=== PATIENT | male | born 1945 | race Caucasian/White ===

== ENCOUNTER → 2023-05-20 11:03 | Outpatient (REF) | payer MEDICARE, OTHER, SELFPAY ==
[2023-05-20 11:31] LABS: % Basophils 0.4 % (0-2); % Eosinophils 1.1 % (0-6); % Immature Granulocytes 0.4 % (0-0.5); % Monocytes 7.3 % (1.7-9.3); % Neutrophils 76.8 % (42.2-75.2); Absolute Eosinophils 0.1 10^3/uL (0-0.7); Absolute Lymphocytes 0.6 10^3/uL (1.2-3.4); Absolute Monocytes 0.3 10^3/uL (0.1-0.6); Absolute Neutrophils 3.5 10^3/uL (1.4-6.5); Hematocrit 39.3 % (39.0-52.0); Hemoglobin 14.5 g/dL (13.0-18.0); Mean Corp Hgb Conc. 36.9 g/dL (33.0-37.0); Mean Corpuscular Hgb 33.6 pg (27.0-31.0); Mean Platelet Volume 10.2 fL (7.4-10.4); Nucleated Red Blood Cells % 0 % (-); Platelet Count 117 10^3/uL (130-400); Red Blood Cell Count 4.32 10^6/uL (4.70-6.10); Red Cell Dist. Width 14.1 % (11.5-14.5); White Blood Cell Count 4.5 10^3/uL (4.8-10.8)
[2023-05-20 11:52] LABS: Iron 131 ug/dl (49-181)
[2023-05-20 12:03] LABS: Percent Saturation 38 % (20-50); Total Iron Binding Capacity 336 ug/dl (261-462)
[2023-05-20 12:30] LABS: Ferritin 40.4 ng/ml (17.9-464.0)
== END ==
LOC: REG 11:03
PROVIDERS: ATTENDING PHYSICIAN Internal Medicine Hematology & Oncology; FAMILY PHYSICIAN Family Medicine
DX: D72.819 Decreased white blood cell count, unspecified (principal); D64.9 Anemia, unspecified; D53.9 Nutritional anemia, unspecified; C83.07 Small cell B-cell lymphoma, spleen
CPT/HCPCS: 36415; 82728; 83540; 83550; 85025

== ENCOUNTER → 2023-06-20 08:03 | Outpatient (REF) | payer MEDICARE, OTHER, SELFPAY ==
[2023-06-20 10:32] LABS: Protein/creatinine Ratio 0.1; Urine Protein 7 mg/dl
[2023-06-20 10:35] LABS: ALT (SGPT) 22 U/L (0-50); AST (SGOT) 22 U/L (17-59); Albumin 4.7 g/dl (3.5-5.0); Alkaline Phosphatase 73 U/L (38-126); Blood Urea Nitrogen 27 mg/dl (9-20); Calcium 9.9 mg/dl (8.4-10.2); Carbon Dioxide 22 mmol/L (22-30); Chloride 100 mmol/L (98-107); Glucose 143 mg/dl (70-99); HDL Cholesterol 31 mg/dl; LDL Cholesterol, Calculated 78 mg/dl; Potassium 4.1 mmol/L (3.5-5.1); Sodium 133 mmol/L (135-145); Total Bilirubin 0.8 mg/dl (0.2-1.3); Total Cholesterol 139 mg/dl (50-199); Total Protein 6.8 g/dl (6.3-8.2); Triglyceride 152 mg/dl (10-149); Very Low Density Lipoprotein 30 mg/dl (0-30); eGFR > 60.00
[2023-06-20 11:39] LABS: Glycohemoglobin (HgbA1c) 5.6 % (4.0-5.6)
== END ==
LOC: REG 08:03
PROVIDERS: ATTENDING PHYSICIAN Family Medicine
DX: E11.8 Type 2 diabetes mellitus with unspecified complications (principal); E11.9 Type 2 diabetes mellitus without complications; I10 Essential (primary) hypertension; E78.2 Mixed hyperlipidemia
CPT/HCPCS: 80053; 80061; 82570; 83036; 84156

== ENCOUNTER → 2023-07-12 10:35 | Outpatient (REF) | payer MEDICARE, OTHER, SELFPAY ==
[2023-07-12 11:38] LABS: % Basophils 0.4 % (0-2); % Eosinophils 0.8 % (0-6); % Immature Granulocytes 0.6 % (0-0.5); % Lymphocytes 14.2 % (20.5-51.1); % Monocytes 7.6 % (1.7-9.3); % Neutrophils 76.4 % (42.2-75.2); Absolute Lymphocytes 0.7 10^3/uL (1.2-3.4); Absolute Monocytes 0.4 10^3/uL (0.1-0.6); Absolute Neutrophils 3.7 10^3/uL (1.4-6.5); Hemoglobin 14.1 g/dL (13.0-18.0); Mean Corp Hgb Conc. 36.2 g/dL (33.0-37.0); Mean Corpuscular Hgb 33.6 pg (27.0-31.0); Mean Corpuscular Volume 92.9 fL (80.0-94.0); Mean Platelet Volume 10.9 fL (7.4-10.4); Nucleated Red Blood Cells % 0 % (-); Platelet Count 119 10^3/uL (130-400); Red Cell Dist. Width 13.5 % (11.5-14.5); White Blood Cell Count 4.9 10^3/uL (4.8-10.8)
[2023-07-12 11:41] LABS: Urine Albumin Negative (Neg - Trace); Urine Bilirubin Negative (Negative); Urine Character Clear (Clear); Urine Color Yellow; Urine Glucose Negative (Negative); Urine Ketone Negative (Negative); Urine Leukocyte Negative (Negative); Urine Nitrite Negative (Negative); Urine Occult Blood Negative (Negative); Urine Specific Gravity 1.015 (<1.030); Urine Urobilinogen Negative (Neg - 1+)
[2023-07-12 12:59] LABS: Blood Urea Nitrogen 21 mg/dl (9-20); Calcium 10.2 mg/dl (8.4-10.2); Carbon Dioxide 25 mmol/L (22-30); Chloride 101 mmol/L (98-107); Glucose 113 mg/dl (70-99); Lipase 215 U/L (23-300); Potassium 4.3 mmol/L (3.5-5.1); Sodium 133 mmol/L (135-145); eGFR > 60.00
== END ==
LOC: REG 10:35
PROVIDERS: ATTENDING PHYSICIAN Nurse Practitioner Family
DX: R10.10 Upper abdominal pain, unspecified (principal)
CPT/HCPCS: 36415; 80048; 81003; 83690; 85025

== ENCOUNTER → 2023-07-16 10:17 | Outpatient (REF) | payer MEDICARE, OTHER, SELFPAY | LOC: HWRAD 10:17 | PROVIDERS: ATTENDING PHYSICIAN Nurse Practitioner Family | DX: R10.10 Upper abdominal pain, unspecified (principal) | CPT/HCPCS: 74177; Q9967 ==

== ENCOUNTER → 2023-07-26 15:01 | Outpatient (REF) | payer MEDICARE, OTHER, SELFPAY ==
[2023-07-26 17:27] LABS: % Basophils 0.4 % (0-2); % Eosinophils 1.1 % (0-6); % Immature Granulocytes 0.2 % (0-0.5); % Lymphocytes 13.9 % (20.5-51.1); % Monocytes 5.6 % (1.7-9.3); % Neutrophils 78.8 % (42.2-75.2); Absolute Eosinophils 0.1 10^3/uL (0-0.7); Absolute Lymphocytes 0.8 10^3/uL (1.2-3.4); Absolute Monocytes 0.3 10^3/uL (0.1-0.6); Absolute Neutrophils 4.3 10^3/uL (1.4-6.5); Hematocrit 38.3 % (39.0-52.0); Hemoglobin 13.7 g/dL (13.0-18.0); Mean Corp Hgb Conc. 35.8 g/dL (33.0-37.0); Mean Corpuscular Hgb 33.7 pg (27.0-31.0); Mean Corpuscular Volume 94.3 fL (80.0-94.0); Mean Platelet Volume 10.5 fL (7.4-10.4); Nucleated Red Blood Cells % 0 % (-); Platelet Count 121 10^3/uL (130-400); Red Blood Cell Count 4.06 10^6/uL (4.70-6.10); Red Cell Dist. Width 13.4 % (11.5-14.5); Reticulocyte Count 2.5 % (0.4-2.8); White Blood Cell Count 5.4 10^3/uL (4.8-10.8)
[2023-07-26 17:45] LABS: Iron 90 ug/dl (49-181)
[2023-07-26 17:58] LABS: Percent Saturation 28 % (20-50); Total Iron Binding Capacity 314 ug/dl (261-462)
[2023-07-26 18:33] LABS: Erythrocyte Sed Rate 8 mm/hour (0-20)
[2023-07-28 16:33] LABS: Platelet Antibody, Direct IgG Negative (Negative); Platelet Antibody, Direct IgM Negative (Negative)
[2023-07-29 00:46] LABS: IgG 476 mg/dl (700-1600); IgM 45 mg/dl (40-230)
== END ==
LOC: REG 15:01
PROVIDERS: ATTENDING PHYSICIAN Internal Medicine Hematology & Oncology; FAMILY PHYSICIAN Family Medicine
DX: D72.819 Decreased white blood cell count, unspecified (principal); D64.9 Anemia, unspecified; D53.9 Nutritional anemia, unspecified; C83.07 Small cell B-cell lymphoma, spleen
CPT/HCPCS: 36415; 82728; 82784; 83521; 83540; 83550; 84155; 84165; 85025; 85045; 85652; 86023; 86334

== ENCOUNTER → 2023-07-30 14:26 | Outpatient (REF) | payer MEDICARE, OTHER, SELFPAY | LOC: REG 14:26 | PROVIDERS: ATTENDING PHYSICIAN Internal Medicine Hematology & Oncology; FAMILY PHYSICIAN Family Medicine | DX: D72.819 Decreased white blood cell count, unspecified (principal); D64.9 Anemia, unspecified; D53.9 Nutritional anemia, unspecified; C83.07 Small cell B-cell lymphoma, spleen | CPT/HCPCS: 36415; 82272 ==

== ENCOUNTER → 2023-08-22 07:07 | Outpatient (REF) | payer MEDICARE, OTHER, SELFPAY ==
[2023-08-22 07:37] LABS: % Basophils 0.4 % (0-2); % Eosinophils 1.8 % (0-6); % Immature Granulocytes 0.4 % (0-0.5); % Lymphocytes 15.5 % (20.5-51.1); % Monocytes 7.2 % (1.7-9.3); % Neutrophils 74.7 % (42.2-75.2); Absolute Eosinophils 0.1 10^3/uL (0-0.7); Absolute Lymphocytes 0.8 10^3/uL (1.2-3.4); Absolute Monocytes 0.4 10^3/uL (0.1-0.6); Absolute Neutrophils 3.7 10^3/uL (1.4-6.5); Hematocrit 34.9 % (39.0-52.0); Hemoglobin 12.8 g/dL (13.0-18.0); Mean Corp Hgb Conc. 36.7 g/dL (33.0-37.0); Mean Corpuscular Hgb 33.9 pg (27.0-31.0); Mean Corpuscular Volume 92.3 fL (80.0-94.0); Nucleated Red Blood Cells % 0 % (-); Red Blood Cell Count 3.78 10^6/uL (4.70-6.10); Red Cell Dist. Width 14.4 % (11.5-14.5); White Blood Cell Count 4.9 10^3/uL (4.8-10.8)
[2023-08-22 07:42] VITALS: BP 127/71; BP_SYST 68
[2023-08-22 07:45] LABS: INR 0.97; PT 12.9 Sec (11.4-14.6)
[2023-08-22] MEDS: ATIVAN 0.5 MG IV (08:25)
[2023-08-22] MEDS: FLUSH (NSS) 1 FLUSH IV (08:26)
[2023-08-22] MEDS: NSS (PRESERVATIVE FREE) 0.25 ML IV (08:26)
[2023-08-22 08:41] LABS: Mean Platelet Volume 10.3 fL (7.4-10.4); Platelet Count 104 10^3/uL (130-400)
[2023-08-22 09:09] VITALS: BP 137/74
== END ==
LOC: RADI 07:07
PROVIDERS: ATTENDING PHYSICIAN Internal Medicine Hematology & Oncology; FAMILY PHYSICIAN Family Medicine
DX: D64.9 Anemia, unspecified (principal)
CPT/HCPCS: 88305; 88311; 88312; 36415; 38222; 77012; 85025; 85610; 88313; 88341; 88342

== ENCOUNTER → 2023-09-17 13:37 | Outpatient (REF) | payer MEDICARE, OTHER, SELFPAY | LOC: RAD 13:37 | PROVIDERS: ATTENDING PHYSICIAN Surgery Vascular Surgery; FAMILY PHYSICIAN Family Medicine | DX: I65.09 Occlusion and stenosis of unspecified vertebral artery (principal) | CPT/HCPCS: 70496; 70498; Q9967 ==

== ENCOUNTER → 2023-09-18 13:42 | Outpatient (REF) | payer MEDICARE, OTHER, SELFPAY ==
[2023-09-19 15:58] LABS: Lyme Antibody Screen, EIA Negative (Negative)
== END ==
LOC: REG 13:42
PROVIDERS: ATTENDING PHYSICIAN Family Medicine
DX: R16.1 Splenomegaly, not elsewhere classified (principal)
CPT/HCPCS: 36415; 86618

== ENCOUNTER → 2023-09-26 06:18 | Day surgery (SDC) | payer MEDICARE, OTHER, SELFPAY ==
[2023-09-26 08:02] LABS: Glucose - Point of Care 146 mg/dl (70-99)
== END ==
LOC: GI 06:18
PROVIDERS: ATTENDING PHYSICIAN Internal Medicine Gastroenterology
DX: Z12.11 Encounter for screening for malignant neoplasm of colon (principal); K57.30 Diverticulosis of large intestine without perforation or abscess without bleeding; K64.8 Other hemorrhoids; R10.12 Left upper quadrant pain; D12.2 Benign neoplasm of ascending colon; D12.3 Benign neoplasm of transverse colon; D12.7 Benign neoplasm of rectosigmoid junction; D12.1 Benign neoplasm of appendix; D12.4 Benign neoplasm of descending colon; K29.50 Unspecified chronic gastritis without bleeding; Z86.010 Personal history of colon polyps
CPT/HCPCS: 45385; 45381; 43239; 88305; 82962; 88342

== ENCOUNTER → 2023-10-21 12:52 | Outpatient (REF) | payer MEDICARE, OTHER, SELFPAY | LOC: HWRAD 12:52 | PROVIDERS: ATTENDING PHYSICIAN Nurse Practitioner Family; FAMILY PHYSICIAN Family Medicine | DX: R10.10 Upper abdominal pain, unspecified (principal) | CPT/HCPCS: 76700 ==

== ENCOUNTER 2023-11-20 06:49 | Day surgery (SDC) | payer MEDICARE, OTHER, SELFPAY ==
[2023-11-20 08:05] VITALS: BMI 28.9
[2023-11-20 08:07] VITALS: BMI 28.9
[2023-11-20 08:33] LABS: Glucose - Point of Care 159 mg/dl (70-99)
[2023-11-20 11:20] LABS: Glucose - Point of Care 141 mg/dl (70-99)
[2023-11-20 12:49] VITALS: BP 118/67
[2023-11-20 13:00] VITALS: BP 138/75
[2023-11-20 13:15] VITALS: BP 119/69
[2023-11-20 13:30] VITALS: BP 127/72
== END 2023-11-20 14:16 | disposition home or self-care (01) ==
LOC: SDS 06:49
PROVIDERS: ATTENDING PHYSICIAN Internal Medicine Gastroenterology
DX: D12.1 Benign neoplasm of appendix (principal); D12.3 Benign neoplasm of transverse colon; D12.4 Benign neoplasm of descending colon; D12.6 Benign neoplasm of colon, unspecified; K57.30 Diverticulosis of large intestine without perforation or abscess without bleeding; K64.0 First degree hemorrhoids; Z86.010 Personal history of colon polyps
CPT/HCPCS: 45390; 45385; 45380; 88305; 82962

== ENCOUNTER → 2023-11-25 10:26 | Outpatient (REF) | payer MEDICARE, OTHER, SELFPAY ==
[2023-11-25 11:39] LABS: % Basophils 0.2 % (0-2); % Eosinophils 1.3 % (0-6); % Immature Granulocytes 0.7 % (0-0.5); % Lymphocytes 16.1 % (20.5-51.1); % Monocytes 7.2 % (1.7-9.3); % Neutrophils 74.5 % (42.2-75.2); Absolute Eosinophils 0.1 10^3/uL (0-0.7); Absolute Lymphocytes 0.7 10^3/uL (1.2-3.4); Absolute Monocytes 0.3 10^3/uL (0.1-0.6); Absolute Neutrophils 3.4 10^3/uL (1.4-6.5); Hematocrit 36.1 % (39.0-52.0); Mean Corpuscular Hgb 32.5 pg (27.0-31.0); Mean Corpuscular Volume 90.3 fL (80.0-94.0); Mean Platelet Volume 10.9 fL (7.4-10.4); Nucleated Red Blood Cells % 0 % (-); Platelet Count 127 10^3/uL (130-400); Red Cell Dist. Width 14.5 % (11.5-14.5); White Blood Cell Count 4.6 10^3/uL (4.8-10.8)
[2023-11-25 12:02] LABS: Glycohemoglobin (HgbA1c) 5.3 % (4.0-5.6)
[2023-11-25 12:32] LABS: Ferritin 60.5 ng/ml (17.9-464.0)
[2023-11-25 13:32] LABS: ALT (SGPT) 20 U/L (0-50); AST (SGOT) 19 U/L (17-59); Albumin 4.6 g/dl (3.5-5.0); Alkaline Phosphatase 61 U/L (38-126); Blood Urea Nitrogen 21 mg/dl (9-20); Calcium 9.9 mg/dl (8.4-10.2); Carbon Dioxide 25 mmol/L (22-30); Chloride 100 mmol/L (98-107); Glucose 145 mg/dl (70-99); HDL Cholesterol 34 mg/dl; Iron 96 ug/dl (49-181); LDL Cholesterol, Calculated 29 mg/dl; Potassium 4.4 mmol/L (3.5-5.1); Sodium 140 mmol/L (135-145); Total Bilirubin 0.9 mg/dl (0.2-1.3); Total Cholesterol 83 mg/dl (50-199); Total Protein 6.4 g/dl (6.3-8.2); Triglyceride 104 mg/dl (10-149); Very Low Density Lipoprotein 20 mg/dl (0-30); eGFR > 60.00
[2023-11-25 13:41] LABS: Percent Saturation 30 % (20-50); Total Iron Binding Capacity 313 ug/dl (261-462)
== END ==
LOC: REG 10:26
PROVIDERS: ATTENDING PHYSICIAN Internal Medicine Hematology & Oncology; FAMILY PHYSICIAN Nurse Practitioner Family
DX: D72.819 Decreased white blood cell count, unspecified (principal); D64.9 Anemia, unspecified; D53.9 Nutritional anemia, unspecified; C83.07 Small cell B-cell lymphoma, spleen; E11.9 Type 2 diabetes mellitus without complications; E11.8 Type 2 diabetes mellitus with unspecified complications
CPT/HCPCS: 36415; 80053; 80061; 82728; 83036; 83540; 83550; 85025

== ENCOUNTER → 2023-12-13 12:56 | Outpatient (REF) | payer MEDICARE, OTHER, SELFPAY ==
[2023-12-13 13:59] LABS: Urine Albumin Negative (Neg - Trace); Urine Bilirubin Negative (Negative); Urine Character Clear (Clear); Urine Color Yellow; Urine Glucose Negative (Negative); Urine Ketone Negative (Negative); Urine Leukocyte Negative (Negative); Urine Nitrite Negative (Negative); Urine Occult Blood Negative (Negative); Urine Specific Gravity 1.015 (<1.030); Urine Urobilinogen Negative (Neg - 1+)
[2023-12-13 14:25] LABS: Microalbumin, Random Urine 1.4 mg/dl (0.6-1.7); Microalbumin/creatinine Ratio 17.5 mg/g
[2023-12-13 14:45] LABS: Vitamin D, 25-OH*** 48.3 ng/mL (30-80)
[2023-12-13 14:59] LABS: PSA, Total - Screen 4.23 ng/ml (0.0-4.0)
== END ==
LOC: REG 12:56
PROVIDERS: ATTENDING PHYSICIAN Family Medicine
DX: E11.8 Type 2 diabetes mellitus with unspecified complications (principal); Z12.5 Encounter for screening for malignant neoplasm of prostate; Z79.899 Other long term (current) drug therapy
CPT/HCPCS: 36415; 81003; 82043; 82306; 82570; G0103

== ENCOUNTER 2024-01-21 06:32 | Day surgery (SDC) | payer MEDICARE, OTHER, SELFPAY ==
[2024-01-21 08:04] LABS: Glucose - Point of Care 160 mg/dl (70-99)
[2024-01-21 08:09] VITALS: BMI 28.8
[2024-01-21 08:10] VITALS: BP 147/89
[2024-01-21 11:39] VITALS: BP 112/69
[2024-01-21 11:45] VITALS: BP 129/81
[2024-01-21 11:56] LABS: Glucose - Point of Care 160 mg/dl (70-99)
[2024-01-21 12:00] VITALS: BP 126/60
[2024-01-21 12:15] VITALS: BP 133/73
== END 2024-01-21 13:12 | disposition home or self-care (01) ==
LOC: SDS 06:32
PROVIDERS: ATTENDING PHYSICIAN Internal Medicine Gastroenterology
DX: D12.3 Benign neoplasm of transverse colon (principal); T18.4XXA Foreign body in colon, initial encounter; Y83.1 Surgical operation with implant of artificial internal device as the cause of abnormal reaction of the patient, or of later complication, without mention of misadventure at the time of the procedure; K57.30 Diverticulosis of large intestine without perforation or abscess without bleeding; K64.0 First degree hemorrhoids; Z98.890 Other specified postprocedural states
CPT/HCPCS: 45390; 45388; 45385; 88305; 82962

== ENCOUNTER → 2024-01-28 15:38 | Outpatient (REF) | payer MEDICARE, OTHER, SELFPAY | LOC: RAD 15:38 | PROVIDERS: ATTENDING PHYSICIAN Family Medicine | DX: R22.31 Localized swelling, mass and lump, right upper limb (principal) | CPT/HCPCS: 93971 ==

== ENCOUNTER → 2024-04-01 13:53 | Outpatient (REF) | payer MEDICARE, OTHER, SELFPAY ==
[2024-04-01 14:49] LABS: % Basophils 0.5 % (0-2); % Eosinophils 1.2 % (0-6); % Immature Granulocytes 0.5 % (0-0.5); % Lymphocytes 16.8 % (20.5-51.1); % Monocytes 6.3 % (1.7-9.3); % Neutrophils 74.7 % (42.2-75.2); Absolute Eosinophils 0.1 10^3/uL (0-0.7); Absolute Lymphocytes 0.7 10^3/uL (1.2-3.4); Absolute Monocytes 0.3 10^3/uL (0.1-0.6); Absolute Neutrophils 3.1 10^3/uL (1.4-6.5); Hematocrit 37.5 % (39.0-52.0); Hemoglobin 13.3 g/dL (13.0-18.0); Mean Corp Hgb Conc. 35.5 g/dL (33.0-37.0); Mean Corpuscular Hgb 33.1 pg (27.0-31.0); Mean Corpuscular Volume 93.3 fL (80.0-94.0); Mean Platelet Volume 10.9 fL (7.4-10.4); Nucleated Red Blood Cells % 0 % (-); Platelet Count 118 10^3/uL (130-400); Red Blood Cell Count 4.02 10^6/uL (4.70-6.10); Red Cell Dist. Width 13.4 % (11.5-14.5); White Blood Cell Count 4.1 10^3/uL (4.8-10.8)
[2024-04-01 15:32] LABS: Iron 106 ug/dl (49-181)
[2024-04-01 15:41] LABS: Percent Saturation 34 % (20-50); Total Iron Binding Capacity 308 ug/dl (261-462)
[2024-04-01 16:07] LABS: Ferritin 34.2 ng/ml (17.9-464.0)
== END ==
LOC: REG 13:53
PROVIDERS: ATTENDING PHYSICIAN Internal Medicine Hematology & Oncology; FAMILY PHYSICIAN Family Medicine
DX: D72.819 Decreased white blood cell count, unspecified (principal); D64.9 Anemia, unspecified; D53.9 Nutritional anemia, unspecified; C83.07 Small cell B-cell lymphoma, spleen
CPT/HCPCS: 36415; 82728; 83540; 83550; 85025

== ENCOUNTER 2024-05-22 13:48 | Emergency (ER) | payer MEDICARE, OTHER, SELFPAY ==
[2024-05-22 14:02] VITALS: BP 146/81
[2024-05-22 14:33] LABS: % Basophils 0.7 % (0-2); % Eosinophils 1.1 % (0-6); % Immature Granulocytes 0.4 % (0-0.5); % Monocytes 6.8 % (1.7-9.3); % Neutrophils 73.6 % (42.2-75.2); Absolute Eosinophils 0.1 10^3/uL (0-0.7); Absolute Lymphocytes 0.8 10^3/uL (1.2-3.4); Absolute Monocytes 0.3 10^3/uL (0.1-0.6); Absolute Neutrophils 3.3 10^3/uL (1.4-6.5); Hematocrit 38.5 % (39.0-52.0); Mean Corp Hgb Conc. 35.8 g/dL (33.0-37.0); Mean Corpuscular Hgb 32.4 pg (27.0-31.0); Mean Corpuscular Volume 90.4 fL (80.0-94.0); Mean Platelet Volume 10.8 fL (7.4-10.4); Nucleated Red Blood Cells % 0 % (-); Platelet Count 115 10^3/uL (130-400); Red Blood Cell Count 4.29 10^6/uL (4.70-6.10); White Blood Cell Count 4.5 10^3/uL (4.8-10.8)
[2024-05-22 14:44] LABS: ALT (SGPT) 18 U/L (0-50); AST (SGOT) 19 U/L (17-59); Albumin 4.4 g/dl (3.5-5.0); Alkaline Phosphatase 65 U/L (38-126); Blood Urea Nitrogen 23 mg/dl (9-20); Calcium 10.4 mg/dl (8.4-10.2); Carbon Dioxide 26 mmol/L (22-30); Chloride 101 mmol/L (98-107); Glucose 99 mg/dl (70-99); Lipase 53 U/L (23-300); Potassium 4.3 mmol/L (3.5-5.1); Sodium 136 mmol/L (135-145); Total Bilirubin 1.2 mg/dl (0.2-1.3); Total Protein 6.5 g/dl (6.3-8.2); eGFR > 60.00
[2024-05-22 14:56] LABS: Troponin I 0.016 ng/ml
[2024-05-22 17:10] LABS: Urine Albumin 1+ (Neg - Trace); Urine Bilirubin Negative (Negative); Urine Character Clear (Clear); Urine Color Yellow; Urine Glucose Negative (Negative); Urine Ketone Negative (Negative); Urine Leukocyte Negative (Negative); Urine Nitrite Negative (Negative); Urine Occult Blood Negative (Negative); Urine Specific Gravity 1.015 (<1.030); Urine Urobilinogen Negative (Neg - 1+)
[2024-05-22 17:13] VITALS: BP 128/69
--- NOTE | 2024-05-22 17:27 | ED.GENMED ---
History of Present Illness
General
Chief Complaint: Heart Rate Problem
Time Seen by Provider: 05/22/24 17:01
History of Present Illness
History of Present Illness:
79-year-old male presents to the emergency department for evaluation of an acute onset of dizziness that occurred earlier today lasting several hours. States that occurred while he was seated at his desk but seem to be worse when he stood up. [place]
very uneasy when trying to walk but did not fall. He also notes having right lower quadrant abdominal pain for the duration of the day. No fevers, chills, sweats, headache, vision changes, neck pain, or extremity paresthesias. Dizziness does seem
to angella at this time
Past History
Past History
ED Past Medical History: None
ED Past Surgical History: None
Social History
Tobacco: Non-smoker
Review of Systems
Review of Systems
Allergies reviewed?: Yes
All Other Systems: ROS reviewed and negative except as documented in HPI and ROS
Phy Exam
Physical Exam
Physical Exam:
GEN: Well appearing, NAD, WDWN
HEENT: Oral mucosa moist, no scleral icterus, no nasal congestion
Cardiac: Regular rate and rhythm, occasional ectopic beats
Lung: No respiratory distress, no tachypnea, lungs CTAB
Abdomen: Soft, Focal RLQ tenderness
MSK: No gross deformity or injuries
Skin: Good color, no pallor or jaundice, no rashes
Neuro: AO x3; CN II-XII grossly intact. BUE strength 5/5 in all mcfadden, sensation intact and symmetric. BLE strength 5/5 in all mcfadden, sensation intact and symmetric. Gait steady
Psych: Calm, cooperative
Course
Orders/Labs/Results
Orders:
Orders
05/22/24 13:59
Electrocardiogram (*1) Urgent
Reason for Study: Vertigo / Dizzy
05/22/24 14:00
EKG- Treatment ONCE
05/22/24 14:11
Complete Blood Count/With Diff Urgent
Comprehensive Metabolic Panel Urgent
Lipase Urgent
Troponin I Urgent
05/22/24 17:01
Urinalysis Reflex To Culture Urgent
Date Specimen was Collected: 05/22/24
Time Specimen was Collected: 16:59
Urine Microscopic Reflex Cult Urgent
05/22/24 17:30
CT Abd/Pel (IV only)-DH only Urgent
Comment:
Reason For Exam: RLQ pain
Abnormal Lab Results
05/22/24 05/22/24
14:11 17:01
WBC 4.5 L 10^3/uL
(4.8-10.8)
RBC 4.29 L 10^6/uL
(4.70-6.10)
Hct 38.5 L %
(39.0-52.0)
MCH 32.4 H pg
(27.0-31.0)
Plt Count 115 L 10^3/uL
(130-400)
MPV 10.8 H fL
(7.4-10.4)
Absolute Lymphs (auto) 0.8 L 10^3/uL
(1.2-3.4)
Lymphocytes % 17.0 L %
(20.5-51.1)
BUN 23 H mg/dl
(9-20)
Calcium 10.4 H mg/dl
(8.4-10.2)
Urine Bacteria (Reflex) Few A
(Negative)
Urine Albumin (Reflex) 1+ A
(Neg - Trace)
05/22/24 14:11
05/22/24 14:11
Vital Signs
Initial and Last Documented VS:
Initial Vital Signs
Temp Pulse Resp BP Pulse Ox
97.6 F 73 18 146/81 97
05/22/24 14:02 05/22/24 14:02 05/22/24 14:02 05/22/24 14:02 05/22/24 14:02
Last Documented Vital Signs
Temp Pulse Resp BP Pulse Ox
98.0 F 68 16 128/69 97
05/22/24 17:13 05/22/24 17:13 05/22/24 17:13 05/22/24 17:13 05/22/24 17:13
MDM/Problems Addressed
MDM/Problems Addressed:
Unclear etiology to the patient's symptoms. CT shows no discernible cause of lower abdominal pain. He has no signs of dizziness at this time. Dizziness was likely a brief vertigo episode that is since resolved.
*Critical Care Note
Total Time (30-74mins, 75-104mins- exclusive of procedures): Not Applicable
ED Attending Note
-
Portions of this chart may have been created with voice recognition software.� Occasional wrong word or��sound alike� substitutions may have occurred due to the inherent limitations of voice recognition software.
Discharge Plan
Departure
Patient Disposition: Home (Routine Discharge)
Date of Disposition: 05/22/24
Time of Disposition: 19:43
Patient with high blood pressure during this ER visit?: No
Discharge Problem:
Dizziness, Abdominal pain, lower
Instructions: Dizziness
Prescriptions:
No Action
polyethylene glycol 3350 17 GRAMS powder in packet
17 grams PO DAILY PRN (Reason: CONSTIPATION )
diltiazem HCl 180 MG capsule,extended release 24hr
180 mg PO DAILY
cyanocobalamin (vitamin B-12) 1,000 MCG tablet
5,000 mcg PO DAILY
ascorbic acid (vitamin C) [Vitamin C] 500 MG tablet
1,000 mg PO DAILY
Daren Mag Zinc Plus D3 1 EACH tablet
1 ea PO DAILY
psyllium husk (bulk) 1 GM powder
1 dose PO DAILY
metformin 500 MG tablet
1,000 mg PO BID 0RF
Rx Instructions:
1000mg in am 500mg in pm
acetaminophen [Tylenol Extra Strength] 500 MG tablet
1,000 mg PO Q6H 0RF
diazepam 5 MG tablet
5 mg PO HS Qty: 7 0RF
omeprazole 20 MG capsule,delayed release(DR/EC)
20 mg PO DAILY Qty: 0 0RF
Rx Instructions:
1-2 hours befor meds or food-or take at hs
cetirizine 10 mg Tablet
10 mg PO DAILY
iron 50 mg iron Tablet
65 tab PO DAILY
docusate sodium 100 mg Capsule
100 mg PO DAILY
aspirin 81 mg Tablet
81 mg PO DAILY
Rx Instructions:
every other day
olmesartan 5 mg Tablet
5 mg PO DAILY
alpha lipoic acid 100 mg Capsule
100 mg PO DAILY
omega 0-vvd-whr-fish oil [Fish Oil] 1,200 (144-216) mg Capsule
2,400 cap PO DAILY
magnesium citrate 125 mg Capsule
250 mg PO DAILY
Referrals:
Paulie Pickering DO [Family Provider] -
Interventions
Interventions:
*Risk Screen - Suicide Last Done: 05/22/24 19:55
*General Assessment Last Done: 05/22/24 19:55
*Neglect/Abuse Screening Last Done: 05/22/24 19:55
*ED- Fall Risk Assessment Last Done: 05/22/24 19:55
*ED COVID-19 Vaccine History Last Done: 05/22/24 19:55
*Nursing Disposition Last Done: 05/22/24 19:57
ED- Cardiac Assessment Last Done: 05/22/24 19:55
ED- Pulmonary Assessment Last Done: 05/22/24 19:55
Discharge Date and Time
Discharge Date/Time: 05/22/24 19:58
Print Language: ICELANDIC
[2024-05-22 17:31] LABS: Urine Bacteria Few (Negative); Urine Red Blood Cell 0-2 /HPF (0-2); Urine Squamous Cell 0-2 /LPF (Few); Urine White Cell 0-2 /HPF (0-5)
== END 2024-05-22 19:58 | disposition home or self-care (01) ==
LOC: EMR 13:48
PROVIDERS: Physician Assistant; EMERGENCY PHYSICIAN Emergency Medicine; FAMILY PHYSICIAN Internal Medicine
DX: R42 Dizziness and giddiness (principal); R10.30 Lower abdominal pain, unspecified
CPT/HCPCS: 99285; 74177; 80053; 81003; 81015; 83690; 84484; 85025; 93005; Q9967

== ENCOUNTER → 2024-06-12 09:37 | Outpatient (REF) | payer MEDICARE, OTHER, SELFPAY ==
[2024-06-12 10:43] LABS: Microalbumin, Random Urine 3.3 mg/dl (0.6-1.7); Microalbumin/creatinine Ratio 27.2 mg/g
[2024-06-12 10:53] LABS: Glycohemoglobin (HgbA1c) 5.4 % (4.0-5.6)
[2024-06-12 11:43] LABS: ALT (SGPT) 18 U/L (0-50); AST (SGOT) 18 U/L (17-59); Albumin 4.1 g/dl (3.5-5.0); Alkaline Phosphatase 63 U/L (38-126); Blood Urea Nitrogen 19 mg/dl (9-20); Calcium 9.5 mg/dl (8.4-10.2); Carbon Dioxide 25 mmol/L (22-30); Chloride 107 mmol/L (98-107); Glucose 121 mg/dl (70-99); HDL Cholesterol 31 mg/dl; LDL Cholesterol, Calculated 86 mg/dl; Potassium 4.1 mmol/L (3.5-5.1); Sodium 141 mmol/L (135-145); Total Cholesterol 142 mg/dl (50-199); Total Protein 6.1 g/dl (6.3-8.2); Triglyceride 129 mg/dl (10-149); Very Low Density Lipoprotein 25 mg/dl (0-30); eGFR > 60.00
== END ==
LOC: REG 09:37
PROVIDERS: ATTENDING PHYSICIAN Family Medicine
DX: E11.69 Type 2 diabetes mellitus with other specified complication (principal); E11.9 Type 2 diabetes mellitus without complications; I10 Essential (primary) hypertension
CPT/HCPCS: 36415; 80053; 80061; 82043; 82570; 83036

== ENCOUNTER → 2024-06-15 12:48 | Outpatient (REF) | payer MEDICARE, OTHER, SELFPAY | LOC: HWRCS 12:48 | PROVIDERS: ATTENDING PHYSICIAN Internal Medicine Cardiovascular Disease; FAMILY PHYSICIAN Family Medicine | DX: R07.9 Chest pain, unspecified (principal) | CPT/HCPCS: 93306 ==

== ENCOUNTER → 2024-06-24 08:31 | Outpatient (REF) | payer MEDICARE, OTHER, SELFPAY | LOC: HWRCS 08:31 | PROVIDERS: ATTENDING PHYSICIAN Internal Medicine Cardiovascular Disease; FAMILY PHYSICIAN Family Medicine | DX: R07.9 Chest pain, unspecified (principal) | CPT/HCPCS: 78452; 93017; A9500; J2785 ==

== ENCOUNTER 2024-07-09 06:07 | Day surgery (SDC) | payer MEDICARE, OTHER, SELFPAY ==
[2024-07-09 07:04] VITALS: BP 122/70
[2024-07-09 07:16] LABS: Glucose - Point of Care 139 mg/dl (70-99)
[2024-07-09 07:36] VITALS: BMI 28.6
[2024-07-09 09:31] VITALS: BP 117/64
[2024-07-09 09:45] VITALS: BP 131/71
[2024-07-09 10:00] VITALS: BP 108/56
== END 2024-07-09 10:30 | disposition home or self-care (01) ==
LOC: SDS 06:07
PROVIDERS: ATTENDING PHYSICIAN Internal Medicine Gastroenterology
DX: Z12.11 Encounter for screening for malignant neoplasm of colon (principal); D12.2 Benign neoplasm of ascending colon; D12.3 Benign neoplasm of transverse colon; K64.0 First degree hemorrhoids; Z86.0101 Personal history of adenomatous and serrated colon polyps; Z98.890 Other specified postprocedural states
CPT/HCPCS: 45390; 45385; 45380; 88305; 82962

== ENCOUNTER → 2024-10-05 10:56 | Outpatient (REF) | payer MEDICARE, OTHER, SELFPAY ==
[2024-10-05 11:44] LABS: Hematocrit 38.8 % (39.0-52.0); Hemoglobin 14.1 g/dL (13.0-18.0); Mean Corp Hgb Conc. 36.3 g/dL (33.0-37.0); Mean Corpuscular Volume 93.3 fL (80.0-94.0); Nucleated Red Blood Cells % 0 % (-); Platelet Count 103 10^3/uL (130-400); Red Cell Dist. Width 14.6 % (11.5-14.5)
[2024-10-05 12:22] LABS: Iron 92 ug/dl (49-181)
[2024-10-05 12:32] LABS: Total Iron Binding Capacity 324 ug/dl (261-462)
[2024-10-05 12:48] LABS: Ferritin 36.3 ng/ml (17.9-464.0)
== END ==
LOC: REG 10:56
PROVIDERS: ATTENDING PHYSICIAN Nurse Practitioner Primary Care
DX: D72.819 Decreased white blood cell count, unspecified (principal); D64.9 Anemia, unspecified; D53.9 Nutritional anemia, unspecified; C83.07 Small cell B-cell lymphoma, spleen
CPT/HCPCS: 36415; 82728; 83540; 83550; 85025

== ENCOUNTER 2024-10-24 23:19 | Inpatient (IN) | payer MEDICARE, OTHER, SELFPAY ==
[2024-10-24] VITALS (21 sets, daily range): BP systolic 53–119; BP diastolic 22–80
[2024-10-24 20:20] LABS: Hematocrit 39.9 % (39.0-52.0); Hemoglobin 14.6 g/dL (13.0-18.0); Mean Corp Hgb Conc. 36.6 g/dL (33.0-37.0); Mean Corpuscular Volume 92.1 fL (80.0-94.0); Nucleated Red Blood Cells % 0 % (-); Platelet Count 123 10^3/uL (130-400); Red Cell Dist. Width 14.1 % (11.5-14.5)
[2024-10-24 20:36] LABS: ALT (SGPT) 17 U/L (0-50); AST (SGOT) 17 U/L (17-59); Albumin 4.3 g/dl (3.5-5.0); Alkaline Phosphatase 62 U/L (38-126); Blood Urea Nitrogen 29 mg/dl (9-20); Calcium 9.6 mg/dl (8.4-10.2); Carbon Dioxide 25 mmol/L (22-30); Chloride 103 mmol/L (98-107); Glucose 139 mg/dl (70-99); Potassium 4.6 mmol/L (3.5-5.1); Sodium 133 mmol/L (135-145); Total Protein 6.1 g/dl (6.3-8.2); eGFR 56.58
[2024-10-24 20:43] LABS: Troponin I 0.239 ng/ml
--- NOTE | 2024-10-24 22:00 | HPS.HSE ---
Family Physician
-
Family Physician:
Chief Complaint
-
chest pressure
History of Present Illness
79 year old with PMH for GERD, HTN, type 2Dm presented to us with pressure underneath his ribcage as well chest pressure. he felt the same symptoms two weeks ago which passed on its own. today he felt it couple times which prompted him to come to
the ER. denied sob. denied [place], dizzy or syncope. denied abdominal pain,n,v,d. denied dysuria or hematuria.
patient had an stress echo two months ago which was negative
elevated trop. received asa. admitting for further management.
patient noted in SVT HR in 180's, no improvement with adenosine. cardioverted in the ER.
Medical History
Past Medical History
Past Medical History: Reports Other
Additional Past Medical History:
Type 2 diabetes
Seasonal allergies
Hemorrhoids
Thrombocytopenia
Colon polyps
Past Surgical History: Reports Other
Additional Past Surgical History:
Tonsillectomy
Knee replacement
Laminectomy
Social History
Tobacco: Former Smoker
Alcohol: Former
Drug: None
Personal: Single
Living: Alone
Family History
Family History: Not pertinent
Allergies / Home Medications
Allergies reflects when Allergies were last updated in [facility].
Home Medications with original date entered in [facility]
Allergy/Medication List:
Allergies
Allergy/AdvReac Type Severity Reaction Status Date / Time
lisinopril Allergy Itching Verified 07/09/24 07:13
Qshynrz-CJS-BeN Reductase Allergy Unknown Verified 07/09/24 07:13
Inhibitor
vancomycin Allergy RED MAN Verified 01/21/24 07:53
SYNDROME
beef,potatoes,onion,tomatoes Allergy diarrhea,difficulty Uncoded 01/21/24 07:53
breathing
seasaonal Allergy sinus Uncoded 01/21/24 07:53
infection
Home Medications
ascorbic acid (vitamin C) 500 mg tablet (Vitamin C) 1,000 mg PO DAILY 08/03/20
calcium 333 mg-vit D3 133 unit-magnesium 133 mg-zinc 5 mg tablet (Daren Mag Zinc Plus D3) 1 ea PO DAILY 08/03/20
cyanocobalamin (vitamin B-12) 1,000 mcg tablet 5,000 mcg PO DAILY 08/03/20
diltiazem HCl 180 mg capsule,extended release 24 hr 180 mg PO DAILY 08/03/20
polyethylene glycol 3350 17 gram oral powder packet 17 grams PO DAILY PRN CONSTIPATION 08/03/20
psyllium husk (bulk) 100 % powder 1 dose PO DAILY Constipation 08/03/20
acetaminophen 500 mg tablet (Tylenol Extra Strength) 1,000 mg (2 x 500 mg) PO Q6H 08/18/20
omeprazole 20 mg capsule,delayed release 20 mg PO DAILY ##0 08/18/20
alpha lipoic acid 100 mg capsule 1,200 mg PO DAILY 08/20/23
aspirin 81 mg tablet 81 mg PO DAILY 08/20/23
cetirizine 10 mg tablet 10 mg PO DAILY PRN allergies 08/20/23
docusate sodium 100 mg capsule 100 mg PO DAILY 08/20/23
iron 50 mg iron tablet 65 tab PO .QOD 08/20/23
magnesium citrate 125 mg capsule 250 mg PO ONCE 08/20/23
olmesartan 5 mg tablet 5 mg PO DAILY 08/20/23
omega 0-scy-pyd-fish oil 1,200 mg (144 mg-216 mg) capsule (Fish Oil) 2,400 cap PO DAILY 08/20/23
Cbd Gummies 2 tab PO HS 07/09/24
Hydroxymethyl Butarate 1,000 mg PO DAILY 07/09/24
Reservatrol, Berberine, 2 tab PO DAILY 07/09/24
cholecalciferol (vitamin D3) 50 mcg (2,000 unit) capsule (Vitamin D3) 50 mcg PO DAILY 07/09/24
diazepam 5 mg tablet 5 mg PO DAILY PRN anxiety 07/09/24
melatonin 5 mg tablet 5 mg PO DAILY 07/09/24
metformin 500 mg tablet 1,000 mg PO AMHS 07/09/24
metformin 500 mg tablet 500 mg PO HS 07/09/24
multivitamin 1 tab PO DAILY 07/09/24
vitamin B complex 1 tab PO DAILY 07/09/24
Review of Systems
-
Constitutional: Reports No Symptoms
EENT: Reports No Symptoms
Respiratory: Reports No Symptoms
Cardiac: Reports Chest Pain
Abdomen/GI: Reports No Symptoms
: Reports No Symptoms
Musculoskeletal: Reports No Symptoms
Skin: Reports No Symptoms
Neurological: Reports No Symptoms
Endocrine: Reports No Symptoms
Hematologic/Lymphatic: Reports No Symptoms
Psych: Reports No Symptoms
Physical Exam
Vital Signs
Vital Signs
Temp Pulse Resp BP Pulse Ox
98.5 F 93 20 103/51 95
10/24/24 20:05 10/24/24 20:05 10/24/24 20:05 10/24/24 20:05 10/24/24 20:05
Physical Exam
General: Well Developed, Well Nourished and No Apparent Distress
HEENT: NormoCephalic, Moist mucous membranes and Atraumatic
Respiratory: Clear
Cardiac: S1/S2 and Regular Rhythm; No Murmur or Rub
GI: Soft, Non Tender, Non Distended and Normal Bowel Sounds; No Organomegaly
Rectal: Deferred by Provider
Musculoskeletal: No Clubbing, No Cyanosis and No Edema
Skin: No Rash
Neuro: AO x 3 and Nonfocal/grossly intact
Psych: Calm
Laboratory Results
-
10/24/24 20:08
10/24/24 20:08
Laboratory Results
Total Bilirubin 0.9 mg/dl (0.2-1.3) 10/24/24 20:08
AST 17 U/L (17-59) 10/24/24 20:08
ALT 17 U/L (0-50) 10/24/24 20:08
Alkaline Phosphatase 62 U/L (38-126) 10/24/24 20:08
Troponin I 0.239 ng/ml H* 10/24/24 20:08
Data Reviewed
-
Lab Data: Labs Reviewed by me
Impression/Plan
-
#elevated trop likely demand ischemia from SVT/ NSTEMI
- Troponin 0.239
- Aspirin continued
-heparin continued
-trend trop
-HR in 180's, not improved with adenosine and cardioversion in the ER
-cardiology made aware.
- Cardiology consulted
# Chronic thrombocytopenia
- Platelets 123
- continue to monitor
#GERD
-PPI continued
#essential HTN
-Cardizem,olmesartan continued
#type 2 DM
-sliding scale
-CHO diet
-hold metformin
#DVT prophylaxis
-heparin
#CODE status
-heparin
#CODE status
-full code
[2024-10-24] MEDS: ASPIRIN 325 MG PO (22:21)
--- NOTE | 2024-10-24 22:21 | W.PN.UPDATE ---
Update Note
Progress Note Update
Patient seen in conjunction with DEMIAN. I concur with the history and physical. I agree with the assessment and plan.
Briefly, this is a 79-year-old with past medical history significant for hypertension, yja-ncdeibg-hjzmqqnsn diabetes, GERD, OA presenting to the emergency department with a 1 day history of intermittent chest pain. Symptoms reports pain ongoing
since 7 PM with radiation but no associated nausea vomiting diaphoresis or shortness of breath. Pain resolved after given a dose of aspirin in the ED.
Vital signs were stable in the ED with a blood pressure of 100/50 and a pulse of 93 satting 98% on room air. He was afebrile. ECG shows a sinus rhythm at 89 with Q waves in 2 3 and aVF unchanged from prior. Troponin was elevated at 0.2. CBC was
unremarkable, sodium 133 which has been similar to prior. Electrolytes otherwise normal. BUN/creatinine were normal. Glucose was 139.
Sustained supraventricular tachycardia
As was walking into the room to evaluate the patient he went into supraventricular tachycardia reading 180. ECG concerning for SVT with aberrancy. He also had a transient decline in blood pressure. Suspect his chest pains were episodes of
transient SVT with demand ischemia versus an acute coronary syndrome. Still cannot rule out acute coronary syndrome entirely.
- Attempted Valsalva without success
- Given adenosine 6 mg then 12 mg x 2 without success
- Attempted cardioversion without success
- Patient started on pressors due to hypotension in the setting of propofol for cardioversion
- Transfer to ICU and started on amiodarone
- Cardiology consulted and notified
For possible ACS
- ASA 324
- Started on heparin drip
- Echo ordered
-
-
[2024-10-24] MEDS: ADENOCARD 6 MG IV (22:30)
[2024-10-24] MEDS: ADENOCARD 12 MG IV ×2 (22:47→22:51)
[2024-10-24] MEDS: NSS 1000 IV ×2 (23:00→23:44)
--- NOTE | 2024-10-24 23:52 | ED.GENMED ---
History of Present Illness
<Ricky Hunt Jr., PA-C - Last Filed: 10/25/24 00:34>
General
Chief Complaint: Chest Pain
Source: patient and family
Exam Limitations: none
Time Seen by Provider: 10/24/24 21:15
Nursing documentation reviewed up to this point in time: agreed with
History of Present Illness
History of Present Illness:
79-year-old male patient history of hypertension presented to the emergency department today with concerns of episodes at 230 today as well as 5:30 PM for your brief episode of chest tightness. This lasted for a few minutes and then improved he
also had some lightheadedness associated with this. Then resumed an hour or 2 prior to arrival to the emergency department but did have some ongoing chest tightness. Claims that symptoms are pretty much resolved by the time of my assessment.
Denies any significant diaphoresis nausea vomiting or recent illness. Denies any history of specific cardiac disease.
Past History
<Ricky Hunt Jr., PA-C - Last Filed: 10/25/24 00:34>
Past History
ED Past Medical History: None
ED Past Surgical History: None
Social History
Tobacco: Non-smoker
Review of Systems
<Ricky Hunt Jr., PA-C - Last Filed: 10/25/24 00:34>
Review of Systems
Allergies reviewed?: Yes
All Other Systems: ROS reviewed and negative except as documented in HPI and ROS
Phy Exam
<Ricky Hunt Jr., PA-C - Last Filed: 10/25/24 00:34>
Physical Exam
Physical Exam:
GENERAL: Alert , in no apparent distress
EYE: pupils equal and reactive
NECK: Supple, no significant adenopathy.
ENT: o/p clr, mmm.
CARDIAC: Regular rate and rhythm .
LUNGS: Clear breath sounds bilaterally, no acute respiratory distress, no wheezes/rales/rhonchi
ABDOMEN: Soft, without focal tenderness, no r/g, no cvat
NEUROLOGICAL: Alert and oriented, no focal neuro deficits
SKIN: Warm and dry, skin intact.
MUSCULOSKELETAL: No edema, well perfused.
PSYCH: Normal and appropriate interaction.
Scores
<Ricky Hunt Jr., PA-C - Last Filed: 10/25/24 00:34>
Heart Score for Chest Pain Patients
STEMI patient?: No
History: Slightly or Non-Suspicious
ECG: Normal
Age: >/= 65 years
Risk Factors: 1 or 2 Risk Factors
Troponin: >1 - <3 x Normal Limit
Heart Score for Chest Pain Patients: 4
Heart Score Risk: 20.3% MACE over next 6 weeks
Course
<Ricky Hunt Jr., PA-C - Last Filed: 10/25/24 00:34>
Orders/Labs/Results
Orders:
Orders
10/24/24 19:41
ECG [Electrocardiogram (*1)] Urgent
Reason for Study: Chest Pain
EKG- Treatment ONCE
10/24/24 19:49
ECG [Electrocardiogram (*1)] Urgent
Reason for Study: Chest Pain
10/24/24 19:50
EKG- Treatment ONCE
10/24/24 20:08
Complete Blood Count/With Diff Urgent
Comprehensive Metabolic Panel Urgent
Troponin I Urgent
10/24/24 21:26
Aspirin 325 mg PO NOW STA
10/24/24 22:27
Admit/Transfer Patient As Directed
Co-Sign Provider:
Level of Care: Inpatient admission
Assign to:: IVU
Physician / Group: bonita
Diagnosis: chest pain
Reason for Hospitalization: chest pain
Expected length of stay greater than two midnights?: Yes
ELOS- Estimated Length of Stay in days: 3
I certify the patient meets the requirements for IP care: Yes
10/24/24 22:28
EKG [Electrocardiogram (*1)] Urgent
Reason for Study: Vertigo / Dizzy
EKG- Treatment ONCE
PRN Pain Medication Management As Directed
May give lesser potent ordered pain med per pt: Yes
preference::
Protocol:: Medication orders for pain may be administered in a
manner that supports deferring to patient preference
when the pt is:
- Requesting an ordered lesser potent pain medication.
Least to most potent pain medications are defined
as: acetaminophen < NSAID < tramadol < opioids
(morphine, oxycodone, hydromorphone).
- Requesting a lesser dose of the same medication IF
ORDERED.
- Requesting a less intrusive route of administration
if both routes are prescribed by the provider (PO <
IV).
10/24/24 22:29
Code Status As Directed
Resuscitation Status: Full Code
10/24/24 22:30
0.9% Sodium Chloride 1000 ml [Nss] 1,000 ml IV BOLUS
Adenosine [Adenocard] 6 mg IV NOW STA
Heparin 4,000 units IV NOW STA
Heparin 83747 Units/250 ml 25,000 units in 250 ml IV PER PROTOCOL
Weight to be used for heparin protocol in kilograms (kg):: 100.1
Protocol:: Cardiac Tx/Acute Coronary
PTT Goal Range to be used:: PTT 73 to 111 seconds
Order type:: Initial
INITIAL Infusion Dose (UNITS/KG/hr) & then follow protocol:: 12 units/kg/hr
Infusion Dose in UNITS/hr & then follow protocol (UNITS/hr):: 1,000
INFUSION RATE in mL/hr & then follow protocol (mL/hr):: 10
PTT less than or equal to 64 seconds:: Increase rate by 200 units/hr (+ 2 mL/hr)
PTT 64.1 to 72.9 seconds:: Increase rate by 100 units/hr (+ 1 mL/hr)
PTT 73 to 111 seconds:: Target Range. No change in rate.
PTT 111.1 to 130.9 seconds:: Decrease rate by 100 units/hr (- 1 mL/hr)
PTT 131 to 199.9 seconds:: HOLD for 1 hr. Then decrease rate by 200 units/hr (- 2 mL/hr)
PTT greater than or equal to 200 seconds:: HOLD for 2 hrs & Notify Provider. Then decrease by 200 units/hr (-
2 mL/hr)
Lab follow-up:: Each change, PTT q6h until 2 consecutive are therapeutic. Then PTT
daily.
Nursing to Place Non Medication Order As Directed
Physician Order: PTT 6 hours after initial start of Heparin infusion
10/24/24 22:38
Adenosine [Adenocard] 12 mg .ROUTE .STK-MED ONE
10/24/24 22:45
Adenosine [Adenocard] 6 mg .ROUTE .STK-MED ONE
10/24/24 22:49
Adenosine [Adenocard] 12 mg .ROUTE .STK-MED ONE
10/24/24 22:55
Propofol [Diprivan] 20 ml .ROUTE .STK-MED
10/24/24 23:09
Electrocardiogram (*1) Urgent
Reason for Study: Atrial Fibrillation
EKG- Treatment ONCE
10/24/24 23:40
PTT Urgent
Comment: Obtain baseline before beginning heparin infusion if not already collected
Abnormal Lab Results
10/24/24
20:08
RBC 4.33 L 10^6/uL
(4.70-6.10)
MCH 33.7 H pg
(27.0-31.0)
Plt Count 123 L 10^3/uL
(130-400)
MPV 10.6 H fL
(7.4-10.4)
Abs Immat Gran (auto) 0.1 H 10^3/uL
(0-0.05)
Absolute Lymphs (auto) 1.1 L 10^3/uL
(1.2-3.4)
Absolute Monos (auto) 0.7 H 10^3/uL
(0.1-0.6)
Immature Gran % 0.9 H %
(0-0.5)
Neutrophils % 76.3 H %
(42.2-75.2)
Lymphocytes % 13.3 L %
(20.5-51.1)
Sodium 133 L mmol/L
(135-145)
BUN 29 H mg/dl
(9-20)
Glucose 139 H mg/dl
(70-99)
Troponin I 0.239 H* ng/ml
Total Protein 6.1 L g/dl
(6.3-8.2)
10/24/24 20:08
10/24/24 20:08
Vital Signs
Initial and Last Documented VS:
Initial Vital Signs
Temp Pulse Resp BP Pulse Ox
98.5 F 93 20 103/51 95
10/24/24 20:05 10/24/24 20:05 10/24/24 20:05 10/24/24 20:05 10/24/24 20:05
Last Documented Vital Signs
Temp Pulse Resp BP Pulse Ox
98.5 F 192 19 93/71 99
10/24/24 20:05 10/25/24 00:11 10/25/24 00:11 10/25/24 00:11 10/25/24 00:11
Emilianolt;Manav Au, DO - Last Filed: 10/25/24 00:11>
Orders/Labs/Results
Orders:
Orders
10/24/24 19:41
ECG [Electrocardiogram (*1)] Urgent
Reason for Study: Chest Pain
EKG- Treatment ONCE
10/24/24 19:49
ECG [Electrocardiogram (*1)] Urgent
Reason for Study: Chest Pain
10/24/24 19:50
EKG- Treatment ONCE
10/24/24 20:08
Complete Blood Count/With Diff Urgent
Comprehensive Metabolic Panel Urgent
Troponin I Urgent
10/24/24 21:26
Aspirin 325 mg PO NOW STA
10/24/24 22:27
Admit/Transfer Patient As Directed
Co-Sign Provider:
Level of Care: Inpatient admission
Assign to:: IVU
Physician / Group: bonita
Diagnosis: chest pain
Reason for Hospitalization: chest pain
Expected length of stay greater than two midnights?: Yes
ELOS- Estimated Length of Stay in days: 3
I certify the patient meets the requirements for IP care: Yes
10/24/24 22:28
EKG [Electrocardiogram (*1)] Urgent
Reason for Study: Vertigo / Dizzy
EKG- Treatment ONCE
PRN Pain Medication Management As Directed
May give lesser potent ordered pain med per pt: Yes
preference::
Protocol:: Medication orders for pain may be administered in a
manner that supports deferring to patient preference
when the pt is:
- Requesting an ordered lesser potent pain medication.
Least to most potent pain medications are defined
as: acetaminophen < NSAID < tramadol < opioids
(morphine, oxycodone, hydromorphone).
- Requesting a lesser dose of the same medication IF
ORDERED.
- Requesting a less intrusive route of administration
if both routes are prescribed by the provider (PO <
IV).
10/24/24 22:29
Code Status As Directed
Resuscitation Status: Full Code
10/24/24 22:30
0.9% Sodium Chloride 1000 ml [Nss] 1,000 ml IV BOLUS
Adenosine [Adenocard] 6 mg IV NOW STA
Heparin 4,000 units IV NOW STA
Heparin 49438 Units/250 ml 25,000 units in 250 ml IV PER PROTOCOL
Weight to be used for heparin protocol in kilograms (kg):: 100.1
Protocol:: Cardiac Tx/Acute Coronary
PTT Goal Range to be used:: PTT 73 to 111 seconds
Order type:: Initial
INITIAL Infusion Dose (UNITS/KG/hr) & then follow protocol:: 12 units/kg/hr
Infusion Dose in UNITS/hr & then follow protocol (UNITS/hr):: 1,000
INFUSION RATE in mL/hr & then follow protocol (mL/hr):: 10
PTT less than or equal to 64 seconds:: Increase rate by 200 units/hr (+ 2 mL/hr)
PTT 64.1 to 72.9 seconds:: Increase rate by 100 units/hr (+ 1 mL/hr)
PTT 73 to 111 seconds:: Target Range. No change in rate.
PTT 111.1 to 130.9 seconds:: Decrease rate by 100 units/hr (- 1 mL/hr)
PTT 131 to 199.9 seconds:: HOLD for 1 hr. Then decrease rate by 200 units/hr (- 2 mL/hr)
PTT greater than or equal to 200 seconds:: HOLD for 2 hrs & Notify Provider. Then decrease by 200 units/hr (-
2 mL/hr)
Lab follow-up:: Each change, PTT q6h until 2 consecutive are therapeutic. Then PTT
daily.
Nursing to Place Non Medication Order As Directed
Physician Order: PTT 6 hours after initial start of Heparin infusion
10/24/24 22:38
Adenosine [Adenocard] 12 mg .ROUTE .STK-MED ONE
10/24/24 22:45
Adenosine [Adenocard] 6 mg .ROUTE .STK-MED ONE
10/24/24 22:49
Adenosine [Adenocard] 12 mg .ROUTE .STK-MED ONE
10/24/24 22:55
Propofol [Diprivan] 20 ml .ROUTE .STK-MED
10/24/24 23:09
Electrocardiogram (*1) Urgent
Reason for Study: Atrial Fibrillation
EKG- Treatment ONCE
10/24/24 23:40
PTT Urgent
Comment: Obtain baseline before beginning heparin infusion if not already collected
Abnormal Lab Results
10/24/24
20:08
RBC 4.33 L 10^6/uL
(4.70-6.10)
MCH 33.7 H pg
(27.0-31.0)
Plt Count 123 L 10^3/uL
(130-400)
MPV 10.6 H fL
(7.4-10.4)
Abs Immat Gran (auto) 0.1 H 10^3/uL
(0-0.05)
Absolute Lymphs (auto) 1.1 L 10^3/uL
(1.2-3.4)
Absolute Monos (auto) 0.7 H 10^3/uL
(0.1-0.6)
Immature Gran % 0.9 H %
(0-0.5)
Neutrophils % 76.3 H %
(42.2-75.2)
Lymphocytes % 13.3 L %
(20.5-51.1)
Sodium 133 L mmol/L
(135-145)
BUN 29 H mg/dl
(9-20)
Glucose 139 H mg/dl
(70-99)
Troponin I 0.239 H* ng/ml
Total Protein 6.1 L g/dl
(6.3-8.2)
10/24/24 20:08
10/24/24 20:08
Vital Signs
Initial and Last Documented VS:
Initial Vital Signs
Temp Pulse Resp BP Pulse Ox
98.5 F 93 20 103/51 95
10/24/24 20:05 10/24/24 20:05 10/24/24 20:05 10/24/24 20:05 10/24/24 20:05
Last Documented Vital Signs
Temp Pulse Resp BP Pulse Ox
98.5 F 192 19 93/71 99
10/24/24 20:05 10/25/24 00:11 10/25/24 00:11 10/25/24 00:11 10/25/24 00:11
Procedures
<Ricky Hunt Jr., PA-C - Last Filed: 10/25/24 00:34>
Moderate Sedation
Moderate Sedation Start Time(when first medication is given): 23:12
Cardioversion
Indication:: SVT
Performed by:: Myself and attending physician
Synchronized?: Yes
Energy Used: 200 joules
Number of attempts: 2
Successful?: No
Complications: Patient was somewhat sedated and required bagging for roughly 3 minutes
ASA Risk Score: Class II
Any reaction or bad outcome to prior sedation/anesthesia?: No history of a reaction
Sedation level to be attained: moderate
Chart and allergies reviewed: Yes
Patient reassessed prior to sedation: Yes
Time out completed at (validating right patient & procedure): 23:10
History of difficult intubation: No
Airway free of obstruction: Yes
Patient has a gag reflex: Yes
Patient is able to open mouth: Yes
Patient has no dentures: Yes
Patient has no loose teeth: Yes
Medication administered by Provider during Moderate Sedation: IV Propofol (mg) (80)
Total dose administered: 80
Time drug administered: 23:12
Start Time: 23:10
Stop Time: 23:45
<Ricky Hunt Jr., PA-C - Last Filed: 10/25/24 00:34>
MDM/Problems Addressed
MDM/Problems Addressed:
79-year-old male presenting to the emergency department today with a few episodes of chest tightness today. On arrival EKG without ischemic changes patient well-appearing during my initial assessment. Troponin was elevated to 0.2. Patient was
then admitted case was discussed with cardiology they recommended heparin. At time of admission patient went into tachycardic rhythm into the 170s. It appeared potentially consistent with SVT with a Mcclain C. Modified Valsalva was attempted
without success then 3 doses of adenosine attempted without success. We then tried synchronized cardioversion x 2 without any significant change in rhythm. Case was then further discussed with cardiology they were unsure of the specific underlying
regimen rhythm but thought this was possibly sinus tach with right bundle branch block. Pressure was somewhat low after cardioversion attempt with blood pressure in the 70s over 50s though the patient was mentating well. Levophed started patient
then admitted to the ICU.
<Ricky Hunt Jr., PA-C - Last Filed: 10/25/24 00:34>
*Pulse Oximetry
SaO2: 99
Oxygen Mode of Delivery: Room air
Patient hypoxic: no
*Critical Care Note
Total Time (30-74mins, 75-104mins- exclusive of procedures): Not Applicable
comment:
Critical care statement: A total of 60 minutes of critical care time was provided for this patient. This includes management of unstable vital signs, evaluation of the patient at bedside, reviewing the patient's pertinent medical records, discussion
with consultants, review of old EKGs and review of pertinent medical records. This time with separate from time utilized to perform the aforementioned documented procedures
ED Attending Note
<Ricky Hunt Jr., PA-C - Last Filed: 10/25/24 00:34>
-
Portions of this chart may have been created with voice recognition software.� Occasional wrong word or��sound alike� substitutions may have occurred due to the inherent limitations of voice recognition software.
<Manav Au DO - Last Filed: 10/25/24 00:11>
ED Attending Note
Patient seen and examined by attending physician: Yes
ED Attending Note:
79-year-old male presents with chest pain. Was admitted to the hospitalist service. Had a run of what appeared to be SVT. He was given adenosine in my presence. Then the complex turned wide which with the patient's permission we cardioverted.
The rate did not change, it is likely that this was a sinus tachycardia with a possible new right bundle present. Was in contact with Dr. Burgos throughout this, patient is now on Levophed and fluids are running. Patient is awake alert and
oriented at this time. He reports no acute distress.
Discharge Plan
Departure
Patient Disposition: Admit
Date of Disposition: 10/25/24
Time of Disposition: 00:34
Admit to: ICU
Admit to doctor: Bonita
Presentation/result/management discussed w/ accepting MD/DO: Hospitalist
Patient with high blood pressure during this ER visit?: No
Condition: Fair
Covid-19: Not Applicable
Discharge Problem:
Tachycardia
Interventions
Interventions:
*Risk Screen - Suicide Last Done: 10/24/24 20:05
*General Assessment Last Done: 10/24/24 20:05
*Neglect/Abuse Screening Last Done: 10/24/24 20:05
*ED- Fall Risk Assessment Last Done: 10/24/24 22:25
*ED COVID-19 Vaccine History Last Done: 10/24/24 22:25
[2024-10-25] VITALS (59 sets, daily range): BP systolic 72–150; BP diastolic 47–112; BMI 30.1
[2024-10-25] LABS: APTT 35.1 Sec (23.4-35.0)
[2024-10-25] MEDS: LEVOPHED 250 IV
[2024-10-25 00:40] LABS: Troponin I 0.556 ng/ml
[2024-10-25 01:13] LABS: Glucose - Point of Care 170 mg/dl (70-99)
[2024-10-25 01:17] LABS: Magnesium 1.8 mg/dl (1.6-2.3)
[2024-10-25] MEDS: HEPARIN 25000 UNITS/250 ML IV ×2 (01:20→22:53)
[2024-10-25] MEDS: HEPARIN 4000 UNITS IV (01:22)
[2024-10-25] MEDS: NEO-SYNEPHRINE 250 IV (01:25)
[2024-10-25] MEDS: NSS 1000 IV (01:31)
[2024-10-25] MEDS: MAGNESIUM SULFATE 100 IV (01:31)
[2024-10-25] MEDS: CORDARONE 103 MG IV (02:27)
--- NOTE | 2024-10-25 02:32 | PTCARENOTE ---
Received pt to ICU room 3361 from ED. Pt. AAOx3. C/O mild chest pressure and being diaphoretic. HR 170s-180s. EKG reveals wide QRS tachycardia. PRACTICAL NURSE CLINICAL COORDINATOR Bustamante at bedside. Amio bolus initially ordered but then pt. converted to NSR with PVCs, HR
70-80s at 0154 for about 30 minutes (amio was not given prior to this). Now, pt back in wide QRS tachycardia- HR 160-170s. Amio bolus now infusing per PRACTICAL NURSE CLINICAL COORDINATOR. Received on 5mcg levophed from ED. Switched to antony, levo weaned off. Antony off when in NSR but
now back on low dose while tachy. BP drops to 80s/60s when tachycardic. Heparin gtt initiated per orders. NSS @ 80ml/hr. On RA. Lungs CTA. + bowel sounds. Voided preston urine in urinal.
Daughters at bedside briefly - updated on plan.
[2024-10-25] MEDS: CORDARONE 518 MG IV ×2 (02:52→22:54)
--- NOTE | 2024-10-25 02:56 | PTCARENOTE ---
Flipping in and out of NSR/wide complex tachycardia. Amio bolus completed, amio gtt started per orders.
--- NOTE | 2024-10-25 03:06 | PTCARENOTE ---
Pt flipping in and out of NSR/wide complex tachycardia. Amio bolus completed. Amio gtt started as ordered.
[2024-10-25 04:42] LABS: Hematocrit 37.6 % (39.0-52.0); Hemoglobin 13.6 g/dL (13.0-18.0); Mean Corp Hgb Conc. 36.2 g/dL (33.0-37.0); Mean Corpuscular Volume 93.3 fL (80.0-94.0); Platelet Count 127 10^3/uL (130-400); Red Cell Dist. Width 14.2 % (11.5-14.5)
--- NOTE | 2024-10-25 04:42 | PTCARENOTE ---
More consistently in wide complex tachycardia. Repeat EKG completed to confirm. HR 170s. AM labs drawn. RN CARDIOLOGY aware.
[2024-10-25 05:16] LABS: Troponin I 0.714 ng/ml
[2024-10-25 05:20] LABS: Glucose - Point of Care 162 mg/dl (70-99)
[2024-10-25 05:22] LABS: Blood Urea Nitrogen 34 mg/dl (9-20); Calcium 9.0 mg/dl (8.4-10.2); Carbon Dioxide 19 mmol/L (22-30); Chloride 111 mmol/L (98-107); Estimated Creatinine Clearance 66 ml/min; Glucose 147 mg/dl (70-99); HDL Cholesterol 24 mg/dl; LDL Cholesterol, Calculated 50 mg/dl; Magnesium 2.1 mg/dl (1.6-2.3); Potassium 4.3 mmol/L (3.5-5.1); Sodium 135 mmol/L (135-145); Very Low Density Lipoprotein 43 mg/dl (0-30); eGFR > 60.00
--- NOTE | 2024-10-25 06:04 | PTCARENOTE ---
Been in NSR for about an hour. HR maintaining low 60s, dipping to 58 at times. SHEET PILE DRIVER OPERATOR aware. To continue amiodarone gtt for now and monitor closely. BP stable off pressors.
--- NOTE | 2024-10-25 06:58 | CON.INTV ---
Consultation
Consultation Request
Date/Time Consultation Requested: 10/24/2024
Date/Time Consultation Performed: 10/25/2024
Medical History
-
Chief Complaint: Cheat pain
History of Present Illness:
Patient is a 79-year gentleman with known history of diabetes and hypertension who presented to the emergency room with chest pain and pressure under his rib cage. Patient reports similar symptoms about couple of weeks ago which have since
improved. In the emergency room patient was noted to be in supraventricular tachycardia with heart rate in 180s. Patient received adenosine 3 dosages followed by cardioversion with resistant SVT. He was subsequently admitted to the ICU, received
amiodarone bolus followed by infusion with improvement in rhythm. Patient's also developed hypotension and was briefly on pressors with phenylephrine, since weaned off. Wind Project Manager consultation was requested for further input.
Past Medical History: Reports Other
Additional Past Medical History:
Type 2 diabetes
Seasonal allergies
Hemorrhoids
Thrombocytopenia
Colon polyps
Past Surgical History: Reports Other
Additional Past Surgical History:
Tonsillectomy
Knee replacement
Laminectomy
Social History
Tobacco: Former Smoker
Alcohol: Former
Drug: None
Personal: Single
Living: Alone
Family History
Family History: Not pertinent
Allergies / Home Medications
Allergies
Allergy/AdvReac Type Severity Reaction Status Date / Time
lisinopril Allergy Itching Verified 07/09/24 07:13
Hzadaek-RMU-[id number] Reductase Allergy Unknown Verified 07/09/24 07:13
Inhibitor
vancomycin Allergy RED MAN Verified 01/21/24 07:53
SYNDROME
beef,potatoes,onion,tomatoes Allergy diarrhea,difficulty Uncoded 01/21/24 07:53
breathing
seasaonal Allergy sinus Uncoded 01/21/24 07:53
infection
Home Medications
�Medication �Instructions �Recorded �Confirmed �Last Taken �Type
diltiazem HCl 180 mg 180 mg PO DAILY 08/03/20 10/24/24 07/08/24 History
capsule,extended release 24 hr
omeprazole 20 mg capsule,delayed 20 mg PO DAILY ##0 08/18/20 10/24/24 07/08/24 Rx
release
aspirin 81 mg tablet 81 mg PO DAILY 08/20/23 10/24/24 07/06/24 History
olmesartan 5 mg tablet 5 mg PO DAILY 08/20/23 10/24/24 07/07/24 History
diazepam 5 mg tablet 5 mg PO DAILY PRN anxiety 07/09/24 07/09/24 10/10/23 History
metformin 500 mg tablet 1,000 mg PO AMHS 07/09/24 10/24/24 07/07/24 History
multivitamin 1 tab PO DAILY 07/09/24 07/09/24 07/02/24 History
Review of Systems
-
Hematologic/Lymphatic: Other (All 14 systems reviewed and negative except as stated above in the history of present illness.)
Vitals / Labs / Diagnostic Testing
Vital Signs
Temp Pulse Resp BP Pulse Ox
97.9 F 65 14 113/68 96
10/25/24 03:02 10/25/24 06:30 10/25/24 06:30 10/25/24 06:30 10/25/24 06:15
Lab Data
10/25/24 04:22
10/25/24 04:21
Laboratory Results
10/24/24
23:40
APTT 35.1 H
Diagnostic Testing:
Physical Exam
-
HEENT: Normocephalic
Cardiovascular: S1/S2
Respiratory: Clear
GI: Soft and Non Distended
Neurology: Awake and Alert
Skin: Warm
General: Comfortable
Assessment
-
#1. Resistant SVT with hemodynamic instability
- S/p adenosine 6 mg, 12 mg, 12 mg and cardioversion in the emergency room without improvement
- Subsequently amiodarone bolus followed by infusion, patient now in normal sinus rhythm
- In view of hypotension, required phenylephrine, currently weaned off
- Potassium above 4, magnesium above 2.
- Continue telemetry monitoring, await further cardiology recommendations
#2. NSTEMI, ACS versus type II in the setting of tachycardia and cardioversion
- Continue heparin drip, aspirin
- Troponin gradually rising
- Continue telemetry monitoring, cardiology consult
Other medical diagnoses:
- GERD
- HTN
- DM - II
- Thrombocytopenia
DVT prophylaxis. Currently on heparin drip
Critical Care time 62 mins -- The patient is admitted for acute critical illness for the treatment of vital organ failure and/or prevention of further life-threatening conditions. Total care includes time spent in review of history, physical exam,
medications, hemodynamic/ventilator parameters, laboratory data, imaging and discussion with house staff, pharmacy, respiratory therapy, grading machine operator, and nursing.
Data:
Lexiscan 06/2024: Negative Lexiscan sestamibi for ischemia.
ECHO 06/2024: 1. Normal left ventricular size and function, ejection fraction 55-60%
2. Thickened mitral leaflets, mild mitral annular calcification, trace mitral
regurgitation and mildly dilated left atrium
3. Aortic sclerosis with trace aortic regurgitation
4. Normal right heart with pulmonary artery systolic pressure 25-30 mmHg
5. 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
--- NOTE | 2024-10-25 08:00 | PTCARENOTE ---
Received pt @ change of shift. Pt. AAOx3, denies pain/chest pressure. SR on monitor w PVC's. Also denies dizziness/lightheadedness. SpO2 98% on RA. +BS, abd soft/round/obese. Cont b/b. Amio and heparin gtts infusing per orders- see flow sheet.
Pressors remain off. Dr. Burgos to bedside this AM; plan to c/w amio gtt and further orders received for PICC placement, coordinated w VAT. Plan for cardiac cath tomorrow per cards as well. Pt. aware of plan of care. Call stewart placed w in
reach.
[2024-10-25] MEDS: LOW STRENGTH ASPIRIN 81 MG PO (08:01)
[2024-10-25] MEDS: PROTONIX 40 MG PO (08:01)
--- NOTE | 2024-10-25 08:06 | CON.CAR ---
Consultation
Consultation Request
Date/Time Consultation Requested: 10/24/2024 23: 00
Date/Time Consultation Performed: 10/25/2024 7: 15
Requesting Provider: Dio
Performing Provider: Loretta
Reason for Consultation: VT, cp
Medical History
-
Chief Complaint: Chest pressure and dizziness
History of Present Illness:
Ivan has a history of hypertension, diabetes, peripheral neuropathy, hypercholesterolemia, reflux, CAD by coronary calcification. He presents complaints of dizziness and chest pressure. This occurred on the day of admission. He had chest
pressure and upper abdominal pain. This is associated with dizziness. Symptoms persisted he came to the ER. Of note his dizziness improved in the ER but chest discomfort persisted. He was found to have a wide-complex tachycardia. He had 2
different attempts at cardioversion which were unsuccessful. Subsequently converted to sinus rhythm on IV amiodarone. He denies chest pain or dizziness at the present time.
Past Medical History
Past Medical History: Other (See HPI)
Past Surgical History: Tonsilectomy and Other (Right total knee replacement surgery October 2016, spinal surgery August 2020, back surgery 2021 at [facility], knee replacement 2015)
Social History
Tobacco: Former Smoker
Alcohol: None
Drug: None
Personal:
Living: Alone
Employment: Retired
Family History
Family History: CAD (Father of heart disease) and Other (Mother of dementia)
Allergies / Home Medications
Allergy/AdvReac Type Severity Reaction Status Date / Time
lisinopril Allergy Itching Verified 07/09/24 07:13
[id number] Reductase Allergy Unknown Verified 07/09/24 07:13
Inhibitor
vancomycin Allergy RED MAN Verified 01/21/24 07:53
SYNDROME
beef,potatoes,onion,tomatoes Allergy diarrhea,difficulty Uncoded 01/21/24 07:53
breathing
seasaonal Allergy sinus Uncoded 01/21/24 07:53
infection
�Medication �Instructions �Recorded �Confirmed �Type
diltiazem HCl 180 mg 180 mg PO DAILY 08/03/20 10/24/24 History
capsule,extended release 24 hr
omeprazole 20 mg capsule,delayed 20 mg PO DAILY ##0 08/18/20 10/24/24 Rx
release
aspirin 81 mg tablet 81 mg PO DAILY 08/20/23 10/24/24 History
olmesartan 5 mg tablet 5 mg PO DAILY 08/20/23 10/24/24 History
diazepam 5 mg tablet 5 mg PO DAILY PRN anxiety 07/09/24 07/09/24 History
metformin 500 mg tablet 1,000 mg PO AMHS 07/09/24 10/24/24 History
multivitamin 1 tab PO DAILY 07/09/24 07/09/24 History
Review of Systems
-
History Source: Patient
All other systems: Negative unless noted
Constitutional: No Symptoms
EENT: No Symptoms
Respiratory: No Symptoms
Cardiac: Chest Pain
Abdomen/GI: Abdominal Pain
: No Symptoms
Musculoskeletal: No Symptoms
Skin: No Symptoms
Neurological: No Symptoms
Endocrine: No Symptoms
Hematologic/Lymphatic: No Symptoms
Physical Exam
Vital Signs
Temp Pulse Resp BP Pulse Ox
98 F 65 14 113/68 96
10/25/24 07:39 10/25/24 06:30 10/25/24 06:30 10/25/24 06:30 10/25/24 06:15
Lab Results
10/25/24 04:22
10/25/24 04:21
Troponin I Cancelled 10/25/24 07:02
General: Well developed, well nourished in NAD.
Neck: Supple, no JVD, HJR, carotids +2 B/L, no bruits bilaterally.
Heart: Non displaced PMI, RRR, no murmurs, No S3, S4, no rubs.
Lungs: Clear to auscultation bilaterally, no wheeze, rhonchi, rubs bilaterally,
normal expiratory phase.
Abdomen: Normal bowel sounds, soft, non-tender, non-distended.
Extremities: No clubbing, cyanosis or edema bilaterally.
Neuro: Grossly nonfocal, awake, alert and oriented x3.
Impression / Plan
-
Impression:
Ventricular tachycardia
Non-STEMI with peak troponin of 0.714
Hypotension requiring pressors
history of CAD based on coronary calcifications on CAT scan
Diabetes
Hyperglycemia
Hypertension
GERD
Peripheral neuropathy
Dilated aortic root 4.3 cm in 2021 and 2024
Echocardiogram 06/15/24: Ejection fraction 55 to 60%, aortic sclerosis, dilated aortic root 4.3 cm
Lexiscan sestamibi stress test 06/24/2024: Fixed basal inferior, mid inferior, apical inferior, basal inferolateral, basal anterolateral, and apical defect consistent with soft tissue attenuation, ejection fraction 40%
Plan:
He presents with chest discomfort and dizziness with ventricular tachycardia with subsequent resolved after IV amiodarone. He is ruled in for an SD with a troponin of 0.7 so far.
He had unremarkable echocardiogram and stress test in the spring 2024
Will arrange cardiac catheterization in a.m.
Will continue IV amiodarone and arrange PICC line
Hold Cardizem with hypotension
Continue IV heparin
Discussed with nursing
Data Reviewed
-
EKG: Tracing Personally Visualized and interpreted
Radiology: Report Reviewed by me
Medical Tests (Nuc Med, Echo etc): Report Reviewed by me
Labs: Labs Reviewed by me
Old Records: Reviewed
[2024-10-25 08:20] LABS: Glucose - Point of Care 161 mg/dl (70-99)
[2024-10-25 08:20] LABS: APTT 65.9 Sec (23.4-35.0); INR 1.20; PT 15.5 Sec (11.4-14.6)
--- NOTE | 2024-10-25 09:46 | W.PN.HOSP.TC ---
Addendum entered and electronically signed by Ashley Wharton MD 10/25/24 16:26:
I saw and evaluated the patient independently. I reviewed the resident�s note and agree with findings and plan as documented by Dr. Villaseñor.
GENERAL: well developed, well nourished, male in no apparent distress
HEENT: NC/AT--No O2 requirements
HEART: regular rate and rhythm, +S1, +S2
LUNGS : clear to auscultation bilaterally
ABDOM: soft, nontender, nondistended, + bowel sounds
EXT: no cyanosis, clubbing, or edema
NEUROLOGIC: grossly intact
ACS--presented with chest pain which developed into V. Tach (thought wide complex SVT but did not respond to cardioversion only IV amio)--Non-STEMI with rising troponins--not yet peaked--cont serial troponin with EKGs--on IV amio, IV heparin
drip--for cardiac cath in AM (of note, pt does not want statins of any kind--LDL 50)--would check ECHO
Hypotension--likely due to RI-- required pressors briefly--now off
Dilated aortic root 4.3 cm in 2021 and 2024--noted
Essential Hypertension--Continue Diltiazem and Olmesartan as BP allows--diltiazem likely will change to beta adrianna for GDMT
HLD--intolerant to statins--LDL 50 --
Type 2 Diabetes Mellitus--would hold metformin given need for cardiac cath--cont ISS
Peripheral neuropathy
Splenomegaly
Colonic Polyps--s/p Colonoscopy with Biopsy X 4
GERD--Omeprazole
Chronic Constipation--Continue Senna
Full code
DVT proph--heparin drip
Original Note:
Today's Communication/Plan
-
For Cardiac Cath tomorrow for NSTEMI tomorrow
Continue monitoring
Assessment / Plan
Assessment / Plan
A 79year old man with a PMHx of hypertension, diabetes, peripheral neuropathy, hypercholesterolemia, reflux, CAD by coronary calcification and splenomegaly who presented with unprovoked, recurrent and worsening chest tightness and dizziness.
Slightly reduced activity tolerance. No SOB, CHP, PND, Orthopnea, leg pain or swelling.
While in the ED, he developed Spontaneous Ventricular Tachycardia in the 170s/80s
EKG-Showed monomorphic VT, Troponin was elevated; 0.239, 0.556, 0.714 (4:21am
That persisted despite Vagal maneuver, Adenosine X 3( 6, 12 ,12) Synchronized Cardioversion X 2 but resolved on IV Amiodarone bolus, then drip
Patient's also developed hypotension and was briefly on pressors with phenylephrine, since weaned off.
WBC 10.9 (8.6
Hb 4.03 ( 4,33
Pl 127 (
PT- 15.5 -Extrinsic
INR- 1.2
APTT 65.9 ( 35.1- Intrinsic VIII, IX, XI, or XII,, Heparin GOAL
Troponin was elevated; 0.239, 0.556, 0.714, 1.230
IMPRESSION-
#Spontaneous Ventricular tachycardia
-Wide complex ventricular tachy cardia that has been in sinus since am
-Cardiology already consulted, managing
-Currently on IV Amiodarone
-Plan is to continue telemetry
#Non-STEMI with peak troponin of 1.230-C
-Currently on IV Heparin drip
-For Cardiac cath tomorrow
-Monitor and trend Troponin, latest 1.230
-Repeat Echo
#Hypotension requiring pressors
-Bp has stabilized
-Remain off Phenylephrine
#History of CAD based on coronary calcifications on CAT scan
-Ct Aspirin
- Intolerant to statin
#Dilated aortic root 4.3 cm in 2021 and 2024
#Hypertension
-Continue Diltiazem and Olmesartan, Treshold SBP-
#Hyperlipidemia
-TGA 218
-LDL 50, VLDL- 43 (at target)
#Diabetes
#Peripheral neuropathy
#Splenomegaly
#Colonic Polyp
-Colonoscopy with Biopsy X 4
#GERD
-Ct Omeprazole
#Chronc Constipation
-Continue Senna
Full code
POA-Daughters
Anticipated Discharge: 24 - 48 hours
Subjective/Interval History
-
Date of Service: October 25, 2024
Patient seen
Met lying in bed, cardiac position
No complains
Objective Data
-
Labs:
Laboratory Results
10/24/24 10/25/24 10/25/24
23:40 04:21 04:22
WBC 10.9 H
Hgb 13.6
Hct 37.6 L
Plt Count 127 L
PT
INR
APTT 35.1 H
Sodium 135
Potassium 4.3
Chloride 111 H
Carbon Dioxide 19 L
BUN 34 H
Creatinine 1.0
Glucose 147 H
Calcium 9.0
10/25/24 10/25/24 10/25/24
07:59 07:59 07:59
WBC
Hgb
Hct
Plt Count
PT 15.5 H Cancelled
INR 1.20 Cancelled
APTT 65.9 H
Sodium
Potassium
Chloride
Carbon Dioxide
BUN
Creatinine
Glucose
Calcium
10/25/24
15:00
WBC
Hgb
Hct
Plt Count
PT
INR
APTT Pending
Sodium
Potassium
Chloride
Carbon Dioxide
BUN
Creatinine
Glucose
Calcium
Vital Signs:
Vital Signs
Temp Pulse Resp BP Pulse Ox
98 F 59 18 105/61 98
10/25/24 07:39 10/25/24 09:00 10/25/24 09:00 10/25/24 09:00 10/25/24 09:09
I&O
10/24/24 10/25/24 10/26/24
06:59 06:59 06:59
Intake Total 695.2 / 818.5 274.3 / 274.3
Output Total 600 / 600
Balance 95.2 / 218.5 274.3 / 274.3
Review of Systems
-
History Source: Patient
Constitutional: Reports No Symptoms
EENT: Reports No Symptoms Reported
Respiratory: Reports No Symptoms
Cardiac: Reports No Symptoms
Abdomen/GI: Reports No Symptoms
Genitourinary: Reports No Symptoms
Musculoskeletal: Reports No Symptoms
Skin: Reports No Symptoms
Neuro: Reports No Symptoms
Endocrine: Reports No Symptoms
Hematologic / Lymphatic: Reports No Symptoms
Physical Exam
-
General: Well Developed
HEENT: Normocephalic
Respiratory: Clear to Auscultation
Cardiac: S1/S2
GI: Soft
Musculoskeletal: Other (Legs are cold to touch, distal loss of pain and temperature sensation on the foot. Dorsalis pedis not palplated)
Psych: Calm
Data Reviewed
-
Labs: Labs Reviewed by me, Discussed with Physician and Discussed with Patient
[2024-10-25] MEDS: NOVOLOG FLEXPEN-LOW RESISTANCE 1 UNITS SC ×2 (10:30→13:46)
[2024-10-25 11:31] LABS: Troponin I 1.230 ng/ml
[2024-10-25 11:51] LABS: Glucose - Point of Care 186 mg/dl (70-99)
[2024-10-25 11:55] LABS: Glycohemoglobin (HgbA1c) 5.5 % (4.0-5.6)
--- NOTE | 2024-10-25 12:02 | CM ---
software qa manager reviewed patient's chart and patient is for possible Cardiac cath tomorrow, patient reports his spouse recently at [facility] in the ICU. Patient lives alone in a 2 story home with stair glide and elevator to 2nd
floor, patient is independent with adl's and ambulation, no dme, patient has 2 daughters in area that are very supportive, plan home when stable, no needs.
PCP: Alva Lowe
Pharmacy: [facility] in [place].
[2024-10-25] MEDS: NSS IV (14:07)
[2024-10-25 16:08] LABS: APTT 63.0 Sec (23.4-35.0)
[2024-10-25 16:30] LABS: Troponin I 1.810 ng/ml
[2024-10-25] MEDS: NOVOLOG FLEXPEN-LOW RESISTANCE SC (17:01)
[2024-10-25 17:08] LABS: Glucose - Point of Care 132 mg/dl (70-99)
--- NOTE | 2024-10-25 17:30 | PTCARENOTE ---
pt. OOB to chair for approx 6H; tolerated activity/position w/out adverse cardiac events. Pt. assisted back to bed @ 1500 and PICC team to bedside @ approx 1530. R DL PICC placed by VAT; x-ray obtained, awaiting results. Pt. remains on
amio/heparin gtts per orders- see flow sheet. Troponin continues to trend upwards, cards aware. Pt.'s daughters @ bedside, updated. Call stewart remains w in reach.
--- NOTE | 2024-10-25 19:29 | PTCARENOTE ---
Assumed care of pt. approx 1899.
Normocephalic, focally intact.
NSR s1/s2 w.o ectopy noted at this time. Normotensive, Normothermic.
Lungs vesicular bilaterally, RA sp02 99-100%
Euglycemic, urinating in urinal.
No mobility issues noted.
Plan of care explained to pt. all questions answered at this time.
--- NOTE | 2024-10-25 20:43 | VATNOTE ---
RIGHT DL PICC PLACED FOR AMIODARONE GREATER THAN 24H. IMAGE SHOWED PICC UP THE NECK , PER MD, REDIRECT, WITH IMAGE SHOWING MALPOSITIONED. ATTEMPTED 2ND REDIRECT, PICC MALPSITONED. PER PATIENT, HAD PICC IN RIGHT AND LEFT ARM WITHOUT COMPLICATION IN
PAST. SUGGEST REMOVAL AND RE EVALUATE FOR PLACEMENT OF LINE IN L ARM
--- NOTE | 2024-10-25 21:47 | VATNOTE ---
Rt. Picc placed this evening, second reposition still malpositioned. Tip retracted 5cm's per Radiologist per protocol to place tip SVC. bean sorter and SECURITY GUARD aware. Will re-film.
[2024-10-25 23:12] LABS: APTT 66.5 Sec (23.4-35.0)
[2024-10-25 23:27] LABS: Troponin I 1.580 ng/ml
[2024-10-26] VITALS (45 sets, daily range): BP systolic 106–144; BP diastolic 49–109; BMI 29.9
--- NOTE | 2024-10-26 00:28 | PTCARENOTE ---
PICC line in place confirmed by Radiology/ICU TAQUERIA.
Heparin remains subtherapeutic uptitrated per protocol.
Troponins peaked --> Provider notified.
Remains sinus marni, some PVCs noted.
--- NOTE | 2024-10-26 02:56 | PTCARENOTE ---
ICU TAQUERIA updated on pt. volume status appears to be excessively urinating. Orders for additional labs/lytes in AM.
No further change in assessment.
--- NOTE | 2024-10-26 05:16 | PTCARENOTE ---
No changes in assessment.
[2024-10-26 05:37] LABS: APTT 95.0 Sec (23.4-35.0)
[2024-10-26 05:40] LABS: Hematocrit 34.9 % (39.0-52.0); Hemoglobin 12.8 g/dL (13.0-18.0); Mean Corp Hgb Conc. 36.7 g/dL (33.0-37.0); Mean Corpuscular Volume 92.1 fL (80.0-94.0); Red Cell Dist. Width 13.8 % (11.5-14.5)
[2024-10-26 05:50] LABS: Troponin I 1.110 ng/ml
[2024-10-26 05:53] LABS: Platelet Count 83 10^3/uL (130-400)
[2024-10-26 06:34] LABS: Blood Urea Nitrogen 19 mg/dl (9-20); Calcium 8.4 mg/dl (8.4-10.2); Carbon Dioxide 18 mmol/L (22-30); Chloride 112 mmol/L (98-107); Estimated Creatinine Clearance 94 ml/min; Glucose 141 mg/dl (70-99); Magnesium 2.0 mg/dl (1.6-2.3); Potassium 4.1 mmol/L (3.5-5.1); Sodium 136 mmol/L (135-145); eGFR > 60.00
[2024-10-26] MEDS: NOVOLOG FLEXPEN-LOW RESISTANCE SC ×2 (07:32→17:54)
--- NOTE | 2024-10-26 07:47 | W.PN.INTV ---
Today's Communication / Plan
Recommendations
Heart rate improved, remains on amiodarone drip
Plan for cardiac catheterization later today
Continue management per cardiology
Heparin drip continues
Would recommend outpatient CT chest to follow left upper lobe nodule
Pulmonary will continue to follow
Assessment
-
#1. Resistant SVT with hemodynamic instability
- S/p adenosine 6 mg, 12 mg, 12 mg and cardioversion in the emergency room without improvement
- Subsequently amiodarone bolus followed by infusion, patient now in normal sinus rhythm
- In view of hypotension, required phenylephrine, currently weaned off
- Potassium above 4, magnesium above 2.
- Continue telemetry monitoring, cardiac catheterization pending
#2. NSTEMI, ACS versus type II in the setting of tachycardia and cardioversion
- Continue heparin drip, aspirin
- Troponin gradually rising
- Plan for cardiac catheterization
- resume hypertensive meds postcatheterization
#3. Questionable left apical nodule
- Suspect this may be clavicular. I reviewed head CT 09/17/2023. Could not appreciate anything in apex but he does have a small nodule left upper lobe image #107 per my review
- Consider follow-up CT chest as outpatient. Patient is a non-smoker
Other medical diagnoses:
- GERD
- HTN
- DM - II
- Thrombocytopenia
DVT prophylaxis. Currently on heparin drip
Will follow-up postcardiac catheterization
Data:
Lexiscan 06/2024: Negative Lexiscan sestamibi for ischemia.
ECHO 06/2024: 1. Normal left ventricular size and function, ejection fraction 55-60%
2. Thickened mitral leaflets, mild mitral annular calcification, trace mitral
regurgitation and mildly dilated left atrium
3. Aortic sclerosis with trace aortic regurgitation
4. Normal right heart with pulmonary artery systolic pressure 25-30 mmHg
5. 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
Subjective Dataa
Subjective Data
Date of Service:
Date of Service: October 26, 2024
Subjective:
Patient is without complaints. Denies shortness of breath, chest pain, lightheadedness, palpitations, nausea. Describes some mild lower rib discomfort left side. He states this is chronic
Objective Data
Data Reviewed
Vital Signs / I&O / Oxygen:
Vital Signs
Temp Pulse Resp BP Pulse Ox
97.4 F 59 17 116/63 98
10/26/24 07:12 10/26/24 05:00 10/26/24 05:00 10/26/24 05:00 10/26/24 05:17
Intake and Output
10/25/24 10/26/24 10/27/24
06:59 06:59 06:59
Intake Total 695.2 / 818.5 1133.0 / 1133.0
Output Total 600 / 600 4450 / 4450
Balance 95.2 / 218.5 -3317.0 / -3317.0
SaO2 98
Physical Exam
General: Comfortable
HEENT: Normocephalic and Anicteric
Cardiovascular: S1-S2, Regular Rhythm, Murmur (n) and Peripheral Edema (n)
Respiratory: Wheeze (n), Crackles (n), Rhonchi (n) and Non-Labored Respirations
GI: Soft, Non Distended and Non Tender
Neurology: Awake, Alert and No Motor Deficits
Skin: Cyanosis (n) and Jaundice (n)
Labs/Micro/Reports
Lab Data
10/26/24 05:11
10/26/24 05:11
Laboratory Results
10/25/24 10/25/24 10/25/24
07:59 07:59 07:59
PT 15.5 H Cancelled
INR 1.20 Cancelled
APTT 65.9 H
10/25/24 10/25/24 10/26/24
15:50 22:40 05:11
PT
INR
APTT 63.0 H 66.5 H 95.0 H
[2024-10-26] MEDS: BENICAR PO (07:59)
[2024-10-26] MEDS: PROTONIX 40 MG PO (07:59)
[2024-10-26] MEDS: LOW STRENGTH ASPIRIN 81 MG PO (07:59)
--- NOTE | 2024-10-26 08:35 | ITS.CL.CATH ---
[facility] - Catheterization
Cardiac Catheterization
Procedure Report:
LEFT HEART CATHETERIZATION
Date of Procedure: October 26, 2024
Referring: Dr. Neal Burgos
PROCEDURES:
1. Left heart catheterization, coronary angiogram.
2. Moderate sedation.
3. Selective femoral angiography
INDICATION: Concern for NSTEMI and sustained monomorphic ventricular tachycardia
ACCESS: 1. Right radial artery, 6Fr. sheath, under US guidance. Given significant right subclavian tortuosity, this access had to be aborted and right common femoral arterial access was obtained.
2. Right common femoral artery, 6 Armenian sheath, under ultrasound guidance using a micropuncture kit.
HEMODYNAMICS : (mmHg)
AO (s/d) : 105/58
LVEDP : 8
No significant gradient across the aortic valve to suggest aortic stenosis.
CORONARY FINDINGS
Dominance: Right
Left Main Trunk (LMT): Large caliber vessel that gives rise to the LAD and LCx branches and is free of angiographic disease.
Left Anterior Descending Artery (LAD): Large caliber vessel that gives off 2 major diagonal branches as it courses along the anterior inter-ventricular groove before wrapping around the cardiac apex. The mid LAD has a long area of diffuse moderate
to severe atherosclerotic plaque up to a focal lesion which is eccentric in nature of 90% at the levels of medium caliber diagonal 2. Left to right collaterals noted. D2 is a medium caliber vessel which has ostial 60 to 70% stenosis and diffuse 70%
stenosis in the midportion with the distal vessel being a good bypass target.
Left Circumflex Artery (LCx): Large caliber vessel that gives off 2 major obtuse marginal (OM) branches as it courses along the atrio-ventricular (AV) groove. Mid portion of LCx has eccentric 70% stenosis. OM1 is small to medium caliber with
eccentric 70% stenosis.
Right Coronary Artery (RCA): Large caliber dominant vessel with 100% proximal RCA chronic total occlusion with left to right collaterals.
SEDATION: 37 minutes of procedural sedation was utilized. IV Midazolam and IV Fentanyl were administered. An independent medical office assistant instructor was present to assist with and help manage the patient's level of consciousness and physiologic status.
FEMORAL ANGIOGRAPHY: There is 80% calcified stenosis at the transition between the right common femoral artery and the external iliac artery. Femoral arteriotomy is at the mid femoral head below the stenosis.
RADIATION SUMMARY: Fluoro Time (min): 8.8, Dose (mGy): 601.63, DAP (Gy.cm2) : 46.8
Closure Device: There were no immediate intra-procedural complications. The sheath was pulled in the engineering lab technician and a vascular-band applied to the right wrist for radial artery hemostasis using the patent hemostasis technique.
CONCLUSIONS
1. Multivessel CAD.
2. The mid LAD has a long area of diffuse moderate to severe atherosclerotic plaque up to a focal lesion which is eccentric in nature of 90% at the levels of medium caliber diagonal 2. Left to right collaterals noted. D2 is a medium caliber vessel
which has ostial 60 to 70% stenosis and diffuse 70% stenosis in the midportion with the distal vessel being a good bypass target.
3. Mid portion of LCx has eccentric 70% stenosis. OM1 is small to medium caliber with eccentric 70% stenosis.
4. Large caliber dominant vessel with 100% proximal RCA chronic total occlusion with left to right collaterals.
5. LVEDP 8mmHG
RECOMMENDATIONS
1. Wean radial band per protocol. Monitor right hand perfusion and for bleeding from the radial site following removal of the vascular-band following trans-radial access.
2. Bedrest per protocol post RFCA access.
3. Continue aggressive medical therapy and risk factor modification for secondary CAD prevention.
4. Hydrate with normal saline to mitigate the risk of contrast-induced acute kidney injury.
5. CT surgery consult for evaluation of CABG.
6. Eventual cardiac rehab consult.
Iram Pratt MD, [facility], [facility]
Copy to: Dr. Neal Burgos
--- NOTE | 2024-10-26 08:45 | PTCARENOTE ---
Received pt @ change of shift. Pt. AAOx3, denies pain/chest pressure. SB/SR on monitor w prolonged QT and PVC's. Also denies dizziness/lightheadedness. SpO2 98% on RA. +BS, abd soft/round/obese. Cont b/b. NPO ex meds maintained. Amio and
heparin gtts infusing per orders via R Dl PICC- see flow sheet. #20 L FA patent, dressing c/d/i. Plan for cardiac cath today; awaiting time. Pt. aware of plan of care. Call stewart placed w in reach.
--- NOTE | 2024-10-26 10:11 | W.PN.HOSP.TC ---
Today's Communication/Plan
-
NPO for cath
c/w IV heparin
ON IV Amiodarone
Assessment / Plan
Assessment / Plan
Physical Exam
General: Well Developed, Well Nourished and No Apparent Distress
HEENT: Normocephalic, Moist mucous membranes and Atraumatic
Respiratory: Clear
Cardiac: S1/S2
GI: Soft, Non Tender, Non Distended and Normal Bowel Sounds;
Musculoskeletal: No Clubbing, No Cyanosis and No Edema
Skin: No Rash
Neuro: AO x 3 and Nonfocal/grossly intact
Psych: Calm
A 79year old man presented with unprovoked, recurrent and worsening chest tightness and dizziness.
#Spontaneous Ventricular tachycardia
-Wide complex ventricular tachy cardia that has been in sinus
-Currently on IV Amiodarone
telemetry
#Non-STEMI with peak troponin of 1.8 then came down
-Currently on IV Heparin drip
-For Cardiac cath today
#Hypotension requiring pressors
Cardiogenic shock, resolved.
# Mild GIDEON, resolved
# Hyponatremia, resolved.
#History of CAD based on coronary calcifications on CAT scan
-Ct Aspirin
No chest pain
- Intolerant to statin
#Dilated aortic root 4.3 cm in 2021 and 2024
#Hypertension
Hold BP meds due to low BP
#Hyperlipidemia
#Diabetes
#Peripheral neuropathy
#Splenomegaly
#Colonic Polyp
-Colonoscopy with Biopsy X 4
#GERD
-Ct Omeprazole
#Chronc Constipation
-Continue Senna
Full code
POA-Daughters
Total time spent to see the patient, examine the patient, review data and lab result, discuss treatment plan with patient, nursing staff around 55 minutes
Anticipated Discharge: > 48 hours
Subjective/Interval History
-
Date of Service: October 26, 2024
He denies chest pain or palpitations
Objective Data
-
Labs:
Laboratory Results
10/25/24 10/26/24 10/26/24
22:40 05:11 11:00
WBC 6.9
Hgb 12.8 L
Hct 34.9 L
Plt Count 83 L D
APTT 66.5 H 95.0 H Pending
Sodium 136
Potassium 4.1
Chloride 112 H
Carbon Dioxide 18 L
BUN 19
Creatinine 0.7
Glucose 141 H
Calcium 8.4
Vital Signs:
Vital Signs
Temp Pulse Resp BP Pulse Ox
97.4 F 70 16 119/59 98
10/26/24 07:12 10/26/24 10:00 10/26/24 10:00 10/26/24 10:00 10/26/24 08:42
I&O
10/25/24 10/26/24 10/27/24
06:59 06:59 06:59
Intake Total 695.2 / 818.5 1133.0 / 1163.7 122.8 / 122.8
Output Total 600 / 600 4450 / 4450 300 / 300
Balance 95.2 / 218.5 -3317.0 / -3286.3 -177.2 / -177.2
[2024-10-26 11:08] LABS: APTT 102.6 Sec (23.4-35.0)
[2024-10-26] MEDS: NOVOLOG FLEXPEN-LOW RESISTANCE 1 UNITS SC (11:50)
[2024-10-26 11:58] LABS: Glucose - Point of Care 156 mg/dl (70-99)
--- NOTE | 2024-10-26 12:25 | PTCARENOTE ---
Report given to lab scientist RN; pt. transported to lab scientist w/ cath team; awaiting arrival back to unit.
[2024-10-26 13:22] LABS: ACT-LR - POC 266 Seconds (116-155)
[2024-10-26 14:34] LABS: ACT-LR - POC 190 Seconds (116-155)
--- NOTE | 2024-10-26 14:55 | CONSULT.CT ---
Consultation
-
Date/Time Consultation Requested: 10/26/24
Date/Time Consultation Performed: 10/26/24
Requesting Provider: Iram Pratt MD
Performing Provider: Arpita ARCINIEGA for Mandeep Rodgers MD
Reason for Consultation: CABG evaluation
Patient History
Physicians
Family Physician: Alva Lowe
History of Present Illness
79-year-old male with past medical history significant for hypertension, presented to [facility] ED on 10/24 wit dizziness and 'pressure' under his ribcage. Ruled in for NSTEMI with max troponin 1.8. While in the ED, patient noted to be in
supraventricular tachycardia with heart rate in 180s. He received adenosine x 3 followed by cardioversion for resistant SVT. He was subsequently admitted to the ICU, received amiodarone bolus followed by infusion with improvement in rhythm.
Patient's also developed hypotension and was briefly on pressors with phenylephrine, since weaned off. Underwent left heart catheterization on 10/26, which reported triple-vessel coronary disease. CT surgery was consulted for CABG evaluation.
Patient currently pain-free lying in bed with daughter (Alva PETERSON at ) at bedside
Past Medical History
Past Medical History: GERD, HTN, NIDDM (approx 10 years on oral therapy) and Other (left vertebral artery stenosis; R RTC tear; DJD; BPH (on CT scan); colon polyps; thrombocytopenia)
Past Surgical History
Past Surgical History: Other (L2-4 laminectomy)
Family History
Mother: N/A
Father: N/A
Social History
Alcohol: None
Drug: None
Tobacco: Former Smoker (quit 2007-former cigar 2 x daily)
Personal:
Living: Alone
Employment: Retired
Allergies
Allergy/AdvReac Type Severity Reaction Status Date / Time
lisinopril Allergy Itching Verified 07/09/24 07:13
Cwppfeg-IYG-PxV Reductase Allergy Unknown Verified 07/09/24 07:13
Inhibitor
vancomycin Allergy RED MAN Verified 01/21/24 07:53
SYNDROME
beef,potatoes,onion,tomatoes Allergy diarrhea,difficulty Uncoded 01/21/24 07:53
breathing
seasaonal Allergy sinus Uncoded 01/21/24 07:53
infection
Home Medications
�Medication �Instructions �Recorded �Confirmed �Type
diltiazem HCl 180 mg 180 mg PO DAILY Blood Pressure 08/03/20 10/24/24 History
capsule,extended release 24 hr
omeprazole 20 mg capsule,delayed 20 mg PO DAILY ##0 08/18/20 10/24/24 Rx
release
aspirin 81 mg tablet 81 mg PO DAILY Blood Clot 08/20/23 10/24/24 History
Prevention/Tx
olmesartan 5 mg tablet 5 mg PO DAILY Blood Pressure 08/20/23 10/24/24 History
diazepam 5 mg tablet 5 mg PO DAILY PRN anxiety 07/09/24 07/09/24 History
metformin 500 mg tablet 1,000 mg PO AMHS Diabetes 07/09/24 10/24/24 History
multivitamin 1 tab PO DAILY Supplement 07/09/24 07/09/24 History
Review of Systems
-
History Source: Patient
General: Reports No Symptoms
HEENT: Reports No Symptoms
Respiratory: Reports No Symptoms
Cardiac: Reports No Symptoms
Abdomen/GI: Reports No Symptoms
: Reports No Symptoms
Musculoskeletal: Reports No Symptoms
Skin: Reports No Symptoms
Neurological: Reports No Symptoms
Vascular: Reports No Symptoms
Physical Exam
Vital Signs
Temp 98.6 F 10/26/24 11:28
Temp route: Oral 10/26/24 11:28
Pulse 56 10/26/24 14:15
Rhythm: Normal sinus rhythm 10/26/24 08:00
With- PVC's Monomorphic, Sinus bradycardia, Prolonged QT interval 10/26/24 08:00
Resp Rate 12 10/26/24 14:15
Blood pressure 108/71 10/26/24 14:15
Blood pressure extremity used: Left upper arm 10/25/24 06:57
Position: Lying 10/25/24 06:57
MAP (cuff-Alessandra Monitor) 82 10/26/24 14:15
SaO2 98 10/26/24 14:15
Oxygen Mode of Delivery Room air 10/26/24 08:42
Oxygen Mode of Delivery: Room air 10/25/24 01:15
Can the patient verbally communicate their pain? Yes 10/26/24 08:00
Pain scale rating: Pt states unable to rate 10/25/24 02:00
Arterial Systolic Pressure 123 10/26/24 14:15
Arterial Diastolic Pressure 55 10/26/24 14:15
MAP (Y-Cpoi-Qsjmciu Monitor) 79 10/26/24 14:15
Actual Weight 97.3 kg 10/26/24 05:53
Body Mass Index (BMI) 29.9 10/26/24 05:53
etC02 value 22 10/25/24 00:30
Labs
10/26/24 05:11
10/26/24 05:11
PT 15.5 Sec (11.4-14.6) H 10/25/24 07:59
PT Cancelled 10/25/24 07:59
APTT 102.6 Sec (23.4-35.0) H 10/26/24 10:51
Hemoglobin A1c 5.5 % (4.0-5.6) 10/25/24 04:22
Troponin I 1.110 ng/ml H* D 10/26/24 05:11
Diagnostic Studies
LHC (R radial) 10/26:
1. mid LAD has a long area of diffuse moderate to severe atherosclerotic plaque up to a focal lesion which is eccentric in nature of 90% at the levels of medium caliber diagonal 2. Left to right collaterals noted. D2 is a medium caliber vessel which
has ostial 60 to 70% stenosis and diffuse 70% stenosis in the midportion with the distal vessel being a good bypass target.
3. Mid portion of LCx has eccentric 70% stenosis. OM1 is small to medium caliber with eccentric 70% stenosis.
4. Large caliber dominant vessel with 100% proximal RCA chronic total occlusion with left to right collaterals.
5. LVEDP 8mmHG
TTE 06/15/24:
1. 55-60%
2. Thickened mitral leaflets, mild mitral annular calcification, trace mitral regurgitation and mildly dilated left atrium
3. Aortic sclerosis with trace aortic regurgitation
4. Normal right heart with pulmonary artery systolic pressure 25-30 mmHg
5. 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
Exam
General: Well Developed, Well Nourished and No Apparent Distress
HEENT: Normocephalic, Anicteric and Moist Mucous Membranes
Neck: Trachea Midline
Respiratory: Clear
Cardiac: S1/S2 and Regular Rhythm
GI: Soft, Non Tender, Non Distended and Normal Bowel Sounds
Rectal: Deferred by Provider
Skin: Warm and Dry
Neuro: AO x 3 and No Motor Deficits
Extremities: Pulses (+2/4 DP pulses B/L)
Lymph: No Lymphadenopathy
Psych: Calm
Assessment / Plan
-
79-year-old male admitted with NSTEMI and found to have triple-vessel coronary disease. Normal EF from TTE (06/2024)
- surgeon to review imaging and discuss risk-benefit with patient
- Preop diagnostics ordered - allergy to statins, continue Zetia
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
Data Reviewed
-
EKG: Report Reviewed by me and Discussed with Physician
Manager Mechanical Maintenance: Report Reviewed by me and Discussed with Physician
Echo: Report Reviewed by me and Discussed with Physician
Radiology: Report Reviewed by me and Discussed with Physician
Labs: Labs Reviewed by me and Discussed with Physician
--- NOTE | 2024-10-26 15:00 | PTCARENOTE ---
Received pt back from lab director into rm [id number] @ 1350. Post cath checks completed per orders- see flow sheet. R radial band intact, no bleeding/hematoma noted. R fem sheath in place, sutured in; transuded/calibrated by lab director RN. slab worker RNs to
come to bedside to complete ACT and pull sheath when approp; no bleeding/hematoma noted from R fem site. Pt. remains flat w strict bedrest per orders. Daughter @ bedside, updated. Pt.'s call stewart placed w in reach.
[2024-10-26 16:04] LABS: ACT-LR - POC 179 Seconds (116-155)
--- NOTE | 2024-10-26 16:13 | PTCARENOTE ---
arrived to patients room checked ACT 179@ 1603
patients BP 124/69
pulled sheath at 1608
manual pressure for 15 minutes, patient tolerated well
dressing 4x4 and tega derm
LDP +2 and BP 114/73 at 1628
[2024-10-26 16:15] LABS: Urine Character Clear (Clear)
--- NOTE | 2024-10-26 17:40 | PTCARENOTE ---
phlebotomist lab assistant RNs back to bedside to complete ACT; s/p test completion, cath lab tech RNs pulled R fem sheath @ 1608, manual pressure held and clean dressing applied. Hemostasis reached @ 1630 and post cath flow sheet restarted- see MAY. Pt. to remain
flat/bedrest x 3 hours. Pt. aware of plan of care. CT surgery to bedside this afternoon as well; plan for wkup. Orders received to obtain BP on both arms; unable to obtain R arm BP d/t R DL PICC. Pt.'s call stewart remains w in reach.
[2024-10-26 18:02] LABS: Glucose - Point of Care 126 mg/dl (70-99)
--- NOTE | 2024-10-26 20:30 | PTCARENOTE ---
Pt received start of shift, HR SR w/ PVCs/PACs on telemetry. Pt remained flat until 1929. R groin cath site dressing CDI, surrounding site soft - no hematoma. R radial dressing CDI, surrounding site soft - no hematoma. Pulses palpable. Amiodarone
infusing as ordered. Pt OOB x1 assist w/ RN to bathroom. BMx1.
[2024-10-26 21:41] LABS: Glucose - Point of Care 184 mg/dl (70-99)
[2024-10-27] VITALS (22 sets, daily range): BP systolic 108–149; BP diastolic 57–84; BMI 29.2
--- NOTE | 2024-10-27 01:18 | PTCARENOTE ---
Heparin gtt resumed per MD order. Cath site dressings remain CDI, sites soft - no hematoma.
[2024-10-27] MEDS: CORDARONE 518 MG IV (02:41)
[2024-10-27] MEDS: HEPARIN 25000 UNITS/250 ML IV ×2 (02:42→20:09)
[2024-10-27 04:21] LABS: Hematocrit 32.4 % (39.0-52.0); Hemoglobin 11.8 g/dL (13.0-18.0); Mean Corp Hgb Conc. 36.4 g/dL (33.0-37.0); Mean Corpuscular Volume 92.0 fL (80.0-94.0); Platelet Count 79 10^3/uL (130-400); Red Cell Dist. Width 13.9 % (11.5-14.5)
[2024-10-27 04:28] LABS: APTT 94.3 Sec (23.4-35.0)
[2024-10-27 05:27] LABS: Blood Urea Nitrogen 20 mg/dl (9-20); Calcium 8.8 mg/dl (8.4-10.2); Carbon Dioxide 21 mmol/L (22-30); Chloride 111 mmol/L (98-107); Estimated Creatinine Clearance 82 ml/min; Glucose 120 mg/dl (70-99); Magnesium 1.8 mg/dl (1.6-2.3); Potassium 3.9 mmol/L (3.5-5.1); Sodium 136 mmol/L (135-145); eGFR > 60.00
--- NOTE | 2024-10-27 06:14 | PTCARENOTE ---
No changes in assessment.
--- NOTE | 2024-10-27 07:37 | W.PN.INTV ---
Addendum entered and electronically signed by Omar Rojas MD 10/27/24 16:18:
Reviewed CT chest 10/27/2024
Left apical nodule stable compared to head CT September 2023. No further follow-up needed at this time
There is a mild patchy ground glass abnormality right lower lobe, inflammatory versus infectious
Patient without any symptoms
No white count, no fevers
Follow clinically at this time
Original Note:
Today's Communication / Plan
Recommendations
Continue with cardiac management
Remains on amiodarone, heparin
CT surgery evaluation pending
Transfer to IVU noted
We will sign off at this time and revisit depending on surgical plans postoperatively
Assessment
-
#1. Resistant SVT with hemodynamic instability
- S/p adenosine 6 mg, 12 mg, 12 mg and cardioversion in the emergency room without improvement
- Subsequently amiodarone bolus followed by infusion, patient now in normal sinus rhythm
- In view of hypotension, required phenylephrine, currently weaned off
- Potassium above 4, magnesium above 2.
- Continue telemetry monitoring, cardiac catheterization pending
#2. NSTEMI, ACS versus type II in the setting of tachycardia and cardioversion
- Continue heparin drip, aspirin
- Cardiac catheterization 10/[address] with multiv[address] coronary disease. CT surgery evaluation pending
- remains on amiodarone
#3. Questionable left apical nodule
- Suspect this may be clavicular. I reviewed head CT 09/17/2023. Could not appreciate anything in apex but he does have a small nodule left upper lobe image #107 per my review
- Consider follow-up CT chest as outpatient. Patient is a non-smoker
Other medical diagnoses:
- GERD
- HTN
- DM - II
- Thrombocytopenia
DVT prophylaxis. Currently on heparin drip
Patient being transferred to IVU
Ongoing workup for possible bypass surgery
We will sign off for now, and revisit depending on surgical plans
Please call with questions
Data:
Lexiscan 06/2024: Negative Lexiscan sestamibi for ischemia.
ECHO 06/2024: 1. Normal left ventricular size and function, ejection fraction 55-60%
2. Thickened mitral leaflets, mild mitral annular calcification, trace mitral
regurgitation and mildly dilated left atrium
3. Aortic sclerosis with trace aortic regurgitation
4. Normal right heart with pulmonary artery systolic pressure 25-30 mmHg
5. 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
Subjective Dataa
Subjective Data
Date of Service:
Date of Service: October 27, 2024
Subjective:
Patient is feeling well. Denies any shortness of breath, nausea, significant abdominal pain, chest pain. Sitting in chair. Ambulating without issues. Appears to be in good spirits
Objective Data
Data Reviewed
Vital Signs / I&O / Oxygen:
Vital Signs
Temp Pulse Resp BP Pulse Ox
97.9 F 62 14 119/72 98
10/27/24 07:15 10/27/24 06:00 10/27/24 06:00 10/27/24 05:00 10/27/24 06:00
Intake and Output
10/26/24 10/27/24 10/28/24
06:59 06:59 06:59
Intake Total 1133.0 / 1163.7 806.1 / 806.1
Output Total 4450 / 4450 1125 / 1125
Balance -3317.0 / -3286.3 -318.9 / -318.9
SaO2 98
Physical Exam
General: Comfortable
HEENT: Normocephalic and Anicteric
Cardiovascular: S1-S2, Regular Rhythm, Murmur (n) and Peripheral Edema (n)
Respiratory: Wheeze (n), Crackles (n), Rhonchi (n) and Non-Labored Respirations
GI: Soft, Non Distended and Non Tender
Neurology: Awake, Alert and No Motor Deficits
Skin: Cyanosis (n) and Jaundice (n)
Labs/Micro/Reports
Lab Data
10/27/24 04:06
10/27/24 04:06
Laboratory Results
10/26/24 10/27/24
10:51 04:06
APTT 102.6 H 94.3 H
[2024-10-27] MEDS: LOW STRENGTH ASPIRIN 81 MG PO (07:52)
[2024-10-27] MEDS: BENICAR 5 MG PO (07:52)
[2024-10-27] MEDS: PROTONIX 40 MG PO (07:52)
[2024-10-27] MEDS: ZETIA 10 MG PO (07:52)
[2024-10-27] MEDS: NOVOLOG FLEXPEN-LOW RESISTANCE SC (08:05)
--- NOTE | 2024-10-27 08:07 | PTCARENOTE ---
Received pt awake and alert.Speech is appropriate.Gait is steady.Denies pain or pressure.Minimal assistance to bathroom and chair.SR noted.Right PICC intact with Heparin and Amiodarone gtts infusing.Lungs CTA.POX 98% on RA.Appetite good.+flatus.No
BM.Voiding yellow urine.Skin integrity as documented.Plan of care discussed with pt.
[2024-10-27 08:19] LABS: Glucose - Point of Care 147 mg/dl (70-99)
--- NOTE | 2024-10-27 09:57 | PTCARENOTE ---
Pt transported to CT .
--- NOTE | 2024-10-27 10:09 | W.PN.HOSP.TC ---
Today's Communication/Plan
-
can transfer to IVU
CT Chest
Carotid US
Add low dose Lantus, holding metformin pending surgery
Assessment / Plan
Assessment / Plan
Physical Exam
General: Well Developed, Well Nourished and No Apparent Distress
HEENT: Normocephalic, Moist mucous membranes and Atraumatic
Respiratory: Clear
Cardiac: S1/S2
GI: Soft, Non Tender, Non Distended and Normal Bowel Sounds;
Musculoskeletal: No Clubbing, No Cyanosis and No Edema
Skin: No Rash
Neuro: AO x 3 and Nonfocal/grossly intact
Psych: Calm
A 79year old man presented with unprovoked, recurrent and worsening chest tightness and dizziness.
#Spontaneous Ventricular tachycardia
-Wide complex ventricular tachy cardia that has been in sinus
-Currently on IV Amiodarone
telemetry
#Non-STEMI with peak troponin of 1.8 then came down
-Currently on IV Heparin drip
- Cardiac cath showed multiple vessel disease, CT surgery is consulted.
#Hypotension requiring pressors
Cardiogenic shock, resolved.
# Mild GIDEON, resolved
# Hyponatremia, resolved.
#History of CAD based on coronary calcifications on CAT scan
-Ct Aspirin
No chest pain
- Intolerant to statin
#Dilated aortic root 4.3 cm in 2021 and 2024
#Hypertension
Resume Benicar
#Hyperlipidemia
#Diabetes
Add low dose Lantus, holding metformin pending surgery
#Peripheral neuropathy
#Splenomegaly
#Colonic Polyp
-Colonoscopy with Biopsy X 4
#GERD
-Ct Omeprazole
#Chronc Constipation
-Continue Senna
Full code
POA-Daughters
Total time spent to see the patient, examine the patient, review data and lab result, discuss treatment plan with patient, nursing staff around 55 minutes
Anticipated Discharge: > 48 hours
Subjective/Interval History
-
Date of Service: October 27, 2024
No chest pain
No sob
Objective Data
-
Labs:
Laboratory Results
10/27/24 10/27/24
04:06 10:00
WBC 5.1
Hgb 11.8 L
Hct 32.4 L
Plt Count 79 L
APTT 94.3 H Pending
Sodium 136
Potassium 3.9
Chloride 111 H
Carbon Dioxide 21 L
BUN 20
Creatinine 0.8
Glucose 120 H
Calcium 8.8
Vital Signs:
Vital Signs
Temp Pulse Resp BP Pulse Ox
97.9 F 77 15 135/77 97
10/27/24 07:15 10/27/24 09:00 10/27/24 09:00 10/27/24 09:00 10/27/24 08:00
I&O
10/26/24 10/27/24 10/28/24
06:59 06:59 06:59
Intake Total 1133.0 / 1163.7 806.1 / 836.8 332.1 / 332.1
Output Total 4450 / 4450 1125 / 1125
Balance -3317.0 / -3286.3 -318.9 / -288.2 332.1 / 332.1
[2024-10-27 10:48] LABS: APTT 81.5 Sec (23.4-35.0)
[2024-10-27] MEDS: NOVOLOG FLEXPEN-LOW RESISTANCE 1 UNITS SC ×2 (11:43→18:05)
[2024-10-27 11:53] LABS: Glucose - Point of Care 179 mg/dl (70-99)
--- NOTE | 2024-10-27 12:00 | CHAP ---
Msgr. Neal Asher of [facility] in [place] heard Luis's confession, and gave him Holy Communion and the Sacrament of the Sick.
--- NOTE | 2024-10-27 12:29 | PTCARENOTE ---
Pt assessed.No change in assessment noted.
--- NOTE | 2024-10-27 15:12 | W.PN.CARDCBS ---
Today's Communication / Plan
-
CABG eval
Impression / Plan
-
Impression:
Unstable Wide-complex tachycardia, SVT with aberrancy but cannot exclude VT
Non-STEMI with peak troponin of 0.714
Multivessel coronary artery disease by cardiac catheterization 10/26/2014 for CABG evaluation
Possible left apical nodule on CT
Type 2 diabetes mellitus
Hyperglycemia
Hypertension
GERD
Peripheral neuropathy
History of thrombocytopenia
Dilated aortic root 4.3 cm in 2021 and 2024
Echocardiogram 06/15/24: Ejection fraction 55 to 60%, aortic sclerosis, dilated aortic root 4.3 cm
Lexiscan sestamibi stress test 06/24/2024: Fixed basal inferior, mid inferior, apical inferior, basal inferolateral, basal anterolateral, and apical defect consistent with soft tissue attenuation, ejection fraction 40%
Left heart catheterization October 26, 2024: LVEDP 8. Dominant right. Left main large and free of disease. LAD with long diffuse moderate to severe mid eccentric 90% stenosis. Utsv-xu-eavui collaterals. D2 with ostial 60 to 70% stenosis and
diffuse 70% stenosis in the midportion. Left circumflex with mid 70% eccentric stenosis. OM1 with eccentric 70% stenosis. RCA with TALENT RECRUITER 100% proximal with ldne-mu-sjrii collaterals.
Plan:
Unstable wide-complex tachycardia in the ED with heart rates in the 180s status post adenosine 6, 12, 12 without conversion. Synchronized cardioversion x 2 without change in rhythm. Following cardioversion patient was hypotensive requiring brief
Levophed. Subsequently started on amiodarone infusion.
-Hemodynamically stable off pressors
- Maintaining sinus rhythm with PVCs and couplets
- Continue amiodarone in preparation for surgery.
- Keep K greater than 4, mag greater than 2
Multivessel coronary artery disease in the setting of non-STEMI
- Appreciate CT surgery input
- Preoperative CT surgery evaluation
- Continue aspirin.
-Continue IV heparin
-Not currently on a statin with statin allergy. Will need to review nature of allergy. LDL 5817 2024
Type 2 diabetes mellitus with hemoglobin A1c 5.5% 10/25/2024 and 5.4% 06/12/2024.
Thrombocytopenia that appears chronic with slight worsening, currently 79,000.
-If platelets drops further may need to stop IV heparin and get hematology consult
Okay to transfer to IVU
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
Subjective
Date of Service: October 27, 2024
Patient seen and examined. No chest pain or pressure. Awaiting CT surgery plan for CABG
Objective
Labs:
10/27/24 04:06
10/27/24 04:06
Labs
Hgb 11.8 g/dL (13.0-18.0) L 10/27/24 04:06
Hct 32.4 % (39.0-52.0) L 10/27/24 04:06
Plt Count 79 10^3/uL (130-400) L 10/27/24 04:06
PT 15.5 Sec (11.4-14.6) H 10/25/24 07:59
PT Cancelled 10/25/24 07:59
INR 1.20 10/25/24 07:59
INR Cancelled 10/25/24 07:59
APTT 81.5 Sec (23.4-35.0) H 10/27/24 10:29
Sodium 136 mmol/L (135-145) 10/27/24 04:06
Potassium 3.9 mmol/L (3.5-5.1) 10/27/24 04:06
BUN 20 mg/dl (9-20) 10/27/24 04:06
Creatinine 0.8 mg/dL (0.7-1.3) 10/27/24 04:06
Glucose 120 mg/dl (70-99) H 10/27/24 04:06
Troponins
10/24/24 10/24/24 10/25/24
20:08 23:40 04:02
Troponin I 0.239 H* 0.556 H* D Cancelled
10/25/24 10/25/24 10/25/24
04:21 07:02 10:29
Troponin I 0.714 H* D Cancelled 1.230 H* D
10/25/24 10/25/24 10/25/24
10:30 15:50 16:00
Troponin I Cancelled 1.810 H* D Cancelled
10/25/24 10/26/24
22:40 05:11
Troponin I 1.580 H* 1.110 H* D
Vital Signs and I&O:
Vital Signs
Temp Pulse Resp BP Pulse Ox
98.0 F 66 21 131/76 97
10/27/24 12:03 10/27/24 14:00 10/27/24 14:00 10/27/24 14:00 10/27/24 08:00
Vital Signs
Temp Pulse Resp BP Pulse Ox
98.0 F 66 21 131/76 97
10/27/24 12:03 10/27/24 14:00 10/27/24 14:00 10/27/24 14:00 10/27/24 08:00
Intake & Output
10/25/24 10/26/24 10/27/24 10/28/24
06:59 06:59 06:59 06:59
Intake Total 695.2 / 818.5 1133.0 / 1163.7 806.1 / 836.8 485.6 / 485.6
Output Total 600 / 600 4450 / 4450 1125 / 1125
Balance 95.2 / 218.5 -3317.0 / -3286.3 -318.9 / -288.2 485.6 / 485.6
Physical Exam
Physical Exam
General: No acute distress, AAOX3
Heart: Regular, positive S1/S2, No murmur
Lungs: CTA b/l, negative wheezes/rales/rhonchi
Abd: Positive BS, NT/ND, neg rebound/rigidity/guarding
Ext:No edema. Multiple areas of ecchymosis
Neuro: nonfocal
[2024-10-27] MEDS: SENOKOT-S 2 TABLET PO (15:51)
--- NOTE | 2024-10-27 16:06 | CM ---
Amiodarone gtt, cardiac cath today with CAD. Discharge POC TBD. Anticipate home with no needs. Outpatient Cardiac Rehab.
--- NOTE | 2024-10-27 16:49 | PTCARENOTE ---
Pt assessed.No change in assessment noted.
[2024-10-27 17:23] LABS: Glucose - Point of Care 150 mg/dl (70-99)
--- NOTE | 2024-10-27 17:52 | PTCARENOTE ---
Pt received as transfer from ICU. AAOx3. NSR on tele, HR 60s. SpO2 99% on room air. BP 120/67. Remains on Amio gtt at 0.5mg/min through RUE DL PICC, 0.[address] for infusion. Heparin gtt infusing at 1400 units/hr through PICC. Daily
PTT. R radial site CDI & RUE neurovascular checks WDL. R fem access site CDI. RLE neurovascular checks WDL. Pt does endorse decreased sensation to b/l lower extremities and hx of neuropathy. Pt OOB to chair at this time, call stewart in reach.
--- NOTE | 2024-10-27 17:59 | PTCARENOTE ---
Report given to IVU RN.Pt transported to IVU via wheelchair.
--- NOTE | 2024-10-27 18:54 | W.PN.UPDATE ---
Addendum entered and electronically signed by Mandeep Rodgers MD 10/28/24 15:06:
I saw and examined the patient.
The PA's note was reviewed and I agree with the note.
Comment:
CARDIAC SURGERY ATTENDING:
Plan for CABG this coming 11/02/2024.
Original Note:
Update Note
Progress Note Update
Procedure Type:�Isolated CABG
Perioperative Outcome Estimate %
Operative Mortality 2.58%
Morbidity & Mortality 7.98%
Stroke 0.983%
Renal Failure 1.24%
Reoperation 2.39%
Prolonged Ventilation 4.26%
Deep Sternal Wound Infection 0.147%
Long Hospital Stay (>14 days) 5.64%
Short Hospital Stay (<6 days)* 37.7%
Clinical Summary
Planned Surgery: Isolated CABG, Urgent, First cardiovascular surgery
Demographics: 80 year old, male, 97.3kg, 180cm, BMI: 30 kg/m�
Lab Values: Creatinine: 0.7 mg/dL, Hematocrit: 34.9%, WBC Count: 6.9 10�/�L, Platelet Count: 27207 cells/�L
PreOp Medications: Oral diabetes control
Substance Abuse: Former smoker
Risk Factors / Comorbidities: Diabetes Mellitus , Hypertension
Cardiac Status: Ejection Fraction = 50%
Coronary Artery Disease: 3 vessels diseased, Non-ST Elevation NM, NM: 1 to 7 Days
Valve Disease: Trivial/Trace AR, Mild MR, Trivial/Trace TR
Arrhythmia: Recent V. Tach / V. Fib
[2024-10-27] MEDS: LANTUS 0.05 UNITS SC (22:18)
[2024-10-27 22:21] LABS: Glucose - Point of Care 160 mg/dl (70-99)
[2024-10-28] MEDS: CORDARONE 518 MG IV (00:58)
[2024-10-28 05:18] VITALS: BP 114/66
[2024-10-28 05:33] VITALS: BMI 29.1
[2024-10-28 05:52] LABS: Hematocrit 34.3 % (39.0-52.0); Hemoglobin 12.6 g/dL (13.0-18.0); Mean Corp Hgb Conc. 36.7 g/dL (33.0-37.0); Mean Corpuscular Volume 91.5 fL (80.0-94.0); Platelet Count 83 10^3/uL (130-400); Red Cell Dist. Width 13.8 % (11.5-14.5)
[2024-10-28 06:08] LABS: Blood Urea Nitrogen 20 mg/dl (9-20); Calcium 9.5 mg/dl (8.4-10.2); Carbon Dioxide 22 mmol/L (22-30); Chloride 107 mmol/L (98-107); Estimated Creatinine Clearance 73 ml/min; Glucose 148 mg/dl (70-99); Magnesium 2.0 mg/dl (1.6-2.3); Potassium 3.8 mmol/L (3.5-5.1); Sodium 135 mmol/L (135-145); eGFR > 60.00
--- NOTE | 2024-10-28 06:29 | PTCARENOTE ---
Pt NSR on monitor, VSS. Denies pain or any discomfort. Heparin gtt and Amio gtt per order. Pt ambulates with x 1 assist. Call stewart w/in reach
[2024-10-28 06:36] LABS: APTT 103.6 Sec (23.4-35.0)
[2024-10-28 07:20] VITALS: BP 123/68
[2024-10-28] MEDS: PROTONIX 40 MG PO (08:48)
[2024-10-28] MEDS: BENICAR 5 MG PO (08:48)
[2024-10-28] MEDS: ZETIA 10 MG PO (08:48)
[2024-10-28] MEDS: LOW STRENGTH ASPIRIN 81 MG PO (08:49)
[2024-10-28] MEDS: KCL 20 MEQ PO (08:53)
[2024-10-28 09:01] LABS: Glucose - Point of Care 141 mg/dl (70-99)
[2024-10-28] MEDS: NOVOLOG FLEXPEN-LOW RESISTANCE SC ×2 (09:01→17:24)
--- NOTE | 2024-10-28 09:14 | W.PN.HOSP.TC ---
Today's Communication/Plan
-
f/w CT and cardiology recommendations
Assessment / Plan
Assessment / Plan
Physical Exam
General: Well Developed, Well Nourished and No Apparent Distress
HEENT: Normocephalic, Moist mucous membranes and Atraumatic
Respiratory: Clear
Cardiac: S1/S2
GI: Soft, Non Tender, Non Distended and Normal Bowel Sounds;
Musculoskeletal: No Clubbing, No Cyanosis and No Edema
Skin: No Rash
Neuro: AO x 3 and Nonfocal/grossly intact
Psych: Calm
A 79year old man presented with unprovoked, recurrent and worsening chest tightness and dizziness.
#Spontaneous Ventricular tachycardia
-Wide complex ventricular tachy cardia that has been in sinus
-Currently on IV Amiodarone
telemetry
#Non-STEMI with peak troponin of 1.8 then came down
-Currently on IV Heparin drip
- Cardiac cath showed multiple vessel disease, CT surgery is consulted. Surgery early next week.
#Hypotension requiring pressors
Cardiogenic shock, resolved.
# Mild GIDEON, resolved
# Hyponatremia, resolved.
# toothache
Right lower molar, has filling, no swelling
c/w pain medicine, f/w dentis as OP.
#History of CAD based on coronary calcifications on CAT scan
-Ct Aspirin
No chest pain
- Intolerant to statin
#Dilated aortic root 4.3 cm in 2021 and 2024
#Hypertension
Resume Benicar
#Hyperlipidemia
#Diabetes
Added low dose Lantus, holding metformin pending surgery
#Peripheral neuropathy
#Splenomegaly
#Colonic Polyp
-Colonoscopy with Biopsy X 4
#GERD
-Ct Omeprazole
#Chronc Constipation
-Continue Senna
Full code
POA-Daughters
Total time spent to see the patient, examine the patient, review data and lab result, discuss treatment plan with patient, nursing staff around 55 minutes
Anticipated Discharge: > 48 hours
Subjective/Interval History
-
Date of Service: October 28, 2024
No chest pain
No sob
Objective Data
-
Labs:
Laboratory Results
10/28/24
05:25
WBC 5.0
Hgb 12.6 L
Hct 34.3 L
Plt Count 83 L
APTT 103.6 H
Sodium 135
Potassium 3.8
Chloride 107
Carbon Dioxide 22
BUN 20
Creatinine 0.9
Glucose 148 H
Calcium 9.5
Vital Signs:
Vital Signs
Temp Pulse Resp BP Pulse Ox
97.6 F 57 20 145/78 100
10/28/24 07:20 10/28/24 05:16 10/28/24 07:20 10/27/24 22:26 10/28/24 07:20
I&O
10/27/24 10/28/24 10/29/24
06:59 06:59 06:59
Intake Total 806.1 / 836.8 577.7 / 577.7
Output Total 1125 / 1125 900 / 900
Balance -318.9 / -288.2 -322.3 / -322.3
[2024-10-28 11:16] VITALS: BP 113/55
[2024-10-28 12:22] LABS: Glucose - Point of Care 193 mg/dl (70-99)
[2024-10-28] MEDS: NOVOLOG FLEXPEN-LOW RESISTANCE 1 UNITS SC (12:42)
--- NOTE | 2024-10-28 12:48 | W.PN.CARDCBS ---
Addendum entered and electronically signed by Marcos Henao MD 10/28/24 17:17:
I saw and examined the patient.
The Branch Service Associate's note was reviewed and I agree with the note.
Comment: Briefly, 79-year-old man presenting with chest discomfort found to have elevated troponin consistent with NSTEMI. Initial ECG showed normal sinus rhythm with no obvious ischemic changes.
Patient subsequently developed monomorphic ventricular tachycardia. He was treated with IV amiodarone and converted to sinus rhythm.
EF was low normal by echo here
Underwent left heart catheterization 10/24/2024 which revealed multivessel coronary artery disease and tentative plan at this point is for surgical revascularization
For now would continue aspirin, Zetia and heparin drip
Add low-dose beta-adrianna
Hold olmesartan and monitor blood pressure
Okay to transition IV amiodarone to oral
Rest per Patience Abel
Original Note:
Today's Communication / Plan
-
Awaiting CABG
Continue IV heparin, asa. Follow platelet count
Transition IV amio to p.o. amiodarone. Follow QTc by EKG
Impression / Plan
-
Impression:
Unstable Wide-complex tachycardia, SVT with aberrancy but cannot exclude VT
Non-STEMI with peak troponin of 0.714
Multivessel coronary artery disease by cardiac catheterization 10/26/2014 for CABG evaluation
Possible left apical nodule on CT
Type 2 diabetes mellitus
Hyperglycemia
Hypertension
GERD
Peripheral neuropathy
History of thrombocytopenia
Dilated aortic root 4.3 cm in 2021 and 2024
Echocardiogram 06/15/24: Ejection fraction 55 to 60%, aortic sclerosis, dilated aortic root 4.3 cm
Lexiscan sestamibi stress test 06/24/2024: Fixed basal inferior, mid inferior, apical inferior, basal inferolateral, basal anterolateral, and apical defect consistent with soft tissue attenuation, ejection fraction 40%
Left heart catheterization October 26, 2024: LVEDP 8. Dominant right. Left main large and free of disease. LAD with long diffuse moderate to severe mid eccentric 90% stenosis. Aojh-zq-xclrc collaterals. D2 with ostial 60 to 70% stenosis and
diffuse 70% stenosis in the midportion. Left circumflex with mid 70% eccentric stenosis. OM1 with eccentric 70% stenosis. RCA with CHANGE RELEASE MANAGER 100% proximal with [id number]-fgqpq collaterals.
Plan:
-Unstable wide-complex tachycardia in the ED with heart rates in the 180s status post adenosine 6, 12, 12 without conversion. Synchronized cardioversion x 2 without change in rhythm. Following cardioversion patient was hypotensive requiring brief
Levophed. Subsequently started on amiodarone infusion.
-ruled in for NSTEMI with peak trop 1.8.
-s/p cath with MV CAD, now undergoing CABG evaluation. tentatively scheduled for Saturday11/02/24
-currently on IV amio gtt, in SR on review of tele overnight with 1 6-beat run of NSVT. will transition to po amio 400mg TID. follow QTc by EKG
-continue asa, IV heparin
-follow thrombocytopenia. Downtrending but stable at 83K. Discussed with CT surgery 10/28, not felt to be secondary to HIT as platelet count improved slightly today. could consider hematology evaluation if needed from CT surg standpoint prior to
surgery
-LDL 50. not presently on statin with listed allergy. on zetia
-currently on benicar 5mg daily, will need to be held at least 48 hours pre op. was on diltiazem 180mg daily as OP, not presently being given
-Type 2 diabetes mellitus with hemoglobin A1c 5.5% 10/25/2024 and 5.4% 06/12/2024.
Progress Note - Gut Puller
Subjective
Date of Service: October 28, 2024
Patient without present symptoms. Awaiting CABG
Objective
Labs:
10/28/24 05:25
10/28/24 05:25
Labs
Hgb 12.6 g/dL (13.0-18.0) L 08/20/25 05:25
Hct 34.3 % (39.0-52.0) L 10/28/24 05:25
Plt Count 83 10^3/uL (130-400) L 10/28/24 05:25
PT 15.5 Sec (11.4-14.6) H 10/25/24 07:59
PT Cancelled 10/25/24 07:59
INR 1.20 10/25/24 07:59
INR Cancelled 10/25/24 07:59
APTT 103.6 Sec (23.4-35.0) H 10/28/24 05:25
Sodium 135 mmol/L (135-145) 10/28/24 05:25
Potassium 3.8 mmol/L (3.5-5.1) 10/28/24 05:25
BUN 20 mg/dl (9-20) 10/28/24 05:25
Creatinine 0.9 mg/dL (0.7-1.3) 10/28/24 05:25
Glucose 148 mg/dl (70-99) H 10/28/24 05:25
Troponins
10/25/24 10/25/24 10/25/24
10:30 15:50 16:00
Troponin I Cancelled 1.810 H* D Cancelled
10/25/24 10/26/24
22:40 05:11
Troponin I 1.580 H* 1.110 H* D
Vital Signs and I&O:
Vital Signs
Temp Pulse Resp BP Pulse Ox
97.6 F 68 20 123/68 95
10/28/24 11:18 10/28/24 10:00 10/28/24 11:18 10/28/24 07:20 10/28/24 11:18
Vital Signs
Temp Pulse Resp BP Pulse Ox
97.6 F 68 20 123/68 95
10/28/24 11:18 10/28/24 10:00 10/28/24 11:18 10/28/24 07:20 10/28/24 11:18
Intake & Output
10/26/24 10/27/24 10/28/24 10/29/24
07:59 07:59 07:59 07:59
Intake Total 1040.4 / 1071.1 806.1 / 1076.8 547.0 / 547.0
Output Total 4450 / 4750 1125 / 1125 900 / 900
Balance -3409.6 / -3678.9 -318.9 / -48.2 -353.0 / -353.0
Physical Exam
Physical Exam
GEN: No distress, awake, alert, oriented x3
HEENT: supple, anicteric, mmm, EOMI
LUNGS: CTA bilaterally, no wheezes
CV: Reg, S1/S2, no murmur
ABD: soft, BS+, NT/ND
EXT: No cyanosis, clubbing, edema
NEURO: Gross non-focal
SKIN: Warm, pink, dry. No rash
[2024-10-28] MEDS: HEPARIN 25000 UNITS/250 ML IV (15:26)
[2024-10-28] MEDS: PACERONE 400 MG PO ×2 (16:08→22:12)
[2024-10-28 16:10] VITALS: BP 154/68
[2024-10-28 17:09] LABS: Glucose - Point of Care 132 mg/dl (70-99)
[2024-10-28 19:51] VITALS: BP 127/73
[2024-10-28] MEDS: LOPRESSOR 12.5 MG PO (21:10)
[2024-10-28 22:10] VITALS: BP 110/63
[2024-10-28] MEDS: LANTUS 0.05 UNITS SC (22:16)
[2024-10-28 22:18] LABS: Glucose - Point of Care 173 mg/dl (70-99)
[2024-10-29 04:36] VITALS: BP 123/74
[2024-10-29 04:54] VITALS: BMI 29.1
--- NOTE | 2024-10-29 05:01 | PTCARENOTE ---
Pt NSR on monitor. VSS. Denies SOB. C/O left side tooth pain, GENERAL EDUCATION INSTRUCTOR made aware. Heprin gtt oer order. Pt ambulates with x 1 assist. call terry w/in reach
[2024-10-29 05:04] LABS: Hematocrit 34.5 % (39.0-52.0); Hemoglobin 12.4 g/dL (13.0-18.0); Mean Corp Hgb Conc. 35.9 g/dL (33.0-37.0); Mean Corpuscular Volume 91.3 fL (80.0-94.0); Platelet Count 89 10^3/uL (130-400); Red Cell Dist. Width 14.0 % (11.5-14.5)
[2024-10-29] MEDS: TYLENOL 650 MG PO (05:12)
[2024-10-29 05:21] LABS: APTT 112.1 Sec (23.4-35.0)
[2024-10-29 06:22] LABS: Blood Urea Nitrogen 21 mg/dl (9-20); Calcium 9.4 mg/dl (8.4-10.2); Carbon Dioxide 22 mmol/L (22-30); Chloride 108 mmol/L (98-107); Estimated Creatinine Clearance 73 ml/min; Glucose 131 mg/dl (70-99); Magnesium 1.9 mg/dl (1.6-2.3); Potassium 4.2 mmol/L (3.5-5.1); Sodium 135 mmol/L (135-145); eGFR > 60.00
[2024-10-29 08:21] VITALS: BP 125/62
[2024-10-29] MEDS: ZETIA 10 MG PO (08:23)
[2024-10-29] MEDS: LOPRESSOR 12.5 MG PO ×2 (08:24→19:20)
[2024-10-29] MEDS: LOW STRENGTH ASPIRIN 81 MG PO (08:24)
[2024-10-29] MEDS: PROTONIX 40 MG PO (08:25)
[2024-10-29] MEDS: PACERONE 400 MG PO ×3 (08:25→22:15)
[2024-10-29 08:36] LABS: Glucose - Point of Care 144 mg/dl (70-99)
[2024-10-29] MEDS: PEN VK 500 MG PO ×3 (08:42→22:15)
[2024-10-29] MEDS: NOVOLOG FLEXPEN-LOW RESISTANCE SC ×2 (08:42→13:16)
--- NOTE | 2024-10-29 10:07 | W.PN.HOSP.TC ---
Today's Communication/Plan
-
Will d/w cardiology if we can stop IV Heparin gtt
Empiric Penicillin V for toothache
Assessment / Plan
Assessment / Plan
Physical Exam
General: Well Developed, Well Nourished and No Apparent Distress
HEENT: Normocephalic, Moist mucous membranes and Atraumatic
Respiratory: Clear
Cardiac: S1/S2
GI: Soft, Non Tender, Non Distended and Normal Bowel Sounds;
Musculoskeletal: No Clubbing, No Cyanosis and No Edema
Skin: No Rash
Neuro: AO x 3 and Nonfocal/grossly intact
Psych: Calm
A 79year old man presented with unprovoked, recurrent and worsening chest tightness and dizziness.
#Spontaneous Ventricular tachycardia
-Wide complex ventricular tachy cardia that has been in sinus
-s/p IV Amiodarone, on oral BB & Amiodarone
telemetry
#Non-STEMI with peak troponin of 1.8 then came down
-Currently on IV Heparin drip, consider to stop
- Cardiac cath showed multiple vessel disease, CT surgery is consulted. Surgery early next week.
#Hypotension requiring pressors
Cardiogenic shock, resolved.
# Mild GIDEON, resolved
# Hyponatremia, resolved.
# toothache
Right lower molar, has filling, no swelling
c/w pain medicine, short course of penicillin V, f/w dentis as OP.
#History of CAD based on coronary calcifications on CAT scan
-Ct Aspirin
No chest pain
- Intolerant to statin
#Dilated aortic root 4.3 cm in 2021 and 2024
#Hypertension
Resume Benicar
#Hyperlipidemia
#Diabetes
Added low dose Lantus, holding metformin pending surgery
#Peripheral neuropathy
#Splenomegaly
#Colonic Polyp
-Colonoscopy with Biopsy X 4
#GERD
-Ct Omeprazole
#Chronc Constipation
-Continue Senna
Full code
POA-Daughters
Total time spent to see the patient, examine the patient, review data and lab result, discuss treatment plan with patient, nursing staff around 55 minutes
Anticipated Discharge: > 48 hours
Subjective/Interval History
-
Date of Service: October 29, 2024
No chest pain
Objective Data
-
Labs:
Laboratory Results
10/29/24 10/29/24
04:50 11:35
WBC 4.8
Hgb 12.4 L
Hct 34.5 L
Plt Count 89 L
APTT 112.1 H Pending
Sodium 135
Potassium 4.2
Chloride 108 H
Carbon Dioxide 22
BUN 21 H
Creatinine 0.9
Glucose 131 H
Calcium 9.4
Vital Signs:
Vital Signs
Temp Pulse Resp BP Pulse Ox
98.3 F 58 16 125/62 98
10/29/24 08:32 10/29/24 08:21 10/29/24 08:32 10/29/24 08:21 10/29/24 08:32
I&O
10/28/24 10/29/24 10/30/24
06:59 06:59 06:59
Intake Total 577.7 / 577.7
Output Total 900 / 900 850 / 850
Balance -322.3 / -322.3 -850 / -850
[2024-10-29] MEDS: HEPARIN 25000 UNITS/250 ML IV (10:59)
[2024-10-29 11:25] VITALS: BP 123/70
--- NOTE | 2024-10-29 13:10 | W.PN.CARDCBS ---
Addendum entered and electronically signed by Marcos Henao MD 10/29/24 14:18:
I saw and examined the patient.
The Home Economics Extension Worker's note was reviewed and I agree with the note.
Comment: 79-year-old man presenting with chest discomfort found to have elevated troponin consistent with NSTEMI. Initial ECG showed normal sinus rhythm with no obvious ischemic changes.
Patient subsequently developed monomorphic ventricular tachycardia. He was treated with IV amiodarone and converted to sinus rhythm.
EF was low normal by echo here
Underwent left heart catheterization 10/24/2024 which revealed multivessel coronary artery disease
For now would continue aspirin, Zetia and low-dose beta-adrianna for treatment of CAD
Okay to discontinue heparin from my standpoint as patient is currently asymptomatic and has her completed 48 hours
Tentative plan for surgical revascularization
Ventricular ectopy has been quiescent, would continue oral amiodarone and monitor on telemetry
Rest per Patience Abel
Original Note:
Today's Communication / Plan
-
Continue Lopressor, amiodarone. Follow QTc
IV heparin stopped for now given thrombocytopenia, follow
Tentatively planned for CABG 11/02/2024
Impression / Plan
-
Impression:
Unstable Wide-complex tachycardia, SVT with aberrancy but cannot exclude VT
Non-STEMI with peak troponin of 0.714
Multivessel coronary artery disease by cardiac catheterization 10/26/2014 for CABG evaluation
Possible left apical nodule on CT
Type 2 diabetes mellitus
Hyperglycemia
Hypertension
GERD
Peripheral neuropathy
History of thrombocytopenia
Dilated aortic root 4.3 cm in 2021 and 2024
Echocardiogram 06/15/24: Ejection fraction 55 to 60%, aortic sclerosis, dilated aortic root 4.3 cm
Lexiscan sestamibi stress test 06/24/2024: Fixed basal inferior, mid inferior, apical inferior, basal inferolateral, basal anterolateral, and apical defect consistent with soft tissue attenuation, ejection fraction 40%
Left heart catheterization October 26, 2024: LVEDP 8. Dominant right. Left main large and free of disease. LAD with long diffuse moderate to severe mid eccentric 90% stenosis. Fabu-yh-ricat collaterals. D2 with ostial 60 to 70% stenosis and
diffuse 70% stenosis in the midportion. Left circumflex with mid 70% eccentric stenosis. OM1 with eccentric 70% stenosis. RCA with EMBROIDERY ASSISTANT 100% proximal with [id number] collaterals.
Plan:
-Unstable wide-complex tachycardia in the ED with heart rates in the 180s status post adenosine 6, 12, 12 without conversion. Synchronized cardioversion x 2 without change in rhythm. Following cardioversion patient was hypotensive requiring brief
Levophed. Subsequently started on amiodarone infusion.
-ruled in for NSTEMI with peak trop 1.8.
-s/p cath with MV CAD, now undergoing CABG evaluation. tentatively scheduled for Saturday11/02/24
-remains in SR on review of tele overnight. continue lopressor 12.5mg BID and po amio 400mg TID. QTc stable by EKG 10/29
-continue asa. IV heparin stopped as >48 hours and as platelets remain low at 89K. patient reports his baseline is ~100K. could consider hematology evaluation if needed from CT surg standpoint prior to surgery
-LDL 50. not presently on statin with listed allergy. on zetia
-currently on benicar 5mg daily, will need to be held at least 48 hours pre op. was on diltiazem 180mg daily as OP, not presently being given
-Type 2 diabetes mellitus with hemoglobin A1c 5.5% 10/25/2024 and 5.4% 06/12/2024.
-d/w nursing. d/w hospitalist via TT
Progress Note - Mental Health Program Manager
Subjective
Date of Service: October 29, 2024
Reports did not sleep well, however no cardiac complaints
Objective
Labs:
10/29/24 04:50
10/29/24 04:50
Labs
Hgb 12.4 g/dL (13.0-18.0) L 10/29/24 04:50
Hct 34.5 % (39.0-52.0) L 10/29/24 04:50
Plt Count 89 10^3/uL (130-400) L 10/29/24 04:50
PT 15.5 Sec (11.4-14.6) H 10/25/24 07:59
PT Cancelled 10/25/24 07:59
INR 1.20 10/25/24 07:59
INR Cancelled 10/25/24 07:59
APTT 112.1 Sec (23.4-35.0) H 10/29/24 04:50
Sodium 135 mmol/L (135-145) 10/29/24 04:50
Potassium 4.2 mmol/L (3.5-5.1) 10/29/24 04:50
BUN 21 mg/dl (9-20) H 10/29/24 04:50
Creatinine 0.9 mg/dL (0.7-1.3) 10/29/24 04:50
Glucose 131 mg/dl (70-99) H 10/29/24 04:50
Vital Signs and I&O:
Vital Signs
Temp Pulse Resp BP Pulse Ox
98.2 F 58 20 125/62 98
10/29/24 11:24 10/29/24 08:21 10/29/24 11:24 10/29/24 08:21 10/29/24 11:24
Vital Signs
Temp Pulse Resp BP Pulse Ox
98.2 F 58 20 125/62 98
10/29/24 11:24 10/29/24 08:21 10/29/24 11:24 10/29/24 08:21 10/29/24 11:24
Intake & Output
10/27/24 10/28/24 10/29/24 10/30/24
07:59 07:59 07:59 07:59
Intake Total 806.1 / 1076.8 547.0 / 547.0
Output Total 1125 / 1125 900 / 900 850 / 850
Balance -318.9 / -48.2 -353.0 / -353.0 -850 / -850
Physical Exam
Physical Exam
GEN: No distress, awake, alert, oriented x3. sitting in chair
HEENT: supple, anicteric, mmm, EOMI
LUNGS: CTA bilaterally, no wheezes/rales
CV: Reg, S1/S2, no murmur
ABD: soft, BS+, NT/ND
EXT: No cyanosis, clubbing, Edema
NEURO: Gross non-focal
SKIN: No rash. warm, pink, dry.
[2024-10-29 13:13] LABS: Glucose - Point of Care 133 mg/dl (70-99)
--- NOTE | 2024-10-29 14:03 | PTCARENOTE ---
Addendum entered by Nona Zhu RN 10/29/24 14:08:
heparin drip d/c'd at 1215 not 1245
Original Note:
Pt platelets 89. Dr Crowder aware of Pt platelet count. Heparin drip d/c'd at 1245.
--- NOTE | 2024-10-29 14:42 | VATNOTE ---
VAT rounds: Assessed patient's need for picc. Patient for CABG 11/02. Keep PICC in place per DR DRIVER for possible Amiodarone gtt post surgery.
[2024-10-29 15:11] VITALS: BP 126/75
[2024-10-29] MEDS: COLACE 100 MG PO (16:41)
[2024-10-29] MEDS: METAMUCIL, KONSYL 1 PACKET PO (16:43)
[2024-10-29 16:50] LABS: Glucose - Point of Care 180 mg/dl (70-99)
[2024-10-29] MEDS: NOVOLOG FLEXPEN-LOW RESISTANCE 1 UNITS SC (17:06)
--- NOTE | 2024-10-29 17:57 | SUR.OPER ---
Pt reports being constipated, Dr Crowder aware, colace and metamucil ordered and given to Pt.
[2024-10-29 18:51] VITALS: BP 146/74
[2024-10-29 22:06] VITALS: BP 119/76
[2024-10-29 22:08] LABS: Glucose - Point of Care 154 mg/dl (70-99)
[2024-10-29] MEDS: MELATONIN 10 MG PO (22:15)
[2024-10-29] MEDS: LANTUS 0.05 UNITS SC (22:16)
--- NOTE | 2024-10-30 00:40 | PTCARENOTE ---
Assumed care of patient at change of shift. Tele monitor shows SB-NSR, HR in the 50-60's at rest. Right radial/ right groin sites THERESE. Patient ambulates self in room w/out difficulty. Denies any pain or SOB. Aware of POC, call stewart within reach.
[2024-10-30 04:39] VITALS: BP 114/62
[2024-10-30 04:41] VITALS: BMI 29.1
[2024-10-30 07:21] VITALS: BP 108/52
[2024-10-30] MEDS: LOPRESSOR 12.5 MG PO ×2 (07:45→19:42)
[2024-10-30] MEDS: PROTONIX 40 MG PO (07:46)
[2024-10-30] MEDS: PEN VK 500 MG PO ×3 (07:46→22:28)
[2024-10-30] MEDS: PACERONE 400 MG PO ×3 (07:46→22:27)
[2024-10-30] MEDS: LOW STRENGTH ASPIRIN 81 MG PO (07:46)
[2024-10-30] MEDS: ZETIA 10 MG PO (07:46)
[2024-10-30] MEDS: COLACE 100 MG PO ×2 (07:47→19:43)
[2024-10-30] MEDS: METAMUCIL, KONSYL 1 PACKET PO (07:47)
[2024-10-30 08:34] LABS: Glucose - Point of Care 139 mg/dl (70-99)
--- NOTE | 2024-10-30 08:48 | W.PN.CARDCBS ---
Addendum entered and electronically signed by Marcos Henao MD 10/30/24 12:29:
I saw and examined the patient.
The Doctor Of Veterinary Medicine's note was reviewed and I agree with the note.
Comment: 79-year-old man presenting with chest discomfort found to have elevated troponin consistent with NSTEMI. Initial ECG showed normal sinus rhythm with no obvious ischemic changes.
Patient subsequently developed monomorphic ventricular tachycardia. He was treated with IV amiodarone and converted to sinus rhythm.
EF was low normal by echo here
Underwent left heart catheterization 10/24/2024 which revealed multivessel coronary artery disease
For now would continue aspirin, Zetia and low-dose beta-adrianna for treatment of CAD
Completed 48hrs on heparin gtt
Tentative plan for surgical revascularization next week
Ventricular ectopy has been quiescent, would continue oral amiodarone and monitor on telemetry
Original Note:
Today's Communication / Plan
-
Continue current medications
Tentative plan for OR Saturday, 11/02
Impression / Plan
-
PCP: Dr. Lowe
Power Mule Operator: Dr. Burgos
Impression:
Unstable Wide-complex tachycardia, possible SVT with aberrancy but cannot exclude VT
NSTEMI, peak troponin of 1.81
MV CAD by cardiac catheterization 10/26/2014
Possible left apical nodule on CT
Type 2 diabetes mellitus
Hyperglycemia
Hypertension
GERD
Peripheral neuropathy
History of thrombocytopenia
Dilated aortic root 4.3 cm in 2021 and 2024
Lexiscan sestamibi stress test 06/24/2024: Fixed basal inferior, mid inferior, apical inferior, basal inferolateral, basal anterolateral, and apical defect consistent with soft tissue attenuation, ejection fraction 40%
[facility] 10/26/2024: LVEDP 8. Dominant right. Left main large and free of disease. LAD with long diffuse moderate to severe mid eccentric 90% stenosis. Iicz-lz-alwak collaterals. D2 with ostial 60 to 70% stenosis and diffuse 70% stenosis in the
midportion. Left circumflex with mid 70% eccentric stenosis. OM1 with eccentric 70% stenosis. RCA with CONCRETE PUDDLER 100% proximal with ynbf-ez-rokxq collaterals.
Echo 06/15/2024: EF 55 to 60%, aortic sclerosis, dilated aortic root 4.3 cm
Echo 10/27/2024: EF 50%, mild MR, trace AR, trace TR, mildly dilated aortic root
Plan:
-Presented with dizziness and chest pressure. Noted to have unstable wide complex tachycardia in ER with HRs into the 180s. Adenosine and synchronized CV attempted in ER without change in rhythm.
-Subsequently started on amiodarone gtt and converted to SR. Remains in SR with frequent ectopy noted. Now on PO amiodarone 400mg TID and lopressor 12.5mg BID
-Ruled in for NSTEMI with peak troponin of 1.81. Underwent LHC 10/[address] surgery evaluated patient and tentatively planned for OR Saturday, 11/02.
-Continue aspirin 81mg daily. Was on IV heparin, however this was stopped due to platelets as low as 89k. Patient reported baseline is approx 100k. Could consider hematology evaluation if CT surgery feels necessary prior tos surgery.
-LDL 50. Not on statin due to h/o allergy. Continue Zetia.
-Hgb Ac 5.5%.
Progress Note - Power Mule Operator
Subjective
Date of Service: October 30, 2024
No complaints. Feeling well.
Objective
Labs:
10/29/24 04:50
10/29/24 04:50
Labs
Hgb 12.4 g/dL (13.0-18.0) L 10/29/24 04:50
Hct 34.5 % (39.0-52.0) L 10/29/24 04:50
Plt Count 89 10^3/uL (130-400) L 10/29/24 04:50
PT 15.5 Sec (11.4-14.6) H 10/25/24 07:59
PT Cancelled 10/25/24 07:59
INR 1.20 10/25/24 07:59
INR Cancelled 10/25/24 07:59
APTT Cancelled 10/29/24 11:35
Sodium 135 mmol/L (135-145) 10/29/24 04:50
Potassium 4.2 mmol/L (3.5-5.1) 10/29/24 04:50
BUN 21 mg/dl (9-20) H 10/29/24 04:50
Creatinine 0.9 mg/dL (0.7-1.3) 10/29/24 04:50
Glucose 131 mg/dl (70-99) H 10/29/24 04:50
Vital Signs and I&O:
Vital Signs
Temp Pulse Resp BP Pulse Ox
98.1 F 54 20 108/52 97
10/30/24 07:21 10/30/24 07:46 10/30/24 07:21 10/30/24 07:46 10/30/24 07:21
Vital Signs
Temp Pulse Resp BP Pulse Ox
98.1 F 54 20 108/52 97
10/30/24 07:21 10/30/24 07:46 10/30/24 07:21 10/30/24 07:46 10/30/24 07:21
Intake & Output
10/28/24 10/29/24 10/30/24 10/31/24
06:59 06:59 06:59 06:59
Intake Total 577.7 / 577.7 240 / 240
Output Total 900 / 900 850 / 850
Balance -322.3 / -322.3 -850 / -850 240 / 240
Physical Exam
Physical Exam
GEN: No distress, awake, alert, oriented x3
HEENT: supple, anicteric, mmm, EOMI
LUNGS: CTA bilaterally, no wheezes/rales
CV: Reg, S1/S2, no murmur
EXT: No cyanosis, clubbing, or edema
NEURO: Gross non-focal
SKIN: No rash. warm, pink, dry.
[2024-10-30] MEDS: NOVOLOG FLEXPEN-LOW RESISTANCE SC ×3 (09:00→18:06)
--- NOTE | 2024-10-30 09:00 | PTCARENOTE ---
Rec'd pt this shift awake and alert. Pt denies pain, denies sob. Pt SB on monitor. RA. AM meds given. See worklist for VS/I and O and assessments.
--- NOTE | 2024-10-30 09:20 | W.PN.HOSP.TC ---
Today's Communication/Plan
-
.
Assessment / Plan
Assessment / Plan
Physical Exam
General: Well Developed, Well Nourished and No Apparent Distress
HEENT: Normocephalic, Moist mucous membranes and Atraumatic
Respiratory: Clear
Cardiac: S1/S2
GI: Soft, Non Tender, Non Distended and Normal Bowel Sounds;
Musculoskeletal: No Clubbing, No Cyanosis and No Edema
Skin: No Rash
Neuro: AO x 3 and Nonfocal/grossly intact
Psych: Calm
A 79year old man presented with unprovoked, recurrent and worsening chest tightness and dizziness.
#Spontaneous Ventricular tachycardia
-Wide complex ventricular tachy cardia that has been in sinus
-s/p IV Amiodarone, on oral BB & Amiodarone
telemetry
#Non-STEMI with peak troponin of 1.8 then came down
-Currently on IV Heparin drip, consider to stop
- Cardiac cath showed multiple vessel disease, CT surgery is consulted. Surgery early next week.
# chronic ITP
monitor
Stopped IV heparin
d/w hematology, no need to intervene as long as Plt > 70.
#Hypotension requiring pressors
Cardiogenic shock, resolved.
# Mild GIDEON, resolved
# Hyponatremia, resolved.
# toothache
Less now
Right lower molar, has filling, no swelling
c/w pain medicine, short course of penicillin V, f/w dentis as OP.
#History of CAD based on coronary calcifications on CAT scan
-Ct Aspirin
No chest pain
- Intolerant to statin
#Dilated aortic root 4.3 cm in 2021 and 2024
#Hypertension
Resumed Benicar
#Hyperlipidemia
#Diabetes
Added low dose Lantus, holding metformin pending surgery
#Peripheral neuropathy
#Splenomegaly
#Colonic Polyp
-Colonoscopy with Biopsy X 4
#GERD
-Ct Omeprazole
#Chronic Constipation
-Continue Colace, Psyllium , PRN MiraLAX
Full code
POA-Daughters
Total time spent to see the patient, examine the patient, review data and lab result, discuss treatment plan with patient, nursing staff around 57 minutes
Anticipated Discharge: > 48 hours
Subjective/Interval History
-
Date of Service: October 30, 2024
No complaints
Objective Data
-
Vital Signs:
Vital Signs
Temp Pulse Resp BP Pulse Ox
98.1 F 62 20 108/52 97
10/30/24 07:21 10/30/24 09:00 10/30/24 07:21 10/30/24 07:46 10/30/24 09:02
I&O
10/29/24 10/30/24 10/31/24
06:59 06:59 06:59
Intake Total 240 / 240 650 / 650
Output Total 850 / 850
Balance -850 / -850 240 / 240 650 / 650
[2024-10-30 12:06] VITALS: BP 126/71
[2024-10-30 12:42] LABS: Glucose - Point of Care 138 mg/dl (70-99)
--- NOTE | 2024-10-30 14:34 | CM ---
spoke to pt in room, we discussed preop CABG teaching including sternal and driving restrictions. he is prev indep, lives alone in a 2 story home with no step sto enter. he has a stair glide and an elevator in the home. his 6 wks
ago. he has the cardiac educ book. he is agreeable to a f/u visit from the ct transitional care nurse after dc. plan is for CABG saturday, cm to follow.
[2024-10-30 15:01] VITALS: BP 134/76
--- NOTE | 2024-10-30 17:06 | PTCARENOTE ---
pt ambulating in room and in hallway, tolerated well. pt NSR on monitor.
[2024-10-30 17:51] LABS: Glucose - Point of Care 149 mg/dl (70-99)
[2024-10-30 18:50] VITALS: BP 104/63
--- NOTE | 2024-10-30 21:40 | PTCARENOTE ---
Received patient at change of shift. SB on the monitor, HR in the 50s. R radial and R groin LIST OF [employer] and intact. No complaints from pt at this time, call stewart within reach.
[2024-10-30 21:47] LABS: Glucose - Point of Care 201 mg/dl (70-99)
[2024-10-30 22:27] VITALS: BP 145/59
[2024-10-30] MEDS: LANTUS 0.05 UNITS SC (22:27)
[2024-10-31] VITALS (9 sets, daily range): BP systolic 100–138; BP diastolic 45–85; BMI 28.9
[2024-10-31 07:37] LABS: Glucose - Point of Care 129 mg/dl (70-99)
[2024-10-31] MEDS: NOVOLOG FLEXPEN-LOW RESISTANCE SC (08:23)
[2024-10-31] MEDS: LOPRESSOR 12.5 MG PO ×2 (08:24→19:36)
[2024-10-31] MEDS: PEN VK 500 MG PO ×3 (08:24→22:19)
[2024-10-31] MEDS: METAMUCIL, KONSYL 1 PACKET PO (08:24)
[2024-10-31] MEDS: PACERONE 400 MG PO ×3 (08:24→22:19)
[2024-10-31] MEDS: ZETIA 10 MG PO (08:24)
[2024-10-31] MEDS: LOW STRENGTH ASPIRIN 81 MG PO (08:24)
[2024-10-31] MEDS: PROTONIX 40 MG PO (08:24)
[2024-10-31] MEDS: COLACE 100 MG PO ×2 (08:24→19:37)
[2024-10-31] MEDS: FLUSH (NSS) 1 FLUSH IV (08:25)
--- NOTE | 2024-10-31 08:58 | W.PN.CARDCBS ---
Addendum entered and electronically signed by Jeremy Sanchez MD 10/31/24 10:24:
I saw and examined the patient.
The Inspection Engineer's note was reviewed and I agree with the note.
Comment:
GEN: No distress, awake, Ox3
HEENT: supple, anicteric, mmm
LUNGS: CTA, no wheezes/rales
CV: Reg, S1/S2, 1/6 syst LSB, no gallop
ABD: soft, BS+, NT/ND
EXT: No edema
NEURO: Gross non-focal
SKIN: No rash
Plan:
Overall feels well. No new chest pains.
No new episodes of ventricular tachycardia. Plan is for CABG on Saturday.
Will have CT surgery evaluate oral issues with penicillin treatment
Continue amiodarone for 100 mg p.o. 3 times daily. Continue metoprolol.
Platelet count overall stable at 89,000. Hemoglobin 12.4. He has a history of thrombocytopenia.
Continue aspirin and Zetia.
Original Note:
Today's Communication / Plan
-
CT surgery team updated about tooth pain and penicillin V treatment
Impression / Plan
-
PCP: Dr. Lowe
Test Puller: Dr. Burgos
Impression:
Unstable Wide-complex tachycardia, possible SVT with aberrancy but cannot exclude VT
NSTEMI, peak troponin of 1.81
MV CAD by cardiac catheterization 10/26/2014
Possible left apical nodule on CT
Type 2 diabetes mellitus
Hyperglycemia
Hypertension
GERD
Peripheral neuropathy
History of thrombocytopenia
Dilated aortic root 4.3 cm in 2021 and 2024
Lexiscan sestamibi stress test 06/24/2024: Fixed basal inferior, mid inferior, apical inferior, basal inferolateral, basal anterolateral, and apical defect consistent with soft tissue attenuation, ejection fraction 40%
LHC 10/26/2024: LVEDP 8. Dominant right. Left main large and free of disease. LAD with long diffuse moderate to severe mid eccentric 90% stenosis. [id number] collaterals. D2 with ostial 60 to 70% stenosis and diffuse 70% stenosis in the
midportion. Left circumflex with mid 70% eccentric stenosis. OM1 with eccentric 70% stenosis. RCA with ORTHODONTIC BAND MAKER 100% proximal with [id number]-pw-[id number] collaterals.
Echo 06/15/2024: EF 55 to 60%, aortic sclerosis, dilated aortic root 4.3 cm
Echo 10/27/2024: EF 50%, mild MR, trace AR, trace TR, mildly dilated aortic root
Plan:
-Presented with dizziness and chest pressure. Noted to have unstable wide complex tachycardia in ER with HRs into the 180s. Adenosine and synchronized CV attempted in ER without change in rhythm. Subsequently started on amiodarone gtt and converted
to SR.
-Telemetry reviewed by me and patient has SR with frequent PVCs, but no sustained VT.
-Due to amiodarone 400 mg TID this admission and has received a 3.6 gram load as of 10/31/2024
-EF was 50% by echo 10/27/2024
-Troponin peaked at 1.81 and patient was managed as NSTEMI with cardiac cath that revealed MV CAD. Patient was seen in consultation by CT surgery and is scheduled for CABG on 11/02/2024
-Outpatient dose of aspirin 81 mg daily has been continued
-Heparin gtt started and then stopped this admission due to thrombocytopenia.
-Outpatient dose of Cardizem CD has been stopped
-New to Lopressor 12.5 mg BID this admission
-LDL 50 on 10/25/2024. Patient is not chronically on a statin due to a possible history of rhabdomyolysis described by the patient as 'connective tissue weakening '. Patient is new to Zetia 10 mg daily this admission. Will need to investigate
PCSK9 inhibitors as an outpatient.
-Hospitalist attending note reviewed by me and patient was started on a short course of penicillin V for right lower molar pain. CT surgery team updated by me on 10/31/2024
Progress Note - Test Puller
Subjective
Date of Service: October 31, 2024
Feels well, denies any chest pain
Objective
Labs:
10/29/24 04:50
10/29/24 04:50
Labs
Hgb 12.4 g/dL (13.0-18.0) L 10/29/24 04:50
Hct 34.5 % (39.0-52.0) L 10/29/24 04:50
Plt Count 89 10^3/uL (130-400) L 10/29/24 04:50
PT 15.5 Sec (11.4-14.6) H 10/25/24 07:59
PT Cancelled 10/25/24 07:59
INR 1.20 10/25/24 07:59
INR Cancelled 10/25/24 07:59
APTT Cancelled 10/29/24 11:35
Sodium 135 mmol/L (135-145) 10/29/24 04:50
Potassium 4.2 mmol/L (3.5-5.1) 10/29/24 04:50
BUN 21 mg/dl (9-20) H 10/29/24 04:50
Creatinine 0.9 mg/dL (0.7-1.3) 10/29/24 04:50
Glucose 131 mg/dl (70-99) H 10/29/24 04:50
Vital Signs and I&O:
Vital Signs
Temp Pulse Resp BP Pulse Ox
98.2 F 57 16 138/85 98
10/31/24 07:26 10/31/24 07:26 10/31/24 07:26 10/31/24 07:26 10/31/24 07:26
Vital Signs
Temp Pulse Resp BP Pulse Ox
98.2 F 57 16 138/85 98
10/31/24 07:26 10/31/24 07:26 10/31/24 07:26 10/31/24 07:10/31/24 07:26
Intake & Output
10/29/24 10/30/24 10/31/24 11/01/24
06:59 06:59 06:59 06:59
Intake Total 240 / 240 1150 / 1150
Output Total 850 / 850
Balance -850 / -850 240 / 240 1150 / 1150
Physical Exam
Physical Exam
GEN: EDGAR LUTZO x3
LUNGS: RA. No audible wheeze
CV: SR with ectopy on telemetry
--- NOTE | 2024-10-31 09:57 | W.PN.HOSP.TC ---
Today's Communication/Plan
-
.
Assessment / Plan
Assessment / Plan
Physical Exam
General: Well Developed, Well Nourished and No Apparent Distress
HEENT: Normocephalic, Moist mucous membranes and Atraumatic
Respiratory: Clear
Cardiac: S1/S2
GI: Soft, Non Tender, Non Distended and Normal Bowel Sounds;
Musculoskeletal: No Clubbing, No Cyanosis and No Edema
Skin: No Rash
Neuro: AO x 3 and Nonfocal/grossly intact
Psych: Calm
A 79year old man presented with unprovoked, recurrent and worsening chest tightness and dizziness.
#Spontaneous Ventricular tachycardia
-Wide complex ventricular tachy cardia that has been in sinus
-s/p IV Amiodarone, on oral BB & Amiodarone
telemetry
#Non-STEMI with peak troponin of 1.8 then came down
-Currently on IV Heparin drip, consider to stop
- Cardiac cath showed multiple vessel disease, CT surgery is consulted. Surgery early next week.
# chronic ITP
monitor
Stopped IV heparin
d/w hematology, no need to intervene as long as Plt > 70.
#Hypotension requiring pressors
Cardiogenic shock, resolved.
# Mild GIDEON, resolved
# Hyponatremia, resolved.
# toothache
Less now
Right lower molar, has filling, no swelling
c/w pain medicine, short course of penicillin V, f/w dentis as OP.
#History of CAD based on coronary calcifications on CAT scan
-Ct Aspirin
No chest pain
- Intolerant to statin
#Dilated aortic root 4.3 cm in 2021 and 2024
#Hypertension
Benicar is held since 10/28.
#Hyperlipidemia
#Diabetes
Added low dose Lantus, holding metformin pending surgery
#Peripheral neuropathy
#Splenomegaly
#Colonic Polyp
-Colonoscopy with Biopsy X 4
#GERD
-Ct Omeprazole
#Chronic Constipation
-Continue Colace, Psyllium , PRN MiraLAX
Full code
POA-Daughters
Total time spent to see the patient, examine the patient, review data and lab result, discuss treatment plan with patient, nursing staff around 45 minutes
Anticipated Discharge: > 48 hours
Subjective/Interval History
-
Date of Service: October 31, 2024
No chest pain
No sob
Objective Data
-
Vital Signs:
Vital Signs
Temp Pulse Resp BP Pulse Ox
98.2 F 57 16 138/85 98
10/31/24 07:26 10/31/24 07:26 10/31/24 07:26 10/31/24 07:26 10/31/24 07:26
I&O
10/30/24 10/31/24 11/01/24
06:59 06:59 06:59
Intake Total 240 / 240 1150 / 1150
Balance 240 / 240 1150 / 1150
[2024-10-31 11:54] LABS: Glucose - Point of Care 180 mg/dl (70-99)
[2024-10-31] MEDS: NOVOLOG FLEXPEN-LOW RESISTANCE 1 UNITS SC ×2 (12:30→17:29)
--- NOTE | 2024-10-31 15:21 | PTCARENOTE ---
The patient is aaox3. His vital signs have been stable. SB has been noted on the monitor with HRs in the 50s. He has had no complaints. He has been frequently doing non-stressful exercises in his room and has been ambulatory in the halls.
[2024-10-31 16:27] LABS: Glucose - Point of Care 156 mg/dl (70-99)
--- NOTE | 2024-10-31 20:17 | PTCARENOTE ---
Pt rec'd at change of shift oob in recliner chair, no complaints.THO dual lumen picc flushed. Good blood return but sluggish when flushing.
Sinus on telemetry. Pt cp free at this time.
[2024-10-31] MEDS: LANTUS 0.05 UNITS SC (22:18)
[2024-10-31 22:19] LABS: Glucose - Point of Care 141 mg/dl (70-99)
[2024-11-01] VITALS (7 sets, daily range): BP systolic 117–160; BP diastolic 49–74; BMI 28.7
[2024-11-01 04:37] LABS: Hematocrit 33.6 % (39.0-52.0); Hemoglobin 12.4 g/dL (13.0-18.0); Mean Corp Hgb Conc. 36.9 g/dL (33.0-37.0); Mean Corpuscular Volume 91.1 fL (80.0-94.0); Platelet Count 93 10^3/uL (130-400); Red Cell Dist. Width 14.2 % (11.5-14.5)
[2024-11-01 04:57] LABS: Blood Urea Nitrogen 26 mg/dl (9-20); Calcium 9.8 mg/dl (8.4-10.2); Carbon Dioxide 24 mmol/L (22-30); Chloride 105 mmol/L (98-107); Estimated Creatinine Clearance 66 ml/min; Glucose 134 mg/dl (70-99); Potassium 4.2 mmol/L (3.5-5.1); Sodium 136 mmol/L (135-145); eGFR > 60.00
[2024-11-01 07:19] LABS: Glucose - Point of Care 139 mg/dl (70-99)
[2024-11-01] MEDS: NOVOLOG FLEXPEN-LOW RESISTANCE SC ×3 (07:20→18:02)
[2024-11-01] MEDS: FLUSH (NSS) 3 FLUSH IV (08:00)
[2024-11-01] MEDS: ZETIA 10 MG PO (08:02)
[2024-11-01] MEDS: LOW STRENGTH ASPIRIN 81 MG PO (08:02)
[2024-11-01] MEDS: METAMUCIL, KONSYL 1 PACKET PO (08:02)
[2024-11-01] MEDS: PACERONE 400 MG PO ×3 (08:02→21:46)
[2024-11-01] MEDS: COLACE 100 MG PO ×2 (08:02→21:46)
[2024-11-01] MEDS: PEN VK 500 MG PO ×3 (08:02→21:46)
[2024-11-01] MEDS: PROTONIX 40 MG PO (08:02)
[2024-11-01] MEDS: LOPRESSOR 12.5 MG PO ×2 (08:02→21:45)
--- NOTE | 2024-11-01 08:22 | W.PN.CARDCBS ---
Today's Communication / Plan
-
No further ventricular tachycardia. Decrease amiodarone to 200 mg p.o. twice daily
For CABG in AM.
Continue metoprolol, aspirin, Zetia. He has failed statins in the past.
Hemoglobin at 12.4 and thrombocytopenia improved and platelet count up to 93,000
Creatinine at 1.0.
He is finishing a course of penicillin for his teeth. CT surgery aware
Impression / Plan
-
PCP: Dr. Lowe
French Pastry Cook: Dr. Burgos
Impression:
Unstable Wide-complex tachycardia, possible SVT with aberrancy but cannot exclude VT
NSTEMI, peak troponin of 1.81
MV CAD by cardiac catheterization 10/26/2014
Possible left apical nodule on CT
Type 2 diabetes mellitus
Hyperglycemia
Hypertension
GERD
Peripheral neuropathy
History of thrombocytopenia
Dilated aortic root 4.3 cm in 2021 and 2024
Lexiscan sestamibi stress test 06/24/2024: Fixed basal inferior, mid inferior, apical inferior, basal inferolateral, basal anterolateral, and apical defect consistent with soft tissue attenuation, ejection fraction 40%
C 10/26/2024: LVEDP 8. Dominant right. Left main large and free of disease. LAD with long diffuse moderate to severe mid eccentric 90% stenosis. [id number] collaterals. D2 with ostial 60 to 70% stenosis and diffuse 70% stenosis in the
midportion. Left circumflex with mid 70% eccentric stenosis. OM1 with eccentric 70% stenosis. RCA with RANGE AID 100% proximal with [id number] collaterals.
Echo 06/15/2024: EF 55 to 60%, aortic sclerosis, dilated aortic root 4.3 cm
Echo 10/27/2024: EF 50%, mild MR, trace AR, trace TR, mildly dilated aortic root
Plan:
-Presented with dizziness and chest pressure. Noted to have unstable wide complex tachycardia in ER with HRs into the 180s. Adenosine and synchronized CV attempted in ER without change in rhythm. Subsequently started on amiodarone gtt and converted
to SR.
-Telemetry with SR with frequent PVCs, but no sustained VT.
-Loaded with amiodarone. Will decrease dose to 200 mg p.o. twice daily.
-EF was 50% by echo 10/27/2024
-Troponin peaked at 1.81 and patient was managed as NSTEMI with cardiac cath that revealed MV CAD. Patient was seen in consultation by CT surgery and is scheduled for CABG on 11/02/2024
-Outpatient dose of aspirin 81 mg daily has been continued
-Heparin gtt started and then stopped this admission due to thrombocytopenia. Platelet count improved to 93,000.
-Outpatient dose of Cardizem CD has been stopped
-New to Lopressor 12.5 mg BID this admission
-LDL 50 on 10/25/2024. Patient is not chronically on a statin due to a possible history of rhabdomyolysis described by the patient as 'connective tissue weakening '. Patient is new to Zetia 10 mg daily this admission. Will need to investigate
PCSK9 inhibitors as an outpatient.
-Hospitalist attending note reviewed by me and patient was started on a short course of penicillin V for right lower molar pain. CT surgery team on 10/31/2024
Progress Note - French Pastry Cook
Subjective
Date of Service: November 01, 2024
Denies chest pains or shortness of breath. No palpitations.
Objective
Labs:
11/01/24 04:18
11/01/24 04:18
Labs
Hgb 12.4 g/dL (13.0-18.0) L 11/01/24 04:18
Hct 33.6 % (39.0-52.0) L 11/01/24 04:18
Plt Count 93 10^3/uL (130-400) L 11/01/24 04:18
PT 15.5 Sec (11.4-14.6) H 10/25/24 07:59
PT Cancelled 10/25/24 07:59
INR 1.20 10/25/24 07:59
INR Cancelled 10/25/24 07:59
APTT Cancelled 10/29/24 11:35
Sodium 136 mmol/L (135-145) 11/01/24 04:18
Potassium 4.2 mmol/L (3.5-5.1) 11/01/24 04:18
BUN 26 mg/dl (9-20) H 11/01/24 04:18
Creatinine 1.0 mg/dL (0.7-1.3) 11/01/24 04:18
Glucose 134 mg/dl (70-99) H 11/01/24 04:18
Vital Signs and I&O:
Vital Signs
Temp Pulse Resp BP Pulse Ox
97.5 F 53 16 124/49 98
11/01/24 07:52 11/01/24 07:11 11/01/24 07:52 11/01/24 07:11 11/01/24 07:52
Vital Signs
Temp Pulse Resp BP Pulse Ox
97.5 F 53 16 124/49 98
11/01/24 07:52 11/01/24 07:11 11/01/24 07:52 11/01/24 07:11 11/01/24 07:52
Intake & Output
10/30/24 10/31/24 11/01/24 11/02/24
06:59 06:59 06:59 06:59
Intake Total 240 / 240 1150 / 1150
Balance 240 / 240 1150 / 1150
Physical Exam
Physical Exam
GEN: No distress, awake, Ox3
HEENT: supple, anicteric, mmm
LUNGS: CTA, no wheezes/rales
CV: Reg, S1/S2, 1/6 syst LSB, no gallop
ABD: soft, BS+, NT/ND
EXT: No edema
NEURO: Gross non-focal
SKIN: No rash
--- NOTE | 2024-11-01 09:38 | W.PN.HOSP.TC ---
Today's Communication/Plan
-
.
Assessment / Plan
Assessment / Plan
Physical Exam
General: Well Developed, Well Nourished and No Apparent Distress
HEENT: Normocephalic, Moist mucous membranes and Atraumatic
Respiratory: Clear
Cardiac: S1/S2
GI: Soft, Non Tender, Non Distended and Normal Bowel Sounds;
Musculoskeletal: No Clubbing, No Cyanosis and No Edema
Skin: No Rash
Neuro: AO x 3 and Nonfocal/grossly intact
Psych: Calm
A 79year old man presented with unprovoked, recurrent and worsening chest tightness and dizziness.
#Spontaneous Ventricular tachycardia
-Wide complex ventricular tachy cardia that has been in sinus
-s/p IV Amiodarone, on oral BB & Amiodarone
telemetry
#Non-STEMI with peak troponin of 1.8 then came down
-Currently on IV Heparin drip, consider to stop
- Cardiac cath showed multiple vessel disease, CT surgery is consulted. Surgery early next week.
# chronic ITP
monitor
Stopped IV heparin
d/w hematology, no need to intervene as long as Plt > 70.
#Hypotension requiring pressors
Cardiogenic shock, resolved.
# Mild GIDEON, resolved
# Hyponatremia, resolved.
# toothache
Resolved.
Right lower molar, has filling, no swelling
c/w pain medicine, s/p short course of penicillin V, f/w dentis as OP.
#History of CAD based on coronary calcifications on CAT scan
-Ct Aspirin
No chest pain
- Intolerant to statin
#Dilated aortic root 4.3 cm in 2021 and 2024
#Hypertension
Benicar is held since 10/28.
#Hyperlipidemia
#Diabetes
Added low dose Lantus, holding metformin pending surgery
#Peripheral neuropathy
#Splenomegaly
#Colonic Polyp
-Colonoscopy with Biopsy X 4
#GERD
-Ct Omeprazole
#Chronic Constipation
-Continue Colace, Psyllium , PRN MiraLAX
Full code
POA-Daughters
Total time spent to see the patient, examine the patient, review data and lab result, discuss treatment plan with patient, nursing staff around 45 minutes
Anticipated Discharge: > 48 hours
Subjective/Interval History
-
Date of Service: November 01, 2024
No chest pain
No sob
No headache or toothache
Objective Data
-
Labs:
Laboratory Results
11/01/24
04:18
WBC 6.1
Hgb 12.4 L
Hct 33.6 L
Plt Count 93 L
Sodium 136
Potassium 4.2
Chloride 105
Carbon Dioxide 24
BUN 26 H
Creatinine 1.0
Glucose 134 H
Calcium 9.8
Vital Signs:
Vital Signs
Temp Pulse Resp BP Pulse Ox
97.5 F 53 16 124/49 98
11/01/24 07:52 11/01/24 07:11 11/01/24 07:52 11/01/24 07:11 11/01/24 07:52
I&O
10/31/24 11/01/24 11/02/24
06:59 06:59 06:59
Intake Total 1150 / 1150
Balance 1150 / 1150
--- NOTE | 2024-11-01 11:27 | PTCARENOTE ---
BLUE BPs ordered. Unable do get a Bp on his right arm as he has a right DLPICC. I notified Vance the PA and he said we can go without it.
[2024-11-01 12:25] LABS: Glucose - Point of Care 144 mg/dl (70-99)
--- NOTE | 2024-11-01 15:48 | PTCARENOTE ---
The patient complained of hemorrhoidal pain after having a large BM. I confirmed that he had hemorrhoids. He requested Preparation H for his discomfort. I reached out to Dr. Crowder. Anusol was ordered for HS. The patient was satisfied with the order.
[2024-11-01 17:59] LABS: Glucose - Point of Care 131 mg/dl (70-99)
[2024-11-01] MEDS: ANUSOL HC 25 MG RECTAL (21:46)
[2024-11-01] MEDS: LANTUS 0.05 UNITS SC (21:51)
[2024-11-01 21:52] LABS: Glucose - Point of Care 163 mg/dl (70-99)
--- NOTE | 2024-11-01 23:31 | PTCARENOTE ---
Pt ambulating in [place] at change of shift. No c/o cp or sob. Clipped and showered with chlorhexidine soap. Filipe shower well. Picc line remains sluggish when flushing but with good blood return. pt aware of npo status after mn.
[2024-11-02] VITALS (11 sets, daily range): BP systolic 81–158; BP diastolic 48–83; BMI 28.6
--- NOTE | 2024-11-02 05:08 | PTCARENOTE ---
Pt with bleeding hemorrhoid, Anusol suppository given at HS 11/01/24.
[2024-11-02] MEDS: PROTONIX 40 MG PO (05:42)
[2024-11-02 05:43] LABS: Glucose - Point of Care 144 mg/dl (70-99)
[2024-11-02] MEDS: MAGNESIUM OXIDE 400 MG PO (05:43)
[2024-11-02] MEDS: BACTROBAN 2% OINTMENT 1 APPLIC NASAL ×2 (05:43→20:26)
[2024-11-02] MEDS: LOPRESSOR 25 MG PO (05:43)
--- NOTE | 2024-11-02 06:39 | W.PN.UPDATE ---
Update Note
Progress Note Update
CARDIAC SURGERY ATTENDING:
Mr. Corley was scheduled for his procedure this morning, unfortunately, another preoperative inpatient CABG was suffering chest pains prompting alteration in the operative schedule. Mr. Corley was informed of this change. I will take that alternate
patient to the OR this morning, and, based on the timing of that case, we will either perform Mr. Corley's surgery as a second case today or perform his operation tomorrow. I greatly appreciate Mr. Corley's and his family's understanding.
Thank you.
Mandeep Rodgers MD
[phone]
--- NOTE | 2024-11-02 10:22 | W.PN.HOSP.TC ---
Today's Communication/Plan
-
await CT surgery
Assessment / Plan
Assessment / Plan
Pt is a 79 year old male
Spontaneous Ventricular tachycardia--Wide complex ventricular tachy cardia that has been in sinus--s/p IV Amiodarone, on oral BB & Amiodarone
Non-STEMI with peak troponin of 1.8 then came down--Currently on IV Heparin drip, consider to stop--Cardiac cath showed multiple vessel disease, apprec CT surgery--await surgery
chronic ITP--monitor--Stopped IV heparin--keep Plt > 70.
Hypotension requiring pressors--Cardiogenic shock, resolved.
Mild GIDEON, resolved
Hyponatremia, resolved.
toothache, Resolved--Right lower molar, has filling, no swelling--c/w pain medicine, s/p short course of penicillin V, f/w dentist as OP.
History of CAD based on coronary calcifications on CAT scan-- cont Aspirin--No chest pain- Intolerant to statin
Dilated aortic root 4.3 cm in 2021 and 2024
Essential Hypertension--Benicar is held since 10/28.
Hyperlipidemia
Type 2 Diabetes-- low dose Lantus added, holding metformin pending surgery
Peripheral neuropathy
Splenomegaly
Colonic Polyp-Colonoscopy with Biopsy X 4
GERD-- cont Omeprazole
Chronic Constipation-Continue Colace, Psyllium , PRN MiraLAX
DVT proph
Code status--Full code
POA--Daughters
Anticipated Discharge: > 48 hours
Subjective/Interval History
-
Date of Service: November 02, [address] surgery
Objective Data
-
Vital Signs:
max temp for 24 hours
11/01/24
21:54
Temp 98.2 F
Vital Signs
Temp Pulse Resp BP Pulse Ox
97.8 F 54 20 158/83 97
08/25/25 07:26 11/02/24 04:57 11/02/24 07:26 11/02/24 04:57 11/02/24 07:26
Review of Systems
-
All other systems: Reviewed and negative
Physical Exam
-
General: Well Developed, Well Nourished and No Apparent Distress
HEENT: Normocephalic and Atraumatic
Respiratory: Clear to Auscultation; Negative Wheezes or Rhonchi
Cardiac: Regular Rhythm and S1/S2; Negative Murmur
GI: Soft, Nontender, Nondistended and Normal Bowel Sounds
Musculoskeletal: No Clubbing, No Cyanosis and No Edema
Neuro: Awake
Psych: Calm
[2024-11-02 12:22] LABS: Glucose - Point of Care 141 mg/dl (70-99)
--- NOTE | 2024-11-02 12:57 | PTCARENOTE ---
pt sr on the monitor, hr in the 40s-50s, vss. pt offers no complaints at this time. pt educated on plan of care. pt kept npo for procedure. pt off unit for surgery.
[2024-11-02] MEDS: NOVOLOG FLEXPEN-LOW RESISTANCE SC ×3 (13:01→20:27)
[2024-11-02] MEDS: COLACE PO (13:01)
[2024-11-02] MEDS: LOPRESSOR PO (13:01)
[2024-11-02] MEDS: PROTONIX PO (13:02)
[2024-11-02] MEDS: LOW STRENGTH ASPIRIN PO (13:02)
[2024-11-02] MEDS: PACERONE PO ×4 (13:02→22:14)
[2024-11-02] MEDS: METAMUCIL, KONSYL PO (13:02)
[2024-11-02] MEDS: ZETIA PO (13:03)
--- NOTE | 2024-11-02 13:25 | W.CVOR.SURPR ---
CVOR Surgeon Immed Pre Op
-
I have examined this patient prior to performance of the scheduled procedure.
The patient's condition is unchanged from the time of the dictated/written History and
Physical and the patient is able to undergo the scheduled procedure.
[2024-11-02 13:30] LABS: Urine Character Clear (Clear)
[2024-11-02 13:33] LABS: ACT+ - POC 112 Seconds (82-134)
[2024-11-02 14:31] LABS: Urine Squamous Cell 0-2 /LPF (Few)
[2024-11-02 14:32] LABS: Urine Red Blood Cell 0-2 /HPF (0-2); Urine White Cell 0-2 /HPF (0-5)
--- NOTE | 2024-11-02 14:47 | CM ---
pt in OR today, cm to follow.
[2024-11-02 15:12] LABS: B.E. - POC -1.1 mmol/L; Glucose - POC 151 mg/dl (70-99); HCO3 - POC 24 mmol/L (21-28); Hematocrit - POC 32 % PCV (42-52); Hemodilution- POC No; Hemoglobin Calculated - POC 10.9; Ionized Calcium - POC 1.19 mmol/L (1.15-1.33); Lactate - POC 0.66 mmol/L (0.36-0.75); O2 Saturation %Calculated-POC 99.7 % (94-98); PCO2 - POC 39 mmHg (35-48); PO2 - POC 195 mmHg (83-108); POC Comment PRE; Potassium - POC 4.1 mmol/L (3.5-5.1); Sodium - POC 138 mmol/L (136-145); Specimen Type - POC Arterial; pH - POC 7.39 (7.35-7.45)
[2024-11-02 15:29] LABS: ACT+ - POC 937 Seconds (82-134)
[2024-11-02 16:48] LABS: ACT+ - POC 941 Seconds (82-134)
[2024-11-02 17:13] LABS: ACT+ - POC 713 Seconds (82-134)
[2024-11-02 17:33] LABS: B.E. - POC 1.4 mmol/L; Glucose - POC 147 mg/dl (70-99); HCO3 - POC 27 mmol/L (21-28); Hematocrit - POC 27 % PCV (42-52); Hemodilution- POC Yes; Hemoglobin Calculated - POC 9.3; Ionized Calcium - POC 1.13 mmol/L (1.15-1.33); Lactate - POC 1.22 mmol/L (0.36-0.75); O2 Saturation %Calculated-POC 99.8 % (94-98); PCO2 - POC 45 mmHg (35-48); PO2 - POC 226 mmHg (83-108); Potassium - POC 4.4 mmol/L (3.5-5.1); Sodium - POC 141 mmol/L (136-145); Specimen Type - POC Arterial; pH - POC 7.38 (7.35-7.45)
[2024-11-02 17:44] LABS: ACT+ - POC 585 Seconds (82-134)
[2024-11-02 17:59] LABS: B.E. - POC -0.4 mmol/L; Glucose - POC 129 mg/dl (70-99); HCO3 - POC 26 mmol/L (21-28); Hematocrit - POC 28 % PCV (42-52); Hemodilution- POC Yes; Hemoglobin Calculated - POC 9.6; Ionized Calcium - POC 1.17 mmol/L (1.15-1.33); Lactate - POC 1.99 mmol/L (0.36-0.75); O2 Saturation %Calculated-POC 99.9 % (94-98); PCO2 - POC 53 mmHg (35-48); PO2 - POC 303 mmHg (83-108); Potassium - POC 4.8 mmol/L (3.5-5.1); Sodium - POC 142 mmol/L (136-145); Specimen Type - POC Arterial; pH - POC 7.31 (7.35-7.45)
[2024-11-02 18:04] LABS: ACT+ - POC 134 Seconds (82-134)
--- NOTE | 2024-11-02 18:24 | W.IMMPOSTOP ---
Addendum entered and electronically signed by Mandeep Rodgers MD 11/02/24 19:09:
[id number]
Original Note:
Surgical Immed Post Op Note
-
CARDIAC SURGERY OPERATIVE NOTE:
Preoperative Dx:
MVCAD
NSTEMI
P/W SVT in 180s
Chronic thrombocytopenia
DM II
HTN
Seasonal allergies
Hemorrhoids/colonic polyps
Prior smoker
Postoperative Dx:
Same
Procedures:
1) Median sternotomy
2) Takedown of DONOVAN (narrow pedicle)
3) Exploration of RLE GSV - not harvested
4) Endoscopic harvest/prep of LLE GSV
5) CABG x 4 (DONOVAN to LAD, GSV to D2, GSV OM2, GSV to distal RCA @ crux)
6) ELAA (#45mm AtriClip)
Surgeon:
Mandeep Rodgers M.D.
Assistants:
Genoveva Stewart P.A.-C. and Fabiola Emmanuel, R.N.F.A. - harvest/prep of LLE GSV
Cristina Echevarria P.A.-C. - doctor assistant throughout
Nando Rivas-Alex - sternotomy closure
Anesthesia:
Jake Jordan M.D. and Ivan Pimentel, C.R.N.A.
Perfusion:
Connie Lima C.C.P.; XC: 83min, CPB: 131min
Findings:
DONOVAN was a healthy conduit w/ very brisk blood flow - ELD 2.5mm - DONOVAN harvest bed was highly vascular
RLE GSV was explored, but was not deemed usable
LLE GSV was harvest - it was a reasonable conduit w/ ELD 2.5-3.5mm w/ slightly thin finley requiring several suture repairs
LAD was visible on the epicardial surface, moderate scattered calcifications, minor posterior wall calcifications at midpoint anastomosis site; ELD 3.0mm
D2 was visible on the epicardial surface, moderate scattered calcifications, normal finley at midpoint anastomosis; ELD 3.0
OM2 was visible on the epicardial surface, scant scattered calcifications, ELD 3.25mm
Distal RCA was visible at the crux; it then took a intramyocardial course traveling under the posterior vein. Anastomosis performed at, and extended just distal to, crux; ELD 3.5mm
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
Post-XIOMARA: LVEF 65%, normal RV, no RWMA, ? small flow in atrial appendage w/ good flush occlusion; trace MR; trace TR
Implants:
CT x 4 (B/L pleural, inferior mediastinal, superior mediastinal)
Sternal wires x 8
Sternal 'X' plate at the manubrium w/ 8 - 18mm screws
Transfusions:
1pk PLTs
Condition:
52 sinus; -0.1/-0.3; 107/55; CVP 13; 100%
GTTS: levophed 4, insulin 1, dobutamine 2, precedex 0.5
Stable/guarded to CVICU
[2024-11-02 18:25] LABS: B.E. - POC -0.3 mmol/L; Glucose - POC 124 mg/dl (70-99); HCO3 - POC 26 mmol/L (21-28); Hematocrit - POC 26 % PCV (42-52); Hemodilution- POC Yes; Hemoglobin Calculated - POC 9.0; Ionized Calcium - POC 1.35 mmol/L (1.15-1.33); Lactate - POC 1.61 mmol/L (0.36-0.75); O2 Saturation %Calculated-POC 99.5 % (94-98); PCO2 - POC 46 mmHg (35-48); PO2 - POC 178 mmHg (83-108); Potassium - POC 4.4 mmol/L (3.5-5.1); Sodium - POC 140 mmol/L (136-145); Specimen Type - POC Arterial; pH - POC 7.35 (7.35-7.45)
--- NOTE | 2024-11-02 19:30 | PTCARENOTE ---
pt received from CVOR into room 2262. pt intubated via #8 ETT, 23cm @ R lip. vent set to SIMV 14/500/5/5/60%. POX 98%. RR 16. bilateral breath sounds present. CT x4 intact to -20cm wall suction, drainage WNL, no air leak present. Precedex gtt
infusing @ 0.4 mcg. SB on monitor, HR 50s. bilateral radial and DP pulses palpable. heart tones clear. no edema noted. Levo gtt infusing @ 4mcg. Dobut htt infusing @ 3mcg. L radial art line intact. SBP 100s. RIJ cordis and slic intact w KVOs
infusing. R DL PICC intact and patent. shaw catheter intact, draining CYU. hypoactive bowel sounds present. Insulin gtt infusing per glycemic protocol. all surgical sites stable.
[2024-11-02 19:34] LABS: Glucose - Point of Care 178 mg/dl (70-99)
[2024-11-02 19:55] LABS: Hematocrit 25.6 % (39.0-52.0); Hemoglobin 9.4 g/dL (13.0-18.0); Platelet Count 102 10^3/uL (130-400)
[2024-11-02] MEDS: VERSED 0.5 MG IV (19:58)
[2024-11-02] MEDS: LR 250 ML IV ×2 (20:00→22:00)
[2024-11-02 20:09] LABS: Blood Urea Nitrogen 24 mg/dl (9-20); Estimated Creatinine Clearance 66 ml/min; Glucose 154 mg/dl (70-99); Magnesium 2.6 mg/dl (1.6-2.3)
[2024-11-02 20:12] LABS: Glucose - Point of Care 185 mg/dl (70-99)
[2024-11-02 20:17] LABS: B.E. -2.5 mmol/L; HCO3 22.5 mmol/L (21-28); O2 Saturation % 99.8 % (94-98); PCO2 39 mmHg (35-48); PO2 121 mmHg (83-108); Potassium 4.4 mMOL/L (3.5-5.1); Sodium 134 mMOL/L (136-145)
[2024-11-02 20:21] LABS: INR 1.43; PT 17.7 Sec (11.4-14.6)
[2024-11-02 20:22] LABS: APTT 40.0 Sec (23.4-35.0)
[2024-11-02] MEDS: ANCEF 10 IV ×2 (20:25)
[2024-11-02] MEDS: NOVOLOG FLEXPEN SC (20:26)
[2024-11-02] MEDS: TYLENOL PO (20:26)
[2024-11-02] MEDS: NSS 500 IV (20:39)
[2024-11-02] MEDS: SENOKOT-S PO (20:39)
[2024-11-02 21:02] LABS: Glucose - Point of Care 168 mg/dl (70-99)
[2024-11-02] MEDS: NEURONTIN PO ×2 (21:08→22:14)
[2024-11-02 21:56] LABS: Glucose - Point of Care 153 mg/dl (70-99)
[2024-11-02 22:08] LABS: B.E. -2.1 mmol/L; HCO3 22.3 mmol/L (21-28); O2 Saturation % 99.6 % (94-98); PCO2 36 mmHg (35-48); PO2 162 mmHg (83-108); Potassium 4.4 mMOL/L (3.5-5.1)
[2024-11-02 22:16] LABS: Fibrinogen 250 MG/DL (199-459)
[2024-11-02 22:55] LABS: Glucose - Point of Care 151 mg/dl (70-99)
--- NOTE | 2024-11-02 23:00 | PTCARENOTE ---
no acute changes. pt remains intubated. awakens for brief periods, but remains apneic when sleeping. vent set to SIMV 14/500/5/5/40%. POX 100%. Precedex gtt off. Levo infusing @ 6mcg. SBP 90s-100s. Dobut gtt remains @ 3mcg. HR 50s-60s, occasional
PVCs. CT output and UO WNL. all surgical sites stable. Insulin gtt maintained per protocol. turning/repositioning pt Q2H and as needed.
--- NOTE | 2024-11-02 23:20 | PTCARENOTE ---
pt placed on SBT by respiratory therapist. tolerating well, POX 100%, RR 14.
[2024-11-02 23:50] LABS: Glucose - Point of Care 165 mg/dl (70-99)
[2024-11-02 23:57] LABS: B.E. -1.9 mmol/L; HCO3 21.9 mmol/L (21-28); O2 Saturation % 100.0 % (94-98); PCO2 33 mmHg (35-48); PO2 141 mmHg (83-108); Potassium 4.5 mMOL/L (3.5-5.1)
[2024-11-03] VITALS (36 sets, daily range): BP systolic 79–142; BP diastolic 47–65; PULSE 65; O2SAT 94–97; BMI 29.3
[2024-11-03 00:03] LABS: Hematocrit 25.5 % (39.0-52.0); Hemoglobin 9.5 g/dL (13.0-18.0); Platelet Count 151 10^3/uL (130-400)
--- NOTE | 2024-11-03 00:05 | PTCARENOTE ---
pt extubated to 6LNC by respiratory therapist. no wheezing or stridor present. POX 100%.
--- NOTE | 2024-11-03 00:18 | RESPNOTE ---
pt extubated to 6LPM NC without incident. RN and SCOW CAPTAIN at bedside. Pt presents with - stridor and + vocalization. Will monitor.
[2024-11-03] MEDS: LOW STRENGTH ASPIRIN 81 MG PO ×2 (00:40→08:49)
[2024-11-03] MEDS: OFIRMEV 100 IV (00:57)
[2024-11-03] MEDS: DILAUDID 0.5 MG IV ×3 (01:10→23:35)
[2024-11-03 01:48] LABS: Glucose - Point of Care 156 mg/dl (70-99)
[2024-11-03] MEDS: ANCEF 5 IV ×3 (01:51→18:03)
--- NOTE | 2024-11-03 03:00 | PTCARENOTE ---
no acute changes. pt AAOx4. SR-SB 50s-60s. Dobut gtt remains @ 3mcg per CT PA. Levo gtt currently infusing @ 5mcg. SBP 110s. POX 99%. on 4LNC. IS 750. CT output and UO WNL. urine now appears punch colored - CT PA aware. all surgical sites stable.
Insulin gtt maintained per protocol. turning/repositioning pt Q2H and as needed.
[2024-11-03 04:08] LABS: Glucose - Point of Care 147 mg/dl (70-99)
[2024-11-03 04:20] LABS: Hematocrit 24.1 % (39.0-52.0); Hemoglobin 8.8 g/dL (13.0-18.0); Mean Corp Hgb Conc. 36.5 g/dL (33.0-37.0); Mean Corpuscular Volume 93.1 fL (80.0-94.0); Platelet Count 90 10^3/uL (130-400); Red Cell Dist. Width 14.5 % (11.5-14.5)
[2024-11-03 04:54] LABS: Blood Urea Nitrogen 24 mg/dl (9-20); Calcium 8.2 mg/dl (8.4-10.2); Carbon Dioxide 26 mmol/L (22-30); Chloride 107 mmol/L (98-107); Estimated Creatinine Clearance 60 ml/min; Glucose 130 mg/dl (70-99); Magnesium 2.1 mg/dl (1.6-2.3); Potassium 4.4 mmol/L (3.5-5.1); Sodium 136 mmol/L (135-145); eGFR > 60.00
[2024-11-03 05:14] LABS: Glucose - Point of Care 139 mg/dl (70-99)
[2024-11-03 05:48] LABS: Glucose - Point of Care 144 mg/dl (70-99)
[2024-11-03] MEDS: LR 250 ML IV ×2 (06:00)
[2024-11-03] MEDS: TYLENOL PO (06:02)
--- NOTE | 2024-11-03 06:29 | W.PN.CT ---
Today's Communication / Plan
-
-pod #1
-no significant issues overnight. Hemodynamically and neurologically intact
-initially postop, in sinus marni 50s, improved to low 60s. Had an episode of 5beat AIVR run
-mVO2 64.9. drips: Dobut 3 for bradycardia, Levo 3, Insulin
-CT outputs: 2 meds 270/270, 2 pleur 210/210 in 12/24 hrs
-got 1000 LR
-punch color urine-follow
-held BB for bradycardia. Held po Amio d/t long Qt
-monitor platelets on ASA and Plavix
-platelets - 90K today (102-150 postop and 93K preop)
-continue insulin
-maintain Marion while on Dobut
-current meds (ASA, Plavix, Zetia, Amio, Protonix). Holding BB and Amio. Intolerance of statins
-encourage IS, OOB
Assessment / Plan
-
- MVCAD- s/p CABG x 4 (DONOVAN to LAD, GSV to D2, GSV OM2, GSV to distal RCA @ crux); ELAA (#45mm AtriClip) on 11/02/24, pod #1
- Post-XIOMARA: LVEF 65%, normal RV, no RWMA, ? small flow in atrial appendage w/ good flush occlusion; trace MR; trace TR
- NSTEMI
- P/W SVT in 180s
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
- DM II
- HTN
- Seasonal allergies
- Hemorrhoids/colonic polyps
- Prior smoker
- Intolerance of statins
- b/l TKR
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
- BPH
- L vertebral artery stenosis
- R rotator cuff tear
- ALESSANDRO nodule
- Acute postop blood loss anemia
- Preop thrombocytopenia - s/p 1 unit platelet in OR
- Acute postop atelectasis
- Acute postop hypovolemia with subsequent hypervolemia
- Suspected postop pericarditis/+ rub
- Long Qt postop - follow
Discussed patient care with: Nursing and Care Team
Subjective
-
Date of Service: November 03, 2024
Objective Data
-
Lab Results
11/02/24 23:49
PT 17.7 Sec (11.4-14.6) H 11/02/24 19:35
INR 1.43 11/02/24 19:35
APTT 40.0 Sec (23.4-35.0) H 11/02/24 19:35
Vital Signs
Vital Signs
Temp Pulse Resp BP Pulse Ox
98.9 F 62 15 81/55 98
11/03/24 01:00 11/03/24 00:45 11/03/24 00:45 11/02/24 22:21 11/03/24 00:45
CT Intake/Output/Weight
11/02/24 11/02/24 11/03/24
06:59 18:59 06:59
Intake Total 814.5 / 814.5
Output Total 750 / 750
Balance 64.5 / 64.5
SaO2: 98
Physical Exam
-
General: Awake and AOx3
Cardiovascular: Regular rate & rhythm, No Murmurs and Rub
Respiratory: Decreased Breath Sounds
Sternum: Stable
Incision: Clean, Dry and Intact
Extremities: No Edema (1+DPs b/l)
Abdomen: soft, nontender, nondistended, + decreased bowel sounds
Data Reviewed
-
Lab Results: Results Reviewed
Medications: Active Meds Reviewed
Chest X-Ray: Report Reviewed and Image Reviewed
ECG: Report Reviewed and Image Reviewed
--- NOTE | 2024-11-03 06:57 | W.PN.INTV ---
Today's Communication / Plan
Recommendations
- Continue to wean pressors as tolerated
- Incentive spirometry
Assessment
-
Patient is a 79-year gentleman with known history of diabetes and hypertension who presented to the emergency room with chest pain and pressure under his rib cage. Patient reports similar symptoms about couple of weeks ago which have since
improved. In the emergency room patient was noted to be in supraventricular tachycardia with heart rate in 180s. Patient received adenosine 3 dosages followed by cardioversion with resistant SVT. He was subsequently admitted to the ICU, received
amiodarone bolus followed by infusion with improvement in rhythm. Patient's also developed hypotension and was briefly on pressors with phenylephrine, since weaned off. Agriculture Laboratory Technician consultation was requested for further input.
Patient subsequently improved and cardiac catheterization performed which showed multivessel coronary artery disease. Patient was subsequently evaluated by CT surgery and was recommended to have coronary artery bypass graft. Postprocedure, patient
was admitted to CVICU and commercial relief driver consultation was again requested for input.
79-year-old gentleman with supraventricular tachycardia as well as non-ST elevation MA, noted to have multivessel coronary artery disease, s/p coronary artery bypass graft and left atrial appendage exclusion, POD # 1
Titrate off pressors per protocol, currently on Levophed infusing at 3 and dobutamine infusing at 3 as well. MAP of 73.
ECHO reviewed with low/normal function
Management of chest tubes per primary service
Patient currently extubated, saturating 96% on 2 L. Work of breathing normal. No cough or respiratory distress noted.
CXR with no obvious opacities/infiltrates, chest tubes in place
Maintain supplement oxygen as needed
No prior history of pulmonary disease
Can add nebulizers if needed
Aspiration precautions
Encouraged incentive spirometry, OOB/ambulation/early mobility
Advance diet as tolerated following extubation
GI prophylaxis: Protonix
Monitor critical I/O's
Marion/chest tube output
Trend CBC for now
Can transfuse if indicated for Hb <7, plt <50 in surgical patients
DVT prophylaxis including SCDs
Insulin protocol initiated and ongoing
Transition to SQ/off as indicated per team
Additional medical diagnoses:
#1. Resistant SVT with hemodynamic instability on admission
- S/p adenosine 6 mg, 12 mg, 12 mg and cardioversion in the emergency room without improvement
- Amiodarone bolus followed by infusion, subsequently transition to oral amiodarone as well as oral metoprolol
#2. NSTEMI
- Patient was treated with aspirin, heparin drip.
- Cardiac catheterization 10/26 with multivessel coronary disease, cardiology and CT surgery on case
- S/p CABG 11/02. Currently on aspirin, Plavix, metoprolol and Zetia.
#3. Questionable left apical nodule
- Consider follow-up CT chest as outpatient. Patient is a non-smoker
- Outpatient pulmonary follow-up information added to the discharge section
Others:
- GERD
- HTN
- DM - II
- Thrombocytopenia, Chronic ITP
- Mild GIDEON, resolved
Critical Care time 55 mins -- The patient is admitted for acute critical illness for the treatment of vital organ failure and/or prevention of further life-threatening conditions. Total care includes time spent in review of history, physical exam,
medications, hemodynamic/ventilator parameters, laboratory data, imaging and discussion with house staff, pharmacy, respiratory therapy, railroad car painter, and nursing.
Data:
[facility] 10/2024: 1. Multivessel CAD.
2. The mid LAD has a long area of diffuse moderate to severe atherosclerotic plaque up to a focal lesion which is eccentric in nature of 90% at the levels of medium caliber diagonal 2. Left to right collaterals noted. D2 is a medium caliber vessel
which has ostial 60 to 70% stenosis and diffuse 70% stenosis in the midportion with the distal vessel being a good bypass target.
3. Mid portion of LCx has eccentric 70% stenosis. OM1 is small to medium caliber with eccentric 70% stenosis.
4. Large caliber dominant vessel with 100% proximal RCA chronic total occlusion with left to right collaterals.
5. LVEDP 8mmHG
Lexiscan 06/2024: Negative Lexiscan sestamibi for ischemia.
ECHO 06/2024: 1. Normal left ventricular size and function, ejection fraction 55-60%
2. Thickened mitral leaflets, mild mitral annular calcification, trace mitral
regurgitation and mildly dilated left atrium
3. Aortic sclerosis with trace aortic regurgitation
4. Normal right heart with pulmonary artery systolic pressure 25-30 mmHg
5. 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
Subjective Dataa
Subjective Data
Date of Service:
Date of Service: November 03, 2024
Subjective:
Patient comfortably lying in bed in no acute distress.
Review of Systems
Genitourinary: Other (Other than postoperative pain, all 14 systems reviewed and negative except as stated above in the history of present illness.)
Objective Data
Data Reviewed
Vital Signs / I&O / Oxygen:
Vital Signs
Temp Pulse Resp BP Pulse Ox
97.8 F 45 20 129/71 97
11/02/24 07:26 11/02/24 13:01 11/02/24 07:26 11/02/24 07:25 11/02/24 07:51
SaO2 97
Physical Exam
General: Comfortable
HEENT: Normocephalic and Anicteric
Cardiovascular: S1-S2, Regular Rhythm, Murmur (n) and Peripheral Edema (n)
Respiratory: Wheeze (n), Crackles (n), Rhonchi (n) and Non-Labored Respirations
GI: Soft, Non Distended and Non Tender
Neurology: Awake, Alert and No Motor Deficits
Skin: Cyanosis (n) and Jaundice (n)
Labs/Micro/Reports
Lab Data
11/01/24 04:18
11/01/24 04:18
[2024-11-03 07:15] LABS: Glucose - Point of Care 122 mg/dl (70-99)
[2024-11-03 07:52] LABS: ACT+ - POC > 1003 Seconds (82-134)
[2024-11-03 07:53] LABS: B.E. - POC 1.4 mmol/L; Glucose - POC 129 mg/dl (70-99); HCO3 - POC 27 mmol/L (21-28); Hematocrit - POC 29 % PCV (42-52); Hemodilution- POC Yes; Hemoglobin Calculated - POC 9.8; Ionized Calcium - POC 1.10 mmol/L (1.15-1.33); Lactate - POC < 0.30 mmol/L (0.36-0.75); O2 Saturation %Calculated-POC 100.0 % (94-98); PCO2 - POC 44 mmHg (35-48); PO2 - POC 379 mmHg (83-108); Potassium - POC 5.1 mmol/L (3.5-5.1); Sodium - POC 138 mmol/L (136-145); Specimen Type - POC Arterial; pH - POC 7.39 (7.35-7.45)
[2024-11-03 07:53] LABS: B.E. - POC 2.8 mmol/L; Glucose - POC 168 mg/dl (70-99); HCO3 - POC 28 mmol/L (21-28); Hematocrit - POC 27 % PCV (42-52); Hemodilution- POC Yes; Hemoglobin Calculated - POC 9.1; Ionized Calcium - POC 1.13 mmol/L (1.15-1.33); Lactate - POC < 0.30 mmol/L (0.36-0.75); O2 Saturation %Calculated-POC 99.9 % (94-98); PCO2 - POC 44 mmHg (35-48); PO2 - POC 308 mmHg (83-108); Potassium - POC 5.1 mmol/L (3.5-5.1); Sodium - POC 137 mmol/L (136-145); Specimen Type - POC Arterial; pH - POC 7.41 (7.35-7.45)
--- NOTE | 2024-11-03 08:00 | PTCARENOTE ---
Assumed care of patient. Walking rounds completed with previous RN. Pt assessed while he was lying in bed. Pt alert and oriented x4. C/o sternal discomfort with coughing. Denies shortness of breath and intermittent nausea. JOSEPH with equal strength
throughout. Sternal precautions enforced. SR with prolonged QT with rates in the 60s. BP supported with levo. Bilateral radial and DP pulses palpable. No edema noted. CVP flat 10, sitting 2-6. +Rub. POX 96% on 2L NC, 94% on RA. Lungs diminished
throughout. Occasional dry nonproductive cough noted. IS encouraged-1000mL achieved. Mediastinal chest tubes x2 y-sited to 1 atrium to -20cm suction draining serosanguineous fluid. Pleural chest tubes x2 y-sited to 1 atrium to -20cm suction draining
serosanguineous fluid. No air leaks, tidaling, crepitus noted. Abdomen soft, round, nontender. Hypoactive BS. Tolerating clear liquid breakfast. Marion draining adequate amounts of punch colored urine. Sternal incision covered with Aquacel, old
outline drainage noted, no additional. CT dressing changed. Right groin puncture site approximated, NATURAL RESOURCES TECHNICIAN. Left groin puncture site approximated, NATURAL RESOURCES TECHNICIAN. Right knee incision approximated with skin glue, NATURAL RESOURCES TECHNICIAN. Left knee incision approximated, with skin
glue, ALEKS intact. Right IJ cordis with slick intact. Right upper arm dual lumen PICC intact. Left radial castro intact, flushed, leveled, zeroed. Left AC 18g PIV intact. Dobutamine infusing at 2mcg/kg/min. Levo infusing at 2mcg/min. See MAR for
medication administration. See worklist for complete nursing assessment. Plan of care reviewed and patient in agreement.
[2024-11-03 08:15] LABS: Glucose - Point of Care 126 mg/dl (70-99)
[2024-11-03] MEDS: NOVOLOG FLEXPEN 4 UNITS SC ×3 (08:48→17:16)
[2024-11-03] MEDS: LIDOCAINE 4% PATCH 1 PATCH TOPICAL (08:48)
[2024-11-03] MEDS: SENOKOT-S 1 TABLET PO ×2 (08:49→20:15)
[2024-11-03] MEDS: ZETIA 10 MG PO (08:49)
[2024-11-03] MEDS: BACTROBAN 2% OINTMENT 1 APPLIC NASAL ×2 (08:49→20:17)
[2024-11-03] MEDS: PLAVIX 75 MG PO (08:49)
[2024-11-03] MEDS: FLEXERIL 5 MG PO (08:49)
[2024-11-03] MEDS: NEURONTIN 100 MG PO ×3 (08:49→21:04)
[2024-11-03] MEDS: MAGNESIUM OXIDE 400 MG PO ×2 (08:49→20:15)
[2024-11-03] MEDS: PROTONIX 40 MG PO (08:49)
[2024-11-03] MEDS: NSS IV (09:43)
[2024-11-03 10:07] LABS: Glucose - Point of Care 130 mg/dl (70-99)
[2024-11-03] MEDS: NOVOLIN R INSULIN INFUSION 100 IV (10:19)
[2024-11-03] MEDS: ROXICODONE 5 MG PO ×3 (10:19→23:57)
--- NOTE | 2024-11-03 10:23 | W.PN.ANS.POP ---
Anesthesia Post Operative
- Anesthesia Post Op Note
Vital Signs Stable-See Nursing Note: Yes
Airway Patent: Yes
Adequate Pain Control: Yes
Change in Mental Status: No
Current Postoperative Nausea & Vomiting: No
Anesthesia Complications: No
General Anesthetic Recall: No
Unplanned Admission: No
Post Op Hydration Adequate: Yes
--- NOTE | 2024-11-03 11:00 | PTCARENOTE ---
Dobutamine decreased to [address] PA.
[2024-11-03 12:05] LABS: Glucose - Point of Care 126 mg/dl (70-99)
--- NOTE | 2024-11-03 12:30 | PTCARENOTE ---
Pt reassessed. Remains A&Ox4. Rates sternal pain /. Denies nausea and shortness of breath. SR with prolonged QT with rates in the 60s. BP 117/60. POX 93% on RA. CT output WNL. Marion draining adequate amounts of preston urine. Tracey d/c per orders,
hemostasis achieved. MVO2 obtained from cordis, 53.1. Additional MVO2 obtained from PICC 62.1. Kept dobutamine at 1mcg/kg/min as per CT PA. Right IJ slicc d/c per orders. New Cordis dressing applied. Pt assisted to get OOB with 2 RN. Tolerated,
slightly dizzy upon sitting up and standing. No other acute changes.
--- NOTE | 2024-11-03 13:03 | W.PN.CARDCBS ---
Addendum entered and electronically signed by Jeremy Sanchez MD 11/03/24 14:41:
I saw and examined the patient.
The Technical Training Specialist's note was reviewed and I agree with the note.
Comment:
GEN: No distress, awake, Ox3
HEENT: supple, anicteric, mmm
LUNGS: CTA, no wheezes/rales
CV: Reg, S1/S2, no gallop
ABD: soft, BS+, NT/ND
EXT: No edema
NEURO: Gross non-focal
SKIN: No rash
PLan:
Overall doing well postop day 1. Status post CABG
Wean dobutamine. With history of VT hopefully initiate amiodarone soon.
Hemoglobin at 8.8.
He has known thrombocytopenia. Platelet count stable at 90,000
Original Note:
Today's Communication / Plan
-
continue post op care
follow hgb/plts
follow QTc
Impression / Plan
-
PCP: Dr. Lowe
Abrasives Sales Representative: Dr. Burgos
Impression:
Unstable Wide-complex tachycardia, possible SVT with aberrancy but cannot exclude VT
NSTEMI, peak troponin of 1.81
MV CAD by cardiac catheterization 10/26/2014
s/p CABG x4 DONOVAN to LAD, GSV to D2, GSV OM2, GSV to distal RCA @ crux, ELAA 11/02/24
Possible left apical nodule on CT
Type 2 diabetes mellitus
Hyperglycemia
Hypertension
GERD
Peripheral neuropathy
History of thrombocytopenia
Dilated aortic root 4.3 cm in 2021 and 2024
Lexiscan sestamibi stress test 06/24/2024: Fixed basal inferior, mid inferior, apical inferior, basal inferolateral, basal anterolateral, and apical defect consistent with soft tissue attenuation, ejection fraction 40%
LHC 10/26/2024: LVEDP 8. Dominant right. Left main large and free of disease. LAD with long diffuse moderate to severe mid eccentric 90% stenosis. Voun-pn-robeg collaterals. D2 with ostial 60 to 70% stenosis and diffuse 70% stenosis in the
midportion. Left circumflex with mid 70% eccentric stenosis. OM1 with eccentric 70% stenosis. RCA with HONEYCOMB DECAPPER 100% proximal with oqho-ao-wewsz collaterals.
Echo 06/15/2024: EF 55 to 60%, aortic sclerosis, dilated aortic root 4.3 cm
Echo 10/27/2024: EF 50%, mild MR, trace AR, trace TR, mildly dilated aortic root
Plan:
-Presented with dizziness and chest pressure. Noted to have unstable wide complex tachycardia in ER with HRs into the 180s. Adenosine and synchronized CV attempted in ER without change in rhythm. Subsequently started on amiodarone gtt and converted
to SR.
-Troponin peaked at 1.81 and patient was managed as NSTEMI with cardiac cath that revealed MV CAD. Patient was seen in consultation by CT surgery
-s/p CABGx4 DONOVAN to LAD, GSV to D2, GSV OM2, GSV to distal RCA @ crux, ELAA 11/02/24
-on dobut @1, wean as able.
-holding BB while on dobut and holding amiodarone due to prolonged QTC by EKG. follow
-in SR with several brief (4-5 beat) runs of WCT.
-continue asa, plavix. hgb 8.8, plts 90K
-preop echo with EF 50% by echo 10/27/2024
-LDL 50 on 10/25/2024. Patient is not chronically on a statin due to a possible history of rhabdomyolysis described by the patient as 'connective tissue weakening '. Patient is new to Zetia 10 mg daily this admission. Will need to investigate
PCSK9 inhibitors as an outpatient.
-cardiac rehab as OP
-d/w nursing
Progress Note - Abrasives Sales Representative
Subjective
Date of Service: November 03, 2024
reports post op pain
Objective
Labs:
11/03/24 04:02
11/03/24 04:02
Labs
Hgb 8.8 g/dL (13.0-18.0) L 11/03/24 04:02
Hct 24.1 % (39.0-52.0) L 11/03/24 04:02
Plt Count 90 10^3/uL (130-400) L D 11/03/24 04:02
PT 17.7 Sec (11.4-14.6) H 11/02/24 19:35
INR 1.43 11/02/24 19:35
APTT 40.0 Sec (23.4-35.0) H 11/02/24 19:35
Sodium 136 mmol/L (135-145) 11/03/24 04:02
Potassium 4.4 mmol/L (3.5-5.1) 11/03/24 04:02
BUN 24 mg/dl (9-20) H 11/03/24 04:02
Creatinine 1.1 mg/dL (0.7-1.3) 11/03/24 04:02
Glucose 130 mg/dl (70-99) H 11/03/24 04:02
Vital Signs and I&O:
Vital Signs
Temp Pulse Resp BP Pulse Ox
99.0 F 62 12 125/59 95
11/03/24 12:00 11/03/24 12:00 11/03/24 12:00 11/03/24 12:00 11/03/24 12:00
Vital Signs
Temp Pulse Resp BP Pulse Ox
99.0 F 62 12 125/59 95
11/03/24 12:00 11/03/24 12:00 11/03/24 12:00 11/03/24 12:00 11/03/24 12:00
Intake & Output
11/01/24 11/02/24 11/03/24 11/04/24
07:59 07:59 07:59 07:59
Intake Total 1693.7 / 1733.0 163.4 / 163.4
Output Total 1120 / 1170 255 / 255
Balance 573.7 / 563.0 -91.6 / -91.6
Physical Exam
Physical Exam
GEN: No distress, awake, alert, oriented x3
HEENT: supple, anicteric, mmm, eomi
LUNGS: decreased BS B/L, no wheezes
CV: Reg, S1/S2, no murmur
ABD: soft, BS+, NT/ND
EXT: No cyanosis, clubbing, edema
NEURO: Gross non-focal
SKIN: Warm, pink, dry. No rash. Sternotomy incision c/d/i. CTs in place
: shaw in place with tea colored urine
[2024-11-03 13:12] LABS: Glucose - Point of Care 109 mg/dl (70-99)
[2024-11-03] MEDS: TYLENOL 1000 MG PO ×2 (13:31→21:04)
[2024-11-03 14:42] LABS: Glucose - Point of Care 209 mg/dl (70-99)
[2024-11-03 15:57] LABS: Glucose - Point of Care 172 mg/dl (70-99)
--- NOTE | 2024-11-03 17:00 | PTCARENOTE ---
Pt reassessed. Pt resting in the chair. SR with rates in the 60s-70s. BP 110/56. POX 95% on RA. Surgical sites stable. CT output WNL. UO low, CT PA notified and dobutamine increased to 2mcg/kg/min. No other acute changes.
[2024-11-03 17:15] LABS: Glucose - Point of Care 106 mg/dl (70-99)
[2024-11-03 19:08] LABS: Glucose - Point of Care 176 mg/dl (70-99)
--- NOTE | 2024-11-03 20:00 | PTCARENOTE ---
Assumed care of patient at 1900. Patient found resting in bed at time of assessment. Patient is AOx4, follow commands appropriately, moves all extremities. Lung sounds are diminished in the bases, respirations are shallow, saO2 96% on RA. Patient
has CTx4: R/L pleural draining to one atrium and 2xmeds draining to another atrium. Heart sounds are audible, there is a rub present on auscultation, patient has normal palpable pulses and no observable edema. Patient has active BS in all four
quadrants and there is a shaw present draining dark tea colored urine. Patient has sternal incision with aquacell dressing that is CDI, R groin puncture approx with surg adhesive THERESE, L groin puncture approx with surg adhesive INSPECTOR AND CLIPPER, RLE incision
approx with surg adhesive THERESE, and LLE incision approx with surg adhesive INSPECTOR AND CLIPPER. Patient has R IJ cordis receiving KVO and dobut@2, R arm dual lumen PICC, and L AC 18G PIV receiving insulin gtt col 4. Call stewart within reach.
[2024-11-03] MEDS: REMOVE LIDOCAINE PATCH 1 PATCH REMOVE (20:16)
[2024-11-03] MEDS: MUCINEX 600 MG PO (21:04)
[2024-11-03 21:09] LABS: Glucose - Point of Care 125 mg/dl (70-99)
--- NOTE | 2024-11-03 23:00 | PTCARENOTE ---
report received from previous RN, walking rounds done. patient in bed, AAOx4. VSS. Dobut gtt infusing @ 2mcg. Insulin gtt infusing per glycemic protocol. SR w prolonged QT on monitor, HR 70s. B/L radial and DP pulses palpable. heart tones clear.
bilateral breath sounds present. POX 88-90on room air - placed on 2LNC, POX now 96%. CT x4 intact to -20cm wall suction, drainage WNL, no air leak present. +rub. abdomen soft, nontender, +BS. shaw catheter intact, draining dark tea colored urine.
UO adequate. all surgical sites stable. RIJ cordis intact w KVO infusing. R DL PICC and L arm PIV intact and patent. see worklist for full assessment, VS, and interventions.
[2024-11-03 23:03] LABS: Glucose - Point of Care 107 mg/dl (70-99)
[2024-11-03] MEDS: DOBUTREX 500 MG 250 IV (23:05)
[2024-11-04] VITALS (29 sets, daily range): BP systolic 70–120; BP diastolic 36–96; PULSE 76; O2SAT 92–93; BMI 30.2
[2024-11-04 01:08] LABS: Glucose - Point of Care 96 mg/dl (70-99)
--- NOTE | 2024-11-04 03:00 | PTCARENOTE ---
no changes in assessment, VSS. SR 70s. Dobut gtt remains @ 2mcg. POX 95% on 2LNC. CT output and UO WNL. Insulin gtt maintained per protocol. AM labs drawn and sent, EKG done. pt sleeping between care.
[2024-11-04 03:06] LABS: Glucose - Point of Care 108 mg/dl (70-99)
[2024-11-04 03:24] LABS: Hematocrit 19.5 % (39.0-52.0); Hemoglobin 7.0 g/dL (13.0-18.0); Mean Corp Hgb Conc. 35.9 g/dL (33.0-37.0); Mean Corpuscular Volume 94.2 fL (80.0-94.0); Platelet Count 81 10^3/uL (130-400); Red Cell Dist. Width 15.4 % (11.5-14.5)
[2024-11-04 04:13] LABS: Blood Urea Nitrogen 33 mg/dl (9-20); Calcium 8.5 mg/dl (8.4-10.2); Carbon Dioxide 27 mmol/L (22-30); Chloride 103 mmol/L (98-107); Estimated Creatinine Clearance 51 ml/min; Glucose 88 mg/dl (70-99); Magnesium 2.1 mg/dl (1.6-2.3); Potassium 4.4 mmol/L (3.5-5.1); Sodium 131 mmol/L (135-145); eGFR 56.58
[2024-11-04] MEDS: FLEXERIL 5 MG PO (04:27)
[2024-11-04 04:36] LABS: Glucose - Point of Care 116 mg/dl (70-99)
[2024-11-04 05:03] LABS: Hematocrit 19.1 % (39.0-52.0); Hemoglobin 6.8 g/dL (13.0-18.0)
--- NOTE | 2024-11-04 05:24 | W.PN.CT ---
Addendum entered and electronically signed by Mandeep Rodgers MD 11/04/24 07:32:
I saw and examined the patient.
The PA's note was reviewed and I agree with the note.
Comment:
Doing well overall. CXR clear. AVSS. 2L. GTTS: dobutamine 2 for HR, insulin. UO: 460/800. Tolerating PO. Neuro: intact
Hgb 6.8 this AM, PLT 81
- Wean dobutamine to OFF for HR > 60
- Hold amiodarone today
- Transfuse 1U PRBC for acute postoperative blood loss and dilutional anemia - diuresis today
- Maintain shaw 1 more for diuresis, close monitoring of UO
- Continue ASA/plavix - follow chronic thrombocytopenia
- D/C CTs
- OOB/IS/ambulate
Original Note:
Today's Communication / Plan
-
-pod #2
-no significant issues overnight. Hemodynamically and neurologically intact
-bradycardia improved - nsr high 60s-70s overnight. Wean off Dobut and resume BB (hx of VT per Cardiology)
-follow ECG. Qt improved 428/458 ms. Will restart po Amio
-mVO2 64.4. drips: Dobut 2 for bradycardia, Insulin
-CT outputs: 2 meds 80/225, 2 pleur 60/165 in 12/24 hrs
-Hg 7.0 and recheck is 6.8. Platelets 80K today. ? 1pRBC followed by iv Lasix
-Cr trended up - 1.3 today (1.1 on 11/03 and 1.0 preop)- follow
-monitor platelets on ASA and Plavix
-current meds (ASA, Plavix, Zetia, Amio, Mucinex, Protonix). Holding BB. Intolerance of statins
-encourage IS, OOB
Assessment / Plan
-
- MVCAD- s/p CABG x 4 (DONOVAN to LAD, GSV to D2, GSV OM2, GSV to distal RCA @ crux); ELAA (#45mm AtriClip) on 11/02/24, pod #2
- Post-XIOMARA: LVEF 65%, normal RV, no RWMA, ? small flow in atrial appendage w/ good flush occlusion; trace MR; trace TR
- NSTEMI
- P/W SVT in 180s
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
- DM II
- HTN
- Seasonal allergies
- Hemorrhoids/colonic polyps
- Prior smoker
- Intolerance of statins
- b/l TKR
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
- BPH
- L vertebral artery stenosis
- R rotator cuff tear
- ALESSANDRO nodule
- Acute postop blood loss anemia
- Preop thrombocytopenia - s/p 1 unit platelet in OR
- Acute postop atelectasis
- Acute postop hypovolemia with subsequent hypervolemia
- Suspected postop pericarditis/+ rub
- Long Qt postop - follow
- Acute postop hyponatremia
- GIDEON
Discussed patient care with: Nursing and Care Team
Subjective
-
Date of Service: November 03, 2024
Objective Data
-
Lab Results
11/03/24 04:02
11/03/24 04:02
PT 17.7 Sec (11.4-14.6) H 11/02/24 19:35
INR 1.43 11/02/24 19:35
APTT 40.0 Sec (23.4-35.0) H 11/02/24 19:35
Vital Signs
Vital Signs
Temp Pulse Resp BP Pulse Ox
99.4 F 73 18 128/58 93
11/03/24 20:00 11/03/24 21:45 11/03/24 22:00 11/03/24 21:00 11/03/24 22:00
CT Intake/Output/Weight
11/03/24 11/03/24 11/04/24
06:59 18:59 06:59
Intake Total 1647.4 / 1693.7 568.2 / 679.7 111.5 / 679.7
Output Total 1065 / 1120 590 / 880 290 / 880
Balance 582.4 / 573.7 -21.8 / -200.3 -178.5 / -200.3
SaO2: 93
[2024-11-04] MEDS: TYLENOL 1000 MG PO ×3 (06:03→20:34)
[2024-11-04 06:08] LABS: Glucose - Point of Care 94 mg/dl (70-99)
--- NOTE | 2024-11-04 06:30 | PTCARENOTE ---
attempted pt OOB, became hypotensive SBP 70, pt felt dizzy and unable to stand. now back in bed resting comfortably. CT PA aware.
[2024-11-04] MEDS: ZETIA 10 MG PO (07:52)
[2024-11-04] MEDS: PROTONIX 40 MG PO (07:52)
[2024-11-04] MEDS: LIDOCAINE 4% PATCH 1 PATCH TOPICAL (07:52)
[2024-11-04] MEDS: MUCINEX 600 MG PO ×2 (07:52→20:33)
[2024-11-04] MEDS: NEURONTIN 100 MG PO (07:52)
[2024-11-04] MEDS: SENOKOT-S 1 TABLET PO ×2 (07:52→20:33)
[2024-11-04] MEDS: MAGNESIUM OXIDE 400 MG PO ×2 (07:52→20:33)
--- NOTE | 2024-11-04 08:00 | PTCARENOTE ---
Resumed care of patient. Walking rounds completed with previous RN. Pt assessed while he was lying in bed. Pt drowsy, but oriented x4. Denies pain, shortness of breath, and nausea, just states he feels 'tired'. JOSEPH with equal strength throughout.
NSR on tele with rates in the 60s-70s. BP 106/51. +Rub. Bilateral radial and DP pulses palpable. Generalized +1 edema. POX 96% on 2L NC. Lungs diminished in the bases. IS encouraged 1000mL achieved. Mediastinal chest tubes x2 y-sited to 1 atrium to
-20cm suction draining serosanguineous fluid. Right & Left pleural chest tubes y-sited to 1 atrium to -20cm suction draining serosanguineous fluid. No air leaks, tidaling, crepitus noted. Abdomen soft, round, nontender. Hypoactive BS. Pt reports
passing gas. Marion intact draining blood tinged/tea colored urine, adequate amounts. Sternal incision covered with Aquacel, old drainage outlined. CT dressing CDI. Right groin puncture site THERESE. Left groin puncture site approximated, TOWER EQUIPMENT REPAIRER. Right knee
incision approximated, THERESE. Left knee incision approximated, TOWER EQUIPMENT REPAIRER. Dobutamine infusing at 1mcg/kg/min. Insulin infusing per Glycemic protocol. Right IJ cordis intact. Right upper arm PICC intact. Left AC 18g PIV intact. See MAR for medication
administration. See worklist for complete nursing assessment. Plan of care reviewed and patient in agreement.
[2024-11-04] MEDS: PLAVIX 75 MG PO (08:10)
[2024-11-04] MEDS: LOW STRENGTH ASPIRIN 81 MG PO (08:10)
--- NOTE | 2024-11-04 08:10 | W.PN.INTV ---
Today's Communication / Plan
Recommendations
- Transfuse PRBC, scheduled
- Wean dobutamine as tolerated
- Incentive spirometry, increase activity as tolerated
-Food Service Kitchen Supervisor service will sign off once patient is transferred out of CVICU
Assessment
-
Patient is a 79-year gentleman with known history of diabetes and hypertension who presented to the emergency room with chest pain and pressure under his rib cage. Patient reports similar symptoms about couple of weeks ago which have since
improved. In the emergency room patient was noted to be in supraventricular tachycardia with heart rate in 180s. Patient received adenosine 3 dosages followed by cardioversion with resistant SVT. He was subsequently admitted to the ICU, received
amiodarone bolus followed by infusion with improvement in rhythm. Patient's also developed hypotension and was briefly on pressors with phenylephrine, since weaned off. Food Service Kitchen Supervisor consultation was requested for further input.
Patient subsequently improved and cardiac catheterization performed which showed multivessel coronary artery disease. Patient was subsequently evaluated by CT surgery and was recommended to have coronary artery bypass graft. Postprocedure, patient
was admitted to CVICU and site lead consultation was again requested for input.
79-year-old gentleman with supraventricular tachycardia as well as non-ST elevation OH, noted to have multivessel coronary artery disease, s/p coronary artery bypass graft and left atrial appendage exclusion, POD # 2
Titrate off pressors per protocol, currently dobutamine infusing at 1 as well. MAP of 65.
ECHO reviewed
Management of chest tubes per primary service
Patient currently extubated, saturating 95% on 2 L. Work of breathing normal. No cough or respiratory distress noted.
CXR with no obvious opacities/infiltrates, low lung volumes
Maintain supplement oxygen as needed
No prior history of pulmonary disease
Can add nebulizers if needed
Aspiration precautions
Encouraged incentive spirometry, OOB/ambulation/early mobility
Advance diet as tolerated following extubation
GI prophylaxis: Protonix
Monitor critical I/O's
Marion/chest tube output
Hb dropped below 7. Scheduled for PRBC transfusion today.
DVT prophylaxis including SCDs
Insulin protocol initiated and ongoing, anticipate transition to s.c later today.
Transition to SQ/off as indicated per team
Additional medical diagnoses:
#1. Resistant SVT with hemodynamic instability on admission
- S/p adenosine 6 mg, 12 mg, 12 mg and cardioversion in the emergency room without improvement
- Amiodarone bolus followed by infusion, subsequently transition to oral amiodarone as well as oral metoprolol
#2. NSTEMI
- Patient was treated with aspirin, heparin drip.
- Cardiac catheterization 10/26 with multivessel coronary disease, cardiology and CT surgery on case
- S/p CABG 11/02. Currently on aspirin, Plavix, metoprolol (on hold) and Zetia.
#3. Questionable left apical nodule
- Consider follow-up CT chest as outpatient. Patient is a non-smoker
- Outpatient pulmonary follow-up information added to the discharge section
Others:
- GERD
- HTN
- DM - II
- Thrombocytopenia, Chronic ITP
- Mild GIDEON, Cr 1.3 today. Receing additional volume with PRBC, labs in AM.
Critical Care time 42 mins -- The patient is admitted for acute critical illness for the treatment of vital organ failure and/or prevention of further life-threatening conditions. Total care includes time spent in review of history, physical exam,
medications, hemodynamic/ventilator parameters, laboratory data, imaging and discussion with house staff, pharmacy, respiratory therapy, clinical research monitor, and nursing.
Data:
[facility] 10/2024: 1. Multivessel CAD.
2. The mid LAD has a long area of diffuse moderate to severe atherosclerotic plaque up to a focal lesion which is eccentric in nature of 90% at the levels of medium caliber diagonal 2. Left to right collaterals noted. D2 is a medium caliber vessel
which has ostial 60 to 70% stenosis and diffuse 70% stenosis in the midportion with the distal vessel being a good bypass target.
3. Mid portion of LCx has eccentric 70% stenosis. OM1 is small to medium caliber with eccentric 70% stenosis.
4. Large caliber dominant vessel with 100% proximal RCA chronic total occlusion with left to right collaterals.
5. LVEDP 8mmHG
Lexiscan 06/2024: Negative Lexiscan sestamibi for ischemia.
ECHO 06/2024: 1. Normal left ventricular size and function, ejection fraction 55-60%
2. Thickened mitral leaflets, mild mitral annular calcification, trace mitral
regurgitation and mildly dilated left atrium
3. Aortic sclerosis with trace aortic regurgitation
4. Normal right heart with pulmonary artery systolic pressure 25-30 mmHg
5. 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
Subjective Dataa
Subjective Data
Date of Service:
Date of Service: November 04, 2024
Subjective:
Patient comfortably lying in bed in no acute distress.
Review of Systems
Genitourinary: Other (All 14 systems reviewed and negative except as stated above in the history of present illness. Patient felt dizzy on attempting to sit and stand.)
Objective Data
Data Reviewed
Vital Signs / I&O / Oxygen:
Vital Signs
Temp Pulse Resp BP Pulse Ox
98.2 F 75 16 100/48 95
11/04/24 03:00 11/04/24 07:30 11/04/24 03:00 11/04/24 07:00 11/04/24 07:30
Intake and Output
11/03/24 11/04/24 11/05/24
06:59 06:59 06:59
Intake Total 1647.4 / 1693.7 812.0 / 828.3 16.3 / 16.3
Output Total 1065 / 1120 1235 / 1265 30
Balance 582.4 / 573.7 -423.0 / -436.7 -13.7 / -13.7
SaO2 [CPAP] 100
SaO2 [SIMV] 96
SaO2 95
Nasal Cannula flow liters per 2
minute
Physical Exam
General: Comfortable
HEENT: Normocephalic, Anicteric and Other (Pale conjunctiva)
Cardiovascular: S1-S2, Regular Rhythm, Murmur (n) and Peripheral Edema (n)
Respiratory: Wheeze (n), Crackles (n), Rhonchi (n) and Non-Labored Respirations
GI: Soft, Non Distended and Non Tender
Neurology: Awake, Alert and No Motor Deficits
Skin: Cyanosis (n) and Jaundice (n)
Labs/Micro/Reports
Lab Data
11/04/24 04:35
11/04/24 03:00
[2024-11-04] MEDS: BACTROBAN 2% OINTMENT 1 APPLIC NASAL ×2 (08:11→20:33)
[2024-11-04 08:17] LABS: Glucose - Point of Care 118 mg/dl (70-99)
[2024-11-04] MEDS: NOVOLIN R INSULIN INFUSION 100 IV (08:22)
[2024-11-04 09:51] LABS: Glucose - Point of Care 113 mg/dl (70-99)
[2024-11-04] MEDS: NOVOLOG FLEXPEN 4 UNITS SC (09:51)
--- NOTE | 2024-11-04 10:50 | W.PN.CARDCBS ---
Addendum entered and electronically signed by Jeremy Sanchez MD 11/04/24 15:19:
I saw and examined the patient.
[employer] Travel Counselor's note was reviewed and I agree with the note.
Comment:
GEN: No distress, awake, Ox3
HEENT: supple, anicteric, mmm
LUNGS: CTA, no wheezes/rales
CV: Reg, S1/S2, no rub
ABD: soft, BS+, NT/ND
EXT: No edema
NEURO: Gross non-focal
SKIN: No rash
Plan:
Hemoglobin down to 6.8. Agree with transfusion. Platelet count overall stable to 81,000.
Wean dobutamine. DC tubes when stable.
Continue amiodarone and metoprolol. Remains in sinus. Continue aspirin and Plavix.
Continue Zetia. Has not tolerated statins in the past.
Original Note:
Today's Communication / Plan
-
continue post op care
CTs to be removed
wean off dobut
s/p 1 U PRBCs this AM. for diuresis
in SR
Impression / Plan
-
PCP: Dr. Lowe
Needle Maker: Dr. Burgos
Impression:
Unstable Wide-complex tachycardia, possible SVT with aberrancy but cannot exclude VT
NSTEMI, peak troponin of 1.81
MV CAD by cardiac catheterization 10/26/2014
s/p CABG x4 DONOVAN to LAD, GSV to D2, GSV OM2, GSV to distal RCA @ crux, ELAA 11/02/24
Possible left apical nodule on CT
Type 2 diabetes mellitus
Hyperglycemia
Hypertension
GERD
Peripheral neuropathy
History of thrombocytopenia
Dilated aortic root 4.3 cm in 2021 and 2024
Lexiscan sestamibi stress test 06/24/2024: Fixed basal inferior, mid inferior, apical inferior, basal inferolateral, basal anterolateral, and apical defect consistent with soft tissue attenuation, ejection fraction 40%
[facility] 10/26/2024: LVEDP 8. Dominant right. Left main large and free of disease. LAD with long diffuse moderate to severe mid eccentric 90% stenosis. [id number] collaterals. D2 with ostial 60 to 70% stenosis and diffuse 70% stenosis in the
midportion. Left circumflex with mid 70% eccentric stenosis. OM1 with eccentric 70% stenosis. RCA with POUNDMASTER 100% proximal with [id number] collaterals.
Echo 06/15/2024: EF 55 to 60%, aortic sclerosis, dilated aortic root 4.3 cm
Echo 10/27/2024: EF 50%, mild MR, trace AR, trace TR, mildly dilated aortic root
Plan:
-Presented with dizziness and chest pressure. Noted to have unstable wide complex tachycardia in ER with HRs into the 180s. Adenosine and synchronized CV attempted in ER without change in rhythm. Subsequently started on amiodarone gtt and converted
to SR.
-Troponin peaked at 1.81 and patient was managed as NSTEMI with cardiac cath that revealed MV CAD. Patient was seen in consultation by CT surgery
-s/p CABGx4 DONOVAN to LAD, GSV to D2, GSV OM2, GSV to distal RCA @ crux, ELAA 11/02/24
-on dobut @1, wean as able.
-Reported some dizziness with standing this a.m. hemoglobin down to 6.8 this morning and platelets 81K. Received 1 unit packed red blood cells. Also for diuresis continue aspirin, Plavix
-Chest tubes to be removed this morning
-in SR on review of tele overnight. amiodarone and BB remain on hold at present. QTc improved by EKG 11/04.
-preop echo with EF 50% by echo 10/27/2024
-LDL 50 on 10/25/2024. Patient is not chronically on a statin due to a possible history of rhabdomyolysis described by the patient as 'connective tissue weakening '. Patient is new to Zetia 10 mg daily this admission. Will need to investigate
PCSK9 inhibitors as an outpatient.
-cardiac rehab
-d/w nursing. d/w CT FIRESETTER
Progress Note - Needle Maker
Subjective
Date of Service: November 04, 2024
Reports some dizziness with standing this morning.
Objective
Labs:
11/04/24 04:35
11/04/24 03:00
Labs
Hgb 6.8 g/dL (13.0-18.0) L* 11/04/24 04:35
Hct 19.1 % (39.0-52.0) L* 11/04/24 04:35
Plt Count 81 10^3/uL (130-400) L 11/04/24 03:00
PT 17.7 Sec (11.4-14.6) H 11/02/24 19:35
INR 1.43 11/02/24 19:35
APTT 40.0 Sec (23.4-35.0) H 11/02/24 19:35
Sodium 131 mmol/L (135-145) L 11/04/24 03:00
Potassium 4.4 mmol/L (3.5-5.1) 11/04/24 03:00
BUN 33 mg/dl (9-20) H 11/04/24 03:00
Creatinine 1.3 mg/dL (0.7-1.3) 11/04/24 03:00
Glucose 88 mg/dl (70-99) 11/04/24 03:00
Vital Signs and I&O:
Vital Signs
Temp Pulse Resp BP Pulse Ox
98.7 F 69 16 120/54 94
11/04/24 08:00 11/04/24 09:00 11/04/24 09:00 11/04/24 09:00 11/04/24 10:00
Vital Signs
Temp Pulse Resp BP Pulse Ox
98.7 F 69 16 120/54 94
11/04/24 08:00 11/04/24 09:00 11/04/24 09:00 11/04/24 09:00 11/04/24 10:00
Intake & Output
11/02/24 11/03/24 11/04/24 11/05/24
07:59 07:59 07:59 07:59
Intake Total 1693.7 / 1733.0 782.0 / 799.8 53.4 / 53.4
Output Total 1120 / 1170 1210 / 1305 200 / 200
Balance 573.7 / 563.0 -428.0 / -505.2 -146.6 / -146.6
Physical Exam
Physical Exam
GEN: No distress, awake, alert, oriented x3
HEENT: supple, anicteric, mmm, eomi
LUNGS: decreased BS B/L, no wheezes
CV: Reg, S1/S2, no murmur
ABD: soft, BS+, NT/ND
EXT: No cyanosis, clubbing. 1+ edema of B/L LE
NEURO: Gross non-focal
SKIN: Warm, pink, dry. No rash. Sternotomy dressing with several small areas of blood noted. CTs in place
--- NOTE | 2024-11-04 11:30 | PTCARENOTE ---
Pt reassessed. NSR with rates in the 60s-70s. BP 93/49. POX 92% on RA. CT x4 d/c per orders, pt tolerated, states he 'feels much better'. Worked with Cardiac rehab to ambulate in the room. Dobutamine gtt d/c per CT UTILITY ARBORIST. UO adequate, remains tea/blood
tinged color.
[2024-11-04 12:02] LABS: Glucose - Point of Care 161 mg/dl (70-99)
[2024-11-04] MEDS: GLUCOPHAGE 1000 MG PO ×2 (12:02→20:33)
[2024-11-04] MEDS: LASIX 40 MG IV (12:03)
[2024-11-04] MEDS: NOVOLOG FLEXPEN-MODERATE RESISTANCE 1 UNITS SC (12:26)
[2024-11-04] MEDS: NEURONTIN PO ×2 (16:16→16:25)
[2024-11-04] MEDS: NSS 500 IV (16:16)
[2024-11-04] MEDS: PACERONE 200 MG PO ×2 (16:16→20:34)
--- NOTE | 2024-11-04 16:29 | PTCARENOTE ---
Pt reassessed. NSR with rates in the 70s. BP 104/53. POX 93% on RA. Surgical sites stable. Marion draining large amounts of tea/ blood tinged urine. Pt states he feels dizzy when standing. CT COMPUTATIONAL MATHEMATICIAN notified.
[2024-11-04 17:14] LABS: Glucose - Point of Care 237 mg/dl (70-99)
[2024-11-04] MEDS: NOVOLOG FLEXPEN-MODERATE RESISTANCE 3 UNITS SC (17:14)
--- NOTE | 2024-11-04 20:00 | PTCARENOTE ---
assumed care of pt from previous RN. pt A&Ox4, resting in chair at time of assessment. SR on tele-monitor, occasional PVCs. POX 92-94% on RA. abd s/n, +BS. shaw catheter draining blood-tinged, punch colored urine. CT PA aware. R IJ Cordis w/ KVO. R
UE PICC intact. PIV intact. all surgical sites stable, CDI. pt assisted back to bed by this RN and CT PA, pt used RW w/o issue. see worklist for complete nursing assessment, interventions, VS, and I&Os.
[2024-11-04 20:31] LABS: Glucose - Point of Care 192 mg/dl (70-99)
[2024-11-04] MEDS: REMOVE LIDOCAINE PATCH 1 PATCH REMOVE (20:33)
[2024-11-04] MEDS: LOPRESSOR 12.5 MG PO (20:34)
[2024-11-05] VITALS (21 sets, daily range): BP systolic 88–116; BP diastolic 39–67
--- NOTE | 2024-11-05 | PTCARENOTE ---
assessment remains unchanged. VSS.
[2024-11-05] MEDS: CORDARONE 103 MG IV (02:43)
[2024-11-05] MEDS: CORDARONE 518 MG IV (02:47)
[2024-11-05 02:56] LABS: Hematocrit 21.0 % (39.0-52.0); Hemoglobin 7.4 g/dL (13.0-18.0); Mean Corp Hgb Conc. 35.2 g/dL (33.0-37.0); Mean Corpuscular Volume 95.0 fL (80.0-94.0); Platelet Count 76 10^3/uL (130-400); Red Cell Dist. Width 15.6 % (11.5-14.5)
--- NOTE | 2024-11-05 03:00 | PTCARENOTE ---
pt went into a fib at 0220. amio bolus and gtt ordered. AM labs collected and sent.
[2024-11-05 03:18] LABS: Blood Urea Nitrogen 29 mg/dl (9-20); Calcium 8.6 mg/dl (8.4-10.2); Carbon Dioxide 26 mmol/L (22-30); Chloride 101 mmol/L (98-107); Estimated Creatinine Clearance 74 ml/min; Glucose 155 mg/dl (70-99); Magnesium 2.0 mg/dl (1.6-2.3); Potassium 4.1 mmol/L (3.5-5.1); Sodium 129 mmol/L (135-145); eGFR > 60.00
--- NOTE | 2024-11-05 04:00 | W.PN.CT ---
Addendum entered and electronically signed by Mandeep Rodgers MD 11/05/24 06:28:
I saw and examined the patient.
The PA's note was reviewed and I agree with the note.
Comment:
POD#3
AD overnight x 2.5 hours - converted w/ amio protocol at 4:50AM. Continue amio gtt
Transfused 1U PRBC today for Hgb 7.4, continue diuresis TID today (UO 2155 last 24 hours)
Free water restriction; Na 129
Creat back down to 1.0 today - maintain shaw one more day - check UA for mild hematuria
Stop plavix - continue aspirin given slightly worsened thrombocytopenia
Original Note:
Today's Communication / Plan
-
-pod #3
-a-fib 110s-120s at 2:20am 11/05- tx with Amio bolus and drip- converted on nsr at 4:50 am (no conversion pause)
-weaned off Dobut. No drips
-bradycardia resolved - nsr mid-high 70s overnight. BB and Amio were restarted
-s/p 1 pRBC on 11/04 for Hg 6.8. Today Hg is 7.4
-got 40 iv Lasix on 11/04 -UO 435/2155 in 12/24 hrs
-follow Cr - 1.0 today (1.3 on 11/04, 1.1 on 11/03 and 1.0 preop)
-Na 129- will restrict fluids
-wt is up 12 lbs - consider diuresis.
-follow platelets- 76K (81K on 11/04, 90K on 12/04, 93K preop)
-follow Qt
-Shaw is in. Urine is blood-tinged
-current meds (ASA, Plavix, Zetia, Lopressor, Amio, Protonix). Intolerance of statins
-encourage IS, OOB
Assessment / Plan
-
- MVCAD- s/p CABG x 4 (DONOVAN to LAD, GSV to D2, GSV OM2, GSV to distal RCA @ crux); ELAA (#45mm AtriClip) on 11/02/24, pod #3
- Post-XIOMARA: LVEF 65%, normal RV, no RWMA, ? small flow in atrial appendage w/ good flush occlusion; trace MR; trace TR
- NSTEMI
- P/W SVT in 180s
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
- DM II
- HTN
- Seasonal allergies
- Hemorrhoids/colonic polyps
- Prior smoker
- Intolerance of statins
- b/l TKR
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
- BPH
- L vertebral artery stenosis
- R rotator cuff tear
- ALESSANDRO nodule
- Acute postop blood loss anemia
- Preop thrombocytopenia - s/p 1 unit platelet in OR
- Acute postop atelectasis
- Acute postop hypovolemia with subsequent hypervolemia
- Suspected postop pericarditis/+ rub
- Long Qt postop - improved
- GIDEON- resolved
- Acute postop a-fib 110s-120s on 11/05- tx with Amio bolus and drip
- Acute postop hyponatremia
Discussed patient care with: Nursing and Care Team
Subjective
-
Date of Service: November 03, 2024
Objective Data
-
Lab Results
11/03/24 04:02
11/03/24 04:02
PT 17.7 Sec (11.4-14.6) H 11/02/24 19:35
INR 1.43 11/02/24 19:35
APTT 40.0 Sec (23.4-35.0) H 11/02/24 19:35
Vital Signs
Vital Signs
Temp Pulse Resp BP Pulse Ox
99.4 F 73 18 128/58 93
11/03/24 20:00 11/03/24 21:45 11/03/24 22:00 11/03/24 21:00 11/03/24 23:23
CT Intake/Output/Weight
11/03/24 11/03/24 11/04/24
06:59 18:59 06:59
Intake Total 1647.4 / 1693.7 568.2 / 679.7 111.5 / 679.7
Output Total 1065 / 1120 590 / 880 290 / 880
Balance 582.4 / 573.7 -21.8 / -200.3 -178.5 / -200.3
SaO2: 93
Physical Exam
-
General: Awake and AOx3
Cardiovascular: Regular rate & rhythm, No Murmurs and Rub
Respiratory: Decreased Breath Sounds
Sternum: Stable
Incision: Clean, Dry and Intact
Abdomen: soft, nontender, nondistended, + decreased bowel sounds
Extremities: No Edema (1+DPs b/l)
Data Reviewed
-
Lab Results: Results Reviewed
Medications: Active Meds Reviewed
Chest X-Ray: Report Reviewed and Image Reviewed
ECG: Report Reviewed and Image Reviewed
[2024-11-05] MEDS: TYLENOL 1000 MG PO ×3 (05:23→22:19)
[2024-11-05 07:34] LABS: Glucose - Point of Care 189 mg/dl (70-99)
--- NOTE | 2024-11-05 08:20 | PTCARENOTE ---
Received pt from high school math tutor RN; pt AAOx3 and resting comfortably in chair; NSR on monitor and VSS; RIJ Cordis, Right Double Lumen PICC and PIV x1 all patent; Amiodarone infusing see flow sheet for details; Lungs diminished; IS to 1250; hypoactive
bowel sounds; Marion catheter draining tea/sediment urine; palpable pulses throughout; +1 generalized edema noted; all surgical sites C/D/I; see nursing documentation for further details.
[2024-11-05] MEDS: MAGNESIUM OXIDE 400 MG PO ×2 (08:32→20:35)
[2024-11-05] MEDS: PROTONIX 40 MG PO (08:32)
[2024-11-05] MEDS: NOVOLOG FLEXPEN-MODERATE RESISTANCE 1 UNITS SC ×2 (08:32→17:17)
[2024-11-05] MEDS: ZETIA 10 MG PO (08:32)
[2024-11-05] MEDS: SENOKOT-S 1 TABLET PO ×2 (08:32→20:35)
[2024-11-05] MEDS: FARXIGA 10 MG PO (08:32)
[2024-11-05] MEDS: BACTROBAN 2% OINTMENT 1 APPLIC NASAL ×2 (08:33→20:34)
[2024-11-05] MEDS: GLUCOPHAGE 1000 MG PO ×2 (08:33→22:24)
[2024-11-05] MEDS: LOW STRENGTH ASPIRIN 81 MG PO (08:33)
[2024-11-05] MEDS: MUCINEX 600 MG PO ×2 (08:33→20:35)
[2024-11-05] MEDS: LASIX 40 MG IV ×3 (08:33→22:18)
[2024-11-05] MEDS: LIDOCAINE 4% PATCH TOPICAL (08:34)
[2024-11-05] MEDS: PACERONE PO (08:40)
--- NOTE | 2024-11-05 09:00 | PTCARENOTE ---
1 unit of PRBC infusing per CTNP order.
[2024-11-05] MEDS: LOPRESSOR PO (09:47)
[2024-11-05 10:31] LABS: Urine Character Slightly Cloudy (Clear)
--- NOTE | 2024-11-05 10:59 | W.PN.CARDCBS ---
Addendum entered and electronically signed by Jeremy Sanchez MD 11/05/24 17:39:
I saw and examined the patient.
The Special Education Preschool Teacher's note was reviewed and I agree with the note.
Comment:
GEN: No distress, awake, Ox3
HEENT: supple, anicteric, mmm
LUNGS: CTA, no wheezes/rales
CV: Reg, S1/S2, no gallop
ABD: soft, BS+, NT/ND
EXT: No edema
NEURO: Gross non-focal
SKIN: sternotomy
Plan:
Having some occasional dizziness. Hemoglobin back up to 9.3 after another transfusion. Platelet count improved at 106,000.
Continue amiodarone. Remains in sinus. Did have some brief A-fib overnight.
Continue aspirin and Plavix. If has further A-fib we will need to consider full anticoagulation.
BP slowly improving.
Original Note:
Today's Communication / Plan
-
continue post op care
follow hgb/plts
amio per protocol, follow on tele
diuresis as able
Impression / Plan
-
PCP: Dr. Lowe
Industrial Electrical Technician: Dr. Burgos
Impression:
Unstable Wide-complex tachycardia, possible SVT with aberrancy but cannot exclude VT
NSTEMI, peak troponin of 1.81
MV CAD by cardiac catheterization 10/26/2014
s/p CABG x4 DONOVAN to LAD, GSV to D2, GSV OM2, GSV to distal RCA @ crux, ELAA 11/02/24
Possible left apical nodule on CT
Type 2 diabetes mellitus
Hyperglycemia
Hypertension
GERD
Peripheral neuropathy
History of thrombocytopenia
Dilated aortic root 4.3 cm in 2021 and 2024
Lexiscan sestamibi stress test 06/24/2024: Fixed basal inferior, mid inferior, apical inferior, basal inferolateral, basal anterolateral, and apical defect consistent with soft tissue attenuation, ejection fraction 40%
[facility] 10/26/2024: LVEDP 8. Dominant right. Left main large and free of disease. LAD with long diffuse moderate to severe mid eccentric 90% stenosis. Momv-ic-meekb collaterals. D2 with ostial 60 to 70% stenosis and diffuse 70% stenosis in the
midportion. Left circumflex with mid 70% eccentric stenosis. OM1 with eccentric 70% stenosis. RCA with [employer] 100% proximal with mydg-ur-ejgss collaterals.
Echo 06/15/2024: EF 55 to 60%, aortic sclerosis, dilated aortic root 4.3 cm
Echo 10/27/2024: EF 50%, mild MR, trace AR, trace TR, mildly dilated aortic root
Plan:
-Presented with dizziness and chest pressure. Noted to have unstable wide complex tachycardia in ER with HRs into the 180s. Adenosine and synchronized CV attempted in ER without change in rhythm. Subsequently started on amiodarone gtt and converted
to SR.
-Troponin peaked at 1.81 and patient was managed as NSTEMI with cardiac cath that revealed MV CAD. Patient was seen in consultation by CT surgery
-s/p CABGx4 DONOVAN to LAD, GSV to D2, GSV OM2, GSV to distal RCA @ crux, ELAA 11/02/24
- Continues with postoperative anemia and continues with evidence of hematuria. Hemoglobin 7.4 this morning. Received additional 1 unit packed red blood cells 11/05.
- Plavix stopped as platelets down slightly to 76K.
- Also with relative hypotension, off pressors. Opioids have been stopped. He has not been receiving beta-adrianna. He is currently planned for 3 times daily IV diuresis, however may need to temporarily back off on this in setting of low blood
pressures. He does report associated dizziness and fatigue
- He did have brief A-fib overnight and was given IV amiodarone bolus followed by drip and converted to sinus rhythm. Maintaining sinus at this time. Do not suspect hypotension secondary to amiodarone
-preop echo with EF 50% by echo 10/27/2024
-LDL 50 on 10/25/2024. Patient is not chronically on a statin due to a possible history of rhabdomyolysis described by the patient as 'connective tissue weakening '. Patient is new to Zetia 10 mg daily this admission. Will need to investigate
PCSK9 inhibitors as an outpatient.
-cardiac rehab as able
-d/w nursing. d/w CT LAST REPAIRER HELPER
Progress Note - Industrial Electrical Technician
Subjective
Date of Service: November 05, 2024
reports feeling tired and dizzy
Objective
Labs:
11/05/24 02:41
Labs
Hgb 7.4 g/dL (13.0-18.0) L 11/05/24 02:41
Hct 21.0 % (39.0-52.0) L 11/05/24 02:41
Plt Count 76 10^3/uL (130-400) L 11/05/24 02:41
PT 17.7 Sec (11.4-14.6) H 11/02/24 19:35
INR 1.43 11/02/24 19:35
APTT 40.0 Sec (23.4-35.0) H 11/02/24 19:35
Sodium 129 mmol/L (135-145) L 11/05/24 02:41
Potassium 4.1 mmol/L (3.5-5.1) 11/05/24 02:41
BUN 29 mg/dl (9-20) H 11/05/24 02:41
Creatinine 1.0 mg/dL (0.7-1.3) 11/05/24 02:41
Glucose 155 mg/dl (70-99) H 11/05/24 02:41
Vital Signs and I&O:
Vital Signs
Temp Pulse Resp BP Pulse Ox
98.3 F 67 20 97/59 97
11/05/24 07:57 11/05/24 07:00 11/05/24 07:57 11/05/24 06:30 11/05/24 09:30
Vital Signs
Temp Pulse Resp BP Pulse Ox
98.3 F 67 20 97/59 97
11/05/24 07:57 11/05/24 07:00 11/05/24 07:57 11/05/24 06:30 11/05/24 09:30
Intake & Output
11/03/24 11/04/24 11/05/24 11/06/24
07:59 07:59 07:59 07:59
Intake Total 1693.7 / 1733.0 782.0 / 799.8 1257.9 / 1257.9 406.65 / 406.65
Output Total 1120 / 1170 1210 / 1305 2490 / 2535 995 / 995
Balance 573.7 / 563.0 -428.0 / -505.2 -1232.1 / -1277.1 -588.35 / -588.35
Physical Exam
Physical Exam
GEN: No distress, awake, alert, oriented x3. sitting in chair
HEENT: supple, anicteric, mmm, eomi
LUNGS: CTA B/L, no wheezes/rales
CV: Reg, S1/S2, no murmur
ABD: soft, BS+, NT/ND
EXT: No cyanosis, clubbing. 1+ edema B/L
NEURO: Gross non-focal
SKIN: Warm, pink, dry. No rash.
: shaw in place with tea colored output
[2024-11-05 11:31] LABS: Urine Red Blood Cell >100 /HPF (0-2)
[2024-11-05 11:32] LABS: Urine Squamous Cell 0-2 /LPF (Few)
--- NOTE | 2024-11-05 12:42 | PTCARENOTE ---
Assessment unchanged; NSR on monitor and VSS; pt ambulated hallway with RN; pt resting comfortably in chair with family at bedside.
[2024-11-05 12:59] LABS: Glucose - Point of Care 145 mg/dl (70-99)
[2024-11-05] MEDS: NOVOLOG FLEXPEN-MODERATE RESISTANCE SC (13:00)
[2024-11-05 13:59] LABS: Hematocrit 25.6 % (39.0-52.0); Hemoglobin 9.3 g/dL (13.0-18.0); Mean Corp Hgb Conc. 36.3 g/dL (33.0-37.0); Mean Corpuscular Volume 93.1 fL (80.0-94.0); Platelet Count 106 10^3/uL (130-400); Red Cell Dist. Width 16.2 % (11.5-14.5)
[2024-11-05 14:13] LABS: Blood Urea Nitrogen 29 mg/dl (9-20); Calcium 8.7 mg/dl (8.4-10.2); Carbon Dioxide 23 mmol/L (22-30); Chloride 99 mmol/L (98-107); Estimated Creatinine Clearance 66 ml/min; Glucose 158 mg/dl (70-99); Potassium 4.2 mmol/L (3.5-5.1); Sodium 130 mmol/L (135-145); eGFR > 60.00
--- NOTE | 2024-11-05 14:19 | PN.CDI ---
CDI
- -
CDI:
Physician Documentation Request
Admit Date: 10/24/24 23:[address] Surgery,
Clinical Indicators:
Patient admitted with N STEMI; s/p CABG x 4, ELAA 11/02.
11/03 (20:00) RN note, 'saO2 96% on RA'
11/03 (23:00) RN note, 'POX 88-90on room air - placed on 2LNC, POX now 96%. '
Sa/ requirements:
11/03/24
19:30 11/03/24
23:00 11/04/24
06:30
SaO2 90 90 91
11/03/24
12:00 11/04/24
00:00
Oxygen Mode of Delivery Room air
Nasal Cannula flow liters per minute 2
11/04/24
09:00 11/04/24
21:00 11/05/24
03:00
Oxygen Mode of Delivery Room air
Nasal Cannula flow liters per minute 2 2
Please clarify which of the following accurately represents the patient's respiratory status following surgery:
Acute post operative pulmonary insufficiency
Hypoxia only
Other, please specify
Additional information for Pulmonary Insufficiency:
Consider when patients require intermediate teacher oxygen therapy postoperatively
Weaned off oxygen initially then requiring supplemental oxygen
No other definitive diagnosis to support the need for oxygen (COPD exac, CHF etc.)
Unable to wean from vent
When criteria for respiratory failure not present
May extend stay or require additional resources; may need home O2
Use of terms such as suspected, likely, concern for, or probable (associated with a specific diagnosis that is being evaluated, monitored, or treated as if it exists) are acceptable and can be coded in the inpatient setting, when documented at the
time of discharge.
Thank you,
ARNAV Lacy RN
CDI Specialist
available via tiger text
Please use your independent medical judgment in providing your response.
[2024-11-05] MEDS: PACERONE 200 MG PO ×2 (15:15→22:19)
--- NOTE | 2024-11-05 15:19 | PTCARENOTE ---
NSR on monitor and VSS: pt resting comfortably in chair; assessment unchanged.
[2024-11-05 17:16] LABS: Glucose - Point of Care 166 mg/dl (70-99)
--- NOTE | 2024-11-05 20:05 | PTCARENOTE ---
Report from NICHOLAS Ross. Walking rounds done. Pt sitting in chair. Awake, alert, Oriented x 4. Speech clear. Pt on room air. Sats 96%. BBS present. Decreased to B bases. CDB encouraged. IS peak 1250 mls. Pt with occasional moist, nonproductive cough.
Pt in SR with Occasional PVCs. Amiodarone gtt infusing at 0.5 mg/min/16.7 mls/hr through R double lumen PICC. BP 100's systolic. For pulse and wound assessments, see flowsheets. Belly soft, nontender. Hypoactive bs x 4. Passing flatus. No BM yet.
Plan to hemetest stools per order. Indwelling urinary catheter intact. Pt with hematuria, pink-tinged. Afebrile. Daughter at bedside. No c/o pain. Ongoing plan of care.
[2024-11-05] MEDS: NSS IV (20:34)
[2024-11-05] MEDS: REMOVE LIDOCAINE PATCH 1 PATCH REMOVE (20:35)
[2024-11-05] MEDS: ANUSOL HC 25 MG RECTAL (22:18)
[2024-11-05 22:24] LABS: Glucose - Point of Care 153 mg/dl (70-99)
--- NOTE | 2024-11-05 22:30 | PTCARENOTE ---
Pt assisted to BR. Had moderate, formed, yet soft, brown BM. Heme tested negative. Pt assisted back to bed. Given CHG bath. face washed. Pt brushed teeth/used mouthwash. Former CT site dressing changed per protocol. Left THERESE. Sutures intact.
Cleansed with CHG swabs. Anusol given as scheduled. Lasix 40 mg IV given as scheduled. Urine remains pink-tinged. Pt continues to deny pain. Remains in SR with occasional PVCs. Amio gtt at 0.5 mg/min.
[2024-11-06] VITALS (19 sets, daily range): BP systolic 95–144; BP diastolic 54–86; PULSE 70–71; O2SAT 98; BMI 29.3
--- NOTE | 2024-11-06 00:33 | W.PN.CT ---
Today's Communication / Plan
-
-remains in NSR, on amio gtt
-BP soft with diuresis, started on midodrine 5 mg
-s/p 1 pRBC on 11/04 for Hg 6.8. Today Hg is 7.4, transfused 1 more unit PRBC, Hgb this AM 8.5
-Diuresed lasix 40 mg IV TID, UOP 1760/3955 in 12/24 hrs
-continue FW restriction, Na 131, K replaced
-Mar[place] remains in place. Urine is blood-tinged, plavix held
-current meds (ASA, Zetia, Lopressor, Amio, Protonix). Intolerance of statins
-Farxiga added yesterday for high blood sugars
-encourage IS, OOB
Assessment / Plan
-
- MVCAD- s/p CABG x 4 (DONOVAN to LAD, GSV to D2, GSV OM2, GSV to distal RCA @ crux); ELAA (#45mm AtriClip) on 11/02/24, pod #4
- Post-XIOMARA: LVEF 65%, normal RV, no RWMA, ? small flow in atrial appendage w/ good flush occlusion; trace MR; trace TR
- NSTEMI
- P/W SVT in 180s
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
- DM II
- HTN
- Seasonal allergies
- Hemorrhoids/colonic polyps
- Prior smoker
- Intolerance of statins
- b/l TKR
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
- BPH
- L vertebral artery stenosis
- R rotator cuff tear
- ALESSANDRO nodule
- Acute postop blood loss anemia
- acute post op respiratory insufficiency
- Preop thrombocytopenia - s/p 1 unit platelet in OR
- Acute postop atelectasis
- Acute postop hypovolemia with subsequent hypervolemia
- Suspected postop pericarditis/+ rub
- Long Qt postop - improved
- GIDEON- resolved
- Acute postop a-fib 110s-120s on 11/05- tx with Amio bolus and drip
- Acute postop hyponatremia
Subjective
-
Date of Service: November 06, 2024
Objective Data
-
PT 17.7 Sec (11.4-14.6) H 11/02/24 19:35
INR 1.43 11/02/24 19:35
APTT 40.0 Sec (23.4-35.0) H 11/02/24 19:35
Vital Signs
Vital Signs
Temp Pulse Resp BP Pulse Ox
98 F 64 15 106/64 96
11/05/24 20:00 11/05/24 22:19 11/05/24 20:00 11/05/24 22:19 11/05/24 20:00
CT Intake/Output/Weight
11/05/24 11/05/24 11/06/24
06:59 18:59 06:59
Intake Total 356.2 / 1274.2 663.55 / 716.95 53.4 / 716.95
Output Total 690 / 2520 2195 / 2395 200 / 2395
Balance -333.8 / -1245.8 -1531.45 / -1678.05 -146.6 / -1678.05
SaO2: 96
Physical Exam
-
General: Awake and Oriented
Cardiovascular: Regular rate & rhythm and No Murmurs
Respiratory: Clear, Equal and Decreased Breath Sounds
Sternum: Stable
Incision: Clean, Dry and Intact
Extremities: No Edema and No Erythema
Data Reviewed
-
Lab Results: Results Reviewed
Medications: Active Meds Reviewed
CT Scan: Report Reviewed
ECG: Report Reviewed
[2024-11-06] MEDS: CORDARONE 518 MG IV (02:09)
--- NOTE | 2024-11-06 02:30 | PTCARENOTE ---
VS done. Labs drawn and sent. Pt in SR with PVcs at times. Pt sleeping. Noted pulse oximetry decreased to 88-89% while sleeping briefly. 2L/NC/O2 applied. Sats increased to 97%. Discussed Amio gtt with TOOL CHASER. Continued Amio gtt at 0.5 mcg/min or 16.7
mls/hr. Hematuria remains.
[2024-11-06 02:57] LABS: Hematocrit 23.8 % (39.0-52.0); Hemoglobin 8.5 g/dL (13.0-18.0); Mean Corp Hgb Conc. 35.7 g/dL (33.0-37.0); Mean Corpuscular Volume 91.5 fL (80.0-94.0); Platelet Count 88 10^3/uL (130-400); Red Cell Dist. Width 16.3 % (11.5-14.5)
[2024-11-06 03:23] LABS: Blood Urea Nitrogen 28 mg/dl (9-20); Calcium 8.5 mg/dl (8.4-10.2); Carbon Dioxide 27 mmol/L (22-30); Chloride 99 mmol/L (98-107); Estimated Creatinine Clearance 60 ml/min; Glucose 130 mg/dl (70-99); Magnesium 2.0 mg/dl (1.6-2.3); Potassium 3.6 mmol/L (3.5-5.1); Sodium 131 mmol/L (135-145); eGFR > 60.00
[2024-11-06] MEDS: TYLENOL 1000 MG PO ×3 (05:44→22:36)
--- NOTE | 2024-11-06 06:30 | PTCARENOTE ---
Onofre d/c'ed per protocol at 0555. Midodrine given early. Discussed with DENTAL SERVICES DIRECTOR. Pt helped to standing Mild dizziness. Normotensive. Weighed and help[ed to chair.
[2024-11-06 08:30] LABS: Glucose - Point of Care 171 mg/dl (70-99)
[2024-11-06] MEDS: NOVOLOG FLEXPEN-MODERATE RESISTANCE 1 UNITS SC (08:31)
[2024-11-06] MEDS: LIDOCAINE 4% PATCH TOPICAL (08:32)
[2024-11-06] MEDS: FARXIGA 10 MG PO (08:37)
[2024-11-06] MEDS: MUCINEX 600 MG PO ×2 (08:37→20:27)
[2024-11-06] MEDS: LASIX 80 MG IV ×2 (08:37→15:38)
[2024-11-06] MEDS: GLUCOPHAGE 1000 MG PO ×2 (08:37→22:35)
[2024-11-06] MEDS: SENOKOT-S 1 TABLET PO ×2 (08:37→20:27)
[2024-11-06] MEDS: ZETIA 10 MG PO (08:38)
[2024-11-06] MEDS: MAGNESIUM OXIDE 400 MG PO ×2 (08:38→20:27)
[2024-11-06] MEDS: KCL 20 MEQ PO ×2 (08:38→15:39)
[2024-11-06] MEDS: PACERONE 200 MG PO ×2 (08:38→15:39)
[2024-11-06] MEDS: PROTONIX 40 MG PO (08:38)
[2024-11-06] MEDS: LOW STRENGTH ASPIRIN 81 MG PO (08:38)
[2024-11-06] MEDS: BACTROBAN 2% OINTMENT 1 APPLIC NASAL (08:40)
--- NOTE | 2024-11-06 09:22 | PTCARENOTE ---
sent for 2 view via strtetcher. did well transferring from chair to hallway. VSS.
--- NOTE | 2024-11-06 12:20 | CM ---
PT/OT recomm acute rehab, referral faxed to [facility], await bed avail.
--- NOTE | 2024-11-06 12:21 | PTCARENOTE ---
reported CP radiating into jaw. EKG done VSS. at rest patients symptoms started to dissipate. PA bedside. will continue to monitor.
--- NOTE | 2024-11-06 12:34 | W.PN.CARDCBS ---
Addendum entered and electronically signed by Ludwin Gutiérrez MD 11/06/24 13:34:
Attending addendum: Patient seen and examined. PA note reviewed and findings confirmed by me. He is now off IV amiodarone. Some dizziness today while walking and in rest room.
Gen: sitting in chair NAD
HEENT: NC/AT, sclera anicteric
Lungs: Clear anterior and laterally
CV: RRR no rub
Ext: No edema
RECOMMENDATIONS
-Off IV amiodarone. Continue oral load
-Continue aspirin and clopidogrel
-refuses statin for (?) rhabdo
-LVEF is normal and no recurring arrhythmia now revascularized.
Original Note:
Today's Communication / Plan
-
follow hgb
follow rhythm
continue post op care
Impression / Plan
-
PCP: Dr. Lowe
Wool Dyer: Dr. Burgos
Impression:
Unstable Wide-complex tachycardia, possible SVT with aberrancy but cannot exclude VT
NSTEMI, peak troponin of 1.81
MV CAD by cardiac catheterization 10/26/2014
s/p CABG x4 DONOVAN to LAD, GSV to D2, GSV OM2, GSV to distal RCA @ crux, ELAA 11/02/24
Possible left apical nodule on CT
Type 2 diabetes mellitus
Hyperglycemia
Hypertension
GERD
Peripheral neuropathy
History of thrombocytopenia
Dilated aortic root 4.3 cm in 2021 and 2024
Lexiscan sestamibi stress test 06/24/2024: Fixed basal inferior, mid inferior, apical inferior, basal inferolateral, basal anterolateral, and apical defect consistent with soft tissue attenuation, ejection fraction 40%
LHC 10/26/2024: LVEDP 8. Dominant right. Left main large and free of disease. LAD with long diffuse moderate to severe mid eccentric 90% stenosis. [id number] collaterals. D2 with ostial 60 to 70% stenosis and diffuse 70% stenosis in the
midportion. Left circumflex with mid 70% eccentric stenosis. OM1 with eccentric 70% stenosis. RCA with [employer] 100% proximal with [id number] collaterals.
Echo 06/15/2024: EF 55 to 60%, aortic sclerosis, dilated aortic root 4.3 cm
Echo 10/27/2024: EF 50%, mild MR, trace AR, trace TR, mildly dilated aortic root
Plan:
-Presented with dizziness and chest pressure. Noted to have unstable wide complex tachycardia in ER with HRs into the 180s. Adenosine and synchronized CV attempted in ER without change in rhythm. Subsequently started on amiodarone gtt and converted
to SR.
-Troponin peaked at 1.81 and patient was managed as NSTEMI with cardiac cath that revealed MV CAD. Patient was seen in consultation by CT surgery
-s/p CABGx4 DONOVAN to LAD, GSV to D2, GSV OM2, GSV to distal RCA @ crux, ELAA 11/02/24
-he appears much brighter today
-hgb improved to 8.5 s/p 2 U PRBCs. plts improving, 88K. continue asa
-he was diuresed yesterday with significant output in last 24 hours. Cr stable at 1.1. he has not received diuresis yet today.
-continues with relative hypotension. continue midodrine as needed, wean as tolerated. BB has been on hold
-he had some brief runs of afib this morning. IV amio gtt stopped overnight per protocol. continue po amiodarone. currently in SR. would consider OAC upon DC
-preop echo with EF 50% by echo 10/27/2024
-LDL 50 on 10/25/2024. Patient is not chronically on a statin due to a possible history of rhabdomyolysis described by the patient as 'connective tissue weakening '. Patient is new to Zetia 10 mg daily this admission. Will need to investigate
PCSK9 inhibitors as an outpatient.
-cardiac rehab as able
-d/w patient and friend at bedside.
Progress Note - Wool Dyer
Subjective
Date of Service: November 06, 2024
reports feeling much better since shaw was discontinued
Objective
Labs:
11/06/24 02:37
Labs
Hgb 8.5 g/dL (13.0-18.0) L 11/06/24 02:37
Hct 23.8 % (39.0-52.0) L 11/06/24 02:37
Plt Count 88 10^3/uL (130-400) L 11/06/24 02:37
PT 17.7 Sec (11.4-14.6) H 11/02/24 19:35
INR 1.43 11/02/24 19:35
APTT 40.0 Sec (23.4-35.0) H 11/02/24 19:35
Sodium 131 mmol/L (135-145) L 11/06/24 02:37
Potassium 3.6 mmol/L (3.5-5.1) 11/06/24 02:37
BUN 28 mg/dl (9-20) H 11/06/24 02:37
Creatinine 1.1 mg/dL (0.7-1.3) 11/06/24 02:37
Glucose 130 mg/dl (70-99) H 11/06/24 02:37
Vital Signs and I&O:
Vital Signs
Temp Pulse Resp BP Pulse Ox
98 F 110 18 118/71 99
11/06/24 08:00 11/06/24 09:08 11/06/24 08:00 11/06/24 09:08 11/06/24 09:08
Vital Signs
Temp Pulse Resp BP Pulse Ox
98 F 110 18 118/71 99
11/06/24 08:00 11/06/24 09:08 11/06/24 08:00 11/06/24 09:08 11/06/24 09:08
Intake & Output
11/04/24 11/05/24 11/06/24 11/07/24
07:59 07:59 07:59 07:59
Intake Total 782.0 / 799.8 1257.9 / 1257.9 973.85 / 1093.85 120 / 120
Output Total 1210 / 1305 2490 / 2535 4095 / 4135 1820 / 1820
Balance -428.0 / -505.2 -1232.1 / -1277.1 -3121.15 / -3041.15 -1700 / -1700
Physical Exam
Physical Exam
GEN: No distress, awake, alert, oriented x3. sitting in chair
HEENT: supple, anicteric, mmm, eomi
LUNGS: CTA B/L, no wheezes/rales
CV: Reg, S1/S2, no murmur
ABD: soft, BS+, NT/ND
EXT: No cyanosis, clubbing. 1+ edema B/L
NEURO: Gross non-focal
SKIN: Warm, pink, dry. No rash. Sternotomy dressing with some dried blood in bottom third of dressing
[2024-11-06] MEDS: ZYRTEC 10 MG PO (13:10)
[2024-11-06 14:06] LABS: Blood Urea Nitrogen 30 mg/dl (9-20); Calcium 8.8 mg/dl (8.4-10.2); Carbon Dioxide 27 mmol/L (22-30); Chloride 98 mmol/L (98-107); Estimated Creatinine Clearance 60 ml/min; Glucose 117 mg/dl (70-99); Potassium 4.1 mmol/L (3.5-5.1); Sodium 130 mmol/L (135-145); eGFR > 60.00
[2024-11-06] MEDS: NOVOLOG FLEXPEN-MODERATE RESISTANCE SC ×2 (14:43→19:19)
--- NOTE | 2024-11-06 14:56 | CM ---
[facility] no beds until late next week, [facility] has accepted pt and has beds for saturday/saturday. talked to pt, he is agreeable to [facility] in [place].
[2024-11-06] MEDS: NSS IV (16:17)
--- NOTE | 2024-11-06 17:22 | PTCARENOTE ---
no additional change in assessment. SR. HR 70s. 98% RA. lungs clear. complaining of R ear being clogged. obtained order for xyrtec and will bring in own flonase. Pulses palpable.Multiple loose bms today. good appetite. minimal pain. will continue to
monitor.
--- NOTE | 2024-11-06 19:05 | CONS.URO ---
Consultation
-
Date/Time Consultation Performed: 11/06
Performing Provider: Peffer
Reason for Consultation: Hematuria
Medical History
History of Present Illness
79M POD 4 s/p CABG
Hematuria was noted following shaw placement/OR and was visible for past few days
Shaw was removed today
Some small clots voided then hematuria has near resolved with mostly yellow urine and tinge of pink per patient
No dysuria
He has seen Earnest Smith in the past for BPH
No other history of hematuria
Some baseline voiding symptoms not treated actively
Past Medical History
Past Medical History: Other
Past Surgical History: Other
Family History
Family History: Reviewed & Not Pertinent
Allergies/Home Medications
Allergies
Allergy/AdvReac Type Severity Reaction Status Date / Time
Beef Containing Products Allergy diarrhea,difficulty Verified 10/28/24 17:24
breathing
lisinopril Allergy Itching-MOD Verified 10/28/24 17:24
ERATE
onion Allergy diarrhea,difficulty Verified 10/28/24 17:24
breathing
pollen extracts Allergy SEASONAL-SINUS Verified 10/28/24 17:24
INFECTION
potato Allergy diarrhea,difficulty Verified 10/28/24 17:24
breathing
Rolrmex-VNE-DdJ Reductase Allergy 'connective Verified 10/28/24 17:24
Inhibitor tissue
weakening'
tomato Allergy diarrhea,difficulty Verified 10/28/24 17:24
breathing
vancomycin Allergy RED MAN Verified 01/21/24 07:53
SYNDROME
Home Medications
�Medication �Instructions �Recorded �Confirmed �Type
diltiazem HCl 180 mg 180 mg PO DAILY Blood Pressure 08/03/20 10/24/24 History
capsule,extended release 24 hr
omeprazole 20 mg capsule,delayed 20 mg PO DAILY ##0 08/18/20 10/24/24 Rx
release
aspirin 81 mg tablet 81 mg PO DAILY Blood Clot 08/20/23 10/24/24 History
Prevention/Tx
olmesartan 5 mg tablet 5 mg PO DAILY Blood Pressure 08/20/23 10/24/24 History
diazepam 5 mg tablet 5 mg PO DAILY PRN anxiety 07/09/24 07/09/24 History
metformin 500 mg tablet 1,000 mg PO AMHS Diabetes 07/09/24 10/24/24 History
multivitamin 1 tab PO DAILY Supplement 07/09/24 07/09/24 History
Physical Exam
Vital Signs
Vital Signs
Temp Pulse Resp BP Pulse Ox
97.9 F 73 18 96/78 96
11/06/24 12:00 11/06/24 15:39 11/06/24 12:00 11/06/24 13:09 11/06/24 12:00
Lab / Testing Results
Laboratory Results
11/06/24 02:37
11/06/24 13:15
Physical Exam
General: Well Developed, Well Nourished and No Apparent Distress
Respiratory: Clear and Non Labored Respirations
Neuro: AO x 3
Psych: Calm and Intact Judgement
Assessment / Plan
-
79M with post op hematuria likely due to traumatic catheter placement and anticoagulation
Hematuria near resolved
No intervention needed
Advised outpatient follow up with Dr. Tinoco if hematuria recurs after discharge
[2024-11-06] MEDS: REMOVE LIDOCAINE PATCH REMOVE (20:21)
--- NOTE | 2024-11-06 20:30 | PTCARENOTE ---
Patient received OOB in chair listening to music. Patient A+A+Ox3. No neurological deficits noted. No c/o headache, dizziness or lightheadedness. Patient ambulates in room and to bathroom with minimal assistance and use to rolling walker.
Patient states his right leg is shorter than left - Wears corrective boots. Sternal precautions. No c/o SOB. Room air. SpO2 97%. Lungs clear. Four chest tube sutures - Intact - Open to air. Sinus Rhythm. Heart rate 70's. Blood pressure
116/60 (78). Patient with no c/o chest pain, pressure or discomfort. Normoactive bowel sounds. No BM. Patient voided in toilet - No hematuria. Sternal dressing intact. Right groin ecchymotic. Left groin with puncture site and ecchymotic.
Right lower extremity incision - Intact - Open to air. Left lower extremity incision - Intact - Open to air. Positive, palpable pulses. Trace edema. Right D.L. PICC. Assessment as documented.
[2024-11-06 22:26] LABS: Glucose - Point of Care 157 mg/dl (70-99)
[2024-11-06] MEDS: PACERONE 400 MG PO (22:35)
[2024-11-06] MEDS: ANUSOL HC 25 MG RECTAL (22:35)
[2024-11-07] VITALS (8 sets, daily range): BP systolic 87–114; BP diastolic 41–67; BMI 28.3
--- NOTE | 2024-11-07 | PTCARENOTE ---
Patient resting in bed. No further changes from previous assessment.
--- NOTE | 2024-11-07 04:00 | W.PN.CT ---
Addendum entered and electronically signed by Mandeep Rodgers MD 11/07/24 08:29:
I saw and examined the patient.
The PA's note was reviewed and I agree with the note.
Comment:
POD#5 s/p CABG x 4; ELAA
No major overnight events. AVSS. Limited, brief AF. Currently sinus. RA. No gtts. No drains. Tolerating PO. Neuro: intact.
- Outpatient urology follow for some minor hematuria on plavix - resolved off plavix
- Given current sinus and ELAA coupled w/ hematuria - would recommend ASA only anticoagulation at present
- Resume BB, midodrine prn
- OOB/IS/ambulate
- D/C planning for rehab tomorrow
Original Note:
Today's Communication / Plan
-
Plan:
-No major issues overnight. Hemodynamically and neurologically intact
-Off all drips
-Postop hypotension, improving, placed Midodrine on PRN, BB on hold
-Postop PAF, PO amiodarone increased to 400 TID, currently NSR @ 65 bpm
-Postop Hyponatremia improving, 133 up from 130 yesterday, currently on BID IV Lasix, FW restriction
-Pre and postop thrombocytopenia improving, 114K up from 88K yesterday, will consider resumption of Plavix currently on hold, on ASA
-Pre and postop Anemia, transfused 2u PRBCs on 11/04 and 11/05, H/H 8.9/25.1 up from 8.5/23.8
-Postop hematuria, resolving, shaw d/c'd yesterday 11/06, seen by Urology yesterday 11/06, recommend no current intervention, f/u with his Urologist Dr. Tinoco as an outpt.
-24hr u/o 4, 085. Check weight today
-Farxiga added for high blood sugars
-Cont. current meds (ASA, Zetia, Amio, Protonix). Intolerance of statins
-Encourage use of IS
-OOB into chair/Ambulate/ PT-OT f/u, recommend acute rehab
-For [facility] at [place] tomorrow 11/08
Assessment / Plan
-
Assessment:
- MVCAD- s/p CABG x 4 (DONOVAN to LAD, GSV to D2, GSV OM2, GSV to distal RCA @ crux); ELAA (#45mm AtriClip) on 11/02/24, pod #5
- Post-XIOMARA: LVEF 65%, normal RV, no RWMA, ? small flow in atrial appendage w/ good flush occlusion; trace MR; trace TR
- NSTEMI
- P/W SVT in 180s
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
- DM II
- HTN
- Seasonal allergies
- Hemorrhoids/colonic polyps
- Prior smoker
- Intolerance of statins
- b/l TKR
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
- BPH
- L vertebral artery stenosis
- R rotator cuff tear
- ALESSANDRO nodule
- Acute postop blood loss anemia (transfused 2u prbc's on 11/04 and 11/05)
- acute post op respiratory insufficiency
- Preop thrombocytopenia - s/p 1 unit platelet in OR
- Acute postop atelectasis
- Acute postop hypovolemia with subsequent hypervolemia
- Suspected postop pericarditis/+ rub
- Long Qt postop - improved
- GIDEON- resolved
- Acute postop a-fib 110s-120s on 11/05- tx with Amio bolus and drip
- Acute postop hyponatremia
- Acute postop hematuria
Discussed patient care with: Cardiology, Nursing, Respiratory Therapy, Pharmacy and Care Team
Subjective
-
Date of Service: November 07, 2024
Pt c/o mild incisional pain, feeling of congested right ear from allergies, otherwise feels well
Objective Data
-
PT 17.7 Sec (11.4-14.6) H 11/02/24 19:35
INR 1.43 11/02/24 19:35
APTT 40.0 Sec (23.4-35.0) H 11/02/24 19:35
Vital Signs
Vital Signs
Temp Pulse Resp BP Pulse Ox
98.1 F 63 16 120/67 97
11/06/24 22:25 11/07/24 02:00 11/06/24 22:25 11/06/24 22:35 11/06/24 22:25
CT Intake/Output/Weight
11/06/24 11/06/24 11/07/24
06:59 18:59 06:59
Intake Total 320.3 / 1017.15 393.3 / 633.3 240 / 633.3
Output Total 1865 / 4125 2435 / 3685 1250 / 3685
Balance -1544.7 / -3107.85 -2041.7 / -3051.7 -1010 / -3051.7
SaO2: 97 (RA)
Physical Exam
-
General: Awake, Oriented and AOx3
Cardiovascular: Regular rate & rhythm, No Murmurs, No Rub and No Gallop
Respiratory: Decreased Breath Sounds (at bases, otherwise clear )
Sternum: Stable
Incision: Clean, Dry, Intact and Dressing Intact
Extremities: Other (+trace edema)
Data Reviewed
-
Lab Results: Results Reviewed
Medications: Active Meds Reviewed
Chest X-Ray: Report Reviewed and Image Reviewed
ECG: Report Reviewed and Image Reviewed
--- NOTE | 2024-11-07 06:00 | PTCARENOTE ---
Patient A+A+Ox3. No neurological deficits noted. AM lab work collected and sent. Patient given CHG bath and linens changed. OOB to bathroom using rolling walker. Voided 400 ml preston urine. Standing scale weight 91.9 kg. OOB to chair.
Assessment/Interventions as documented.
[2024-11-07 06:07] LABS: Hematocrit 25.1 % (39.0-52.0); Hemoglobin 8.9 g/dL (13.0-18.0); Mean Corp Hgb Conc. 35.5 g/dL (33.0-37.0); Mean Corpuscular Volume 94.0 fL (80.0-94.0); Platelet Count 114 10^3/uL (130-400); Red Cell Dist. Width 16.0 % (11.5-14.5)
[2024-11-07 06:20] LABS: Blood Urea Nitrogen 31 mg/dl (9-20); Calcium 8.7 mg/dl (8.4-10.2); Carbon Dioxide 28 mmol/L (22-30); Chloride 100 mmol/L (98-107); Estimated Creatinine Clearance 55 ml/min; Glucose 134 mg/dl (70-99); Magnesium 2.1 mg/dl (1.6-2.3); Potassium 3.8 mmol/L (3.5-5.1); Sodium 133 mmol/L (135-145); eGFR > 60.00
[2024-11-07] MEDS: KCL 40 MEQ PO (06:53)
[2024-11-07] MEDS: TYLENOL 1000 MG PO ×2 (06:53→22:58)
[2024-11-07] MEDS: CALCIUM GLUCONATE 130 MG IV (06:54)
[2024-11-07] MEDS: PACERONE 400 MG PO ×3 (07:54→22:59)
[2024-11-07] MEDS: ZYRTEC 10 MG PO (07:55)
[2024-11-07] MEDS: LOW STRENGTH ASPIRIN 81 MG PO (07:55)
[2024-11-07] MEDS: MUCINEX 600 MG PO ×2 (07:55→20:28)
[2024-11-07] MEDS: MAGNESIUM OXIDE 400 MG PO ×2 (07:55→20:28)
[2024-11-07] MEDS: PROTONIX 40 MG PO (07:55)
[2024-11-07] MEDS: FARXIGA 10 MG PO (07:55)
[2024-11-07] MEDS: ZETIA 10 MG PO (07:55)
[2024-11-07] MEDS: SENOKOT-S 1 TABLET PO (07:55)
[2024-11-07] MEDS: GLUCOPHAGE 1000 MG PO ×2 (07:55→22:58)
[2024-11-07] MEDS: LOPRESSOR 12.5 MG PO (07:55)
[2024-11-07] MEDS: LIDOCAINE 4% PATCH TOPICAL (08:01)
[2024-11-07] MEDS: NOVOLOG FLEXPEN-MODERATE RESISTANCE SC ×3 (08:01→17:42)
--- NOTE | 2024-11-07 10:08 | PTCARENOTE ---
assumed care of pt from previous shift RN, sinus rhythm on tele, VSS, + peripheral pulses, trace edema to bilateral lower extremities. Lungs diminished, pox 97% on RA, coughing and deep breathing encouraged. +bs, tolerating PO intake, voids
spontaneously. Post op sites stable. PICC flushes easily. plan of care reviewed w the pt and questions encouraged.
[2024-11-07 12:42] LABS: Glucose - Point of Care 126 mg/dl (70-99)
--- NOTE | 2024-11-07 13:15 | PTCARENOTE ---
VSS, pt without complaint.
[2024-11-07] MEDS: NSS IV (14:37)
[2024-11-07] MEDS: TYLENOL PO (15:42)
[2024-11-07] MEDS: KCL 20 MEQ PO (17:02)
[2024-11-07 17:40] LABS: Glucose - Point of Care 145 mg/dl (70-99)
[2024-11-07] MEDS: REMOVE LIDOCAINE PATCH REMOVE (20:02)
[2024-11-07] MEDS: TOPROL XL 12.5 MG PO (20:22)
[2024-11-07] MEDS: SENOKOT-S PO ×2 (20:28→20:32)
--- NOTE | 2024-11-07 20:30 | PTCARENOTE ---
Patient received OOB in chair watching television. Patient A+A+Ox3. No neurological deficits noted. Patient ambulating in room and to bathroom by self and use of rolling walker. Sternal precautions. No c/o headache, dizziness or
lightheadedness. Voiding without difficulty. +BM. Room air. SpO2 97%. I.S. 2500 ml. Lungs clear. No adventitious breath sounds noted. No c/o SOB. Sinus Rhythm. Heart rate 60-70's. Blood pressure 114/67 (81). Patient with no c/o chest
pain, pressure or discomfort. Normoactive bowel sounds. Positive, palpable pulses. Sternal dressing intact. 4 chest tube sutures - Intact - Open to air. Right and left groin sites intact - Ecchymotic. Right and left lower extremity incisions
intact - Open to air. Right D.L. PICC. Assessment as documented.
[2024-11-07] MEDS: ANUSOL HC 25 MG RECTAL (22:58)
[2024-11-07 22:59] LABS: Glucose - Point of Care 128 mg/dl (70-99)
--- NOTE | 2024-11-08 00:30 | PTCARENOTE ---
Patient sleeping without difficulty. No further changes from previous assessment.
[2024-11-08 04:18] VITALS: BP 113/64
[2024-11-08 04:20] VITALS: BP 113/64
--- NOTE | 2024-11-08 04:20 | W.PN.CT ---
Today's Communication / Plan
-
Plan:
-No major issues overnight. Hemodynamically and neurologically intact
-Off all drips
-Postop hypotension has resolved, resumed BB, switched to Toprol XL, Midodrine on PRN
-Postop PAF, on PO Amiodarone and BB, currently NSR @ 65 bpm. No PAF x 2 days. Plan is for ASA only, no Plavix or Eliquis given postop hematuria/ELAA
-Postop hematuria has resolved, shaw d/c'd 11/06, seen by Urology 11/06, recommend no current intervention, f/u with his Urologist Dr. Tinoco as an outpt.
-Voiding spontaneously, appears euvolemic, wt 91.9 kg, was 92.9 kg preop
-Postop Hyponatremia improving, 134 up from 133 yesterday, currently on FW restriction
-Pre and postop thrombocytopenia improving, 88->114->106 today, on ASA only
-Pre and postop Anemia, transfused 2u PRBCs on 11/04 and 11/05, H/H 8.4/23.9, was 8.5/23.8 yesterday
-Farxiga added for high blood sugars
-Cont. current meds (ASA, Zetia, Amio, Protonix). Intolerance of statins
-Encourage use of IS
-OOB into chair/Ambulate/ PT-OT f/u, recommend acute rehab
-For [facility] at [place] today
Assessment / Plan
-
Assessment:
- MVCAD- s/p CABG x 4 (DONOVAN to LAD, GSV to D2, GSV OM2, GSV to distal RCA @ crux); ELAA (#45mm AtriClip) on 11/02/24, pod #6
- Post-XIOMARA: LVEF 65%, normal RV, no RWMA, ? small flow in atrial appendage w/ good flush occlusion; trace MR; trace TR
- NSTEMI
- P/W SVT in 180s
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
- DM II
- HTN
- Seasonal allergies
- Hemorrhoids/colonic polyps
- Prior smoker
- Intolerance of statins
- b/l TKR
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
- BPH
- L vertebral artery stenosis
- R rotator cuff tear
- ALESSANDRO nodule
- Acute postop blood loss anemia (transfused 2u prbc's on 11/04 and 11/05)
- acute post op respiratory insufficiency
- Preop thrombocytopenia - s/p 1 unit platelet in OR
- Acute postop atelectasis
- Acute postop hypovolemia with subsequent hypervolemia
- Suspected postop pericarditis/+ rub
- Long Qt postop - improved
- GIDEON- resolved
- Acute postop a-fib 110s-120s on 11/05- tx with Amio bolus and drip
- Acute postop hyponatremia
- Acute postop hematuria
Discussed patient care with: Cardiology, Nursing, Respiratory Therapy, Pharmacy and Care Team
Subjective
-
Date of Service: November 08, 2024
Pt offers no complaints, feels well
Objective Data
-
PT 17.7 Sec (11.4-14.6) H 11/02/24 19:35
INR 1.43 11/02/24 19:35
APTT 40.0 Sec (23.4-35.0) H 11/02/24 19:35
Vital Signs
Vital Signs
Temp Pulse Resp BP Pulse Ox
97.8 F 57 16 111/65 99
11/07/24 22:50 11/08/24 04:00 11/07/24 22:50 11/07/24 22:59 11/07/24 22:50
CT Intake/Output/Weight
0811/07/24 11/08/24
06:59 18:59 06:59
Intake Total 240 / 633.3 200 / 440 240 / 440
Output Total 1650 / 4085
Balance -1410 / -3451.7 200 / 440 240 / 440
SaO2: 99 (RA)
Physical Exam
-
General: Awake, Oriented and AOx3
Cardiovascular: Regular rate & rhythm, No Murmurs, No Rub and No Gallop
Respiratory: Decreased Breath Sounds (at bases, otherwise clear)
Sternum: Stable
Incision: Clean, Dry, Intact and Dressing Intact
Extremities: Other (+trace edema)
Data Reviewed
-
Lab Results: Results Reviewed
Medications: Active Meds Reviewed
Chest X-Ray: Report Reviewed and Image Reviewed
ECG: Report Reviewed and Image Reviewed
[2024-11-08 04:39] LABS: Hematocrit 23.9 % (39.0-52.0); Hemoglobin 8.4 g/dL (13.0-18.0); Mean Corp Hgb Conc. 35.1 g/dL (33.0-37.0); Mean Corpuscular Volume 95.2 fL (80.0-94.0); Platelet Count 106 10^3/uL (130-400); Red Cell Dist. Width 15.7 % (11.5-14.5)
--- NOTE | 2024-11-08 05:00 | PTCARENOTE ---
Patient sleeping. AM lab work collected and sent. Patient A+A+Ox3. No c/o pain or discomfort. Voided 300 ml yellow urine. Standing scale weight 91.9 kg. Patient back to bed. Watching television. Assessment/Interventions as documented.
[2024-11-08 05:01] LABS: Blood Urea Nitrogen 26 mg/dl (9-20); Calcium 8.8 mg/dl (8.4-10.2); Carbon Dioxide 27 mmol/L (22-30); Chloride 102 mmol/L (98-107); Estimated Creatinine Clearance 55 ml/min; Glucose 122 mg/dl (70-99); Magnesium 2.1 mg/dl (1.6-2.3); Potassium 4.0 mmol/L (3.5-5.1); Sodium 134 mmol/L (135-145); eGFR > 60.00
[2024-11-08] MEDS: TYLENOL PO (05:02)
[2024-11-08 06:00] VITALS: BMI 28.3
[2024-11-08] MEDS: NOVOLOG FLEXPEN-MODERATE RESISTANCE SC ×2 (08:37→12:41)
[2024-11-08] MEDS: MAGNESIUM OXIDE 400 MG PO (08:38)
[2024-11-08] MEDS: PROTONIX 40 MG PO (08:38)
[2024-11-08] MEDS: MUCINEX 600 MG PO (08:38)
[2024-11-08] MEDS: PACERONE 200 MG PO (08:38)
[2024-11-08] MEDS: ZETIA 10 MG PO (08:38)
[2024-11-08] MEDS: LOW STRENGTH ASPIRIN 81 MG PO (08:38)
[2024-11-08] MEDS: GLUCOPHAGE 1000 MG PO (08:38)
[2024-11-08] MEDS: ZYRTEC 10 MG PO (08:38)
[2024-11-08] MEDS: TOPROL XL 25 MG PO (08:38)
[2024-11-08] MEDS: FARXIGA 10 MG PO (08:38)
[2024-11-08] MEDS: SENOKOT-S PO (08:39)
[2024-11-08] MEDS: LIDOCAINE 4% PATCH TOPICAL (08:39)
[2024-11-08 08:43] VITALS: BP 106/64
--- NOTE | 2024-11-08 10:06 | W.DCSUMMARY ---
Discharge Summary
Discharge Data
Date of Admission: 10/24/24
Date of Discharge: 11/08/24
-
Pending Results: No
Hospital Course
Primary care physician: Dr. Alva Lowe
Outpatient pcas: Dr. Iram Pratt
Inpatient consultants: [facility], Urology, [facility]
Procedures:
1. CABG x 4 (PANCHAL-LAD, SVG-Dx, SVG-OM, SVG-dRCA) with eLAA #45 clip on 11/06/[address] Mandeep Rodgers
Primary Diagnosis:
1. Multivessel Coronary Artery Disease with NSTEMI
Secondary Diagnoses:
1. Hypertension
2. Type 2 Diabetes Mellitus
3. GERD
4. Peripheral neuropathy
5. 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
6. Dilated aortic root 4.3 cm (stable, 2021, 2024)
7. Statin Intolerance
8. BPH
9. Hemorrhoids/colonic polyps
10. Former tobacco misuse
11. B/L TKR
12. 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
13. L vertebral artery stenosis
14. R rotator cuff tear
15. ALESSANDRO nodule
HPI:
Mr. Luis Corley is a 79-year-old male with a PMHx significant for HTN, T2DM, GERD, ITP, BPH and statin intolerance who presented to [facility] ED with complains of chest pain. Upon arrival, he went into an unstable, wide-complex tachycardia, suspected
SVT with aberrancy, with HR in 180's and was cardioverted to SR an initiated on amiodarone. Patient recently had negative stress echo-months ago. He ruled-in with NSTEMI (peak troponin 1.81) and was found to have multivessel coronary artery disease
following [facility]. He was referred for CABG.
Hospital course:
Mr. Luis Corley is a 79-year-old male with a PMHx significant for HTN, T2DM, GERD, ITP, BPH and statin intolerance who presented to [facility] ED with complains of chest pain. Upon arrival, he went into an unstable, wide-complex tachycardia, suspected
SVT with aberrancy, with HR in 180's and was cardioverted to SR an initiated on amiodarone. Mr. Corley recently underwent a stress echo 2 months ago which was negative. He was admitted with NSTEMI and peak troponin of 1.81. He underwent a left
heart cath on 10/26/2024 which showed multivessel CAD. He was initiated on a nitroglycerin and heparin drip. Cardiothoracic surgery was consulted for coronary artery revascularization in which he was recommended CABG. He was noted to be
thrombocytopenic with platelets in 70s while on heparin prior to the OR, in which improved after heparin DC'd.
On 11/02/24, Mr. Corley underwent a CABG x 4 (PANCHAL-LAD, SVG-Dx, SVG-OM, SVG-dRCA) with eLAA #[address] Mandeep Rodgers. Please see surgeons record for complete dictation of surgery. There were no significant perioperative events noted.
Mr. Corley received 1 pack of platelets IntraOp. Dobutamine infusion was started postoperatively for bradycardia and weaned accordingly. Postoperative XIOMARA showed EF of 60 to 65%. In progressive fashion, inotropic support, vasopressor support,
central lines, and chest tubes were discontinued. An insulin drip was initiated following surgery and was transitioned to prior regiment of metformin with sliding scale NovoLog with meals and addition of Farxiga. Postoperative course was
complicated by hematuria, atrial fibrillation, hypotension, thrombocytopenia, and expected, acute postoperative blood loss anemia. Urology was consulted for hematuria status post indwelling urinary catheter placement and removal which spontaneously
resolved. He was referred to follow-up with primary urologist as outpatient if reoccurrence of hematuria begins. On postoperative day 3, patient endured 2 hours of A-fib with conversion to sinus rhythm with initiation of amiodarone infusion. He
was not started on DOAC due to self-limiting A-fib, hematuria, and thrombocytopenia. He was initiated on Toprol-XL 25 mg daily and amiodarone 200 mg twice daily until 11/23/2024 in which he will resume 200 mg daily until follow-up with his
pcas. He received a total of 2 units PRBCs for blood loss anemia. Hypotension improved throughout recovery, but preoperative ARB was discontinued and should be considered upon follow-up with pcas. Thrombocytopenia improved with
platelets trending between 100-115k prior to discharge. Plavix was not continued upon discharge due to thrombocytopenia as per Dr. Rodgers.
On postoperative day 6, Mr. Corley was tolerating his diet, ambulating, and hemodynamically stable for discharge. Pain was well-controlled with regimen of Tylenol as needed. He was euvolemic with a weight of 91.9 kg and preoperative weight of 92.9
kg. He continued Mucinex as requested to assist in expectorating. Mr. Corley was discharged to [facility] in [place] with plan to follow-up with Dr. Rodgers in 4 weeks following surgery. Transitional care nursing will follow-up with patient in 2
to 3 days following discharge. He will follow-up with his primary cardiology team within 30 days in which further investigation of PCSK9-inhibitors should be considered. Zetia was added during his hospitalization.
Home medication changes:
See list provided below.
Discharge Plan
-
Patient Disposition: Acute Rehab Facility
Discharge Diagnosis/Procedures: Coronary Artery Disease with NSTEMI -> CABG x 4, left atrial appendage clip (11/02/24) with Dr. Mandeep Rodgers
Condition: Good
Diet: Low Cholesterol and Diabetic, Carb Controlled
Activity: No strenuous activity
Driving Restrictions: Not until seen by your Dr
Bathing Restrictions: OK to Shower
Other Services: Cardiac Rehab
Specialty Instructions: Weigh Daily- Call MD for wt gain/loss 3 lbs overnight/5 lbs in 1 week
Activity Restrictions/Additional Instructions:
ACTIVITY:
-No strenuous activity: no heavy lifting, pushing, pulling anything over 15 pounds for one month
-continue to use stairs as tolerated
DRIVING RESTRICTIONS:
-No driving for one month or until approved by your surgeon
WOUND CARE:
-Shower daily. Use soap & water.
-No lotions, creams or powders on incision area.
DIET:
-continue a low fat/low cholesterol diet.
-IF you are diabetic, continue carb controlled diet.
CARDIAC REHAB:
-Please make appointment to start in 5-6 weeks with your local hospital program. (See Cardiac Rehabilitation Discharge Booklet).
SPECIALTY INSTRUCTIONS:
-Weigh yourself daily. Call your physician for any weight gain/loss of 3 lbs overnight or 5 lbs in one week.
-REPORT any clicking noise or uneven appearance of your sternum to your surgeon immediately.
-If you smoke, you are instructed to quit. The [place] smoking hotline phone number is [phone]
Referrals:
CT Transitional Care Nurse [Outside]
Referral Note:
The Cardiothoracic Transitional Care Nurse will call you to set up a visit in 1-2 days.
[facility]. Cardiac Rehab [Outside] - 12/08/24 1:00 pm
Referral Note: Cardiac Rehab Orientation appointment is on 12/08/2024 at 1 PM
The Cardiac Rehab gym is located on the first floor of the [facility].
Omar Rojas MD [Active, Pulmonary Medicine]
Referral Note: Pulmonary nodule
Consider outpatient follow-up CT imaging depending on clinical course
Recommend pulmonary evaluation in 2 to 3 months in the office
Oanh Davis PA-C [Specified Professional Personl, Cardiology] - 12/09/24 9:00 am
Alva Lowe DO [Family Provider, Family Practice]
Yandel Tinoco MD [Active, Urology]
Referral Note: Follow-up with Urologist is hematuria (blood in urine) re-occurs.
Mandeep Rodgers MD [Active, Cardiac Surgery] - 12/01/24 3:00 pm
Prescriptions:
New
amiodarone [Pacerone] 200 mg Tablet
200 mg PO BID 60 Days Qty: 120 0RF
Rx Instructions:
Take 200 mg twice a day for 14-days. Continue 20 mg daily starting 11/23/24.
metoprolol succinate 25 mg Tablet Extended Release 24 Hr
25 mg PO DAILY 60 Days Qty: 60 0RF
ezetimibe 10 mg Tablet
10 mg PO DAILY 60 Days Qty: 60 0RF
dapagliflozin propanediol 10 mg Tablet
10 mg PO DAILY Qty: 30 0RF
guaifenesin 600 mg Tablet Extended Release 12hr
600 mg PO Q12 7 Days Qty: 14 0RF
sennosides-docusate sodium 8.6-50 mg Tablet
1 tab PO BIDPRN PRN (Reason: Constipation) Qty: 0 0RF
acetaminophen 325 mg Tablet
650 mg PO Q6HPRN PRN (Reason: mild pain,headache,temp >101F ) Qty: 0 0RF
cetirizine 10 mg Tablet
10 mg PO DAILY Qty: 0 0RF
Continued
omeprazole 20 MG capsule,delayed release(DR/EC)
20 mg PO DAILY Qty: 0 0RF
Rx Instructions:
1-2 hours befor meds or food-or take at hs
aspirin 81 mg Tablet
81 mg PO DAILY
metformin 500 MG tablet
1,000 mg PO AMHS
diazepam 5 MG tablet
5 mg PO DAILY PRN (Reason: anxiety)
multivitamin Tablet
1 tab PO DAILY
Discontinued
diltiazem HCl 180 MG capsule,extended release 24hr
180 mg PO DAILY
olmesartan 5 mg Tablet
5 mg PO DAILY
Discharge Orders:
Discharge Patient (As Directed); Ordered 11/08/24
Ordered By: Ml Shah
Care Plan Goals
Care Plan Goals:
Problem: Readiness for enhanced knowledge related to diagnosis and treatment plan
Goal: Understand your diagnosis and treatment plan needs, including medications if applicable.
Instructions: Know your diagnosis, underlying causes and treatment plan options, including medications if applicable. Consult with your health care team to learn about your diagnosis and treatment plan, including medications if applicable.
Discharge Date and Time
Print Language: PORTUGUESE
--- NOTE | 2024-11-08 11:00 | PTCARENOTE ---
PICC removed by VAT. Post op dressings removed. Pt assisted w shower.
--- NOTE | 2024-11-08 11:31 | PTCARENOTE ---
[facility] to [facility].
[2024-11-08 12:10] VITALS: BP 130/67
--- NOTE | 2024-11-08 13:34 | PTCARENOTE ---
pt was discharged to [facility] via EMS transport.
== END 2024-11-08 13:15 | DRG 233 ==
LOC: CVICU 23:19
PROVIDERS: Anesthesiology; Internal Medicine; Internal Medicine Cardiovascular Disease; Internal Medicine Interventional Cardiology; Nurse Practitioner; Nurse Practitioner Family; Physician Assistant; Physician Assistant Medical; Registered Nurse; ADMITTING PHYSICIAN Internal Medicine; ATTENDING PHYSICIAN Thoracic Surgery (Cardiothoracic Vascular Surgery); CONSULT PHYSICIAN Internal Medicine; CONSULT PHYSICIAN Internal Medicine Cardiovascular Disease; CONSULT PHYSICIAN Urology; EMERGENCY PHYSICIAN Student in an Organized Health Care Education/Training Program; FAMILY PHYSICIAN Family Medicine
PROC: 02HV33Z Insertion of Infusion Device into Superior Vena Cava, Percutaneous Approach (ICD-10-PCS; 2024-10-25)
PROC: 4A023N7 Measurement of Cardiac Sampling and Pressure, Left Heart, Percutaneous Approach (ICD-10-PCS; 2024-10-26)
PROC: B2151ZZ Fluoroscopy of Left Heart using Low Osmolar Contrast (ICD-10-PCS; 2024-10-26)
PROC: B2111ZZ Fluoroscopy of Multiple Coronary Arteries using Low Osmolar Contrast (ICD-10-PCS; 2024-10-26)
PROC: 021209W Bypass Coronary Artery, Three Arteries from Aorta with Autologous Venous Tissue, Open Approach (ICD-10-PCS; 2024-11-02)
PROC: B24BZZ4 Ultrasonography of Heart with Aorta, Transesophageal (ICD-10-PCS; 2024-11-02)
PROC: 02L70CK Occlusion of Left Atrial Appendage with Extraluminal Device, Open Approach (ICD-10-PCS; 2024-11-02)
PROC: 30233R1 Transfusion of Nonautologous Platelets into Peripheral Vein, Percutaneous Approach (ICD-10-PCS; 2024-11-02)
PROC: 5A1221Z Performance of Cardiac Output, Continuous (ICD-10-PCS; 2024-11-02)
PROC: 06BQ4ZZ Excision of Left Saphenous Vein, Percutaneous Endoscopic Approach (ICD-10-PCS; 2024-11-02)
PROC: 02100ZC Bypass Coronary Artery, One Artery from Thoracic Artery, Open Approach (ICD-10-PCS; 2024-11-02)
PROC: 30233N1 Transfusion of Nonautologous Red Blood Cells into Peripheral Vein, Percutaneous Approach (ICD-10-PCS; 2024-11-04)
DX: I21.4 Non-ST elevation (NSTEMI) myocardial infarction (principal); R57.0 Cardiogenic shock; I47.10 Supraventricular tachycardia, unspecified; N17.9 Acute kidney failure, unspecified; E87.1 Hypo-osmolality and hyponatremia; D62 Acute posthemorrhagic anemia; J98.11 Atelectasis; I97.89 Other postprocedural complications and disorders of the circulatory system, not elsewhere classified; I10 Essential (primary) hypertension; K21.9 Gastro-esophageal reflux disease without esophagitis; J30.2 Other seasonal allergic rhinitis; D69.6 Thrombocytopenia, unspecified; E11.42 Type 2 diabetes mellitus with diabetic polyneuropathy; E78.00 Pure hypercholesterolemia, unspecified; I25.10 Atherosclerotic heart disease of native coronary artery without angina pectoris; I77.810 Thoracic aortic ectasia; E11.65 Type 2 diabetes mellitus with hyperglycemia; I95.9 Hypotension, unspecified; R31.9 Hematuria, unspecified; R06.89 Other abnormalities of breathing; E86.1 Hypovolemia; E87.70 Fluid overload, unspecified; I48.0 Paroxysmal atrial fibrillation; Y83.2 Surgical operation with anastomosis, bypass or graft as the cause of abnormal reaction of the patient, or of later complication, without mention of misadventure at the time of the procedure; N40.0 Benign prostatic hyperplasia without lower urinary tract symptoms; I65.02 Occlusion and stenosis of left vertebral artery; K59.09 Other constipation; R91.1 Solitary pulmonary nodule; Z79.82 Long term (current) use of aspirin; Z79.84 Long term (current) use of oral hypoglycemic drugs; Z79.899 Other long term (current) drug therapy; Z82.49 Family history of ischemic heart disease and other diseases of the circulatory system; Z87.891 Personal history of nicotine dependence
CPT/HCPCS: 70355; 71045; 71046; 71250; 75710; 80048; 80053; 80061; 81003; 81015; 82330; 82565; 82805; 82810; 82947; 82962; 83036; 83735; 84100; 84132; 84302; 84439; 84443; 84484; 84520; 85014; 85018; 85025; 85027; 85049; 85347; 85384; 85610; 85730; 86850; 86900; 86901; 86920; 92960; 93005; 93306; 93312; 93320; 93325; 93458; 93880; 94002; 94003; 96361; 96365; 96375; 97163; 97167; 97535; 99152; 99153; 99291; C1713; C1894; J0153; P9016; P9073; Q9967

== ENCOUNTER 2024-11-23 17:28 | Inpatient (IN) | payer MEDICARE, OTHER, SELFPAY ==
[2024-11-23] VITALS (8 sets, daily range): BP systolic 108–133; BP diastolic 57–79; BMI 30.2; BMI 29.6
--- NOTE | 2024-11-23 11:36 | ED.GENMED ---
History of Present Illness
General
Chief Complaint: Breathing Problem
Time Seen by Provider: 11/23/24 11:07
Nursing documentation reviewed up to this point in time: agreed with
History of Present Illness
History of Present Illness:
79-year-old male presents to the ER with his friend for evaluation of dyspnea and right-sided chest and abdomen pain which started this morning. Patient is status post four-vessel bypass on 11/06/[address] Rodgers. He had been participating in
rehab and was discharged last Saturday. Patient states that he had an ultrasound of the right lower extremity last Saturday due to pain and swelling over his right thigh-he reports this was a normal study. He has been taking all of his medications
as prescribed. He states that he has been eating and drinking normally. He states that he slept well last night for the first time since the surgery but upon awakening felt shortness of breath with exertion. He also reports pain to be persistent
in his right upper quadrant, similar to prior prior pain from ACS. He did not take any medication specifically to ameliorate his discomfort today. No fevers or chills. No cough or cold symptoms. No vomiting. No peripheral edema.
Past History
Past History
ED Past Medical History: None
ED Past Surgical History: None
Social History
Tobacco: Non-smoker
Review of Systems
Review of Systems
Allergies reviewed?: Yes
Phy Exam
Physical Exam
Physical Exam:
Patient is awake, alert, appears in no acute distress, head is NCAT, PERRL, EOMI, wearing glasses, mucous membranes moist, conjunctiva pink, heart regular rate and rhythm without murmurs or ectopy, no JVD, midline sternal incision is well-healing
without erythema, mild tenderness on palpation, lungs are clear to auscultation without wheezes rales or rhonchi, no JVD, abdomen is soft with moderate pain on palpation along right upper and lower quadrants, no palpable masses, bilateral lower
extremity exam reveals healing crust over surgical incisions mid calves medially, mild erythema and palpable cord present along the right upper thigh with exquisite pain on palpation, mild erythema noted over surgical incision distal right lower
extremity, 2+ DP pulses present symmetric bilateral feet, no edema, GCS is 15
Scores
Heart Failure Risk
Heart Failure Risk Score: Not Applicable
Course
Orders/Labs/Results
Orders:
Orders
11/23/24 11:00
Electrocardiogram (*1) Urgent
Reason for Study: Chest Pain
EKG- Treatment ONCE
11/23/24 11:10
EKG- Treatment ONCE
CR Chest - 2 Views Urgent
Comment:
Reason For Exam: chest pain
11/23/24 11:20
Venous Doppler Lwr Ext Rt [US Periph Venous LOWER Ext RT] Urgent
Comment:
Reason For Exam: pain
11/23/24 11:33
Complete Blood Count/With Diff Urgent
Comprehensive Metabolic Panel Urgent
Lipase Urgent
Magnesium Urgent
NT-proBNP Urgent
PTT Urgent
Prothrombin Time Urgent
Troponin I Q3H
11/23/24 14:00
Troponin I Q3H
11/23/24 14:15
Electrocardiogram (*1) Q3H
Reason for Study: Chest Pain
11/23/24 15:15
Consult Cardiology [CARDIOLOGY CONSULT] Urgent
Consulting Provider: Alba Rosas
Was physician already notified: Yes
Heparin 4,000 units IV NOW STA
Heparin 48201 Units/250 ml 25,000 units in 250 ml IV PER PROTOCOL
Weight to be used for heparin protocol in kilograms (kg):: 98.1
Protocol:: Cardiac Tx/Acute Coronary
PTT Goal Range to be used:: PTT 73 to 111 seconds
Order type:: Initial
INITIAL Infusion Dose (UNITS/KG/hr) & then follow protocol:: 12 units/kg/hr
Infusion Dose in UNITS/hr & then follow protocol (UNITS/hr):: 1,000
INFUSION RATE in mL/hr & then follow protocol (mL/hr):: 10
PTT less than or equal to 64 seconds:: Increase rate by 200 units/hr (+ 2 mL/hr)
PTT 64.1 to 72.9 seconds:: Increase rate by 100 units/hr (+ 1 mL/hr)
PTT 73 to 111 seconds:: Target Range. No change in rate.
PTT 111.1 to 130.9 seconds:: Decrease rate by 100 units/hr (- 1 mL/hr)
PTT 131 to 199.9 seconds:: HOLD for 1 hr. Then decrease rate by 200 units/hr (- 2 mL/hr)
PTT greater than or equal to 200 seconds:: HOLD for 2 hrs & Notify Provider. Then decrease by 200 units/hr (-
2 mL/hr)
Lab follow-up:: Each change, PTT q6h until 2 consecutive are therapeutic. Then PTT
daily.
11/23/24 15:[address] Non Medication Order As Directed
Physician Order: PTT 6 hours after initial start of Heparin infusion
11/23/24 16:13
Echo 2D MMode Color/Doppler Urgent
Reason for Study: chest pain, Troponin trending up, s/p CABG
Cardiology Consult: Alba Rosas
11/23/24 16:16
US Abdomen Limited Urgent
Comment:
Reason For Exam: RUQ pain
Abnormal Lab Results
11/23/24 11/23/24
11:33 14:00
WBC 3.6 L 10^3/uL
(4.8-10.8)
RBC 3.12 L 10^6/uL
(4.70-6.10)
Hgb 9.9 L g/dL
(13.0-18.0)
Hct 29.6 L %
(39.0-52.0)
MCV 94.9 H fL
(80.0-94.0)
MCH 31.7 H pg
(27.0-31.0)
RDW 16.0 H %
(11.5-14.5)
Plt Count 121 L 10^3/uL
(130-400)
Absolute Lymphs (auto) 0.4 L 10^3/uL
(1.2-3.4)
Immature Gran % 0.6 H %
(0-0.5)
Neutrophils % 79.7 H %
(42.2-75.2)
Lymphocytes % 10.0 L %
(20.5-51.1)
APTT 40.5 H Sec
(23.4-35.0)
Carbon Dioxide 21 L mmol/L
(22-30)
Glucose 114 H mg/dl
(70-99)
Troponin I 0.069 H* ng/ml 0.072 H* ng/ml
Total Protein 5.9 L g/dl
(6.3-8.2)
11/23/24 11:33
11/23/24 11:33
CBC stable with improvement in hemoglobin compared to prior labs. Kidney function preserved. Initial troponin elevated at 0.06
Vital Signs
Initial and Last Documented VS:
Initial Vital Signs
Temp Pulse Resp BP Pulse Ox
98.8 F 81 18 115/63 94
11/23/24 10:52 11/23/24 10:52 11/23/24 10:52 11/23/24 10:52 11/23/24 10:52
Last Documented Vital Signs
Temp Pulse Resp BP Pulse Ox
98.8 F 70 26 126/65 95
11/23/24 10:52 11/23/24 16:30 11/23/24 16:30 11/23/24 15:00 11/23/24 15:45
MDM/Problems Addressed
Differential Diagnosis Includes:
Differential diagnosis to consider but not limited to ACS, pleural effusion, pulmonary embolism, DVT, pneumonia along with other etiologies considered
Chronic conditions affecting care:
ACS status post recent CABG, hypertension, diabetes, peripheral neuropathy, chronic thrombocytopenia/ITP, statin intolerance, BPH, hemorrhoids
*Pulse Oximetry
SaO2: 97
Oxygen Mode of Delivery: Room air
Patient hypoxic: no
*EKG
Interpreted by ED Provider?: Yes (I independently viewed and interpreted twelve-lead EKG showing normal sinus rhythm, rate 77, normal axis, normal intervals, nonspecific T wave flattening without ST elevation, this is a nonspecific EKG without
evidence for acute ischemia, similar to prior 11/06/2024 with persistent QT prolongation)
*New Car Make Ready Mechanic Interpretation
Rate: normal (I independently viewed and interpreted rhythm strip showing normal sinus rhythm, no ectopy)
*Critical Care Note
Total Time (30-74mins, 75-104mins- exclusive of procedures): Not Applicable
Update Note
Update Note:
Patient is declining any need for analgesia at the current time. I discussed with the plan for ultrasound, chest x-ray, labs. Will reassess. Patient and institutional custodian present bedside agree with plan at current
Late entry-after initial troponin elevation result available, I consulted cardiology who advised they would see patient in the emergency department. EKG is repeated and does not show any evidence for acute ischemia. Repeated troponin is elevating.
IV heparin ordered. Patient presentation discussed with the hospitalist who accepts patient for admission for further care. I discussed with patient no abnormality in LFTs or lipase but given persistent right upper quadrant pain, ultrasound is
ordered.
ED Attending Note
-
Portions of this chart may have been created with voice recognition software.� Occasional wrong word or��sound alike� substitutions may have occurred due to the inherent limitations of voice recognition software.
Discharge Plan
Departure
Patient Disposition: Admit
Date of Disposition: 11/23/24
Time of Disposition: 15:21
Presentation/result/management discussed w/ accepting MD/DO: Hospitalist
Discharge Problem:
Chest pain, Elevated troponin
Prescriptions:
No Action
omeprazole 20 MG capsule,delayed release(DR/EC)
20 mg PO DAILY Qty: 0 0RF
Rx Instructions:
1-2 hours befor meds or food-or take at hs
aspirin 81 mg Tablet
81 mg PO DAILY
metformin 500 MG tablet
1,000 mg PO AMHS
multivitamin Tablet
1 tab PO DAILY
amiodarone [Pacerone] 200 mg Tablet
200 mg PO BID 60 Days Qty: 120 0RF
Rx Instructions:
Take 200 mg twice a day for 14-days. Continue 20 mg daily starting 11/23/24.
metoprolol succinate 25 mg Tablet Extended Release 24 Hr
25 mg PO DAILY 60 Days Qty: 60 0RF
ezetimibe 10 mg Tablet
10 mg PO DAILY 60 Days Qty: 60 0RF
guaifenesin 600 mg Tablet Extended Release 12hr
600 mg PO Q12 7 Days Qty: 14 0RF
sennosides-docusate sodium 8.6-50 mg Tablet
1 tab PO BIDPRN PRN (Reason: Constipation) Qty: 0 0RF
acetaminophen 325 mg Tablet
650 mg PO Q6HPRN PRN (Reason: mild pain,headache,temp >101F ) Qty: 0 0RF
cetirizine 10 mg Tablet
10 mg PO DAILY Qty: 0 0RF
tamsulosin 0.4 mg capsule
0.4 mg PO QPM
methylprednisolone 4 mg tablets,dose pack
4 mg PO PER PKG DIR PRN (Reason: muscle spasms/neuropathy)
cyclobenzaprine 5 mg tablet
5 mg PO TIDPRN PRN (Reason: muscle spasms)
gabapentin 100 mg Capsule
100 mg PO TIDPRN PRN (Reason: neuropathy)
Referrals:
Alva Lowe DO [Family Provider, Family Practice]
Interventions
Interventions:
*Risk Screen - Suicide Last Done: 11/23/24 10:59
*General Assessment Last Done: 11/23/24 11:30
*Neglect/Abuse Screening Last Done: 11/23/24 11:30
*ED- Fall Risk Assessment Last Done: 11/23/24 11:30
*ED COVID-19 Vaccine History Last Done: 11/23/24 11:30
ED- Cardiac Assessment Last Done: 11/23/24 16:43
ED- Pulmonary Assessment Last Done: 11/23/24 16:43
Discharge Date and Time
Print Language: SETSWANA
[2024-11-23 11:39] LABS: Hematocrit 29.6 % (39.0-52.0); Hemoglobin 9.9 g/dL (13.0-18.0); Mean Corp Hgb Conc. 33.4 g/dL (33.0-37.0); Mean Corpuscular Volume 94.9 fL (80.0-94.0); Nucleated Red Blood Cells % 0 % (-); Platelet Count 121 10^3/uL (130-400); Red Cell Dist. Width 16.0 % (11.5-14.5)
[2024-11-23 11:49] LABS: INR 1.04; PT 13.9 Sec (11.4-14.6)
[2024-11-23 11:50] LABS: APTT 40.5 Sec (23.4-35.0)
[2024-11-23 12:00] LABS: ALT (SGPT) 13 U/L (0-50); AST (SGOT) 17 U/L (17-59); Albumin 3.8 g/dl (3.5-5.0); Alkaline Phosphatase 71 U/L (38-126); Blood Urea Nitrogen 18 mg/dl (9-20); Calcium 9.2 mg/dl (8.4-10.2); Carbon Dioxide 21 mmol/L (22-30); Chloride 106 mmol/L (98-107); Estimated Creatinine Clearance 82 ml/min; Glucose 114 mg/dl (70-99); Lipase 74 U/L (23-300); Magnesium 1.8 mg/dl (1.6-2.3); Potassium 4.6 mmol/L (3.5-5.1); Sodium 136 mmol/L (135-145); Total Protein 5.9 g/dl (6.3-8.2); eGFR > 60.00
[2024-11-23 12:13] LABS: Troponin I 0.069 ng/ml
[2024-11-23 14:35] LABS: Troponin I 0.072 ng/ml
--- NOTE | 2024-11-23 15:36 | W.PN.UPDATE ---
Update Note
Progress Note Update
I personally performed a history and physical exam of the patient and discussed management with the resident. I reviewed the resident's note and agree with the documented findings and plan of care HPI/CC.
79-year-old male presenting with a chief complaint of chest pain. Patient recently had a non-ST elevation myocardial infarction and underwent CABG x 4 (PANCHAL-LAD, SVG-Dx, SVG-OM, SVG-dRCA) with eLAA #45 clip on 11/06/[address] Mandeep Rodgers.
Patient reports he had shortness of breath with associated pleuritic right upper quadrant pain and muscular right shoulder pain. Currently without shortness of breath.
119/64, 66, 23, 98.8 �F, 97%
Gen: NAD, AAOx3.
Eyes: EOMI, PERRLA, no scleral icterus.
Neck: supple.
CV: RRR, +S1/S2, no m/r/g.
Resp: Faint rales in the right base
Abd: +BS, soft, right upper quadrant tenderness to palpation with guarding, ND
Skin: No rashes.
Neuro: CN 2-12 intact, non-focal.
Psych: Normal mood and affect.
Lab Results
11/23/24 11/23/24 11/23/24
11:33 14:00 15:16
WBC 3.6 L
RBC 3.12 L
Hgb 9.9 L
Hct 29.6 L
MCV 94.9 H
MCH 31.7 H
MCHC 33.4
RDW 16.0 H
Plt Count 121 L
MPV 10.2
Abs Immat Gran (auto) 0.0
Absolute Neuts (auto) 2.9
Absolute Lymphs (auto) 0.4 L
Absolute Monos (auto) 0.2
Absolute Eos (auto) 0.1
Absolute Basos (auto) 0.0
Immature Gran % 0.6 H
Neutrophils % 79.7 H
Lymphocytes % 10.0 L
Monocytes % 6.1
Eosinophils % 2.8
Basophils % 0.8
Nucleated RBC % 0
PT 13.9
INR 1.04
APTT 40.5 H Cancelled
Sodium 136
Potassium 4.6
Chloride 106
Carbon Dioxide 21 L
BUN 18
Creatinine 0.9
Estimated Creat Clear 82
eGFR > 60.00
Glucose 114 H
Calcium 9.2
Magnesium 1.8
Total Bilirubin 0.9
AST 17
ALT 13
Alkaline Phosphatase 71
Troponin I 0.069 H* 0.072 H*
[id number] Pept 1400
Total Protein 5.9 L
Albumin 3.8
Lipase 74
CXR:
1. Small bilateral pleural effusions.
2. Mild subsegmental atelectasis and scarring in the basilar segments of the lower lobes.
3. Recent CABG surgery and left atrial appendage exclusion.
RLE venous U/S:
1. No sonographic evidence for right lower extremity deep venous thrombosis.
2. 3.9 cm SOFT TISSUE HEMATOMA in the MEDIAL RIGHT THIGH.
Chest pain:
-s/p CABG x 4 (PANCHAL-LAD, SVG-Dx, SVG-OM, SVG-dRCA) with eLAA #45 clip on 11/06/[address] Mandeep Rodgers
-trop 0.069, 0.072, trend 3rd trop
-ECG (read by me): NSR 65, nl axis, 1st deg AVB GA 202ms, QTc 465ms, diffuse T-wave flattening and low voltage, no acute ST changes
-cont heparin gtt started in the ER
-c/s cards
-monitor on tele
-check echo
-cont BB/ASA
-note, pt with RUQ TTP with guarding. LFTs/Lipase normal. Check RUQ U/S.
Other problems:
Pancytopenia
Essential HTN: cont BB
DM2: Hold home metformin, SSI/accuchecks
GERD: cont PPI
Peripheral neuropathy
Chronic Thrombocytopenia/ITP with splenomegaly, s/p BMBx 08/2023
Dilated aortic root 4.3 cm (stable, 2021, 2024)
Statin Intolerance
BPH
Hemorrhoids/colonic polyps
Former tobacco abuse disorder
h/o B/L TKR
DJD with h/o L2-4 laminectomy
L vertebral artery stenosis
R rotator cuff tear
ALESSANDRO nodule
Obesity due to excess calories
--- NOTE | 2024-11-23 15:54 | CON.CAR ---
Addendum entered and electronically signed by Ludwin Gutiérrez MD 11/23/24 17:47:
Attending addendum: Patient seen and examined. PA note reviewed and findings independently confirmed by me. Briefly, this is a 79-year-old gentleman with a complex recent medical history. He was admitted to [facility] on 10/24/2024 with
elevated troponin and complaints of right upper quadrant pain. He experienced a wide complex tachycardia consistent with SVT with aberrancy or possible VT. He was cardioverted to sinus rhythm and started on amiodarone. Coronary angiography was
performed and notable for multivessel coronary artery disease with occlusion of the right coronary artery, complex stenosis in the mid LAD involving a sizable diagonal branch, and OM. He underwent coronary artery bypass grafting on 11/02/2024 with
PANCHAL-LAD, SVG-D2, SVG-OM 2, and SVG-RCA. He did well postoperatively and was discharged to [place] [facility] returning home approximately 5 days ago. This morning he reported recurring right upper quadrant abdominal/chest discomfort which he states has
been present in some fashion for several years. Workup in the past for GI etiology was rather unrevealing. His troponin measured 0.069 and 0.072 ng/mL.
He states that he refuses statin therapy due to the fact that ruptured shoulder tendon which he attributes to statin therapy. In the past he has been tried on both rosuvastatin and atorvastatin and states that statins as far as he concerned are
'toxic'.
Physical exam
GEN: AAO x 3. No acute distress
HEENT: NC/AT, sclera are anicteric, hearing and nares are normal.
LUNGS: Clear anterior and lateral lung mcfadden with no wheeze
CV: Regular rate and rhythm. Normal S1/S2. No S3, No S4. Murmur: None
ABD : Soft, right upper quadrant tenderness to palpation. Bowel sounds are present.
EXT: Ecchymotic area in the right thigh. Postoperative changes from vein harvest
NEURO: No focal neurologic deficits
ECG: Sinus rhythm HR of 77. Normal Possible old inferior WI.
Peripheral vascular venous ultrasound: No sonographic evidence of DVT. 3.9 cm soft tissue hematoma medial right thigh
Recommendation:
- Continue to follow serial troponin levels
- Will check echocardiogram. If LVEF is reduced would consider proceeding with coronary angiography
- Continue workup for GI etiology of right upper quadrant pain as symptoms sound rather atypical for cardiac etiology
- Would strongly consider PCSK9 given his refusal to take any statin therapy
-Further management on the basis of GI workup and echocardiogram results
Original Note:
Consultation
Consultation Request
Date/Time Consultation Requested: 11/23/24
Date/Time Consultation Performed: 11/23/24
Requesting Provider: Dr. Viramontes
Performing Provider: Dr. Rosas
Reason for Consultation: Chest pain
Medical History
-
History of Present Illness:
Patient presents to the ER today with chest pain and cardiology has been consulted for elevated troponin. Patient was just admitted from 10/24/2024 until 11/08/2024 for NSTEMI. On admission the patient had an unstable wide-complex tachycardia that
was concerning for SVT with aberrancy or possibly VT. At that time he was cardioverted to sinus rhythm and started on amiodarone. Despite a recently negative stress test in June the troponin peaked at 1.81 and so patient underwent cardiac cath
and was found to have MV CAD. Patient had CABG on 11/02/2024 as detailed above. Patient returns to the ER now with chest pain that started today. Patient describes chest pain that is mostly right-sided and started this morning. Pain is worse with
a deep inspiration, but not necessarily worse with laying down versus sitting up. In the ER patient had RUQ pain, but no abnormalities in his LFTs. He denies any N/V/D. He thinks overall the pain feels somewhat similar to what he had prior to
CABG.
PMH:
CAD
s/p unstable WCT possibly SVT vs VT and NSTEMI, peak Troponin 1.81 10/24/24
CABG x4 DONOVAN to LAD, GSV to D2, GSV OM2, GSV to distal RCA at crux, ELAA 11/02/24
GSV of RLE explored for harvest, ultimately GSV LLE harvested 11/02/24
Possible left apical nodule on CT
Type 2 diabetes mellitus
Hyperglycemia
Hypertension
GERD
Peripheral neuropathy
History of thrombocytopenia
Dilated aortic root 4.3 cm in 2021 and 2024
Past Medical History
Past Medical History: Other (See HPI)
Past Surgical History: Cardiac (CABG 10/2024), Tonsilectomy and Other (Right total knee replacement surgery October 2016, spinal surgery August 2020, back surgery 2021 at [facility], knee replacement 2015)
Social History
Tobacco: Former Smoker
Alcohol: None
Drug: None
Personal:
Living: Alone
Employment: Retired
Family History
Family History: CAD (Father of heart disease) and Other (Mother of dementia)
Allergies / Home Medications
Allergy/AdvReac Type Severity Reaction Status Date / Time
Beef Containing Products Allergy diarrhea,difficulty Verified 11/23/24 10:54
breathing
lisinopril Allergy Itching-MOD Verified 11/23/24 10:54
ERATE
onion Allergy diarrhea,difficulty Verified 11/23/24 10:54
breathing
pollen extracts Allergy SEASONAL-SINUS Verified 11/23/24 10:54
INFECTION
potato Allergy diarrhea,difficulty Verified 11/23/24 10:54
breathing
Jqeoddm-OYX-RtL Reductase Allergy 'connective Verified 11/23/24 10:54
Inhibitor tissue
weakening'
tomato Allergy diarrhea,difficulty Verified 11/23/24 10:54
breathing
vancomycin Allergy RED MAN Verified 11/23/24 10:54
SYNDROME
�Medication �Instructions �Recorded �Confirmed �Type
omeprazole 20 mg capsule,delayed 20 mg PO DAILY ##0 08/18/20 11/23/24 Rx
release
aspirin 81 mg tablet 81 mg PO DAILY Blood Clot 08/20/23 11/23/24 History
Prevention/Tx
metformin 500 mg tablet 1,000 mg PO AMHS Diabetes 07/09/24 11/23/24 History
multivitamin 1 tab PO DAILY Supplement 07/09/24 11/23/24 History
acetaminophen 325 mg tablet 650 mg (2 x 325 mg) PO Q6HPRN PRN 11/08/24 11/23/24 Rx
mild pain,headache,temp >101F #0
tabs
amiodarone 200 mg tablet (Pacerone) 200 mg PO BID Arrhythmia 60 days 11/08/24 11/23/24 Rx
#120 tabs
cetirizine 10 mg tablet 10 mg PO DAILY Allergies #0 tabs 11/08/24 11/23/24 Rx
ezetimibe 10 mg tablet 10 mg PO DAILY High cholesterol 60 11/08/24 11/23/24 Rx
days #60 tabs
guaifenesin 600 mg tablet, 600 mg PO Q12 Cough 7 days #14 tabs 11/08/24 11/23/24 Rx
extended release 12 hr
metoprolol succinate 25 mg 25 mg PO DAILY Heart 11/08/24 11/23/24 Rx
tablet,extended release 24 hr disease/condition 60 days #60 tabs
sennosides 8.6 mg-docusate sodium 1 tab PO BIDPRN PRN Constipation 11/08/24 11/23/24 Rx
50 mg tablet #0 tabs
cyclobenzaprine 5 mg tablet 5 mg PO TIDPRN PRN muscle spasms 11/23/24 11/23/24 History
gabapentin 100 mg capsule 100 mg PO TIDPRN PRN neuropathy 11/23/24 11/23/24 History
methylprednisolone 4 mg tablets in 4 mg PO PER PKG DIR PRN muscle 11/23/24 11/23/24 History
a dose pack spasms/neuropathy
tamsulosin 0.4 mg capsule 0.4 mg PO QPM 11/23/24 11/23/24 History
Review of Systems
-
History Source: Patient
All other systems: Negative unless noted
Physical Exam
Vital Signs
Temp Pulse Resp BP Pulse Ox
98.8 F 66 23 119/64 97
11/23/24 10:52 11/23/24 14:30 11/23/24 14:15 11/23/24 14:00 11/23/24 12:24
GEN: NAD, AAO x 3
HEENT: EOMI, MMM
LUNGS: RA. CTA B/L, no wheeze
CV: SR on telemetry. Reg, S1/S2, no murmur
ABD: Tender to palpation RUQ, nondistended
EXT: B/L LE incisions are healing without drainage or malodor. No edema
NEURO: Gross non-focal
SKIN: Warm, pink, dry. No rash. Sternotomy healing without drainage or malodor
Lab Results
11/23/24 11:33
11/23/24 11:33
Troponin I 0.072 ng/ml H* 11/23/24 14:00
Nsb-H-Oejocndrcrp Pept 1400 pg/ml 11/23/24 11:33
Impression / Plan
-
PCP: Dr. Lowe
Television Schedule Coordinator: Dr. Burgos
Impression:
Admitted with chest pain and elevated troponin
Chest pain
Initial troponin 0.069 and then 0.072
CAD
s/p unstable WCT possibly SVT vs VT and NSTEMI, peak Troponin 1.81 10/24/24
CABG x4 DONOVAN to LAD, GSV to D2, GSV OM2, GSV to distal RCA at crux, ELAA 11/02/24
GSV of RLE explored for harvest, ultimately GSV LLE harvested 11/02/24
Possible left apical nodule on CT
Type 2 diabetes mellitus
Hyperglycemia
Hypertension
GERD
Peripheral neuropathy
History of thrombocytopenia
Dilated aortic root 4.3 cm in 2021 and 2024
Lexiscan sestamibi stress test 06/24/2024: Fixed basal inferior, mid inferior, apical inferior, basal inferolateral, basal anterolateral, and apical defect consistent with soft tissue attenuation, ejection fraction 40%
[facility] 10/26/2024: LVEDP 8. Dominant right. Left main large and free of disease. LAD with long diffuse moderate to severe mid eccentric 90% stenosis. Ulfb-mo-wzhto collaterals. D2 with ostial 60 to 70% stenosis and diffuse 70% stenosis in the
midportion. Left circumflex with mid 70% eccentric stenosis. OM1 with eccentric 70% stenosis. RCA with PHOTO JOURNALIST 100% proximal with heox-ea-brgdr collaterals.
Echo 06/15/2024: EF 55 to 60%, aortic sclerosis, dilated aortic root 4.3 cm
Echo 10/27/2024: EF 50%, mild MR, trace AR, trace TR, mildly dilated aortic root
Echo 11/23/2024: Study pending
Plan:
-Patient presents to the ER today with chest pain and cardiology has been consulted for elevated troponin. Patient was just admitted from 10/24/2024 until 11/08/2024 for NSTEMI. On admission the patient had an unstable wide-complex tachycardia that
was concerning for SVT with aberrancy or possibly VT. At that time he was cardioverted to sinus rhythm and started on amiodarone. Despite a recently negative stress test in June the troponin peaked at 1.81 and so patient underwent cardiac cath
and was found to have MV CAD. Patient had CABG on 11/02/2024 as detailed above. Patient returns to the ER now with chest pain that started today. Patient describes chest pain that is mostly right-sided and started this morning. Pain is worse with
a deep inspiration, but not necessarily worse with laying down versus sitting up. In the ER patient had RUQ pain, but no abnormalities in his LFTs. He denies any N/V/D. He thinks overall the pain feels somewhat similar to what he had prior to
CABG.
-ECG reviewed by me is SR without acute ST changes
-Initial troponin 0.069 and then 0.072
-Check echo as an urgent study, ordered and then coordinated by me with the echo department staff. We are looking for any new WMA. EF was preserved at 50% by last echo 10/27/2024
-ER started heparin gtt prior to my arrival. Pending troponin and echo we will stop heparin
-Hgb as low as 6.8 postop and he received 2 units PRBCs. Hgb stable at 9.9 on 11/23/2024 by my review of labs. Platelet count is also stable at 121
-Aspirin 81 mg daily should be continued.
-proBNP is 1400 without previous for comparison. CXR does not suggest acute HF. Weight is up, but this is using bed scale in the ER. Patient does not have any increase in edema and no rales on exam.
-Follow on telemetry for history of unstable wide-complex tachycardia that was possibly SVT with aberrancy versus VT at the time of his admission last month. He remains on amiodarone 200 mg BID. QTc 465 ms on my review of the second ECG from
11/23/2024. LFTs are normal. Will continue with twice daily dosing for now and can consider changing to daily dosing prior to discharge.
[2024-11-23] MEDS: HEPARIN 25000 UNITS/250 ML IV (15:59)
[2024-11-23] MEDS: HEPARIN 4000 UNITS IV (16:04)
--- NOTE | 2024-11-23 17:18 | HPS.HSE ---
Family Physician
-
Family Physician: Alva Lowe
Chief Complaint
-
Chest pain, abdominal pain, dyspnea
History of Present Illness
Eight hours prior to admission, the patient was getting dressed when he experienced a sudden onset of left upper quadrant abdominal pain, described as continuous, dull, and severe (/10), radiating to the left shoulder and associated with difficulty
breathing. He reports the pain is similar to that experienced during a previous admission. He denies nausea, vomiting, changes in appetite or fever. He has chronic constipation, but no recent changes in bowel movement.
Notably, the patient is status post four-vessel CABG on 11/06/2024, which was complicated by hematuria, atrial fibrillation, hypotension, thrombocytopenia, and expected acute postoperative blood loss anemia. He was in discharged from prior
hospitalization to [facility], and recently discharged from there on 11/18/2024.
Medical History
Past Medical History
Past Medical History: Reports Arrhythmia and NIDDM
Additional Past Medical History:
Multivessel Coronary Artery Disease with NSTEMI, Essential HPN, Seasonal Allergies, Chronic Thrombocytopenia with splenomegaly s/p BMB, Colon Polyps
Past Surgical History: Reports Tonsilectomy
Additional Past Surgical History:
Knee Replacement, Laminectomy
Social History
Tobacco: Former Smoker
Alcohol: Former
Drug: None
Personal: Single
Employment: Retired
Family History
Family History: CAD
Allergies / Home Medications
Allergies reflects when Allergies were last updated in [facility].
Home Medications with original date entered in [facility]
Allergy/Medication List:
Allergies
Allergy/AdvReac Type Severity Reaction Status Date / Time
Beef Containing Products Allergy diarrhea,difficulty Verified 11/23/24 10:54
breathing
lisinopril Allergy Itching-MOD Verified 11/23/24 10:54
ERATE
onion Allergy diarrhea,difficulty Verified 11/23/24 10:54
breathing
pollen extracts Allergy SEASONAL-SINUS Verified 11/23/24 10:54
INFECTION
potato Allergy diarrhea,difficulty Verified 11/23/24 10:54
breathing
Jpcwvkv-THH-CfG Reductase Allergy 'connective Verified 11/23/24 10:54
Inhibitor tissue
weakening'
tomato Allergy diarrhea,difficulty Verified 11/23/24 10:54
breathing
vancomycin Allergy RED MAN Verified 11/23/24 10:54
SYNDROME
Home Medications
omeprazole 20 mg capsule,delayed release 20 mg PO DAILY ##0 08/18/20
aspirin 81 mg tablet 81 mg PO DAILY Blood Clot Prevention/Tx 08/20/23
metformin 500 mg tablet 1,000 mg PO AMHS Diabetes 07/09/24
multivitamin 1 tab PO DAILY Supplement 07/09/24
acetaminophen 325 mg tablet 650 mg (2 x 325 mg) PO Q6HPRN PRN mild pain,headache,temp >101F #0 tabs 11/08/24
amiodarone 200 mg tablet (Pacerone) 200 mg PO BID Arrhythmia 60 days #120 tabs 11/08/24
cetirizine 10 mg tablet 10 mg PO DAILY Allergies #0 tabs 11/08/24
ezetimibe 10 mg tablet 10 mg PO DAILY High cholesterol 60 days #60 tabs 11/08/24
guaifenesin 600 mg tablet, extended release 12 hr 600 mg PO Q12 Cough 7 days #14 tabs 11/08/24
metoprolol succinate 25 mg tablet,extended release 24 hr 25 mg PO DAILY Heart disease/condition 60 days #60 tabs 11/08/24
sennosides 8.6 mg-docusate sodium 50 mg tablet 1 tab PO BIDPRN PRN Constipation #0 tabs 11/08/24
cyclobenzaprine 5 mg tablet 5 mg PO TIDPRN PRN muscle spasms 11/23/24
gabapentin 100 mg capsule 100 mg PO TIDPRN PRN neuropathy 11/23/24
methylprednisolone 4 mg tablets in a dose pack 4 mg PO PER PKG DIR PRN muscle spasms/neuropathy 11/23/24
tamsulosin 0.4 mg capsule 0.4 mg PO QPM 11/23/24
Review of Systems
-
History Source: Patient
A 12 point ROS was completed and negative except as noted: Yes
Constitutional: Denies Fever
EENT: Reports No Symptoms
Respiratory: Reports Trouble Breathing (from Abdominal pain); Denies Cough
Cardiac: Reports Chest Pain
Abdomen/GI: Reports Abdominal Pain (Right upper quadrant); Denies Nausea or Vomiting
Neurological: Denies Weakness or Numbness
Endocrine: Reports No Symptoms
Psych: Reports Calm
Physical Exam
Vital Signs
Vital Signs
Temp Pulse Resp BP Pulse Ox
98.8 F 70 26 126/65 95
11/23/24 10:52 11/23/24 16:30 11/23/24 16:30 11/23/24 15:00 11/23/24 15:45
Physical Exam
General: Well Developed, Comfortable and Conversant
HEENT: NormoCephalic, PERRLA and No Ptosis
Respiratory: Clear and Non Labored Respirations
Cardiac: S1/S2 and Regular Rhythm
GI: Soft, Tender (Marked tenderness and guarding in right upper quadrant) and Other (Hypoactive)
Musculoskeletal: No Clubbing, No Cyanosis and No Edema
Skin: Other ((+) well healing, raised incision with mild erythema and tenderness upon palpation in midline chest. (+) bilateral healing crust over surgical incision in medial calves. Erythema and swelling more pronounced on right side. )
Neuro: AO x 3, Nonfocal/grossly intact and Cranial Nerves Intact
Psych: Calm
Laboratory Results
-
11/23/24 11:33
Laboratory Results
PT 13.9 Sec (11.4-14.6) 11/23/24 11:33
INR 1.04 11/23/24 11:33
APTT Cancelled 11/23/24 15:16
Total Bilirubin 0.9 mg/dl (0.2-1.3) 11/23/24 11:33
AST 17 U/L (17-59) 11/23/24 11:33
ALT 13 U/L (0-50) 11/23/24 11:33
Alkaline Phosphatase 71 U/L (38-126) 11/23/24 11:33
Troponin I 0.072 ng/ml H* 11/23/24 14:00
Lipase 74 U/L (23-300) 11/23/24 11:33
Impression/Plan
-
#Chest/Right upper abdominal pain
Differentials: Pericardial effusion, Acute Cholecystitis, Biliary Colic, Restenosis, Mesenteric Ischemia, Pulmonary Embolism, PUD, Pancreatitis
RLE nyla: (-) DVT, 3.9 cm soft tissue hematoma in medial right thigh
Chest x ray: small bilateral pleural effusion, mild subsegmental atelectasis and scaring basilar segments of the lower . Recent CABG surgery and left atrial appendage exclusion.
ECG: NORMAL SINUS RHYTHM
Lipase: 74
CBC: WBC: 3.6
Troponin: 0.069---> 0.072, NT-proBNP- 1400
LFT normal
on Heparin drip as per cardiology
Monitor on Telemetry
Abdominal ultrasound pending
ECHO pending
Troponin trending
appreciate cardiology
#Multivessel Coronary Artery Disease with NSTEMI s/p CABG x4
XIOMARA (11/02/24)- EF 60-65%, (-) regional motion abnormality, stage I diastolic dysfunction
-continue aspirin
#Atrial Fibrillation
-continue Amiodarone 20mg BID
-continue metoprolol succinate 25mg OD
#NIDDM
-hold metformin
-SSI/Accuchecks
#Seasonal Allergies
-continue RIVET SPINNER cetirizine
#Hyperlipidemia
-continue ezetimibe OD
#Pain
-continue cyclobenzaprine
-gabapentin 100mg TID PRN
-hold methylprednisolone 4mg PRN
#GERD
-continue RIVET SPINNER PPI
#Constipation
-continue RIVET SPINNER senokot-S
#Benign prostatic hyperplasia with lower urinary tract symptoms
-continue RIVET SPINNER Tamsulosin PO OD
DVT prophylaxis: Heparin
Code status: Full Code
[2024-11-23] MEDS: MUCINEX 600 MG PO (20:18)
[2024-11-23] MEDS: FLOMAX 0.4 MG PO (20:19)
[2024-11-23 21:59] LABS: Glucose - Point of Care 201 mg/dl (70-99)
[2024-11-23] MEDS: MELATONIN 5 MG PO (22:22)
[2024-11-23 22:43] LABS: APTT 54.1 Sec (23.4-35.0)
[2024-11-24 01:04] LABS: Hematocrit 27.1 % (39.0-52.0); Hemoglobin 9.2 g/dL (13.0-18.0)
[2024-11-24 01:38] LABS: Troponin I 0.076 ng/ml
--- NOTE | 2024-11-24 01:58 | W.PN.UPDATE ---
Update Note
Progress Note Update
Patient c/o right neck pain behind the ear down, under the rib right side which is affecting his breathing. Patient seen and evaluated. Slightly agitated, states its not a new neck pain, but it is affecting his breathing.
lungs unable to take deep breaths due to pain under ribs other winkler clear. HR RR, tachypneic 24 denies any chest pain, abdomen pain at present.
VS T 98.1 O2 92% BP 121/56 Pulse 76 RR 24
hx CAD s/P CABG x 4 11/02/24
NPO for possible angiogram, Echocardiogram 11/24
tachypneic and hypoxia
Covid, flu, repeat chest Xray EKG
pain medication offered, patient requesting cyclobenzaprine, ordered.
Trending trop, on Heparin drip, Analytic Programmer is involved in care
Abd US done earlier, results noted.
[2024-11-24] MEDS: FLEXERIL 5 MG PO (02:40)
--- NOTE | 2024-11-24 03:05 | TRANSFER ---
Pt transferred to 3W from ED via stretcher. Pt ambulated to hospital bed. AAOx3, oriented to room, call stewart within reach, plan of care ongoing.
--- NOTE | 2024-11-24 03:07 | PTCARENOTE ---
Pt complaining of pain to the right side of his neck making it difficult to breath. COST MANAGER notified, vitals taken, EKG performed.
[2024-11-24 03:10] VITALS: BP 120/69
[2024-11-24 06:00] VITALS: BMI 29.4
[2024-11-24 06:01] LABS: Glucose - Point of Care 127 mg/dl (70-99)
--- NOTE | 2024-11-24 06:44 | W.PN.UPDATE ---
Update Note
Progress Note Update
CARDIAC SURGERY ATTENDING:
I evaluated Mr. Luis Corley at his bedside this morning. He still relates right sided chest discomfort which he describes as slightly pleuritic in nature. He related that at home, this pain was making it difficult for him to take deep breaths.
At present, his pain is improved and he feels that he is breathing easier. It is my impression that this represents more of a postoperative musculoskeletal pain than an acute coronary syndrome. His troponins are mildly elevated but essentially
stable (0.069, 0.072, 0.076). His chest x-ray demonstrated some bibasilar atelectasis without any significant effusion.
I believe he will benefit from additional diuresis, pain management, chest PT, OOB, and IS. I agree that it is prudent to check an echocardiogram. I do not believe he requires repeat cardiac catheterization at this time. His heparin drip can
likely also be discontinued. I would continue aspirin and consider instituting Plavix now that his thrombocytopenia has resolved (last platelet count 121K). I will continue to follow closely. Please call at anytime with any questions/concerns.
Mandeep Rodgers MD
[phone]
[2024-11-24 07:00] VITALS: BP 112/56
--- NOTE | 2024-11-24 08:19 | W.PN.UPDATE ---
Addendum entered and electronically signed by Toney Viramontes MD 11/24/24 12:44:
Echo:
1. Ejection fraction is 50% by visual assessment.
2. Small pericardial effusion is seen.
3. Compared to a prior transthoracic echocardiogram study from 10/27/2024 There are bilateral pleural effusions and small pericardial effusion.
4. Low-normal left ventricular systolic function. Post operative septal motion.
5. Mildly dilated aorta. Aorta measures 4.0 cm at sinus of Valsalva and 4.1 cm in ascending aorta.
6. Left and right pleural effusion is visualized.
7. Mild concentric left ventricular hypertrophy.
8. Mild to moderate mitral valve regurgitation.
Case discussed with cardiology and the patient is medically cleared for discharge.
Total time spent on d/c = 34 min. This included today's physical exam, progress note, review of laboratory and diagnostic data, preparation of discharge documents and prescriptions, and discussions about the pt's hospital course and discharge plan
with the patient and other medical claims assistant involved in the patient's care.
Original Note:
Update Note
Progress Note Update
I saw and evaluated the patient. I reviewed the resident�s note and agree with findings and plan as documented in the resident�s note.
No new complaints.
Gen: remains NAD, AAOx3.
Eyes: EOMI, PERRLA, no scleral icterus.
Neck: supple.
CV: RRR, +S1/S2, no m/r/g.
Resp: CTAB anteriorly
Abd: +BS, soft, NT, ND
Skin: No rashes.
Neuro: CN 2-12 intact, non-focal.
Psych: Normal mood and affect.
CXR:
1. Small bilateral pleural effusions.
2. Mild subsegmental atelectasis and scarring in the basilar segments of the lower lobes.
3. Recent CABG surgery and left atrial appendage exclusion.
RLE venous U/S:
1. No sonographic evidence for right lower extremity deep venous thrombosis.
2. 3.9 cm SOFT TISSUE HEMATOMA in the MEDIAL RIGHT THIGH.
RUQ U/S: No sonographic evidence for an acute abnormality of the abdomen. Splenomegaly. Trace abdominal ascites. Small bilateral pleural effusions.
Chest pain:
-s/p CABG x 4 (PANCHAL-LAD, SVG-Dx, SVG-OM, SVG-dRCA) with eLAA #45 clip on 11/06/[address] Mandeep Rodgers
-trop 0.069, 0.072, 0.076 (nonischemic myocardial injury)
-ECG (read by me): NSR 65, nl axis, 1st deg AVB SC 202ms, QTc 465ms, diffuse T-wave flattening and low voltage, no acute ST changes
-Case discussed with Dr. Rodgers, highly doubt ACS
-stop heparin gtt
-discussed with cards
-echo read pending
-cont BB/ASA
-chest pain very likely MSK
Other problems:
Pancytopenia
Essential HTN: cont BB
DM2: Hold home metformin, SSI/accuchecks
GERD: cont PPI
Peripheral neuropathy
Chronic Thrombocytopenia/ITP with splenomegaly, s/p BMBx 08/2023
Dilated aortic root 4.3 cm (stable, 2021, 2024)
Statin Intolerance
BPH
Hemorrhoids/colonic polyps
Former tobacco abuse disorder
h/o B/L TKR
DJD with h/o L2-4 laminectomy
L vertebral artery stenosis
R rotator cuff tear
ALESSANDRO nodule
Obesity due to excess calories
Dispo: Likely d/c later today.
[2024-11-24] MEDS: ZETIA 10 MG PO (08:39)
[2024-11-24] MEDS: THERAGRAN 1 TABLET PO (08:39)
[2024-11-24] MEDS: ZYRTEC 10 MG PO (08:39)
[2024-11-24] MEDS: MUCINEX 600 MG PO (08:39)
[2024-11-24] MEDS: LOW STRENGTH ASPIRIN 81 MG PO (08:39)
[2024-11-24] MEDS: PROTONIX 40 MG PO (08:39)
[2024-11-24] MEDS: PACERONE 200 MG PO (08:40)
[2024-11-24] MEDS: TOPROL XL 25 MG PO (08:40)
[2024-11-24 08:43] LABS: Glucose - Point of Care 136 mg/dl (70-99)
[2024-11-24] MEDS: NOVOLOG FLEXPEN-LOW RESISTANCE SC (08:44)
[2024-11-24 08:47] LABS: Hematocrit 31.0 % (39.0-52.0); Hemoglobin 10.4 g/dL (13.0-18.0); Mean Corp Hgb Conc. 33.5 g/dL (33.0-37.0); Mean Corpuscular Volume 96.3 fL (80.0-94.0); Platelet Count 128 10^3/uL (130-400); Red Cell Dist. Width 15.8 % (11.5-14.5)
[2024-11-24 09:21] LABS: APTT 41.1 Sec (23.4-35.0)
[2024-11-24 09:23] LABS: COVID-19 Antigen Negative (Negative)
[2024-11-24 09:34] LABS: ALT (SGPT) 13 U/L (0-50); AST (SGOT) 14 U/L (17-59); Albumin 3.8 g/dl (3.5-5.0); Alkaline Phosphatase 76 U/L (38-126); Blood Urea Nitrogen 15 mg/dl (9-20); Calcium 9.4 mg/dl (8.4-10.2); Carbon Dioxide 24 mmol/L (22-30); Chloride 105 mmol/L (98-107); Estimated Creatinine Clearance 66 ml/min; Glucose 118 mg/dl (70-99); Potassium 4.5 mmol/L (3.5-5.1); Sodium 136 mmol/L (135-145); Total Protein 6.0 g/dl (6.3-8.2); eGFR > 60.00
[2024-11-24 11:00] VITALS: BP 123/58
--- NOTE | 2024-11-24 11:05 | W.PN.HOSP.TC ---
Today's Communication/Plan
-
Stable for discharge.
Pain management
outpatient PT
Assessment / Plan
Assessment / Plan
79 year old male with PMH of Multivessel Coronary Artery Disease with NSTEMI, Essential HPN, Atrial fibrillation, seasonal Allergies, Chronic Thrombocytopenia with splenomegaly s/p BMB, colon Polyps, and NIDDM presents to the ED for abdominal
pain/chest pain similar to previous admission which was likely due to Multivessel Coronary Artery Disease.
#Chest/Right upper abdominal pain
#Shoulder pain
RLE nyla: (-) DVT, 3.9 cm soft tissue hematoma in medial right thigh
Chest x ray: small bilateral pleural effusion, mild subsegmental atelectasis and scaring basilar segments of the lower . Recent CABG surgery and left atrial appendage exclusion.
ECG: NORMAL SINUS RHYTHM
Abdominal ultrasound: splenomegaly, small bilateral plueral effusions, trace ascites
ECHO: EF: 50%, Small pericardial effusion, bilateral pleural effusion
Lipase: 74
CBC: WBC: 3.6
Troponin: 0.069-> 0.072->0.0.76, NT-proBNP- 1400
LFT normal
d/c heparin drip
Monitor on Telemetry
on 1999 diabetic diet
cyclobenzaprine
appreciate cardiology-- pain likely related to postoperative musculoskeletal pain that ACS, no to cardiac catheterization at this point. Consider adding plavix to aspirin
#Multivessel Coronary Artery Disease with NSTEMI s/p CABG x4
XIOMARA (11/02/24)- EF 60-65%, (-) regional motion abnormality, stage I diastolic dysfunction
-continue aspirin
#Atrial Fibrillation
-continue Amiodarone 20mg BID
-continue metoprolol succinate 25mg OD
#NIDDM
-hold metformin
-SSI/Accuchecks
#Seasonal Allergies
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
#Hyperlipidemia
-continue ezetimibe OD
#Pain
-continue cyclobenzaprine
-gabapentin 100mg TID PRN
-hold methylprednisolone 4mg PRN
#GERD
-continue [employer] DES[employer] PPI
#Constipation
-continue [employer] DES[employer]ER senokot-S
#Benign prostatic hyperplasia with lower urinary tract symptoms
-continue [employer] DES[employer] Tamsulosin PO OD
DVT prophylaxis: Lovenox
Code status: Full Code
Anticipated Discharge: Today
Subjective/Interval History
-
Date of Service: November 24, 2024
The patient still reports some abdominal pain, rated 3-4/10 PS today. Intermittent right shoulder pain radiating to the lateral neck lasting more than 30 minutes which interferes with the patient's breathing also reported last night. Denies nausea,
vomiting, palpitation, chest pain. Last bowel movement was yesterday.
Objective Data
-
Labs:
Laboratory Results
11/24/24 11/24/24
00:48 08:19
WBC 3.7 L
Hgb 9.2 L 10.4 L
Hct 27.1 L 31.0 L
Plt Count 128 L
APTT 41.1 H
Sodium 136
Potassium 4.5
Chloride 105
Carbon Dioxide 24
BUN 15
Creatinine 1.0
Glucose 118 H
Calcium 9.4
Total Bilirubin 0.9
AST 14 L
ALT 13
Alkaline Phosphatase 76
Vital Signs:
Vital Signs
Temp Pulse Resp BP Pulse Ox
97.9 F 74 18 112/56 96
11/24/24 07:00 11/24/24 08:40 11/24/24 07:00 11/24/24 08:40 11/24/24 10:03
I&O
11/23/24 11/24/24 11/25/24
06:59 06:59 06:59
Intake Total 240 / 240
Balance 240 / 240
Review of Systems
-
History Source: Patient
Constitutional: Denies Fever
EENT: Reports No Symptoms Reported
Respiratory: Reports No Symptoms
Cardiac: Reports No Symptoms
Abdomen/GI: Reports Abdominal Pain (3-4/10 PS); Denies Nausea, Vomiting, Diarrhea, Constipated or Bloody Stools
Genitourinary: Reports No Symptoms
Musculoskeletal: Reports Muscle Pain (Right shoulder pain radiating to the lateral neck)
Neuro: Denies Headache, Weakness or Numbness
Physical Exam
-
General: Well Developed, Well Nourished and No Apparent Distress
HEENT: Normocephalic and Atraumatic
Respiratory: Clear to Auscultation
Cardiac: Regular Rhythm and S1/S2; Negative Murmur
GI: Soft, Nontender, Nondistended and Normal Bowel Sounds
Musculoskeletal: No Clubbing, No Cyanosis, No Edema and Other (Mild tenderness on the right shoulder)
Neuro: AO x 3 and No Motor Deficits
Psych: Calm
--- NOTE | 2024-11-24 11:15 | W.PN.CARDCBS ---
Today's Communication / Plan
-
Echocardiogram okay
Stable cardiology status for discharge
Impression / Plan
-
PCP: Dr. Lowe
Agricultural Adviser: Dr. Burgos
Impression:
Admitted with chest pain and elevated troponin
Chest pain
Initial troponin 0.069 and then 0.072
CAD
s/p unstable WCT possibly SVT vs VT and NSTEMI, peak Troponin 1.81 10/24/24
CABG x4 DONOVAN to LAD, GSV to D2, GSV OM2, GSV to distal RCA at crux, ELAA 11/02/24
GSV of RLE explored for harvest, ultimately GSV LLE harvested 11/02/24
Possible left apical nodule on CT
Type 2 diabetes mellitus
Hyperglycemia
Hypertension
GERD
Peripheral neuropathy
History of thrombocytopenia
Dilated aortic root 4.3 cm in 2021 and 2024
Lexiscan sestamibi stress test 06/24/2024: Fixed basal inferior, mid inferior, apical inferior, basal inferolateral, basal anterolateral, and apical defect consistent with soft tissue attenuation, ejection fraction 40%
C 10/26/2024: LVEDP 8. Dominant right. Left main large and free of disease. LAD with long diffuse moderate to severe mid eccentric 90% stenosis. [id number] collaterals. D2 with ostial 60 to 70% stenosis and diffuse 70% stenosis in the
midportion. Left circumflex with mid 70% eccentric stenosis. OM1 with eccentric 70% stenosis. RCA with CONE OPERATOR 100% proximal with [id number]-peera collaterals.
Echo 06/15/2024: EF 55 to 60%, aortic sclerosis, dilated aortic root 4.3 cm
Echo 10/27/2024: EF 50%, mild MR, trace AR, trace TR, mildly dilated aortic root
Echo 11/23/2024: Ejection fraction normal, pleural effusions and small pericardial effusion, aorta measures 4.1 cm in ascending aorta
Plan:
Plan:
Troponin elevation thought to be non-[place] myocardial ischemia
Echocardiogram with normal EF
No signs or symptoms of CHF
Stable cardiology status for discharge
Discussed with primary service
PREADMIT DATA
-Patient presents to the ER today with chest pain and cardiology has been consulted for elevated troponin. Patient was just admitted from 10/24/2024 until 11/08/2024 for NSTEMI. On admission the patient had an unstable wide-complex tachycardia that
was concerning for SVT with aberrancy or possibly VT. At that time he was cardioverted to sinus rhythm and started on amiodarone. Despite a recently negative stress test in June the troponin peaked at 1.81 and so patient underwent cardiac cath
and was found to have MV CAD. Patient had CABG on 11/02/2024 as detailed above. Patient returns to the ER now with chest pain that started today. Patient describes chest pain that is mostly right-sided and started this morning. Pain is worse with
a deep inspiration, but not necessarily worse with laying down versus sitting up. In the ER patient had RUQ pain, but no abnormalities in his LFTs. He denies any N/V/D. He thinks overall the pain feels somewhat similar to what he had prior to
CABG.
Progress Note - Agricultural Adviser
Subjective
Date of Service: November 24, 2024
No complaints.
Objective
Labs:
11/24/24 08:19
11/24/24 08:19
Labs
Hgb 10.4 g/dL (13.0-18.0) L 11/24/24 08:19
Hct 31.0 % (39.0-52.0) L 11/24/24 08:19
Plt Count 128 10^3/uL (130-400) L 11/24/24 08:19
PT 13.9 Sec (11.4-14.6) 11/23/24 11:33
INR 1.04 11/23/24 11:33
APTT 41.1 Sec (23.4-35.0) H 11/24/24 08:19
Sodium 136 mmol/L (135-145) 11/24/24 08:19
Potassium 4.5 mmol/L (3.5-5.1) 11/24/24 08:19
BUN 15 mg/dl (9-20) 11/24/24 08:19
Creatinine 1.0 mg/dL (0.7-1.3) 11/24/24 08:19
Glucose 118 mg/dl (70-99) H 11/24/24 08:19
Troponins
11/23/24 11/23/24 11/23/24
11:33 14:00 19:14
Troponin I 0.069 H* 0.072 H* Cancelled
11/23/24 11/23/24 11/24/24
21:49 22:14 00:48
Troponin I Cancelled Cancelled 0.076 H*
Vital Signs and I&O:
Vital Signs
Temp Pulse Resp BP Pulse Ox
98.4 F 72 18 123/58 95
11/24/24 11:00 11/24/24 11:00 11/24/24 11:00 11/24/24 11:00 11/24/24 11:00
Vital Signs
Temp Pulse Resp BP Pulse Ox
98.4 F 72 18 123/58 95
11/24/24 11:00 11/24/24 11:00 11/24/24 11:00 11/24/24 11:00 11/24/24 11:00
Intake & Output
11/22/24 11/23/24 11/24/24 11/25/24
06:59 06:59 06:59 06:59
Intake Total 240 / 240
Balance 240 / 240
Physical Exam
Physical Exam
General: Well developed, well nourished in NAD.
Neck: Supple, no JVD, HJR, carotids +2 B/L, no bruits bilaterally.
Heart: Non displaced PMI, RRR, no murmurs, No S3, S4, no rubs.
Lungs: Clear to auscultation bilaterally, no wheeze, rhonchi, rubs bilaterally,
normal expiratory phase.
Sternotomy scar well-healed
Extremities: No clubbing, cyanosis or edema bilaterally.
Neuro: Grossly nonfocal, awake, alert and oriented x3.
[2024-11-24 12:18] LABS: Glucose - Point of Care 167 mg/dl (70-99)
--- NOTE | 2024-11-24 12:34 | CM ---
CM met with patient who reports his spouse recently at [facility] in the ICU. Luis lives alone in a 2 story home with stair glide and elevator to 2nd floor, [employer]ORE FIL[employer] he reports being independent with adl's and ambulation, no dme.
He has 2 daughters in area that are very supportive.
Plan: Discharge to home when stable, no identified needs at this time.
[2024-11-24] MEDS: NOVOLOG FLEXPEN-LOW RESISTANCE 1 UNITS SC (12:56)
[2024-11-24 14:09] VITALS: BP 128/61
--- NOTE | 2024-11-24 15:05 | W.DCSUMMARY ---
Discharge Summary
Discharge Data
Date of Admission: 11/23/24
Date of Discharge: 11/24/24
-
Pending Results: No
Hospital Course
Discharging Physician : Toney Viramontes MD, Slime Crum MD
Disposition : Home
Primary care physician : Dr. Alva Lowe
Principal Discharge diagnosis : Chest/Abdominal Pain, Coronary Artery Disease status post Coronary Artery Bypass Grafting
Chronic Discharge diagnosis : [id number] Diabetes Mellitus, Seasonal Allergies, Hyperlipidemia, gastroesophageal reflux disease, Benign prostatic hyperplasia with lower urinary tract symptoms
Hospital Course : 79 year old male with PMH of Multivessel Coronary Artery Disease with NSTEMI, Essential HPN, Atrial fibrillation, seasonal Allergies, Chronic Thrombocytopenia with splenomegaly s/p BMB, colon Polyps, and NIDDM presents to the ED
for abdominal pain/chest pain. Eight hours prior to admission, the patient was getting dressed when he experienced a sudden onset of left upper quadrant abdominal pain, described as continuous, dull, and severe (11/18), radiating to the left shoulder
and associated with difficulty breathing. He reports the pain was similar to that experienced during a previous admission where he was diagnosed with Multivessel CAD with NSTEMI. He denies nausea, vomiting, changes in appetite or fever. He has
chronic constipation, but no recent changes in bowel movement.
Notably, the patient is status post four-vessel CABG on 11/06/2024, which was complicated by hematuria, atrial fibrillation, hypotension, thrombocytopenia, and expected acute postoperative blood loss anemia. He was in discharged from prior
hospitalization to [facility], and recently discharged from there on 11/18/2024.
At the ED, area under the right rib was extremely tender to touch with guarding noted. NT-proBN -1400, Troponin was trended, 0.069, 0.072. IV heparin started. Venous Doppler also obtained as patient had right lower extremity pain, swelling, as well
as to rule out thrombus, test remarked no thrombus found. Given the patient's presentation and recent surgery and similar pain. He was admitted for further evaluation.
The following problems were addressed during this hospitalization:
#Chest/Right upper abdominal pain
#Shoulder pain
The following test/studies were considered for this problem:
RLE Ultrasound: (-) DVT, 3.9 cm soft tissue hematoma in medial right thigh
Chest x ray: small bilateral pleural effusion, mild subsegmental atelectasis and scaring basilar segments of the lower . Recent CABG surgery and left atrial appendage exclusion.
ECG: NORMAL SINUS RHYTHM
Abdominal ultrasound: splenomegaly, small bilateral pleural effusions, trace ascites
ECHO: EF: 50%, Small pericardial effusion, bilateral pleural effusion
Lipase: 74
CBC: WBC: 3.6
Troponin: 0.069-> 0.072->0.0.76, NT-proBNP- 1400
LFT normal
The patient was admitted to telemetry and continued on a Heparin drip and pain management. The patient was placed on NPO status for possible cardiac catheterization. Echocardiogram revealed an ejection fraction (EF) of 50%, bilateral pleural
effusions, and a small pericardial effusion. Cardiology evaluated the patient and determined that the pain was most likely due to postoperative musculoskeletal causes. Therefore, cardiac catheterization was deemed not appropriate at this time. It
was also recommended to initiate Plavix, which had been previously deferred due to thrombocytopenia, now resolved. Continued cardiac therapy, and incentive spirometer as outpatient. Outpatient follow up with cardiology schedule.
To note, most recent Chest X Ray taken when patient was only able to do limited inspiration had noted a mild haziness in left lower lung field, not previously shown in chest x-ray taken the day prior. In correlation with patients clinical features,
it is unlikely to be pneumonia, but outpatient follow up with PCP for monitoring is recommended.
#Multivessel Coronary Artery Disease with NSTEMI s/p CABG x4
XIOMARA (11/02/24)- EF 60-65%, (-) regional motion abnormality, stage I diastolic dysfunction
-Aspirin continued, will add plavix as outpatient.
-Cardiology follow up in one month scheduled
#Atrial Fibrillation
-continued Amiodarone 20mg BID
-continued metoprolol succinate 25mg OD
#NIDDM
-metformin placed on hold
-Sliding insulin scale and Accuchecks
#Seasonal Allergies
-continued VULCANIZER cetirizine
#Hyperlipidemia
-continued ezetimibe OD
#Post-operative Pain
-continued cyclobenzaprine and gabapentin 100mg TID PRN
-methylprednisolone 4mg PRN placed on hold, will resume in outpatient.
#GERD
-continued PPI
#Constipation
-continued VULCANIZER senokot-S
#Benign prostatic hyperplasia with lower urinary tract symptoms
-continued VULCANIZER Tamsulosin PO OD
Important imaging findings :
Chest X-Ray (11/23/2024):
FINDINGS:
The previously visualized right upper extremity PICC line is been removed. There is evidence for a previous midline sternotomy, coronary artery bypass graft surgery, and left atrial appendage exclusion. The heart appears normal in size. There is
moderate tortuosity of the descending thoracic aorta. There is mild central distention of the pulmonary vasculature in both lungs. There is no evidence for acute pulmonary edema.
The trachea is midline. There is mild elevation of the right hemidiaphragm. There are small bilateral pleural effusions. There is a moderate amount of ground-glass opacity and increased interstitial markings in the basilar segments of both lower
lobes. There is no radiographic evidence for pneumothorax.
There is moderate to severe multilevel discogenic degenerative disease throughout the thoracic spine. There are large anterior vertebral body endplate osteophytes in the mid to lower thoracic spine. There is mild bilateral osteoarthritis of the
acromioclavicular joints.
There is no radiographic evidence for pneumoperitoneum or abnormal bowel dilatation in the upper abdomen.
IMPRESSION:
1. Small bilateral pleural effusions.
2. Mild subsegmental atelectasis and scarring in the basilar segments of the lower lobes.
3. Recent CABG surgery and left atrial appendage exclusion.
US Peripheral Venous, Right Lower Extremity(11/24/2024):
FINDINGS:
RIGHT LOWER EXTREMITY: The right common femoral, femoral, popliteal, peroneal, and posterior tibial veins are patent. There is no sonographic evidence for deep venous thrombosis.
There is an irregular shaped hypoechoic fluid collection consistent with a hematoma in the medial soft tissues of the right thigh at the site of previous greater saphenous vein harvest. The hematoma measures 3.9 x 2.9 x 1.5 cm in size and is wider
than tall with an orientation parallel to the skin surface. The margins of the hematoma or irregular in the hematoma demonstrates a combination of hypoechoic and intermediate echogenicity. There is a vein located along the deep margin of the
hematoma.
IMPRESSION:
1. No sonographic evidence for right lower extremity deep venous thrombosis.
2. 3.9 cm SOFT TISSUE HEMATOMA in the MEDIAL RIGHT THIGH.
Abdominal Ultrasound (11/23/2024):
FINDINGS:
LIVER: The liver measures up to 16.0 cm in length. The hepatic echotexture is homogeneous without focal lesion.
BILE DUCTS: No intrahepatic or extrahepatic biliary dilatation. The common bile duct measures 4 mm in diameter.
GALLBLADDER: No shadowing gallbladder calculus, abnormal gallbladder wall thickening, gallbladder distention, or pericholecystic fluid. The anterior gallbladder wall measures 2 mm in thickness. The sonographic Mast's sign was reportedly negative.
RETROPERITONEUM: The pancreas is incompletely visualized secondary to adjacent bowel gas. The imaged portions of the intra-abdominal inferior vena cava and abdominal aorta appear normal.
SPLEEN: The spleen is enlarged and measures 18.5 cm in length.
KIDNEYS: The right kidney measures 11.2 x 5.3 x 4.5 cm. The left kidney measures 12.1 x 4.8 x 4.5 cm. There is no hydronephrosis in either kidney. Multiple right renal cysts with the largest measuring approximately 3.1 cm in the midpole.
Trace abdominal ascites.
Small bilateral pleural effusions.
IMPRESSION:
No sonographic evidence for an acute abnormality of the abdomen.
Splenomegaly.
Trace abdominal ascites. Small bilateral pleural effusions.
Chest X-Ray (11/24/2024):
FINDINGS:
Lines and tubes: None.
Lungs: This film was taken during a limited inspiration. There is no pneumothorax. There is mild haziness of the left lower lung field concerning for developing pneumonia versus atelectasis. There are no pleural effusions.
Heart: The heart is top normal in size. There is postsurgical change of the sternum and mediastinum.
Osseous structures: Visualized osseous structures are within normal limits.
IMPRESSION:
New findings suggesting mild left lower lobe pneumonia versus findings due to limited inspiration.
Procedure findings :
ECHOCARDIOGRAM (11/24/2024):
PHYSICIAN INTERPRETATION
Left Ventricle:
Ejection fraction is 50% by visual assessment. There is mild concentric left ventricular hypertrophy. Normal LV diastolic function. Low-normal left ventricular systolic function. Post operative septal motion.
Right Ventricle:
The right ventricular systolic function is at the lower limits of normal.
Left Atrium:
Indexed left atrial volume is within normal range (15-34 ml/m2).
Right Atrium:
The right atrium is normal in size and structure. The inferior vena cava appears normal.
Interatrial Septum:
The interatrial septum appears normal and intact, with no evidence of interatrial shunting.
Aortic Valve:
Aortic valve is trileaflet and structurally normal. trace aortic regurgitation seen. Aortic sclerosis.
Mitral Valve:
Mitral valve opens normally. There is mild thickening of the mitral valve. mild to moderate mitral valve regurgitation.
Tricuspid Valve:
Mild tricuspid regurgitation. Estimated pulmonary artery pressure of 33 mmHg assuming a right atrial pressure of 3 mmHg.
Pulmonic Valve:
Pulmonic valve opens normally. Mild pulmonary valve regurgitation.
Pulmonary Artery:
Mildly dilated aorta. Aorta measures 4.0 cm at sinus of Valsalva and 4.1 cm in ascending aorta.
Aorta:
The aortic sinuses are mildly dilated. The ascending aorta is mildly dilated.
Pericardium:
A small pericardial effusion is present. Pleural effusion is seen on both the left and right sides.
Comparison To Previous Study:
Compared to a prior transthoracic echocardiogram study from 10/27/2024 There are bilateral pleural effusions and small pericardial effusion.
SUMMARY
1. Ejection fraction is 50% by visual assessment.
2. Small pericardial effusion is seen.
3. Compared to a prior transthoracic echocardiogram study from 10/27/2024 There are bilateral pleural effusions and small pericardial effusion.
4. Low-normal left ventricular systolic function. Post operative septal motion.
5. Mildly dilated aorta. Aorta measures 4.0 cm at sinus of Valsalva and 4.1 cm in ascending aorta.
6. Left and right pleural effusion is visualized.
7. Mild concentric left ventricular hypertrophy.
8. Mild to moderate mitral valve regurgitation
Discharge Plan
-
Patient Disposition: Home (Routine Discharge)
Discharge Diagnosis/Procedures: Chest/Abdominal Pain, Coronary Artery Disease status post Coronary Artery Bypass Grafting, [id number] diabetes mellitus, Seasonal Allergies, Hyperlipidemia, gastroesophageal reflux disease, Benign prostatic
hyperplasia with lower urinary tract symptoms
Condition: Good
Diet: Low Cholesterol and Diabetic, Carb Controlled
Activity: No strenuous activity
Additional Activity: For one month
Driving Restrictions: As prior to admission
Bathing Restrictions: OK to Shower
Other Services: Cardiac Rehab
Specialty Instructions: Weigh Daily- Call MD for wt gain/loss 3 lbs overnight/5 lbs in 1 week
Referrals:
Alva Lowe DO [Family Provider, Family Practice] - in less than 1 week
Additional Discharge Medication Instructions: Follow through with referrals from previous admission.
Recommend repeat CBC at discretion of cardiology to reevaluate platelet count as Plavix was started.
Recommend Incentive Spirometry
Continue with Cardiac Rehab plan
Start Plavix 75mg, 1 tablet by mouth once a day
Take amiodarone 200mg 1 tablet by mouth ONCE a day.
Continue other prior to admission medications as instructed.
Prescriptions:
New
amiodarone [Pacerone] 200 mg Tablet
200 mg PO DAILY Qty: 30 0RF
clopidogrel [Plavix] 75 mg tablet
75 mg PO DAILY Qty: 30 0RF
Continued
omeprazole 20 MG capsule,delayed release(DR/EC)
20 mg PO DAILY Qty: 0 0RF
Rx Instructions:
1-2 hours befor meds or food-or take at hs
aspirin 81 mg Tablet
81 mg PO DAILY
metformin 500 MG tablet
1,000 mg PO AMHS
multivitamin Tablet
1 tab PO DAILY
metoprolol succinate 25 mg Tablet Extended Release 24 Hr
25 mg PO DAILY 60 Days Qty: 60 0RF
ezetimibe 10 mg Tablet
10 mg PO DAILY 60 Days Qty: 60 0RF
guaifenesin 600 mg Tablet Extended Release 12hr
600 mg PO Q12 7 Days Qty: 14 0RF
sennosides-docusate sodium 8.6-50 mg Tablet
1 tab PO BIDPRN PRN (Reason: Constipation) Qty: 0 0RF
acetaminophen 325 mg Tablet
650 mg PO Q6HPRN PRN (Reason: mild pain,headache,temp >101F ) Qty: 0 0RF
cetirizine 10 mg Tablet
10 mg PO DAILY Qty: 0 0RF
tamsulosin 0.4 mg capsule
0.4 mg PO QPM
methylprednisolone 4 mg tablets,dose pack
4 mg PO PER PKG DIR PRN (Reason: muscle spasms/neuropathy)
cyclobenzaprine 5 mg tablet
5 mg PO TIDPRN PRN (Reason: muscle spasms)
gabapentin 100 mg Capsule
100 mg PO TIDPRN PRN (Reason: neuropathy)
Discontinued
amiodarone [Pacerone] 200 mg Tablet
200 mg PO BID 60 Days Qty: 120 0RF
Rx Instructions:
Take 200 mg twice a day for 14-days. Continue 20 mg daily starting 11/23/24.
Discharge Orders:
Discharge Patient (As Directed); Ordered 11/24/24
Ordered By: Toney Viramontes
Discharge Date and Time
Print Language: [place]
== END 2024-11-24 16:14 | disposition home or self-care (01) | DRG 281 ==
LOC: 3 WEST ACU 17:28
PROVIDERS: Nurse Practitioner Gerontology; Physician Assistant Medical; ADMITTING PHYSICIAN Internal Medicine; CONSULT PHYSICIAN Internal Medicine Cardiovascular Disease; EMERGENCY PHYSICIAN Emergency Medicine; FAMILY PHYSICIAN Family Medicine
DX: R07.9 Chest pain, unspecified (principal); I31.39 Other pericardial effusion (noninflammatory); I21.4 Non-ST elevation (NSTEMI) myocardial infarction; J90 Pleural effusion, not elsewhere classified; J98.11 Atelectasis; G89.18 Other acute postprocedural pain; R06.02 Shortness of breath; I25.10 Atherosclerotic heart disease of native coronary artery without angina pectoris; E11.65 Type 2 diabetes mellitus with hyperglycemia; E11.40 Type 2 diabetes mellitus with diabetic neuropathy, unspecified; I10 Essential (primary) hypertension; K21.9 Gastro-esophageal reflux disease without esophagitis; D69.6 Thrombocytopenia, unspecified; J30.2 Other seasonal allergic rhinitis; I48.91 Unspecified atrial fibrillation; K59.09 Other constipation; M19.012 Primary osteoarthritis, left shoulder; N28.1 Cyst of kidney, acquired; I70.0 Atherosclerosis of aorta; I34.0 Nonrheumatic mitral (valve) insufficiency; M19.011 Primary osteoarthritis, right shoulder; E78.5 Hyperlipidemia, unspecified; N40.1 Benign prostatic hyperplasia with lower urinary tract symptoms; Z60.2 Problems related to living alone; Z96.651 Presence of right artificial knee joint; Z82.49 Family history of ischemic heart disease and other diseases of the circulatory system; Z95.1 Presence of aortocoronary bypass graft; Z79.82 Long term (current) use of aspirin; Z79.84 Long term (current) use of oral hypoglycemic drugs; Z88.1 Allergy status to other antibiotic agents; Z91.014 Allergy to mammalian meats; Z88.8 Allergy status to other drugs, medicaments and biological substances; Z91.018 Allergy to other foods; Z86.0100 Personal history of colon polyps, unspecified; Z87.891 Personal history of nicotine dependence; Z79.899 Other long term (current) drug therapy; Z11.52 Encounter for screening for COVID-19
CPT/HCPCS: 71045; 71046; 76700; 80053; 82962; 83690; 83735; 83880; 84484; 85014; 85018; 85025; 85027; 85610; 85730; 87502; 87811; 93005; 93306; 93971; 96374; 96376; 99285

== ENCOUNTER → 2024-11-25 15:49 | Outpatient (REF) | payer MEDICARE, OTHER, SELFPAY | LOC: RAD 15:49 | PROVIDERS: ATTENDING PHYSICIAN Family Medicine | DX: R06.02 Shortness of breath (principal); R93.89 Abnormal findings on diagnostic imaging of other specified body structures | CPT/HCPCS: 71275; Q9967 ==

== ENCOUNTER → 2024-12-01 12:46 | Outpatient (REF) | payer MEDICARE, OTHER, SELFPAY | LOC: RAD 12:46 | PROVIDERS: ATTENDING PHYSICIAN Thoracic Surgery (Cardiothoracic Vascular Surgery) | DX: R07.89 Other chest pain (principal); Z95.1 Presence of aortocoronary bypass graft | CPT/HCPCS: 71046 ==

== ENCOUNTER 2024-12-08 17:49 | Outpatient (RCR) | payer MEDICARE, OTHER, SELFPAY ==
[2024-12-08 14:35] LABS: Glucose - Point of Care 164 mg/dl (70-99)
[2024-12-08 15:23] LABS: Glucose - Point of Care 116 mg/dl (70-99)
== END 2024-12-08 23:59 | disposition home or self-care (01) ==
LOC: CRHB 17:49
PROVIDERS: ATTENDING PHYSICIAN Internal Medicine Cardiovascular Disease
DX: Z95.1 Presence of aortocoronary bypass graft (principal); I25.2 Old myocardial infarction
CPT/HCPCS: 82962; G0422; G0423

== ENCOUNTER → 2025-01-08 11:25 | Outpatient (REF) | payer MEDICARE, OTHER, SELFPAY ==
[2025-01-08 13:00] LABS: Hematocrit 40.7 % (39.0-52.0); Hemoglobin 13.6 g/dL (13.0-18.0); Mean Corp Hgb Conc. 33.4 g/dL (33.0-37.0); Mean Corpuscular Volume 90.4 fL (80.0-94.0); Nucleated Red Blood Cells % 0 % (-); Platelet Count 128 10^3/uL (130-400); Red Cell Dist. Width 14.6 % (11.5-14.5)
[2025-01-08 13:44] LABS: ALT (SGPT) 14 U/L (0-50); AST (SGOT) 16 U/L (17-59); Albumin 4.8 g/dl (3.5-5.0); Alkaline Phosphatase 69 U/L (38-126); Blood Urea Nitrogen 25 mg/dl (9-20); Calcium 10.1 mg/dl (8.4-10.2); Carbon Dioxide 27 mmol/L (22-30); Chloride 100 mmol/L (98-107); Glucose 111 mg/dl (70-99); LDH 168 U/L (120-246); Potassium 5.1 mmol/L (3.5-5.1); Sodium 135 mmol/L (135-145); Total Protein 7.2 g/dl (6.3-8.2); eGFR > 60.00
== END ==
LOC: REG 11:25
PROVIDERS: ATTENDING PHYSICIAN Internal Medicine Hematology & Oncology; FAMILY PHYSICIAN Family Medicine
DX: D72.819 Decreased white blood cell count, unspecified (principal); D64.9 Anemia, unspecified; D53.9 Nutritional anemia, unspecified; C83.07 Small cell B-cell lymphoma, spleen
CPT/HCPCS: 36415; 80053; 83615; 85025; 85652; 86038; 86225; 86430

== ENCOUNTER 2025-01-08 16:08 | Outpatient (RCR) | payer MEDICARE, OTHER, SELFPAY ==
[2024-12-09 14:51] LABS: Glucose - Point of Care 208 mg/dl (70-99)
[2024-12-09 15:39] LABS: Glucose - Point of Care 153 mg/dl (70-99)
[2024-12-11 14:44] LABS: Glucose - Point of Care 135 mg/dl (70-99)
[2024-12-11 15:30] LABS: Glucose - Point of Care 113 mg/dl (70-99)
[2024-12-14 15:00] LABS: Glucose - Point of Care 180 mg/dl (70-99)
[2024-12-14 15:57] LABS: Glucose - Point of Care 150 mg/dl (70-99)
[2024-12-16 15:01] LABS: Glucose - Point of Care 220 mg/dl (70-99)
[2024-12-16 15:57] LABS: Glucose - Point of Care 152 mg/dl (70-99)
[2024-12-18 14:37] LABS: Glucose - Point of Care 231 mg/dl (70-99)
[2024-12-18 15:37] LABS: Glucose - Point of Care 115 mg/dl (70-99)
== END 2025-01-08 23:59 | disposition home or self-care (01) ==
LOC: CRHB 16:08
PROVIDERS: ATTENDING PHYSICIAN Internal Medicine Cardiovascular Disease
DX: I25.10 Atherosclerotic heart disease of native coronary artery without angina pectoris (principal); Z95.1 Presence of aortocoronary bypass graft; I25.2 Old myocardial infarction
CPT/HCPCS: 82962; G0422; G0423

== ENCOUNTER → 2025-02-03 10:41 | Outpatient (REF) | payer MEDICARE, OTHER, SELFPAY ==
[2025-02-03 12:05] LABS: Hematocrit 40.0 % (39.0-52.0); Hemoglobin 13.4 g/dL (13.0-18.0); Mean Corp Hgb Conc. 33.5 g/dL (33.0-37.0); Mean Corpuscular Volume 88.9 fL (80.0-94.0); Nucleated Red Blood Cells % 0 % (-); Platelet Count 100 10^3/uL (130-400); Red Cell Dist. Width 15.5 % (11.5-14.5)
[2025-02-03 12:51] LABS: ALT (SGPT) 15 U/L (0-50); AST (SGOT) 17 U/L (17-59); Albumin 4.5 g/dl (3.5-5.0); Alkaline Phosphatase 65 U/L (38-126); Blood Urea Nitrogen 23 mg/dl (9-20); Calcium 9.5 mg/dl (8.4-10.2); Carbon Dioxide 26 mmol/L (22-30); Chloride 103 mmol/L (98-107); Glucose 110 mg/dl (70-99); HDL Cholesterol 34 mg/dl; LDL Cholesterol, Calculated 55 mg/dl; Potassium 4.7 mmol/L (3.5-5.1); Sodium 136 mmol/L (135-145); Total Protein 6.7 g/dl (6.3-8.2); Very Low Density Lipoprotein 23 mg/dl (0-30); eGFR > 60.00
[2025-02-03 13:14] LABS: PSA, Total - Screen 4.52 ng/ml (0.0-4.0)
[2025-02-03 13:23] LABS: Glycohemoglobin (HgbA1c) 5.5 % (4.0-5.9)
== END ==
LOC: REG 10:41
PROVIDERS: ATTENDING PHYSICIAN Family Medicine
DX: E11.8 Type 2 diabetes mellitus with unspecified complications (principal); I10 Essential (primary) hypertension; E78.00 Pure hypercholesterolemia, unspecified; N40.0 Benign prostatic hyperplasia without lower urinary tract symptoms; Z12.5 Encounter for screening for malignant neoplasm of prostate
CPT/HCPCS: 36415; 80053; 80061; 83036; 85025; G0103

== ENCOUNTER 2025-02-05 15:22 | Outpatient (RCR) | payer MEDICARE, OTHER, SELFPAY | END 2025-02-05 23:59 | disposition home or self-care (01) | LOC: CRHB 15:22 | PROVIDERS: ATTENDING PHYSICIAN Internal Medicine Cardiovascular Disease; FAMILY PHYSICIAN Family Medicine | DX: I25.10 Atherosclerotic heart disease of native coronary artery without angina pectoris (principal); I25.2 Old myocardial infarction (principal); Z95.1 Presence of aortocoronary bypass graft | CPT/HCPCS: G0422; G0423 ==

== ENCOUNTER 2025-02-26 15:36 | Outpatient (RCR) | payer MEDICARE, OTHER, SELFPAY | END 2025-03-09 13:14 | disposition home or self-care (01) | LOC: CRHB 15:36 | PROVIDERS: ATTENDING PHYSICIAN Internal Medicine Cardiovascular Disease; FAMILY PHYSICIAN Family Medicine | DX: Z95.1 Presence of aortocoronary bypass graft (principal); I25.2 Old myocardial infarction | CPT/HCPCS: 93798; G0422; G0423 ==